=== PATIENT | female | born 1955 | race Caucasian/White ===

== ENCOUNTER 2021-01-16 09:16 | Emergency (ER) | payer OTHER, SELFPAY ==
[2021-01-16] VITALS (8 sets, daily range): BP systolic 95–106; BP diastolic 43–56; PULSE 69–80; RESP 14–17; TEMP 36.7–36.8; O2SAT 95–99; BMI 25.1
--- NOTE | ~2021-01-16 | CT_ITS ---
EXAMINATION: CTA CHEST CT ABDOMEN AND PELVIS WITH CONTRAST CLINICAL INFORMATION: Syncope. Positive COVID virus. COMPARISON: None TECHNIQUE: 5 mm thin axial and reformatted 3 mm thin sagittal and coronal images of chest were obtained. In addition, 8 mm triplanar thick cuts were obtained. 5 mm thin axial and reformatted 3 mm thin sagittal and coronal images of abdomen and pelvis were obtained following IV contrast. DLP 930 mGy-cm FINDINGS: CHEST: There is good opacification of pulmonary artery and its branches without any evidence of PE or narrowing. The thoracic aorta is of normal caliber. No dissection or aneurysm seen. The heart size is normal. No pericardial effusion seen. No abnormal size mediastinal mass or lymph nodes visualized. The thyroid lobes are symmetrical and normal. There is bilateral apical parenchymal scarring and apical pleural thickening. The lungs are otherwise clear of acute pneumonic process. There is no pulmonary nodule, consolidation or ground-glass density. There is dependent bibasilar atelectasis. No pleural effusion, thickening, calcification, or pneumothorax. The axillae and the chest wall appear unremarkable. There are median sternotomy sutures from previous intervention. ABDOMEN AND PELVIS: The liver is mildly attenuated without any hepatomegaly, focal lesion or intrahepatic duct dilatation. The gallbladder appears unremarkable. Visualized spleen, pancreas and adrenal glands are unremarkable. Nephrograms are normal size, shape and position. There are no radiopaque renal calculi or hydronephrosis. There is a 1.1 cm cyst and a punctate 3 mm cyst upper pole cortex right kidney. Similarly, there is a small 3 mm punctate cyst in the mid to lower pole left kidney. There are bilateral extrarenal kidney pelvises. The abdominal aorta is normal caliber. There are no retroperitoneal lymph nodes or mass seen. The bowel gas pattern is nonspecific with scattered stool and diverticula seen throughout the colon. The small bowel loops are normal caliber. No inflammatory process seen in the abdomen. There is no abdominal wall hernia. Imaging through the pelvis reveals a low-lying cecum. A tubular structure is seen arising from the tip of the cecum on coronal projection, a normal appendix. There is no free fluid or free air. Bone windows reveal minimal levoscoliosis. There are degenerative disc changes L2-L3 and L5-S1 disc levels with vacuum disc phenomena. No lytic or sclerotic process seen. CT/CT angio chest PE protocol IMPRESSION: No evidence of PE. No evidence of aortic dissection or aneurysm. Bilateral apical pleural thickening and apical scarring. No acute process. Bilateral renal cysts. No radiopaque calculi or hydronephrosis. Mild constipation. Diffuse colonic diverticulosis without diverticulitis. No obstruction. Normal appendix. Mild fatty attenuation of liver. No focal lesion seen.
--- NOTE | 2021-01-16 10:02 | ECG_ITS ---
Test Reason : SYNCOPE Blood Pressure : / mmHG Vent. Rate : 074 BPM Atrial Rate : 074 BPM P-R Int : 128 ms QRS Dur : 088 ms QT Int : 394 ms P-R-T Axes : 016 037 083 degrees QTc Int : 437 ms Normal sinus rhythm T wave abnormality, consider anterior ischemia Abnormal ECG No previous ECGs available Referred By: Alyssa Caruso Electronically Signed By:Jose Sutherland
--- NOTE | 2021-01-16 10:08 | ED_ITS ---
HPI - Nausea/Vomiting/Diarrhea General Chief complaint: Syncope Stated complaint: VOMITING, WEAKNESS Time Seen by Provider: 01/16/21 10:01 Source: patient Mode of arrival: ambulatory Limitations: no limitations History of Present Illness HPI Narrative: 65 yo female with afib no AC therapy here with n/v/d x [address] dental cleaning - more weak every day and c/o syncopal event without trauma due to weakness today MD elicited complaint: nausea, vomiting, diarrhea and abdominal pain Pertinent past history: other (started after dental cleaning) Onset (ago): day(s) (2) Associated nausea: Yes Associated abdominal pain: Yes Location of pain: diffuse Radiation: diffuse Pain consistency: intermittent Severity: moderate Quality: cramping Exacerbating factors: none Relieving factors: none Associated symptoms: loss of appetite, malaise, nausea/vomiting, syncope and weakness Related Data Home Medications Medication Instructions Recorded Confirmed albuterol sulfate 90 mcg/actuation 2 puff INHALATION Q4-6H PRN 11/11/20 01/16/21 aerosol inhaler aspirin 81 mg tablet,delayed 81 mg PO DAILY 11/11/20 01/16/21 release calcium carbonate 600 mg (1,500 1 tab PO DAILY 11/11/20 01/16/21 mg)-vitamin D3 200 unit tablet cyanocobalamin (vitamin B-12) 1,000 mcg PO DAILY 11/11/20 01/16/21 1,000 mcg capsule folic acid 800 mcg tablet 0.8 mg PO DAILY 11/11/20 01/16/21 zinc 50 mg tablet 50 mg PO DAILY 11/11/20 01/16/21 Previous Rx's Medication Instructions Recorded ondansetron 4 mg PO Q8H PRN #20 tab 01/16/21 Allergies Allergy/AdvReac Type Severity Reaction Status Date / Time acetaminophen [Percocet] Allergy Unknown stomach Verified 10/28/20 06:46 upset oxycodone [Percocet] Allergy Unknown stomach Verified 10/28/20 06:46 upset pneumococcal vaccine Allergy Unknown Unknown Verified 10/28/20 06:46 Review of Systems Review of Systems: Constitutional : No Weight loss, No Fever, No Chills ENT/Mouth : No sore throat, No Rhinorrhea Eyes: No Swelling, No Redness Cardiovascular : No Chest Pain, No SOB, NoEdema Respiratory : No Cough, No Sputum, No Wheezing Gastrointestinal : Positive Nausea, Positive Vomiting, positive Diarrhea, positive abdominal Pain, No Hematochezia, No Melena Genitourinary : No Dysuria, No Urinary Frequency, No Hematuria, No Urgency Musculoskeletal : No joint pain, No Myalgias, No Joint Swelling Skin : No Skin Lesions, No rash Neuro : pos Weakness, No Numbness, No Dizziness, No Headache, pos syncope Psych : No Anxiety/Panic, No Depression Heme/Lymph: No Bruising, No Lymphadenopathy Endocrine : No Polyuria, No Polydipsia All other systems reviewed and are negative. Gastrointestinal: Gastrointestinal: Reports nausea PMFSH Past Medical History Attestation statement: The following information was validated with the patient. Medical History Asthma Atrial fibrillation Osteoporosis Vitamin D deficiency Surgical History History of hysterectomy History of left knee surgery History of tonsillectomy Hx of mitral valve repair Family History Family History (Updated 10/28/20 @ 07:03 by Lashawn Angel Christal) Father Melanoma Mother No problems noted. Maternal Aunt Breast cancer Brother Myasthenia gravis Social History Social History Alcohol intake: never Smoking Status: Never smoker Use of substances other than those prescribed or required for medical reasons: No Advance Directives: No Advance Directives Information Provided: Yes Physical Exam Vital Signs: Vital Signs: Last Vital Signs Temp 98.0 F 01/16/21 13:09 Pulse 75 01/16/21 15:54 Resp 17 01/16/21 15:54 BP 103/56 L 01/16/21 15:54 Pulse Ox 95 01/16/21 15:54 Body Mass Index 25.1 Appearance: Alert. Oriented X3. No acute distress. Eyes: Pupils equal, round and reactive to light. ENT: Pharynx dry MMM Neck: Normal inspection. Neck supple. CVS: Normal heart rate and rhythm. Pulses normal. Respiratory: No respiratory distress. Breath sounds normal. Abdomen: Soft and mild diffuse ttp no rebound or guarding Skin: Skin warm and dry. Normal skin color. Normal skin turgor. Extremities: No lower extremity edema. No calf ttp Neuro: Oriented X 3. No motor deficit. No sensory deficit. Course Course Course Narrative: T wave inversions present from 2016 from [facility] EKG given sycnope and COVID will r/o PE with CTA able to tolerate PO and strong gait, feels much better stable for DC MDM - Nausea/Vomiting/Diarrhea MDM Narrative Medical decision making narrative: 65 yo female with hx of afib and MVR but not on AC therapy noted she had dental cleaning with some new product (tasted bad) doesn't know the name but not antibiotic, that night she developed n/v and inability to eat, she developed diarrhea yesterday and today, she is feeling more weak as well as was in shower today and felt weak and syncopized denies trauma, at this time will need labs, CT scan for colitis, IVF x 2, zofran, EKG, no CP/SOB to suggest ACS or PE, no head injury to suggest ICH Lab Data Result diagrams: 01/16/21 10:39 01/16/21 10:39 Labs: Lab Results 01/16/21 01/16/21 01/16/21 Range/Units 10:39 10:39 10:39 WBC 7.2 (4.8-10.8) X10*3/uL RBC 4.61 (4.20-5.50) X10*6/uL Hgb 14.7 (12.0-16.0) g/dl Hct 44.9 (37-47) % MCV 97.4 (80-98) fL MCH 31.9 (27.0-33.0) pg MCHC 32.7 (31.0-35.0) g/dl RDW 12.2 (11.0-16.0) % Plt Count 124 L (160-400) X10*3/uL MPV 11.8 (9.4-12.3) fL Immature Gran % (Auto) 0.1 (0.0-0.4) % Neut % (Auto) 85.9 H (45-73) % Lymph % (Auto) 6.5 L (20-40) % [place] % (Auto) 7.5 (2-11) % Eos % (Auto) 0.0 (0-4) % Baso % (Auto) 0.0 (0-2) % Lymph # (Auto) 0.5 L (1.2-4.9) X10*3/uL [place] # (Auto) 0.5 (0.1-1.2) X10*3/uL Eos # (Auto) 0.0 (0.0-0.4) X10*3/uL Baso # (Auto) 0.0 (0.0-0.2) X10*3/uL Abs Immat Gran (auto) 0.01 (0.00-0.03) X10*3/uL Absolute Neuts (auto) 6.2 (2.0-8.3) X10*3/uL Absolute Nucleated RBC 0.000 (0.0-0.012) X10*3/uL Nucleated RBC % (auto) 0.0 (0.0-0.2) /100WBC Smear Tech's Comments VERIFIED D-Dimer 438 NG/ML Hold Blue Top SEE NOTE Sodium 137 (135-145) mmol/L Potassium 4.1 (3.3-5.1) mmol/L Chloride 101 (96-108) mmol/L Carbon Dioxide 27 (22-29) mmol/L Anion Gap 13 (12-20) BUN 20 H (9-16) mg/dL Creatinine 0.89 (0.5-1.4) mg/dL Estim Creat Clear Calc 64.1 Estimated GFR > 60 Random Glucose 162 H (60-115) mg/dL Lactic Acid (0.5-2.0) mmol/L Calcium 9.0 (8.4-10.2) mg/dL Magnesium 2.1 (1.6-2.6) mg/dL Total Bilirubin 0.7 (0.0-1.0) mg/dL Direct Bilirubin 0.3 (0.0-0.5) mg/dL AST 22 (5-31) U/L ALT 21 (0-31) U/L Alkaline Phosphatase 77 (39-117) U/L Troponin I High Sens (<3.5-17.0) ng/L Total Protein 6.6 (6.5-8.0) g/dL Albumin 4.1 (3.5-5.0) g/dL Lipase 83 H (8-78) U/L Urine Color Urine Appearance Urine pH (5.0-8.0) Ur Specific [place] (1.005-1.025) Urine Protein (NEG-TRACE) MG/DL Urine Glucose (UA) (NEG) MG/DL Urine Ketones (NEG) MG/DL Urine Blood (NEG) Urine Nitrite (NEG) Ur Leukocyte Esterase (NEG) Urine RBC (0) /HPF Urine WBC (0-4) /HPF Ur Squamous Epith Cells /LPF Urine Bacteria /LPF COVID-19 (MAX) (Negative) COVID-19 Clin Com 01/16/21 01/16/21 01/16/21 Range/Units 10:39 10:39 10:39 WBC (4.8-10.8) X10*3/uL RBC (4.20-5.50) X10*6/uL Hgb (12.0-16.0) g/dl Hct (37-47) % MCV (80-98) fL MCH (27.0-33.0) pg MCHC (31.0-35.0) g/dl RDW (11.0-16.0) % Plt Count (160-400) X10*3/uL MPV (9.4-12.3) fL Immature Gran % (Auto) (0.0-0.4) % Neut % (Auto) (45-73) % Lymph % (Auto) (20-40) % [place] % (Auto) (2-11) % Eos % (Auto) (0-4) % Baso % (Auto) (0-2) % Lymph # (Auto) (1.2-4.9) X10*3/uL [place] # (Auto) (0.1-1.2) X10*3/uL Eos # (Auto) (0.0-0.4) X10*3/uL Baso # (Auto) (0.0-0.2) X10*3/uL Abs Immat Gran (auto) (0.00-0.03) X10*3/uL Absolute Neuts (auto) (2.0-8.3) X10*3/uL Absolute Nucleated RBC (0.0-0.012) X10*3/uL Nucleated RBC % (auto) (0.0-0.2) /100WBC Smear Tech's Comments D-Dimer NG/ML Hold Blue Top Sodium (135-145) mmol/L Potassium (3.3-5.1) mmol/L Chloride (96-108) mmol/L Carbon Dioxide (22-29) mmol/L Anion Gap (12-20) BUN (9-16) mg/dL Creatinine (0.5-1.4) mg/dL Estim Creat Clear Calc Estimated GFR Random Glucose (60-115) mg/dL Lactic Acid 1.5 (0.5-2.0) mmol/L Calcium (8.4-10.2) mg/dL Magnesium (1.6-2.6) mg/dL Total Bilirubin (0.0-1.0) mg/dL Direct Bilirubin (0.0-0.5) mg/dL AST (5-31) U/L ALT (0-31) U/L Alkaline Phosphatase (39-117) U/L Troponin I High Sens 6.9 (<3.5-17.0) ng/L Total Protein (6.5-8.0) g/dL Albumin (3.5-5.0) g/dL Lipase (8-78) U/L Urine Color Urine Appearance Urine pH (5.0-8.0) Ur Specific [place]owell (1.005-1.025) Urine Protein (NEG-TRACE) MG/DL Urine Glucose (UA) (NEG) MG/DL Urine Ketones (NEG) MG/DL Urine Blood (NEG) Urine Nitrite (NEG) Ur Leukocyte Esterase (NEG) Urine RBC (0) /HPF Urine WBC (0-4) /HPF Ur Squamous Epith Cells /LPF Urine Bacteria /LPF COVID-19 (MAX) Positive A (Negative) COVID-19 Clin Com See Note 01/16/21 Range/Units 13:13 WBC (4.8-10.8) X10*3/uL RBC (4.20-5.50) X10*6/uL Hgb (12.0-16.0) g/dl Hct (37-47) % MCV (80-98) fL MCH (27.0-33.0) pg MCHC (31.0-35.0) g/dl RDW (11.0-16.0) % Plt Count (160-400) X10*3/uL MPV (9.4-12.3) fL Immature Gran % (Auto) (0.0-0.4) % Neut % (Auto) (45-73) % Lymph % (Auto) (20-40) % [place] % (Auto) (2-11) % Eos % (Auto) (0-4) % Baso % (Auto) (0-2) % Lymph # (Auto) (1.2-4.9) X10*3/uL [place] # (Auto) (0.1-1.2) X10*3/uL Eos # (Auto) (0.0-0.4) X10*3/uL Baso # (Auto) (0.0-0.2) X10*3/uL Abs Immat Gran (auto) (0.00-0.03) X10*3/uL Absolute Neuts (auto) (2.0-8.3) X10*3/uL Absolute Nucleated RBC (0.0-0.012) X10*3/uL Nucleated RBC % (auto) (0.0-0.2) /100WBC Smear Tech's Comments D-Dimer NG/ML Hold Blue Top Sodium (135-145) mmol/L Potassium (3.3-5.1) mmol/L Chloride (96-108) mmol/L Carbon Dioxide (22-29) mmol/L Anion Gap (12-20) BUN (9-16) mg/dL Creatinine (0.5-1.4) mg/dL Estim Creat Clear Calc Estimated GFR Random Glucose (60-115) mg/dL Lactic Acid (0.5-2.0) mmol/L Calcium (8.4-10.2) mg/dL Magnesium (1.6-2.6) mg/dL Total Bilirubin (0.0-1.0) mg/dL Direct Bilirubin (0.0-0.5) mg/dL AST (5-31) U/L ALT (0-31) U/L Alkaline Phosphatase (39-117) U/L Troponin I High Sens (<3.5-17.0) ng/L Total Protein (6.5-8.0) g/dL Albumin (3.5-5.0) g/dL Lipase (8-78) U/L Urine Color YELLOW Urine Appearance CLEAR Urine pH 5.5 (5.0-8.0) Ur Specific Stowell 1.010 (1.005-1.025) Urine Protein NEG (NEG-TRACE) MG/DL Urine Glucose (UA) NEG (NEG) MG/DL Urine Ketones 5 (NEG) MG/DL Urine Blood TRACE (NEG) Urine Nitrite NEG (NEG) Ur Leukocyte Esterase NEG (NEG) Urine RBC 1-4 (0) /HPF Urine WBC 0 (0-4) /HPF Ur Squamous Epith Cells 2+ /LPF Urine Bacteria NONE /LPF COVID-19 (MAX) (Negative) COVID-19 Clin Com ECG Data Attestation: I personally reviewed and interpreted this ECG as follows: ECG interpretation date: 01/16/21 ECG interpretation time: 10:27 Interpretation: Rate: 74 Rhythm: NSR [place]: normal Normal P waves. Normal SKY. Normal QRS complex. ST T wave : inverted V1-V5, no GAEL qTC: normal prior studies: none available The study has been interpreted contemporaneously by me. . Discharge Plan Discharge Clinical Impression: COVID-19, Orthostatic hypotension Vomiting Qualifiers: Vomiting type: unspecified Vomiting Intractability: non-intractable Nausea presence: with nausea Qualified Code(s): R11.2 - Nausea with vomiting, unspecified Patient Disposition: Home, Self-Care Instructions: Syncope (ED), Acute Nausea and Vomiting (ED), Hypotension (ED), COVID-19 (Coronavirus Disease 2019) (ED) Additional Instructions: return to ED for any worsening symptoms or concerns STAY HYDRATED Prescriptions: New ondansetron 4 mg tablet,disintegrating 4 mg PO Q8H PRN (Reason: nausea and vomiting) Qty: 20 RF: 0 No Action calcium carbonate-vitamin D3 [Calcium 600 + D(3)] 600 mg(1,500mg) -200 unit tablet 1 tab PO DAILY RF: 0 cyanocobalamin (vitamin B-12) 1,000 mcg capsule 1,000 mcg PO DAILY RF: 0 folic acid 800 mcg tablet 0.8 mg PO DAILY RF: 0 albuterol sulfate [ProAir HFA] 90 mcg/actuation HFA aerosol inhaler 2 puff inhalation Q4-6H PRN (Reason: Wheezing) RF: 0 aspirin [Adult Aspirin Regimen] 81 mg tablet,delayed release (DR/EC) 81 mg PO DAILY RF: 0 zinc 50 mg tablet 50 mg PO DAILY RF: 0 Stand Alone Forms: Work/School Release
[2021-01-16 10:52] LABS: Imm Gran Abs Auto 0.01 X10*3/uL (0.00-0.03); Imm Gran Pct Auto 0.1 % (0.0-0.4); MANUAL DIFF FLAG SCAN; PLT CLUMP 1; Red Cell Distribution Width 12.2 % (11.0-16.0); SCAN SMEAR FLAG 1
[2021-01-16 10:54] LABS: Hematocrit 44.9 % (37-47); Hemoglobin 14.7 g/dl (12.0-16.0); Lymphocytes Absolute Auto 0.5 X10*3/uL (1.2-4.9); Lymphocytes Percent Auto 6.5 % (20-40); Mean Corpuscular HGB Conc 32.7 g/dl (31.0-35.0); Mean Corpuscular Hemoglobin 31.9 pg (27.0-33.0); Mean Corpuscular Volume 97.4 fL (80-98); Mean Platelet Volume 11.8 fL (9.4-12.3); Monocytes Absolute Auto 0.5 X10*3/uL (0.1-1.2); Monocytes Percent Auto 7.5 % (2-11); Neutrophils Absolute Auto 6.2 X10*3/uL (2.0-8.3); Neutrophils Percent Auto 85.9 % (45-73); Platelet Count 124 X10*3/uL (160-400); Red Blood Count 4.61 X10*6/uL (4.20-5.50); White Blood Count 7.2 X10*3/uL (4.8-10.8)
[2021-01-16] MEDS: ondansetron HCL 4 MG/2 ML VIAL IVPUSH (10:54)
[2021-01-16] MEDS: 0.9 % Sodium Chloride 1,000 ML 999 ML IVCONT ×2 (10:54)
[2021-01-16 11:08] LABS: D Dimer 438 NG/ML
[2021-01-16 11:09] LABS: Lactic Acid 1.5 mmol/L (0.5-2.0)
[2021-01-16 11:10] LABS: COVID-19 Test Positive (Negative)
[2021-01-16 11:12] LABS: SLIDE REVIEW VERIFIED
[2021-01-16 11:17] LABS: Alanine Aminotransferase 21 U/L (0-31); Albumin Level 4.1 g/dL (3.5-5.0); Alkaline Phosphatase 77 U/L (39-117); Anion Gap 13 (12-20); Aspartate Amino Transferase 22 U/L (5-31); Bilirubin Direct 0.3 mg/dL (0.0-0.5); Bilirubin Total 0.7 mg/dL (0.0-1.0); Blood Urea Nitrogen 20 mg/dL (9-16); Carbon Dioxide 27 mmol/L (22-29); Chloride 101 mmol/L (96-108); Creatinine Clr Calc Pharmacy 64.1; Estimated Glomerular Filt Rate > 60; Glucose Random 162 mg/dL (60-115); Magnesium 2.1 mg/dL (1.6-2.6); Potassium 4.1 mmol/L (3.3-5.1); Sodium 137 mmol/L (135-145); Total Protein 6.6 g/dL (6.5-8.0)
[2021-01-16 11:20] LABS: Troponin-I High Sensitivity 6.9 ng/L (<3.5-17.0)
[2021-01-16 11:34] LABS: Lipase 83 U/L (8-78)
[2021-01-16] MEDS: iohexoL 350 MG/ML 100 ML INFUS..BTL IV (13:08)
[2021-01-16 13:24] LABS: Glucose Urine UA NEG (NEG); Leukocyte Esterase Urine NEG (NEG); Nitrite Urine NEG (NEG); PH 5.5 (5.0-8.0); Urine Blood TRACE (NEG); Urine Ketones 5 MG/DL (NEG); Urine Protein NEG (NEG-TRACE)
[2021-01-16 13:26] LABS: Appearance Urine CLEAR; Color Urine YELLOW
[2021-01-16 13:39] LABS: Squamous Epithelial Cell Urine 2+ /LPF; WBC Urine 0 /HPF (0-4)
--- NOTE | 2021-01-16 15:55 | PC.NURSE ---
pt ambulatory in room with steady gait. She denies dizziness with rising or ambulation
== END 2021-01-16 16:31 | disposition home or self-care (01) ==
PROVIDERS: Emergency Provider Emergency Medicine; PCP Internal Medicine
DX: U07.1 COVID-19 (principal); I95.1 Orthostatic hypotension; R11.2 Nausea with vomiting, unspecified; J45.909 Unspecified asthma, uncomplicated; I48.0 Paroxysmal atrial fibrillation; Z95.4 Presence of other heart-valve replacement; Z79.82 Long term (current) use of aspirin; Z79.899 Other long term (current) drug therapy
CPT/HCPCS: 36415; 71275; 74177; 80048; 80076; 81001; 83605; 83690; 83735; 84484; 85025; 85379; 87040; 87635; 93005; 96361; 96374; 99284; 99285; J2405; Q9967

== ENCOUNTER 2021-01-17 19:36 | Inpatient (IN) | payer OTHER, MEDICARE, SELFPAY ==
--- NOTE | ~2021-01-17 | XR_ITS ---
EXAMINATION: XR CHEST CLINICAL INFORMATION: Shortness of breath. Covid positive. COMPARISON: Chest x-ray 08/19/2016. CT chest 01/16/2021 TECHNIQUE: Frontal portable view of the chest was obtained. 7:40 PM FINDINGS: Status post median sternotomy. Heart size normal. Cardiac mediastinal contours normal. No acute abnormality. No pulmonary vascular congestion. No focal consolidation. No pleural effusions. XR/XR chest 1V IMPRESSION: Unremarkable examination.
--- NOTE | ~2021-01-17 | XR_ITS ---
EXAMINATION: XR CHEST CLINICAL INFORMATION: Shortness of breath COMPARISON: 01/17/2021 TECHNIQUE: Frontal view of the chest was obtained. FINDINGS: Cardiac leads overlie the chest. Median sternotomy wires appear intact. Lung volumes are low. Small left pleural effusion. Patchy airspace opacities are seen at both lung bases. No pneumothorax. The cardiomediastinal silhouette is within normal limits. XR/XR chest 1V IMPRESSION: Small left pleural effusion. Patchy bilateral airspace opacities at the lung bases could be infectious or inflammatory.
[2021-01-17 19:34] VITALS: BP 86/55; O2SAT 95
[2021-01-17 19:36] VITALS: BP 88/35; PULSE 66; RESP 18; TEMP 37.1; O2SAT 95; BMI 29.2
--- NOTE | 2021-01-17 19:42 | ECG_ITS ---
Test Reason : HYPO TN Blood Pressure : / mmHG Vent. Rate : 067 BPM Atrial Rate : 067 BPM P-R Int : 130 ms QRS Dur : 090 ms QT Int : 444 ms P-R-T Axes : 068 062 074 degrees QTc Int : 469 ms Normal sinus rhythm Nonspecific T wave abnormality Abnormal ECG When compared with ECG of 16-JAN-2021 10:20, Nonspecific T wave abnormality has replaced inverted T waves in Anterior leads Referred By: Quintin Starks Electronically Signed By:BAR RAINES MD
[2021-01-17] MEDS: 0.9 % Sodium Chloride 1,000 ML 999 ML IVCONT ×2 (19:45→23:28)
--- NOTE | 2021-01-17 19:53 | PC.NURSE ---
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 NS up and running w/o, iV placed by EMS. MD in room for eval. CXR obtained. Pt awaiting for labs and EKG. Will continue to monitor pt.
[2021-01-17 20:13] LABS: MANUAL DIFF FLAG SCAN; Mean Corpuscular Volume 96.4 fL (80-98); PLT CLUMP 1; Red Cell Distribution Width 12.1 % (11.0-16.0); SCAN SMEAR FLAG 1
[2021-01-17 20:15] LABS: Hematocrit 39.9 % (37-47); Hemoglobin 13.3 g/dl (12.0-16.0); Imm Gran Abs Auto 0.01 X10*3/uL (0.00-0.03); Imm Gran Pct Auto 0.1 % (0.0-0.4); Lymphocytes Absolute Auto 0.6 X10*3/uL (1.2-4.9); Lymphocytes Percent Auto 8.1 % (20-40); Mean Corpuscular HGB Conc 33.3 g/dl (31.0-35.0); Mean Corpuscular Hemoglobin 32.1 pg (27.0-33.0); Mean Platelet Volume 11.6 fL (9.4-12.3); Monocytes Absolute Auto 0.5 X10*3/uL (0.1-1.2); Monocytes Percent Auto 6.9 % (2-11); Neutrophils Absolute Auto 5.8 X10*3/uL (2.0-8.3); Neutrophils Percent Auto 84.9 % (45-73); Red Blood Count 4.14 X10*6/uL (4.20-5.50); White Blood Count 6.8 X10*3/uL (4.8-10.8)
[2021-01-17 20:16] LABS: Platelet Count 93 X10*3/uL (160-400)
[2021-01-17 20:19] LABS: INTERNATIONAL NORM RATIO 1.3 (0.9-1.1); Prothrombin Time 15.7 SEC (10.8-13.0)
[2021-01-17 20:21] LABS: Partial Thromboplastin Time 28.4 SEC (24.1-38.0)
[2021-01-17 20:38] LABS: SLIDE REVIEW VERIFIED
[2021-01-17 20:45] LABS: Alanine Aminotransferase 21 U/L (0-31); Albumin Level 3.6 g/dL (3.5-5.0); Alkaline Phosphatase 61 U/L (39-117); Anion Gap 14 (12-20); Aspartate Amino Transferase 22 U/L (5-31); Bilirubin Direct 0.3 mg/dL (0.0-0.5); Bilirubin Total 0.7 mg/dL (0.0-1.0); Blood Urea Nitrogen 15 mg/dL (9-16); Carbon Dioxide 25 mmol/L (22-29); Chloride 102 mmol/L (96-108); Creatinine Clr Calc Pharmacy 85.9; Estimated Glomerular Filt Rate > 60; Glucose Random 117 mg/dL (60-115); Potassium 3.5 mmol/L (3.3-5.1); Sodium 137 mmol/L (135-145); Total Protein 5.7 g/dL (6.5-8.0)
[2021-01-17 21:24] VITALS: BP 95/47; PULSE 75; RESP 16; O2SAT 95
--- NOTE | 2021-01-17 21:46 | ED.GENADULT ---
HPI - General Adult General Chief complaint: General Medical Stated complaint: weekness Time Seen by Provider: 01/17/21 19:40 Source: patient Mode of arrival: EMS Limitations: no limitations History of Present Illness HPI narrative: Patient with diagnosis of COVID-19 on 01/16 been feeling weak had diarrhea before not eating well had near-syncope episode yesterday while taking shower and today before calling ambulance saw her sitting on the table with face down and almost passed out. No head injury no fever no cough or shortness of breath patient had 2 times loose bowels yesterday patient denies any chest pain not eating well when EMS reached blood pressure was 70/40 86/55 after 250 cc of normal saline bolus on arrival patient's blood pressure was 88/35 heart rate 66 afebrile Related Data Home Medications Medication Instructions Recorded Confirmed albuterol sulfate 90 mcg/actuation 2 puff INHALATION Q4-6H PRN 11/11/20 01/16/21 aerosol inhaler aspirin 81 mg tablet,delayed 81 mg PO DAILY 11/11/20 01/16/21 release calcium carbonate 600 mg (1,500 1 tab PO DAILY 11/11/20 01/16/21 mg)-vitamin D3 200 unit tablet cyanocobalamin (vitamin B-12) 1,000 mcg PO DAILY 11/11/20 01/16/21 1,000 mcg capsule folic acid 800 mcg tablet 0.8 mg PO DAILY 11/11/20 01/16/21 zinc 50 mg tablet 50 mg PO DAILY 11/11/20 01/16/21 Previous Rx's Medication Instructions Recorded ondansetron 4 mg PO Q8H PRN #20 tab 01/16/21 Allergies Allergy/AdvReac Type Severity Reaction Status Date / Time acetaminophen [Percocet] Allergy Unknown stomach Verified 10/28/20 06:46 upset oxycodone [Percocet] Allergy Unknown stomach Verified 10/28/20 06:46 upset pneumococcal vaccine Allergy Unknown Unknown Verified 10/28/20 06:46 Review of Systems Review of Systems: Constitutional : No Weight loss, No Fever, No Chills ENT/Mouth : No sore throat, No Rhinorrhea Eyes: No Eye Pain, No Swelling Cardiovascular : No Chest Pain, no palpitations Respiratory : No Cough, No Sputum, no shortness of breath Gastrointestinal : no Nausea, No Vomiting, No Diarrhea, No abdominal Pain, no black stools Genitourinary : No Dysuria, No Urinary Frequency Musculoskeletal : No joint pain, No Myalgias, No Joint Swelling Skin : No Skin Lesions, No rash Neuro : ++ Weakness, No Numbness, No Dizziness, No Headache Psych : No Anxiety/Panic, No Depression Heme/Lymph: No Bruising, No Lymphadenopathy Endocrine : No Polyuria, No Polydipsia All other systems reviewed and are negative [facility] Past Medical History Medical History Asthma Atrial fibrillation Osteoporosis Vitamin D deficiency Surgical History History of hysterectomy History of left knee surgery History of tonsillectomy Hx of mitral valve repair Family History Family History Father Melanoma Mother No problems noted. Maternal Aunt Breast cancer Brother Myasthenia gravis Social History Social History Alcohol intake: never Smoking Status: Never smoker Advance Directives: No Advance Directives Information Provided: No Physical Exam Vital Signs: Vital Signs: Last Vital Signs Temp 98.8 F 01/18/21 00:23 Pulse 59 01/18/21 00:23 Resp 16 01/18/21 00:23 BP 91/52 L 01/18/21 00:23 Pulse Ox 94 01/18/21 00:23 Body Mass Index 29.2 Appearance: Alert. Oriented X3. No acute distress. Looks weak Eyes: Pupils equal, round and reactive to light. ENT: Pharynx normal. Dry oral mucosa Neck: Normal inspection. Neck supple. CVS: Normal heart rate and rhythm. Pulses normal. Respiratory: No respiratory distress. Breath sounds normal. Abdomen: Soft and nontender. Bowel sounds are present, no mass palpable, no CVA tenderness Skin: Skin warm and dry. Normal skin color. Normal skin turgor. Extremities: No lower extremity edema. No calf tenderness Neuro: Oriented X 3. No motor deficit. No sensory deficit. Medical Decision Making MDM Narrative Medical decision making narrative: Patient with COVID-19 infection with significant hypotension with near syncope this episode with poor oral intake. Patient received IV fluids in the ER feeling much better now urine showed leuko esterase positive with nitrite positive normal lactic acid level blood cultures were drawn will give IV Rocephin. Rule out gram-negative bacteremia as a cause of hypertension although WBC counts are normal. Will admit patient for IV hydration. blood pressure 91/52 will give p.o. midodrine also Lab Data Lab results reviewed: Yes I reviewed the patient's lab results. Result diagrams: 01/17/21 20:08 01/17/21 20:07 Labs: Lab Results 01/17/21 01/17/21 01/17/21 Range/Units 20:07 20:08 20:08 WBC 6.8 (4.8-10.8) X10*3/uL RBC 4.14 L (4.20-5.50) X10*6/uL Hgb 13.3 (12.0-16.0) g/dl Hct 39.9 (37-47) % MCV 96.4 (80-98) fL MCH 32.1 (27.0-33.0) pg MCHC 33.3 (31.0-35.0) g/dl RDW 12.1 (11.0-16.0) % Plt Count 93 L (160-400) X10*3/uL MPV 11.6 (9.4-12.3) fL Immature Gran % (Auto) 0.1 (0.0-0.4) % Neut % (Auto) 84.9 H (45-73) % Lymph % (Auto) 8.1 L (20-40) % [place] % (Auto) 6.9 (2-11) % Eos % (Auto) 0.0 (0-4) % Baso % (Auto) 0.0 (0-2) % Lymph # (Auto) 0.6 L (1.2-4.9) X10*3/uL [place] # (Auto) 0.5 (0.1-1.2) X10*3/uL Eos # (Auto) 0.0 (0.0-0.4) X10*3/uL Baso # (Auto) 0.0 (0.0-0.2) X10*3/uL Abs Immat Gran (auto) 0.01 (0.00-0.03) X10*3/uL Absolute Neuts (auto) 5.8 (2.0-8.3) X10*3/uL Absolute Nucleated RBC 0.000 (0.0-0.012) X10*3/uL Nucleated RBC % (auto) 0.0 (0.0-0.2) /100WBC Smear Tech's Comments VERIFIED PT 15.7 H (10.8-13.0) SEC INR 1.3 H (0.9-1.1) APTT 28.4 (24.1-38.0) SEC Sodium 137 (135-145) mmol/L Potassium 3.5 (3.3-5.1) mmol/L Chloride 102 (96-108) mmol/L Carbon Dioxide 25 (22-29) mmol/L Anion Gap 14 (12-20) BUN 15 (9-16) mg/dL Creatinine 0.76 (0.5-1.4) mg/dL Estim Creat Clear Calc 85.9 Estimated GFR > 60 Random Glucose 117 H (60-115) mg/dL Lactic Acid (0.5-2.0) mmol/L Calcium 8.0 L D (8.4-10.2) mg/dL Total Bilirubin 0.7 (0.0-1.0) mg/dL Direct Bilirubin 0.3 (0.0-0.5) mg/dL AST 22 (5-31) U/L ALT 21 (0-31) U/L Alkaline Phosphatase 61 D (39-117) U/L Total Protein 5.7 L (6.5-8.0) g/dL Albumin 3.6 (3.5-5.0) g/dL Urine Color Urine Appearance Urine pH (5.0-8.0) Ur Specific [place] (1.005-1.025) Urine Protein (NEG-TRACE) MG/DL Urine Glucose (UA) (NEG) MG/DL Urine Ketones (NEG) MG/DL Urine Blood (NEG) Urine Nitrite (NEG) Ur Leukocyte Esterase (NEG) Urine RBC (0) /HPF Urine WBC (0-4) /HPF Ur Squamous Epith Cells /LPF Ur Renal Epithelial Cell /LPF Urine Bacteria /LPF 01/17/21 01/17/21 Range/Units 22:25 23:12 WBC (4.8-10.8) X10*3/uL RBC (4.20-5.50) X10*6/uL Hgb (12.0-16.0) g/dl Hct (37-47) % MCV (80-98) fL MCH (27.0-33.0) pg MCHC (31.0-35.0) g/dl RDW (11.0-16.0) % Plt Count (160-400) X10*3/uL MPV (9.4-12.3) fL Immature Gran % (Auto) (0.0-0.4) % Neut % (Auto) (45-73) % Lymph % (Auto) (20-40) % [place] % (Auto) (2-11) % Eos % (Auto) (0-4) % Baso % (Auto) (0-2) % Lymph # (Auto) (1.2-4.9) X10*3/uL [place] # (Auto) (0.1-1.2) X10*3/uL Eos # (Auto) (0.0-0.4) X10*3/uL Baso # (Auto) (0.0-0.2) X10*3/uL Abs Immat Gran (auto) (0.00-0.03) X10*3/uL Absolute Neuts (auto) (2.0-8.3) X10*3/uL Absolute Nucleated RBC (0.0-0.012) X10*3/uL Nucleated RBC % (auto) (0.0-0.2) /100WBC Smear Tech's Comments PT (10.8-13.0) SEC INR (0.9-1.1) APTT (24.1-38.0) SEC Sodium (135-145) mmol/L Potassium (3.3-5.1) mmol/L Chloride (96-108) mmol/L Carbon Dioxide (22-29) mmol/L Anion Gap (12-20) BUN (9-16) mg/dL Creatinine (0.5-1.4) mg/dL Estim Creat Clear Calc Estimated GFR Random Glucose (60-115) mg/dL Lactic Acid 0.8 (0.5-2.0) mmol/L Calcium (8.4-10.2) mg/dL Total Bilirubin (0.0-1.0) mg/dL Direct Bilirubin (0.0-0.5) mg/dL AST (5-31) U/L ALT (0-31) U/L Alkaline Phosphatase (39-117) U/L Total Protein (6.5-8.0) g/dL Albumin (3.5-5.0) g/dL Urine Color YELLOW Urine Appearance CLEAR Urine pH 6.0 (5.0-8.0) Ur Specific [place] 1.020 (1.005-1.025) Urine Protein NEG (NEG-TRACE) MG/DL Urine Glucose (UA) NEG (NEG) MG/DL Urine Ketones 5 (NEG) MG/DL Urine Blood TRACE (NEG) Urine Nitrite POS H (NEG) Ur Leukocyte Esterase 1+ H (NEG) Urine RBC 0-2 (0) /HPF Urine WBC 5-9 H (0-4) /HPF Ur Squamous Epith Cells TRACE /LPF Ur Renal Epithelial Cell TRACE /LPF Urine Bacteria 3+ /LPF ECG Data Attestation: I personally reviewed and interpreted this ECG as follows: Interpretation: Normal sinus rhythm heart rate 67 beats per minute normal intervals normal axis no acute ST T wave changes impression no acute ischemia Discharge Plan Discharge Clinical Impression: COVID-19, Near syncope, Acute UTI Patient Disposition: Admitted As Inpatient
[2021-01-17 22:23] VITALS: BP 86/49; PULSE 60; RESP 16; TEMP 36.8; O2SAT 93
--- NOTE | 2021-01-17 22:26 | PC.NURSE ---
PT UP TO COMMODE FOR URINE SAMPLE TO LAB. PT STATES I DON'T FEEL ANY BETTER . NS INFUSED W/O DIFFICULTY. SITE INTACT. PT AWAITING FOR FURTHER ORDERS.
[2021-01-17 22:33] LABS: Glucose Urine UA NEG (NEG); Leukocyte Esterase Urine 1+ (NEG); Nitrite Urine POS (NEG); UACC Culture Trigger YES; Urine Blood TRACE (NEG); Urine Ketones 5 MG/DL (NEG); Urine Protein NEG (NEG-TRACE)
[2021-01-17 22:34] LABS: Appearance Urine CLEAR; Color Urine YELLOW
[2021-01-17 22:43] LABS: Bacteria Urine 3+ /LPF; RBC Urine 0-2 /HPF (0); Renal Epithelial Cells Urine TRACE /LPF; Squamous Epithelial Cell Urine TRACE /LPF
[2021-01-17] MEDS: cefTRIAXone sodium 1 GM in 0.9 % Sodium Chloride 50 ML IV (23:26)
[2021-01-17 23:38] LABS: Lactic Acid 0.8 mmol/L (0.5-2.0)
[2021-01-18] VITALS (12 sets, daily range): BP systolic 91–119; BP diastolic 29–61; PULSE 52–78; RESP 13–20; TEMP 36.6–37.1; O2SAT 94–98
[2021-01-18] MEDS: Midodrine HCl 10 MG TABLET PO (01:16)
[2021-01-18] MEDS: 0.9 % Sodium Chloride 1,000 ML 999 ML IVCONT (01:17)
--- NOTE | 2021-01-18 04:14 | PC.NURSE ---
PT SLEEPING, WAKES TO VOICE, SKIN W/D. RESPIRATIONS EASY, N/L. PT AWAITING FOR ROOM ASSIGNMENT,
--- NOTE | 2021-01-18 05:51 | PM.IMHP ---
History of Present Illness Date of Service: 01/18/21 Chief Complaint: Syncope This is a 65-year-old female with past medical history of atrial fibrillation status post Maze procedure, asthma, who presents to the hospital with complaints of syncope. Patient reports that few days ago she syncopized in the shower without injuring her head, denies any prodromal or postictal symptoms. She reports that once again today while having dinner sitting at the dining table she syncopized for few seconds witnessed by her . She denies any chest pain, no palpitations, no headache or change in vision, she denies any shortness of breath, no head injury. She had no postictal or prodromal symptoms. She otherwise has been feeling weak for the past few days had 1 episode of vomiting today, has no cough, no shortness of breath, no fever or chills, no abdominal pain, no constipation or diarrhea. She reports no dysuria, no urgency or frequency. She denies any lower extremity edema On arrival hemodynamically stable with a temp of 98.0?, blood pressure on the lower end of 95/55, heart rate of 72, respiratory rate of 16, satting 98% on room air. Labs are significant for WBC of 6.8, hemoglobin of 13.3, platelet count of 93, PT of 15.7, INR of 1.3, sodium of 137, potassium 3.5, UA that is positive for nitrites, leukocyte Estrace and WBC. EKG shows nonspecific T-wave abnormality Chest x-ray shows unremarkable exam Past medical history as below and confirmed with patient Review of Systems Review of Systems: Yes all other systems are reviewed and are negative [facility] Medical History Asthma Atrial fibrillation Osteoporosis Vitamin D deficiency Family History Father Melanoma Mother No problems noted. Maternal Aunt Breast cancer Brother Myasthenia gravis Surgical History History of hysterectomy History of left knee surgery History of tonsillectomy Hx of mitral valve repair Social History Alcohol intake: never Smoking Status: Never smoker Advance Directives: No Advance Directives Information Provided: No Meds Allergies Allergy/AdvReac Type Severity Reaction Status Date / Time acetaminophen [Percocet] Allergy Unknown stomach Verified 10/28/20 06:46 upset oxycodone [Percocet] Allergy Unknown stomach Verified 10/28/20 06:46 upset pneumococcal vaccine Allergy Unknown Unknown Verified 10/28/20 06:46 Home Medications Medication Instructions Recorded Confirmed Last Taken Type aspirin 81 mg tablet,delayed 81 mg PO DAILY 11/11/20 01/18/21 Unknown History release Physical Exam Vital Signs and Narrative: Vital Signs: Last Vital Signs Temp 98.8 F 01/18/21 00:23 Pulse 52 01/18/21 04:00 Resp 16 01/18/21 02:35 BP 114/61 01/18/21 04:00 Pulse Ox 95 01/18/21 04:00 Body Mass Index 29.2 Const: General: cooperative and no acute distress Orientation/consciousness: patient oriented x3 Eyes: General: appearance normal, both eyes and all related structures Resp: Effort & Inspection: normal respiratory effort and able to speak in complete sentences Cardio: Rate: regular rate Rhythm: regular rhythm GI: Palpation (GI): Soft to palpation Auscultation: normal bowel sounds Skin: General skin exam: no rashes or lesions noted Neuro: General: patient oriented x3 Cognition (Neuro): normal cognition Extrem: General: Yes normal to inspection and Yes no pedal edema Results Labs CBC and Chem 7: 01/17/21 20:08 01/17/21 20:07 Labs: Laboratory Results - last 24 hr 01/17/21 01/17/21 01/17/21 20:07 20:08 20:08 MCV 96.4 MCH 32.1 MCHC 33.3 RDW 12.1 Plt Count 93 L MPV 11.6 Immature Gran % (Auto) 0.1 Neut % (Auto) 84.9 H Lymph % (Auto) 8.1 L [place] % (Auto) 6.9 Eos % (Auto) 0.0 Baso % (Auto) 0.0 Lymph # (Auto) 0.6 L [place] # (Auto) 0.5 Eos # (Auto) 0.0 Baso # (Auto) 0.0 Abs Immat Gran (auto) 0.01 Absolute Neuts (auto) 5.8 Absolute Nucleated RBC 0.000 Nucleated RBC % (auto) 0.0 Smear Tech's Comments VERIFIED PT 15.7 H INR 1.3 H APTT 28.4 Anion Gap 14 Estim Creat Clear Calc 85.9 Estimated GFR > 60 Random Glucose 117 H Lactic Acid Calcium 8.0 L D Total Bilirubin 0.7 Direct Bilirubin 0.3 AST 22 ALT 21 Alkaline Phosphatase 61 D Total Protein 5.7 L Albumin 3.6 Urine Color Urine Appearance Urine pH Ur Specific [place] Urine Protein Urine Glucose (UA) Urine Ketones Urine Blood Urine Nitrite Ur Leukocyte Esterase Urine RBC Urine WBC Ur Squamous Epith Cells Ur Renal Epithelial Cell Urine Bacteria 01/17/21 01/17/21 22:25 23:12 MCV MCH MCHC RDW Plt Count MPV Immature Gran % (Auto) Neut % (Auto) Lymph % (Auto) [place] % (Auto) Eos % (Auto) Baso % (Auto) Lymph # (Auto) [place] # (Auto) Eos # (Auto) Baso # (Auto) Abs Immat Gran (auto) Absolute Neuts (auto) Absolute Nucleated RBC Nucleated RBC % (auto) Smear Tech's Comments PT INR APTT Anion Gap Estim Creat Clear Calc Estimated GFR Random Glucose Lactic Acid 0.8 Calcium Total Bilirubin Direct Bilirubin AST ALT Alkaline Phosphatase Total Protein Albumin Urine Color YELLOW Urine Appearance CLEAR Urine pH 6.0 Ur Specific [place] 1.020 Urine Protein NEG Urine Glucose (UA) NEG Urine Ketones 5 Urine Blood TRACE Urine Nitrite POS H Ur Leukocyte Esterase 1+ H Urine RBC 0-2 Urine WBC 5-9 H Ur Squamous Epith Cells TRACE Ur Renal Epithelial Cell TRACE Urine Bacteria 3+ Imaging Radiologist's Impressions: Impressions Chest X-Ray 01/17/21 19:40 IMPRESSION: Unremarkable examination. Assessment and Plan (1) COVID-19: Status: Acute (2) Syncope: Status: Acute (3) Acute UTI: Status: Acute 65-year-old female past medical history of AFib status post Maze, who presents to the hospital with complaints of syncope found to have UTI and COVID-19 positive # syncopal episode - possibly secondary to cardiac disease given history of AFib - versus secondary to UTI/COVID-19 infection - orthostatic vitals negative - denies any prodromal or postictal symptoms - at this time will admit to telemetry and monitor for recurrence - may need 30 day event monitor on discharge # COVID-19 positive - asymptomatic at this time - monitor for respiratory deterioration # acute UTI - will treat her with ceftriaxone - Follow cultures # history of AFib - status post Maze procedure - not on any beta-blockers or anticoagulants DVT prophylaxis:heparin Subq
--- NOTE | 2021-01-18 06:44 | PC.NURSE ---
PT AWAITING FOR ROOM ASSIGNMENT. PT WAKES TO VOICE IN NAD. RESPIRATIONS EASY, N/L. SKIN W/D. WILL CONTINUE TO MONITOR PT.
[2021-01-18] MEDS: Heparin Sodium,Porcine 5,000 UNIT/ML VIAL 5000 UNIT SUBCUT ×2 (07:43→21:17)
--- NOTE | 2021-01-18 07:57 | PC.NURSE ---
Pt alert+ oriented, skin pink, warm, dry. O2 sat 92% RA, applied 2L O2 via NC, O2 sat 96%. Pt reports feeling weak and has no appetite. Pt reports burning with urination. Pt awaiting room assignment.
[2021-01-18] MEDS: 0.9 % Sodium Chloride Flush 3 ML SYRINGE IVFLUSH ×3 (08:12→21:13)
--- NOTE | 2021-01-18 08:33 | PC.NURSE ---
Pt's called to check on 's status and condition. This production underwriter told pt is currently in bed resting and awaiting room assignment.
--- NOTE | 2021-01-18 14:18 | MHC.CM.PN ---
Female 65 DX Covid+and UTI Lives with spouse. She is independent all functional mobility. DP home no services family transport. CM will follow to assess for a change in DC needs.
--- NOTE | 2021-01-18 17:59 | PC.NURSE ---
Patient up to unit around 1600. Patient reports nausea with wearing mask, patient told that wearing a mask is not required while in her room and declines zofran at this time. Patient oriented to room and call montoya use, call montoya within reach. No further complaints offered.
[2021-01-18] MEDS: cefTRIAXone sodium 1 GM in 0.9 % Sodium Chloride 50 ML IV (21:19)
[2021-01-19] VITALS (11 sets, daily range): BP systolic 80–110; BP diastolic 42–62; PULSE 49–71; RESP 18–25; TEMP 36.4–37.9; O2SAT 89–97
[2021-01-19 06:28] LABS: MANUAL DIFF FLAG NO
[2021-01-19 06:51] LABS: Hematocrit 37.8 % (37-47); Hemoglobin 12.3 g/dl (12.0-16.0); Imm Gran Abs Auto 0.02 X10*3/uL (0.00-0.03); Imm Gran Pct Auto 0.5 % (0.0-0.4); Lymphocytes Absolute Auto 0.8 X10*3/uL (1.2-4.9); Lymphocytes Percent Auto 19.7 % (20-40); Mean Corpuscular HGB Conc 32.5 g/dl (31.0-35.0); Mean Corpuscular Hemoglobin 31.5 pg (27.0-33.0); Mean Corpuscular Volume 96.7 fL (80-98); Mean Platelet Volume 12.4 fL (9.4-12.3); Monocytes Absolute Auto 0.3 X10*3/uL (0.1-1.2); Monocytes Percent Auto 6.9 % (2-11); Neutrophils Percent Auto 72.9 % (45-73); Red Blood Count 3.91 X10*6/uL (4.20-5.50); White Blood Count 4.1 X10*3/uL (4.8-10.8)
[2021-01-19 07:00] LABS: Anion Gap 11 (12-20); Blood Urea Nitrogen 12 mg/dL (9-16); Calcium 7.9 mg/dL (8.4-10.2); Carbon Dioxide 27 mmol/L (22-29); Chloride 102 mmol/L (96-108); Creatinine Clr Calc Pharmacy 90.6; Estimated Glomerular Filt Rate > 60; Glucose Random 100 mg/dL (60-115); Potassium 3.3 mmol/L (3.3-5.1); Sodium 137 mmol/L (135-145)
[2021-01-19 07:09] LABS: Platelet Count 91 X10*3/uL (160-400)
[2021-01-19] MEDS: Heparin Sodium,Porcine 5,000 UNIT/ML VIAL 5000 UNIT SUBCUT ×2 (08:43→18:27)
[2021-01-19] MEDS: 0.9 % Sodium Chloride Flush 3 ML SYRINGE IVFLUSH (08:43)
--- NOTE | 2021-01-19 09:02 | HO.PM.IMPN ---
Subjective Subjective Date of Service: 01/19/21 Interval History: Seen in f/u for syncope, covid related respiratory failure. She is hypoxic this morning, sat in 80s, and low SBP in 70s and 80s Review of Systems Gen: no fever Resp: + sob, no cough CV: no chest, no GARCIA, no leg edema GI: No n/v, no abd pain Neuro: No confusion Physical Exam Vital Signs: Vital Signs: Last Vital Signs Temp 98.8 F 01/19/21 08:00 Pulse 71 01/19/21 08:00 Resp 25 H 01/19/21 08:00 BP 80/50 L 01/19/21 08:00 Pulse Ox 89 L 01/19/21 08:00 Body Mass Index 29.2 Const: General: cooperative and no acute distress Orientation/consciousness: patient oriented x3 Resp: Effort & Inspection: normal respiratory effort and able to speak in complete sentences Cardio: Rate: regular rate Rhythm: regular rhythm GI: Palpation (GI): Soft to palpation Auscultation: normal bowel sounds Skin: General skin exam: no rashes or lesions noted Neuro: General: patient oriented x3 Cognition (Neuro): normal cognition Extrem: General: Yes normal to inspection and Yes no pedal edema Objective Data Current Medications Generic Name Dose Route Start Last Admin Trade Name Freq PRN Reason Stop Dose Admin Acetaminophen 650 mg 01/18/21 07:20 Acetaminophen 325 Mg Tablet PO Q6H PRN Pain, Mild (Pain Scale 1-3) Heparin Sodium (Porcine) 5,000 unit 01/18/21 07:20 01/19/21 08:43 Heparin Sodium,Porcine 5,000 Unit/Ml Vial SUBCUT 5,000 unit Q12H TATYANA Administration Ceftriaxone Sodium 1 gm/ 50 mls @ 100 mls/hr 01/18/21 23:00 01/18/21 21:56 Sodium Chloride IV Infused Q24H TATYANA Infusion Sodium Chloride 1,000 mls @ 999 mls/hr 01/19/21 09:00 Ns IVCONT 01/19/21 10:00 .Q1H1M TATYANA Ondansetron HCl 4 mg 01/18/21 07:20 Ondansetron Hcl 4 Mg/2 Ml Vial IVPUSH Q8H PRN Nausea and Vomiting Sodium Chloride 3 ml 01/18/21 08:00 01/19/21 08:43 0.9 % Sodium Chloride Flush 3 Ml Syringe IVFLUSH 3 ml QSHIFT TATYANA Administration Labs CBC & Chem 7: 01/19/21 05:24 01/19/21 05:24 Microbiology Microbiology Results: Microbiology 01/17/21 22:23 Urine clean catch - Clean Catch Midstream Urine Culture - Preliminary Gram negative pearl 01/17/21 23:12 Blood - Venous Blood Culture - Preliminary No growth after 24 hours. 01/17/21 23:12 Blood - Venous Blood Culture - Preliminary No growth after 24 hours. Assessment and Plan (1) COVID-19: Status: Acute (2) Syncope: Status: Acute (3) Acute UTI: Status: Acute Assessment and Plan: 65-year-old female past medical history of AFib status post Maze, who presents to the hospital with complaints of syncope found to have UTI and COVID-19 positive # COVID-19 with acute hypoxic respiratory failure (tested positive on 01/16) -Start Decadron -Adjust O2 to sat of 92 _ID consult for Remdesevir # syncopal episode--No eveidence of cardiac etiology -Probably related to hypotension volume depletion from acute illness, UTI/Covid -monitoring manager -Corect Hypotension. #Hypotension--Not due to sepsis, likely from depletion/dehydration -Normal saline bolus and reassess #UTI--Culture pending -Continue Ceftriaxone # History of AFib--rate is controlled - status post Maze procedure - not on any beta-blockers or anticoagulants DVT prophylaxis:heparin Subq
[2021-01-19] MEDS: 0.9 % Sodium Chloride 1,000 ML 999 ML IVCONT ×2 (09:07→15:54)
[2021-01-19] MEDS: dexAMETHasone sod phosphate 4 MG/ML VIAL 6 MG IVPUSH (10:54)
[2021-01-19] MEDS: Acetaminophen 325 MG TABLET 650 MG PO (14:42)
[2021-01-19] MEDS: guaiFENesin 100 MG/5 ML LIQUID PO (15:38)
[2021-01-19 16:30] LABS: Lactic Acid 0.9 mmol/L (0.5-2.0)
[2021-01-19] MEDS: 0.9 % Sodium Chloride 1,000 ML 150 ML IVCONT ×2 (17:25→22:53)
--- NOTE | 2021-01-19 17:51 | PC.NURSE ---
LOW BP DURING SCHEDULED VITAL SIGNS CHECK 84/59. PULSE OX LOW 84% ON ROOM AIR. PT FEELING GENERAL MALAISE. 1 L NS IV BOLUS ORDERED AND GIVEN WITH GOOD EFFECT. BP BACK UP TO 93/46.O2 APPLIED AND TITRATED TO 4L VIA NASAL CANNULA. PLACED ON CONTINUOUS PULSE OX READING. HOSPITALIST MADE AWARE. SPIKED A FEVER OF 100.2 WITH OBVIOUS DIAPHORESIS AT 1100. MEDICATED WITH PRN TYLENOL DOWN TO 99.0. ALSO REQUESTED COUGH MEDICATION AND ROBITUSSIN ADDED TO REGIMINE. DROP IN BP AGAIN AT 1530 BACK DOWN TO 85/51. 2ND LITER NS BOLUS ORDERED AND GIVEN WITH SAME EFFECT. CONTINUOUS IV FLUIDS RUNNING AT 150 ML/HR.SLOW JUNCTIONAL RHYTHM/SINUS BRADYCARDIA 40'S-60'S WITH OCCAIONAL PVCS NOTED ON VULCANIZING MACHINE OPERATOR. LACTIC ACID DRAWN.SECOND PERIPHERAL IV INSERTED TO ENSURE IV FLUIDS ADMINISTERED CORRECTLY WITHOUT INTERRUPTION.
[2021-01-19] MEDS: cefTRIAXone sodium 1 GM in 0.9 % Sodium Chloride 50 ML IV (22:52)
[2021-01-20] VITALS (7 sets, daily range): BP systolic 102–132; BP diastolic 50–60; PULSE 47–56; RESP 18–22; TEMP 36.1–37.6; O2SAT 85–93
[2021-01-20] MEDS: 0.9 % Sodium Chloride Flush 3 ML SYRINGE IVFLUSH ×3 (00:37→15:22)
--- NOTE | 2021-01-20 04:16 | PC.NURSE ---
pt has shown increasing hypoxia over night. with her sao2 falling persistently into the mid 80S despite supplemental o2 5lpm via cannula. sensorium intact. pt looks fatigued. sallow complexion. dyspneic with minimal exertion. breath sounds diminished with crackles noted lll. an intermittent dry cough is noted. ecg displays sb with pacs and pvcs. at baseline pts heart rate is 40-50 bpm. she has a well healed medial sternotomy scar and states she has underwent maze procedure and mitral valve replacement in 2016. will increase 02 via ball cannula and titrate to keep sao2>90% will notify hospitalist of increasing oxygen needs.
[2021-01-20] MEDS: 0.9 % Sodium Chloride 1,000 ML 150 ML IVCONT ×2 (06:18→12:07)
[2021-01-20 06:43] LABS: B Type Natriuretic Peptide 305 pg/mL (<100)
[2021-01-20] MEDS: dexAMETHasone sod phosphate 4 MG/ML VIAL 6 MG IVPUSH (08:09)
[2021-01-20] MEDS: Heparin Sodium,Porcine 5,000 UNIT/ML VIAL 5000 UNIT SUBCUT ×2 (08:10→19:42)
--- NOTE | 2021-01-20 12:02 | MHC.CM.PN ---
Per ROUNDS discussion, Patient is not yet medically cleared for dc (IV Ceftriaxone, IV Decadron, Increasing Hypoxia over night, 10L O2 via N/C). Home is the goal for dc and CM will follow for possible need to adjust the dc plan.
--- NOTE | 2021-01-20 12:17 | P.PNIM_ITS ---
Subjective Subjective Date of Service: 01/20/21 Interval History: Seen in f/u for syncope, covid related respiratory failure. She is hypoxic this morning, sat in 80 on 7 liters and just doesn't feel good Review of Systems Gen: no fever Resp: + sob, + cough CV: no chest, no GARCIA, no leg edema GI: No n/v, no abd pain Neuro: No confusion Physical Exam Vital Signs: Vital Signs: Last Vital Signs Temp 98 F 01/20/21 10:49 Pulse 54 01/20/21 10:49 Resp 20 01/20/21 10:49 BP 118/52 L 01/20/21 10:49 Pulse Ox 89 L 01/20/21 10:49 Body Mass Index 29.2 Const: General: cooperative and no acute distress Orientation/consciousness: patient oriented x3 Eyes: General: appearance normal, both eyes and all related structures Resp: Effort & Inspection: normal respiratory effort and able to speak in complete sentences Cardio: Rate: regular rate Rhythm: regular rhythm GI: Palpation (GI): Soft to palpation Auscultation: normal bowel sounds Skin: General skin exam: no rashes or lesions noted Neuro: General: patient oriented x3 Cognition (Neuro): normal cognition Extrem: General: Yes normal to inspection and Yes no pedal edema Objective Data Current Medications Generic Name Dose Route Start Last Admin Trade Name Derekq PRN Reason Stop Dose Admin Acetaminophen 650 mg 01/18/21 07:20 01/19/21 14:42 Acetaminophen 325 Mg Tablet PO 650 mg Q6H PRN Administration Pain, Mild (Pain Scale 1-3) Dexamethasone Sodium Phosphate 6 mg 01/19/21 09:15 01/20/21 08:09 Dexamethasone Sod Phosphate 4 Mg/Ml Vial IVPUSH 01/28/21 09:01 6 mg DAILY TATYANA Administration Guaifenesin 5 ml 01/19/21 15:12 01/19/21 15:38 Guaifenesin 100 Mg/5 Ml Liquid PO 5 ml Q4H PRN Administration Cough Heparin Sodium (Porcine) 5,000 unit 01/18/21 07:20 01/20/21 08:10 Heparin Sodium,Porcine 5,000 Unit/Ml Vial SUBCUT 5,000 unit Q12H TATYANA Administration Ceftriaxone Sodium 1 gm/ 50 mls @ 100 mls/hr 01/18/21 23:00 04/26/21 01:57 Sodium Chloride IV Infused Q24H TATYANA Infusion Sodium Chloride 1,000 mls @ 150 mls/hr 01/19/21 15:30 01/20/21 12:07 Ns IVCONT 150 mls/hr .Q6H40M TATYANA Administration Ondansetron HCl 4 mg 01/18/21 07:20 Ondansetron Hcl 4 Mg/2 Ml Vial IVPUSH Q8H PRN Nausea and Vomiting Sodium Chloride 3 ml 01/18/21 08:00 01/20/21 08:08 0.9 % Sodium Chloride Flush 3 Ml Syringe IVFLUSH 3 ml QSHIFT TATYANA Administration Labs CBC & Chem 7: 01/19/21 05:24 01/19/21 05:24 Microbiology Microbiology Results: Microbiology 01/17/21 22:23 Urine clean catch - Clean Catch Midstream Urine Culture - Final Escherichia coli 01/17/21 23:12 Blood - Venous Blood Culture - Preliminary No growth after 48 hours. 01/17/21 23:12 Blood - Venous Blood Culture - Preliminary No growth after 48 hours. Assessment and Plan (1) COVID-19: Status: Acute (2) Syncope: Status: Acute (3) Acute UTI: Status: Acute Assessment and Plan: 65-year-old female past medical history of AFib status post Maze, who presents to the hospital with complaints of syncope found to have UTI and COVID-19 positive # COVID-19 with acute hypoxic respiratory failure (tested positive on 01/16) -Started Decadron 01/19 -Adjust O2 to sat of 92 _ID consult for Remdesevir # syncopal episode--No eveidence of cardiac etiology -Probably related to hypotension volume depletion from acute illness, UTI/Covid -stevedore hold -Corected Hypotension, no arrythmia #Hypotension--Not due to sepsis, likely from depletion/dehydration -Normal saline bolus and reassess #UTI--01/17 cultures, pansensitive E.coli -Continue Ceftriaxone # History of AFib--rate is controlled - status post Maze procedure in past - not on any beta-blockers or anticoagulants DVT prophylaxis:heparin Subq
[2021-01-20] MEDS: Remdesivir 200 MG in 0.9 % Sodium Chloride 210 ML 105 MG IV (13:44)
--- NOTE | 2021-01-20 15:24 | P.CNID_ITS ---
History of Present Illness Data of Consult Service Date: 01/20/21 [facility]ing [facility] Primary Care Provider: Unknown Physician HPI Reason for consult: COVID,syncope She presents to hospital with diarrhea,as well as weakness and fatigue. 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 Maternal Aunt Breast cancer Brother Myasthenia gravis Surgical History Surgical History (Updated 03/04/21 @ 14:05 by Galina Omer PA-C) History of hysterectomy History of left knee surgery History of maze procedure History of tonsillectomy Social History Social History (Updated 02/28/21 @ 14:54 by Faby Tellez) Household Members: Spouse Housing: House Do you presently have visiting nurse or other home services: Yes (VNA) Alcohol intake: current Alcohol intake frequency: a few times a month Patient Tobacco Use Status: Never used Tobacco service: No Current occupational status: employed Meds Allergies Allergy/AdvReac Type Severity Reaction Status Date / Time acetaminophen [Percocet] Allergy Severe stomach Verified 03/20/21 10:55 upset oxycodone [Percocet] Allergy Severe stomach Verified 03/20/21 10:55 upset pneumococcal vaccine Allergy Severe Unknown Verified 03/20/21 10:55 apixaban [From Eliquis] AdvReac Intermediate diarrhea Verified 03/20/21 10:55 Active Medications: Current Medications Generic Name Dose Route Start Last Admin Trade Name Freq PRN Reason Stop Dose Admin Acetaminophen 650 mg 01/18/21 07:20 01/19/21 14:42 Acetaminophen 325 Mg Tablet PO 650 mg Q6H PRN Administration Pain, Mild (Pain Scale 1-3) Dexamethasone Sodium Phosphate 6 mg 01/19/21 09:15 01/20/21 08:09 Dexamethasone Sod Phosphate 4 Mg/Ml Vial IVPUSH 01/28/21 09:01 6 mg DAILY TATYANA Administration Guaifenesin 5 ml 01/19/21 15:12 01/19/21 15:38 Guaifenesin 100 Mg/5 Ml Liquid PO 5 ml Q4H PRN Administration Cough Heparin Sodium (Porcine) 5,000 unit 01/18/21 07:20 01/20/21 08:10 Heparin Sodium,Porcine 5,000 Unit/Ml Vial SUBCUT 5,000 unit Q12H TATYANA Administration Ceftriaxone Sodium 1 gm/ 50 mls @ 100 mls/hr 01/18/21 23:00 01/20/21 01:57 Sodium Chloride IV Infused Q24H TATYANA Infusion Sodium Chloride 1,000 mls @ 150 mls/hr 01/19/21 15:30 01/20/21 13:38 Ns IVCONT 0 mls/hr .Q6H40M TATYANA Infusion Remdesivir 100 mg/ Sodium 230 mls @ 115 mls/hr 01/21/21 13:00 Chloride IV 01/24/21 14:59 Q24H TATYANA Ondansetron HCl 4 mg 01/18/21 07:20 Ondansetron Hcl 4 Mg/2 Ml Vial IVPUSH Q8H PRN Nausea and Vomiting Sodium Chloride 3 ml 01/18/21 08:00 01/20/21 08:08 0.9 % Sodium Chloride Flush 3 Ml Syringe IVFLUSH 3 ml QSHIFT TATYANA Administration Home Medications Medication Instructions Recorded Confirmed Last Taken Type albuterol sulfate 90 mcg/actuation 2 puff INHALATION Q4-6H PRN 02/05/21 03/20/21 Unknown History aerosol inhaler calcium carbonate 600 mg (1,500 1 tab PO DAILY 02/05/21 03/20/21 Unknown History mg)-vitamin D3 200 unit tablet cyanocobalamin (vitamin B-12) 1,000 mcg PO DAILY 02/05/21 03/20/21 Unknown History 1,000 mcg capsule folic acid 800 mcg tablet 0.8 mg PO DAILY 02/05/21 03/20/21 Unknown History zinc 50 mg tablet 50 mg PO DAILY 02/05/21 03/20/21 Unknown History Physical Exam Vital Signs: Vital Signs: Last Vital Signs Temp 98 F 01/20/21 10:49 Pulse 54 01/20/21 10:49 Resp 20 01/20/21 10:49 BP 118/52 L 01/20/21 10:49 Pulse Ox 89 L 01/20/21 10:49 Body Mass Index 29.2 Const: General: cooperative HENMT: Head: Yes normal to inspection Mouth: Normal oral and palatal mucosa present Resp: Effort & Inspection: normal respiratory effort Cardio: Rate: regular rate Rhythm: regular rhythm GI: Palpation (GI): Soft to palpation and nontender Skin: General skin exam: no rashes or lesions noted Extrem: General: Yes normal to inspection Results Labs CBC & Chem 7: 01/28/21 05:43 01/28/21 05:43 Microbiology Microbiology Results: Microbiology 01/17/21 22:23 Urine clean catch - Clean Catch Midstream Urine Culture - Final Escherichia coli 01/17/21 23:12 Blood - Venous Blood Culture - Preliminary No growth after 48 hours. 01/17/21 23:12 Blood - Venous Blood Culture - Preliminary No growth after 48 hours. Assessment and Plan (1) COVID-19: Status: Acute Would continue oxygen support Would continue Dexamethasone Remdesivir per protocol No antibiotics (2) Syncope: Status: Inactive
[2021-01-20 22:06] LABS: CDIFF Ag Positive (Negative); CDIFF Internal ctrl Dots and bkg OK (V); CDiff Toxin Negative (Negative)
[2021-01-20] MEDS: cefTRIAXone sodium 1 GM in 0.9 % Sodium Chloride 50 ML IV (22:35)
[2021-01-21] VITALS (12 sets, daily range): BP systolic 104–137; BP diastolic 51–63; PULSE 50–56; RESP 19–28; TEMP 36.3–37.5; O2SAT 84–95
[2021-01-21] MEDS: 0.9 % Sodium Chloride Flush 3 ML SYRINGE IVFLUSH ×4 (00:03→20:57)
[2021-01-21] MEDS: Heparin Sodium,Porcine 5,000 UNIT/ML VIAL 5000 UNIT SUBCUT ×2 (06:26→20:55)
[2021-01-21 08:22] LABS: CDiff Gene PCR POSITIVE (Negative)
[2021-01-21] MEDS: vancomycin HCL 125 MG CAPSULE 250 MG PO ×3 (09:02→20:54)
[2021-01-21] MEDS: dexAMETHasone sod phosphate 4 MG/ML VIAL 6 MG IVPUSH (09:06)
--- NOTE | 2021-01-21 11:51 | HO.PM.IMPN ---
Subjective Subjective Date of Service: 01/21/21 Interval History: Seen in f/u for syncope, covid related respiratory failure. She is hypoxic this morning, sat around 88 on 11 liters and now has c dif Review of Systems Gen: no fever Resp: + sob, + cough CV: no chest, no GARCIA, no leg edema GI: No n/v, no abd pain, +diarrhea Neuro: No confusion Physical Exam Vital Signs: Vital Signs: Last Vital Signs Temp 98.0 F 01/21/21 11:06 Pulse 50 01/21/21 11:06 Resp 28 H 01/21/21 11:06 BP 104/51 L 01/21/21 11:06 Pulse Ox 88 L 01/21/21 11:06 Body Mass Index 29.2 Const: General: cooperative and no acute distress Orientation/consciousness: patient oriented x3 Eyes: General: appearance normal, both eyes and all related structures Resp: Effort & Inspection: normal respiratory effort and able to speak in complete sentences Cardio: Rate: regular rate Rhythm: regular rhythm GI: Palpation (GI): Soft to palpation Auscultation: normal bowel sounds Skin: General skin exam: no rashes or lesions noted Neuro: General: patient oriented x3 Cognition (Neuro): normal cognition Extrem: General: Yes normal to inspection and Yes no pedal edema Objective Data Current Medications Generic Name Dose Route Start Last Admin Trade Name Derekq PRN Reason Stop Dose Admin Acetaminophen 650 mg 01/18/21 07:20 01/19/21 14:42 Acetaminophen 325 Mg Tablet PO 650 mg Q6H PRN Administration Pain, Mild (Pain Scale 1-3) Dexamethasone Sodium Phosphate 6 mg 01/19/21 09:15 01/21/21 09:06 Dexamethasone Sod Phosphate 4 Mg/Ml Vial IVPUSH 01/28/21 09:01 6 mg DAILY TATYANA Administration Guaifenesin 5 ml 01/19/21 15:12 01/19/21 15:38 Guaifenesin 100 Mg/5 Ml Liquid PO 5 ml Q4H PRN Administration Cough Heparin Sodium (Porcine) 5,000 unit 01/18/21 07:20 01/21/21 06:26 Heparin Sodium,Porcine 5,000 Unit/Ml Vial SUBCUT 5,000 unit Q12H TATYANA Administration Ceftriaxone Sodium 1 gm/ 50 mls @ 100 mls/hr 01/18/21 23:00 01/20/21 23:16 Sodium Chloride IV Infused Q24H TATYANA Infusion Sodium Chloride 1,000 mls @ 150 mls/hr 01/19/21 15:30 01/21/21 06:32 Ns IVCONT Not Given .Q6H40M TATYANA Remdesivir 100 mg/ Sodium 230 mls @ 115 mls/hr 01/21/21 13:00 Chloride IV 01/24/21 14:59 Q24H TATYANA Ondansetron HCl 4 mg 01/18/21 07:20 Ondansetron Hcl 4 Mg/2 Ml Vial IVPUSH Q8H PRN Nausea and Vomiting Sodium Chloride 3 ml 01/18/21 08:00 01/21/21 08:56 0.9 % Sodium Chloride Flush 3 Ml Syringe IVFLUSH 3 ml QSHIFT TATYANA Administration Vancomycin HCl 250 mg 01/21/21 09:00 01/21/21 09:02 Vancomycin Hcl 125 Mg Capsule PO 250 mg Q6H TATYANA Administration Labs CBC & Chem 7: 01/19/21 05:24 01/19/21 05:24 Microbiology Microbiology Results: Microbiology 01/17/21 22:23 Urine clean catch - Clean Catch Midstream Urine Culture - Final Escherichia coli 01/17/21 23:12 Blood - Venous Blood Culture - Preliminary No growth after 48 hours. 01/17/21 23:12 Blood - Venous Blood Culture - Preliminary No growth after 48 hours. Assessment and Plan (1) COVID-19: Problem details: She has acute COVID within a week She has no secondary infection seen She is hypoxic and has unremarkable renal and liver function Status: Acute (2) Syncope: Status: Acute (3) Acute UTI: Status: Acute Assessment and Plan: 65-year-old female past medical history of AFib status post Maze, who presents to the hospital with complaints of syncope found to have UTI and COVID-19 positive # COVID-19 with acute hypoxic respiratory failure (tested positive on 01/16) -Started Decadron 01/19 -Adjust O2 to sat of 92 -Remdesevir / # syncopal episode--No eveidence of cardiac etiology -Probably related to hypotension volume depletion from acute illness, UTI/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
[2021-01-21] MEDS: Remdesivir 100 MG in 0.9 % Sodium Chloride 230 ML 115 MG IV (12:55)
--- NOTE | 2021-01-21 14:38 | PC.NURSE ---
In am pt was on 10 L ball nasal cannula. Pt went oob to bathroom desats very quickly to low 80s takes about 10min to recover. Pt in am wasnt going above 84% when back in bed. Placed pt on 11L to maintain a higher sat. At 11L at this time pt is mid 90s - but still drops to mid 80s when gets OOB and takes a while to recover. Will monitor & wean as jose
[2021-01-21] MEDS: 0.9 % Sodium Chloride 1,000 ML 50 ML IVCONT (15:15)
[2021-01-21] MEDS: guaiFENesin 100 MG/5 ML LIQUID PO (15:27)
[2021-01-21] MEDS: cefTRIAXone sodium 1 GM in 0.9 % Sodium Chloride 50 ML IV (22:50)
[2021-01-22] VITALS (8 sets, daily range): BP systolic 97–113; BP diastolic 46–61; PULSE 50–69; RESP 16–19; TEMP 36.3–37.2; O2SAT 84–98
[2021-01-22] MEDS: vancomycin HCL 125 MG CAPSULE 250 MG PO ×4 (02:40→20:23)
[2021-01-22] MEDS: Heparin Sodium,Porcine 5,000 UNIT/ML VIAL 5000 UNIT SUBCUT ×2 (08:59→20:24)
[2021-01-22] MEDS: 0.9 % Sodium Chloride Flush 3 ML SYRINGE IVFLUSH ×3 (09:00→20:29)
[2021-01-22] MEDS: dexAMETHasone sod phosphate 4 MG/ML VIAL 6 MG IVPUSH (09:00)
[2021-01-22] MEDS: guaiFENesin 100 MG/5 ML LIQUID PO (09:03)
[2021-01-22] MEDS: Furosemide 40 MG/4 ML VIAL IVPUSH (10:36)
[2021-01-22] MEDS: Remdesivir 100 MG in 0.9 % Sodium Chloride 230 ML 115 MG IV (13:47)
--- NOTE | 2021-01-22 13:48 | MHC.CM.PN ---
DP Female 66 DX Covid+ UTI, syncope. DP is home no services. will provide transportation home. CM will follow to assess for a change in needs @ discharge.
--- NOTE | 2021-01-22 14:23 | HO.PM.IMPN ---
Subjective Subjective Date of Service: 01/22/21 Interval History: weak, no appetitie Cardiovascular Cardiovascular: Reports no additional cardiovascular complaints Gastrointestinal Gastrointestinal: Reports no additional gastrointestinal complaints Physical Exam Vital Signs: Vital Signs: Last Vital Signs Temp 97.6 F 01/22/21 11:03 Pulse 61 01/22/21 11:03 Resp 17 01/22/21 11:03 BP 112/57 L 01/22/21 11:03 Pulse Ox 94 01/22/21 11:03 Body Mass Index 29.2 General: AO X 3, ill appearing, weak Resp: Crackles CVS: S1,S2,RRR GI: soft, non tender, non distended Neuro: motor grossly intact Psych: appropriate affect Objective Data Current Medications Generic Name Dose Route Start Last Admin Trade Name Freq PRN Reason Stop Dose Admin Acetaminophen 650 mg 01/18/21 07:20 01/19/21 14:42 Acetaminophen 325 Mg Tablet PO 650 mg Q6H PRN Administration Pain, Mild (Pain Scale 1-3) Dexamethasone Sodium Phosphate 6 mg 01/19/21 09:15 01/22/21 09:00 Dexamethasone Sod Phosphate 4 Mg/Ml Vial IVPUSH 01/28/21 09:01 6 mg DAILY TATYANA Administration Guaifenesin 5 ml 01/19/21 15:12 01/22/21 09:03 Guaifenesin 100 Mg/5 Ml Liquid PO 5 ml Q4H PRN Administration Cough Heparin Sodium (Porcine) 5,000 unit 01/18/21 07:20 01/22/21 08:59 Heparin Sodium,Porcine 5,000 Unit/Ml Vial SUBCUT 5,000 unit Q12H TATYANA Administration Remdesivir 100 mg/ Sodium 230 mls @ 115 mls/hr 01/21/21 13:00 01/22/21 13:47 Chloride IV 01/24/21 14:59 115 mls/hr Q24H TATYANA Administration Ondansetron HCl 4 mg 01/18/21 07:20 Ondansetron Hcl 4 Mg/2 Ml Vial IVPUSH Q8H PRN Nausea and Vomiting Sodium Chloride 3 ml 01/18/21 08:00 01/22/21 09:00 0.9 % Sodium Chloride Flush 3 Ml Syringe IVFLUSH 3 ml QSHIFT TATYANA Administration Vancomycin HCl 250 mg 01/21/21 09:00 01/22/21 08:59 Vancomycin Hcl 125 Mg Capsule PO 250 mg Q6H TATYANA Administration Labs CBC & Chem 7: 01/19/21 05:24 01/19/21 05:24 Microbiology Microbiology Results: Microbiology 01/17/21 22:23 Urine clean catch - Clean Catch Midstream Urine Culture - Final Escherichia coli 01/17/21 23:12 Blood - Venous Blood Culture - Preliminary No growth after 48 hours. 01/17/21 23:12 Blood - Venous Blood Culture - Preliminary No growth after 48 hours. Assessment and Plan (1) COVID-19: Problem details: She has acute COVID within a week She has no secondary infection seen She is hypoxic and has unremarkable renal and liver function Status: Acute (2) Syncope: Status: Acute (3) Acute UTI: Status: Acute Assessment and Plan: 65-year-old female past medical history of AFib status post Maze, who presented to the hospital with complaints of syncope found to have UTI and COVID-19 positive, now cdif positive as well acute hypoxic respiratory failure due to covid worsening hyopxia will dc ivf, give 1 dose lasix iv continue decadron, started 01/19, day 4 remdesivir day 11/29 syncope likely due to hypotension from hypovolemia from GI symptoms of covid/ cdif UTI completed 4 days ceftriaxone afib s/p machelle, not on any treatement cdif diarrhea improving continue vanco po day 11/10
[2021-01-23] MEDS: guaiFENesin 100 MG/5 ML LIQUID PO (01:19)
[2021-01-23 03:47] VITALS: BP 125/62; PULSE 54; RESP 18; TEMP 36.8; O2SAT 95
[2021-01-23] MEDS: vancomycin HCL 125 MG CAPSULE 250 MG PO ×4 (04:32→20:34)
[2021-01-23 06:54] LABS: D Dimer 425 NG/ML
[2021-01-23 07:00] LABS: Basophils Percent Auto 0.1 % (0-2); Hematocrit 38.5 % (37-47); Hemoglobin 12.9 g/dl (12.0-16.0); Imm Gran Abs Auto 0.05 X10*3/uL (0.00-0.03); Imm Gran Pct Auto 0.7 % (0.0-0.4); Lymphocytes Absolute Auto 0.5 X10*3/uL (1.2-4.9); MANUAL DIFF FLAG SCAN; Mean Corpuscular HGB Conc 33.5 g/dl (31.0-35.0); Mean Corpuscular Hemoglobin 31.4 pg (27.0-33.0); Mean Corpuscular Volume 93.7 fL (80-98); Mean Platelet Volume 11.8 fL (9.4-12.3); Monocytes Absolute Auto 0.7 X10*3/uL (0.1-1.2); Monocytes Percent Auto 9.3 % (2-11); Neutrophils Absolute Auto 5.8 X10*3/uL (2.0-8.3); Neutrophils Percent Auto 82.9 % (45-73); Platelet Count 147 X10*3/uL (160-400); Red Blood Count 4.11 X10*6/uL (4.20-5.50); Red Cell Distribution Width 11.6 % (11.0-16.0); SCAN SMEAR FLAG 1
[2021-01-23 07:28] VITALS: BP 105/54; PULSE 68; RESP 19; TEMP 36.3; O2SAT 92
[2021-01-23 07:35] LABS: Alanine Aminotransferase 30 U/L (0-31); Albumin Level 3.1 g/dL (3.5-5.0); Alkaline Phosphatase 48 U/L (39-117); Anion Gap 13 (12-20); Aspartate Amino Transferase 24 U/L (5-31); Bilirubin Direct 0.4 mg/dL (0.0-0.5); Bilirubin Total 0.7 mg/dL (0.0-1.0); Blood Urea Nitrogen 21 mg/dL (9-16); Calcium 8.1 mg/dL (8.4-10.2); Carbon Dioxide 30 mmol/L (22-29); Chloride 103 mmol/L (96-108); Creatinine Clr Calc Pharmacy 109.1; Estimated Glomerular Filt Rate > 60; Glucose Fasting 121 mg/dL (60-99); Magnesium 2.2 mg/dL (1.6-2.6); Potassium 3.1 mmol/L (3.3-5.1); Sodium 143 mmol/L (135-145); Total Protein 5.1 g/dL (6.5-8.0)
[2021-01-23 07:46] LABS: SLIDE REVIEW VERIFIED
[2021-01-23] MEDS: dexAMETHasone sod phosphate 4 MG/ML VIAL 6 MG IVPUSH (08:11)
[2021-01-23] MEDS: Heparin Sodium,Porcine 5,000 UNIT/ML VIAL 5000 UNIT SUBCUT ×2 (08:12→20:34)
[2021-01-23] MEDS: 0.9 % Sodium Chloride Flush 3 ML SYRINGE IVFLUSH ×3 (08:12→20:34)
[2021-01-23 09:42] LABS: Lactate Dehydrogenase 400 U/L (122-220)
[2021-01-23 11:28] VITALS: BP 101/52; PULSE 68; RESP 20; TEMP 36.1; O2SAT 90
--- NOTE | 2021-01-23 11:46 | HO.PM.IMPN ---
Subjective Subjective Date of Service: 01/23/21 Interval History: about the same today, diarrhea improved, still weak, sob Cardiovascular Cardiovascular: Reports no additional cardiovascular complaints Respiratory Respiratory: Reports no additional respiratory complaints Physical Exam Vital Signs: Vital Signs: Last Vital Signs Temp 97 F 01/23/21 11:28 Pulse 68 01/23/21 11:28 Resp 20 01/23/21 11:28 BP 101/52 L 01/23/21 11:28 Pulse Ox 90 L 01/23/21 11:28 Body Mass Index 29.2 General: AO X 3, ill appearing, weak Resp: Crackles CVS: S1,S2,RRR GI: soft, non tender, non distended Neuro: motor grossly intact Psych: appropriate affect Objective Data Current Medications Generic Name Dose Route Start Last Admin Trade Name Freq PRN Reason Stop Dose Admin Acetaminophen 650 mg 01/18/21 07:20 01/19/21 14:42 Acetaminophen 325 Mg Tablet PO 650 mg Q6H PRN Administration Pain, Mild (Pain Scale 1-3) Dexamethasone Sodium Phosphate 6 mg 01/19/21 09:15 01/23/21 08:11 Dexamethasone Sod Phosphate 4 Mg/Ml Vial IVPUSH 01/28/21 09:01 6 mg DAILY TATYANA Administration Guaifenesin 5 ml 01/19/21 15:12 01/23/21 01:19 Guaifenesin 100 Mg/5 Ml Liquid PO 5 ml Q4H PRN Administration Cough Heparin Sodium (Porcine) 5,000 unit 01/18/21 07:20 01/23/21 08:12 Heparin Sodium,Porcine 5,000 Unit/Ml Vial SUBCUT 5,000 unit Q12H TATYANA Administration Remdesivir 100 mg/ Sodium 230 mls @ 115 mls/hr 01/21/21 13:00 01/22/21 16:12 Chloride IV 01/24/21 14:59 Infused Q24H TATYANA Infusion Ondansetron HCl 4 mg 01/18/21 07:20 Ondansetron Hcl 4 Mg/2 Ml Vial IVPUSH Q8H PRN Nausea and Vomiting Sodium Chloride 3 ml 01/18/21 08:00 01/23/21 08:12 0.9 % Sodium Chloride Flush 3 Ml Syringe IVFLUSH 3 ml QSHIFT TATYANA Administration Vancomycin HCl 250 mg 01/21/21 09:00 01/23/21 08:11 Vancomycin Hcl 125 Mg Capsule PO 250 mg Q6H TATYANA Administration Labs CBC & Chem 7: 01/23/21 05:41 01/23/21 05:41 Microbiology Microbiology Results: Microbiology 01/17/21 23:12 Blood - Venous Blood Culture - Final No growth after 5 days. 01/17/21 23:12 Blood - Venous Blood Culture - Final No growth after 5 days. 01/17/21 22:23 Urine clean catch - Clean Catch Midstream Urine Culture - Final Escherichia coli Assessment and Plan (1) COVID-19: Problem details: She has acute COVID within a week She has no secondary infection seen She is hypoxic and has unremarkable renal and liver function Status: Acute (2) Syncope: Status: Acute (3) Acute UTI: Status: Acute Assessment and Plan: 65-year-old female past medical history of AFib status post Maze, who presented to the hospital with complaints of syncope found to have UTI and COVID-19 positive, now cdif positive as well acute hypoxic respiratory failure due to covid o2 levels continue decadron, started 01/19, day 5 remdesivir day 12/30 syncope likely due to hypotension from hypovolemia from GI symptoms of covid/ cdif UTI completed 4 days ceftriaxone afib s/p maze, not on any treatement cdif diarrhea improving continue vanco po day 12/08
[2021-01-23] MEDS: Potassium Chloride ER 20 MEQ TAB.ER.PRT 40 MEQ PO (11:52)
[2021-01-23] MEDS: Remdesivir 100 MG in 0.9 % Sodium Chloride 230 ML 115 MG IV (13:06)
[2021-01-23 15:19] VITALS: BP 106/46; PULSE 56; RESP 18; TEMP 37.4; O2SAT 95
[2021-01-23] MEDS: Acetaminophen 325 MG TABLET 650 MG PO (15:50)
--- NOTE | 2021-01-23 18:38 | PC.NURSE ---
Patient continues to c/o feeling very weak/fatigued. wean o2 throughout day down to 8 L via ball nasal cannula. Desat down to low 80's while eating dinner and with activity. o2 back up to 15L via ball nasal cannula.
[2021-01-23 19:04] VITALS: BP 121/54; PULSE 54; RESP 18; TEMP 36.6; O2SAT 96
[2021-01-23 23:44] VITALS: BP 120/62; PULSE 52; RESP 18; TEMP 36.8; O2SAT 94
[2021-01-24] MEDS: vancomycin HCL 125 MG CAPSULE 250 MG PO ×4 (02:39→19:29)
[2021-01-24 03:40] VITALS: BP 116/54; PULSE 68; RESP 18; TEMP 36.4; O2SAT 94
[2021-01-24 07:43] VITALS: BP 99/46; PULSE 55; RESP 28; TEMP 36.9; O2SAT 98
[2021-01-24] MEDS: dexAMETHasone sod phosphate 4 MG/ML VIAL 6 MG IVPUSH (08:43)
[2021-01-24] MEDS: Heparin Sodium,Porcine 5,000 UNIT/ML VIAL 5000 UNIT SUBCUT ×2 (08:43→19:29)
[2021-01-24] MEDS: 0.9 % Sodium Chloride Flush 3 ML SYRINGE IVFLUSH ×3 (08:44→19:29)
[2021-01-24 11:40] VITALS: BP 99/43; PULSE 57; RESP 18; TEMP 36.7; O2SAT 90
--- NOTE | 2021-01-24 11:47 | HO.PM.IMPN ---
Subjective Subjective Date of Service: 01/24/21 Interval History: feels the same Cardiovascular Cardiovascular: Reports no additional cardiovascular complaints Gastrointestinal Gastrointestinal: Reports no additional gastrointestinal complaints Physical Exam Vital Signs: Vital Signs: Last Vital Signs Temp 98.1 F 01/24/21 11:40 Pulse 57 01/24/21 11:40 Resp 18 01/24/21 11:40 BP 99/43 L 01/24/21 11:40 Pulse Ox 90 L 01/24/21 11:40 Body Mass Index 29.2 General: AO X 3, ill appearing, weak Resp: Crackles CVS: S1,S2,RRR GI: soft, non tender, non distended Neuro: motor grossly intact Psych: appropriate affect Objective Data Current Medications Generic Name Dose Route Start Last Admin Trade Name Freq PRN Reason Stop Dose Admin Acetaminophen 650 mg 01/18/21 07:20 01/23/21 15:50 Acetaminophen 325 Mg Tablet PO 650 mg Q6H PRN Administration Pain, Mild (Pain Scale 1-3) Dexamethasone Sodium Phosphate 6 mg 01/19/21 09:15 01/24/21 08:43 Dexamethasone Sod Phosphate 4 Mg/Ml Vial IVPUSH 01/28/21 09:01 6 mg DAILY TATYANA Administration Guaifenesin 5 ml 01/19/21 15:12 01/23/21 01:19 Guaifenesin 100 Mg/5 Ml Liquid PO 5 ml Q4H PRN Administration Cough Heparin Sodium (Porcine) 5,000 unit 01/18/21 07:20 01/24/21 08:43 Heparin Sodium,Porcine 5,000 Unit/Ml Vial SUBCUT 5,000 unit Q12H TATYANA Administration Remdesivir 100 mg/ Sodium 230 mls @ 115 mls/hr 01/21/21 13:00 01/23/21 15:50 Chloride IV 01/24/21 14:59 Infused Q24H TATYANA Infusion Ondansetron HCl 4 mg 01/18/21 07:20 Ondansetron Hcl 4 Mg/2 Ml Vial IVPUSH Q8H PRN Nausea and Vomiting Sodium Chloride 3 ml 01/18/21 08:00 01/24/21 08:44 0.9 % Sodium Chloride Flush 3 Ml Syringe IVFLUSH 3 ml QSHIFT TATYANA Administration Vancomycin HCl 250 mg 01/21/21 09:00 01/24/21 08:43 Vancomycin Hcl 125 Mg Capsule PO 250 mg Q6H TATYANA Administration Labs CBC & Chem 7: 01/23/21 05:41 01/23/21 05:41 Microbiology Microbiology Results: Microbiology 01/17/21 23:12 Blood - Venous Blood Culture - Final No growth after 5 days. 01/17/21 23:12 Blood - Venous Blood Culture - Final No growth after 5 days. 01/17/21 22:23 Urine clean catch - Clean Catch Midstream Urine Culture - Final Escherichia coli Assessment and Plan (1) COVID-19: Problem details: She has acute COVID within a week She has no secondary infection seen She is hypoxic and has unremarkable renal and liver function Status: Acute (2) Syncope: Status: Acute (3) Acute UTI: Status: Acute Assessment and Plan: 65-year-old female past medical history of AFib status post Maze, who presented to the hospital with complaints of syncope found to have UTI and COVID-19 positive, now cdif positive as well acute hypoxic respiratory failure due to covid o2 levels stable continue decadron, started 01/19, day 6 remdesivir day 01/29 syncope likely due to hypotension from hypovolemia from GI symptoms of covid/ cdif UTI completed 4 days ceftriaxone afib s/p maze, not on any treatement cdif diarrhea improving continue vanco po day 01/08
[2021-01-24] MEDS: Remdesivir 100 MG in 0.9 % Sodium Chloride 230 ML 115 MG IV (13:05)
--- NOTE | 2021-01-24 15:11 | MHC.CM.PN ---
DP Female 66 DX Covid+ DP home no services initially. DP will be determined by Pts recovery. She may require VNA or STR. A PT eval will be done when Pt is able to tolerate. CM will follow.
[2021-01-24 15:28] VITALS: BP 100/55; PULSE 56; RESP 15; TEMP 36.1; O2SAT 90
--- NOTE | 2021-01-24 19:26 | PC.NURSE ---
Patient remains on ball nasal cannula from 12-15L with sao2 from 87-92%. up to mid 90's at rest while patient lies on her side. 4/4 of Remdesivir complete today. continue to incourage use on incentive spirometry, po intake and oob chair. improvement in appetite. diarrhea has resolved.
[2021-01-24 19:49] VITALS: BP 120/50; PULSE 64; RESP 18; TEMP 36.7; O2SAT 90
[2021-01-24 23:30] VITALS: BP 126/59; PULSE 60; RESP 18; TEMP 36.8; O2SAT 93
[2021-01-25 03:20] VITALS: BP 123/59; PULSE 51; RESP 18; TEMP 36.9; O2SAT 92
[2021-01-25] MEDS: vancomycin HCL 125 MG CAPSULE 250 MG PO ×4 (03:26→19:48)
[2021-01-25] MEDS: Heparin Sodium,Porcine 5,000 UNIT/ML VIAL 5000 UNIT SUBCUT ×2 (06:36→19:48)
[2021-01-25 06:54] LABS: D Dimer 474 NG/ML
[2021-01-25 06:55] LABS: Hematocrit 38.4 % (37-47); Hemoglobin 12.7 g/dl (12.0-16.0); Imm Gran Abs Auto 0.09 X10*3/uL (0.00-0.03); Lymphocytes Absolute Auto 0.5 X10*3/uL (1.2-4.9); Lymphocytes Percent Auto 6.2 % (20-40); MANUAL DIFF FLAG SCAN; Mean Corpuscular HGB Conc 33.1 g/dl (31.0-35.0); Mean Corpuscular Hemoglobin 31.3 pg (27.0-33.0); Mean Corpuscular Volume 94.6 fL (80-98); Mean Platelet Volume 11.4 fL (9.4-12.3); Monocytes Absolute Auto 0.7 X10*3/uL (0.1-1.2); Monocytes Percent Auto 7.7 % (2-11); Neutrophils Absolute Auto 7.4 X10*3/uL (2.0-8.3); Neutrophils Percent Auto 85.1 % (45-73); Platelet Count 196 X10*3/uL (160-400); Red Blood Count 4.06 X10*6/uL (4.20-5.50); Red Cell Distribution Width 11.6 % (11.0-16.0); SCAN SMEAR FLAG 1; White Blood Count 8.7 X10*3/uL (4.8-10.8)
[2021-01-25 07:21] VITALS: BP 101/50; PULSE 57; RESP 18; TEMP 36.9; O2SAT 91
[2021-01-25 07:21] LABS: Alanine Aminotransferase 27 U/L (0-31); Albumin Level 3.1 g/dL (3.5-5.0); Alkaline Phosphatase 49 U/L (39-117); Anion Gap 13 (12-20); Aspartate Amino Transferase 16 U/L (5-31); Bilirubin Direct 0.4 mg/dL (0.0-0.5); Bilirubin Total 0.8 mg/dL (0.0-1.0); Blood Urea Nitrogen 25 mg/dL (9-16); C Reactive Protein 2.55 mg/dL (< or = 0.50); Calcium 8.5 mg/dL (8.4-10.2); Carbon Dioxide 29 mmol/L (22-29); Chloride 104 mmol/L (96-108); Creatinine Clr Calc Pharmacy 107.3; Estimated Glomerular Filt Rate > 60; Glucose Fasting 122 mg/dL (60-99); Potassium 3.9 mmol/L (3.3-5.1); Sodium 142 mmol/L (135-145); Total Protein 5.1 g/dL (6.5-8.0)
[2021-01-25 07:37] LABS: Lactate Dehydrogenase 381 U/L (122-220)
[2021-01-25 07:53] LABS: SLIDE REVIEW VERIFIED
[2021-01-25] MEDS: 0.9 % Sodium Chloride Flush 3 ML SYRINGE IVFLUSH ×3 (09:21→19:48)
[2021-01-25] MEDS: dexAMETHasone sod phosphate 4 MG/ML VIAL 6 MG IVPUSH (09:21)
[2021-01-25 11:39] VITALS: BP 115/56; PULSE 59; RESP 20; TEMP 36.4; O2SAT 98
--- NOTE | 2021-01-25 11:51 | HO.PM.IMPN ---
Subjective Subjective Date of Service: 01/25/21 Interval History: unchnaged Cardiovascular Cardiovascular: Reports no additional cardiovascular complaints Respiratory Respiratory: Reports no additional respiratory complaints Physical Exam Vital Signs: Vital Signs: Last Vital Signs Temp 97.5 F 01/25/21 11:39 Pulse 59 01/25/21 11:39 Resp 20 01/25/21 11:39 BP 115/56 L 01/25/21 11:39 Pulse Ox 98 01/25/21 11:39 Body Mass Index 29.2 General: AO X 3, ill appearing, weak Resp: Crackles CVS: S1,S2,RRR GI: soft, non tender, non distended Neuro: motor grossly intact Psych: appropriate affect Objective Data Current Medications Generic Name Dose Route Start Last Admin Trade Name Freq PRN Reason Stop Dose Admin Acetaminophen 650 mg 01/18/21 07:20 01/23/21 15:50 Acetaminophen 325 Mg Tablet PO 650 mg Q6H PRN Administration Pain, Mild (Pain Scale 1-3) Dexamethasone Sodium Phosphate 6 mg 01/19/21 09:15 01/25/21 09:21 Dexamethasone Sod Phosphate 4 Mg/Ml Vial IVPUSH 01/28/21 09:01 6 mg DAILY TATYANA Administration Guaifenesin 5 ml 01/19/21 15:12 01/23/21 01:19 Guaifenesin 100 Mg/5 Ml Liquid PO 5 ml Q4H PRN Administration Cough Heparin Sodium (Porcine) 5,000 unit 01/18/21 07:20 01/25/21 06:36 Heparin Sodium,Porcine 5,000 Unit/Ml Vial SUBCUT 5,000 unit Q12H TATYANA Administration Ondansetron HCl 4 mg 01/18/21 07:20 Ondansetron Hcl 4 Mg/2 Ml Vial IVPUSH Q8H PRN Nausea and Vomiting Sodium Chloride 3 ml 01/18/21 08:00 01/25/21 09:21 0.9 % Sodium Chloride Flush 3 Ml Syringe IVFLUSH 3 ml QSHIFT TATYANA Administration Vancomycin HCl 250 mg 01/21/21 09:00 01/25/21 09:22 Vancomycin Hcl 125 Mg Capsule PO 250 mg Q6H TATYANA Administration Labs CBC & Chem 7: 01/25/21 05:47 01/25/21 05:47 Microbiology Microbiology Results: Microbiology 01/17/21 23:12 Blood - Venous Blood Culture - Final No growth after 5 days. 01/17/21 23:12 Blood - Venous Blood Culture - Final No growth after 5 days. 01/17/21 22:23 Urine clean catch - Clean Catch Midstream Urine Culture - Final Escherichia coli Assessment and Plan (1) COVID-19: Problem details: She has acute COVID within a week She has no secondary infection seen She is hypoxic and has unremarkable renal and liver function Status: Acute (2) Syncope: Status: Acute (3) Acute UTI: Status: Acute Assessment and Plan: 65-year-old female past medical history of AFib status post Maze, who presented to the hospital with complaints of syncope found to have UTI and COVID-19 positive, now cdif positive as well acute hypoxic respiratory failure due to covid o2 levels stable continue decadron, started 01/19, day 7 remdesivir completed syncope likely due to hypotension from hypovolemia from GI symptoms of covid/ cdif UTI completed 4 days ceftriaxone afib s/p [facility]achel[facility], not on any treatement cdif diarrhea improving continue vanco po day 02/07
[2021-01-25 15:11] VITALS: BP 120/60; PULSE 63; RESP 18; TEMP 37.1; O2SAT 89
[2021-01-25 19:06] VITALS: BP 100/47; PULSE 60; RESP 18; TEMP 36.6; O2SAT 92
[2021-01-25 23:00] VITALS: BP 93/54; PULSE 61; RESP 18; TEMP 36.8; O2SAT 94
[2021-01-26] VITALS (10 sets, daily range): BP systolic 83–114; BP diastolic 42–57; PULSE 50–62; RESP 18–20; TEMP 36.2–36.9; O2SAT 87–98
[2021-01-26] MEDS: vancomycin HCL 125 MG CAPSULE 250 MG PO ×4 (03:53→20:02)
[2021-01-26] MEDS: Heparin Sodium,Porcine 5,000 UNIT/ML VIAL 5000 UNIT SUBCUT ×2 (07:51→20:02)
[2021-01-26] MEDS: dexAMETHasone sod phosphate 4 MG/ML VIAL 6 MG IVPUSH (07:51)
[2021-01-26] MEDS: 0.9 % Sodium Chloride Flush 3 ML SYRINGE IVFLUSH ×3 (07:51→20:02)
--- NOTE | 2021-01-26 09:27 | P.PNIM_ITS ---
Subjective Subjective Date of Service: 01/26/21 Interval History: some improvement Cardiovascular Cardiovascular: Reports no additional cardiovascular complaints Respiratory Respiratory: Reports no additional respiratory complaints Physical Exam Vital Signs: Vital Signs: Last Vital Signs Temp 97.2 F 01/26/21 07:53 Pulse 56 01/26/21 08:30 Resp 20 01/26/21 07:53 BP 110/56 L 01/26/21 07:53 Pulse Ox 92 01/26/21 08:30 Body Mass Index 29.2 General: AO X 3, ill appearing, weak Resp: Crackles CVS: S1,S2,RRR GI: soft, non tender, non distended Neuro: motor grossly intact Psych: appropriate affect Objective Data Current Medications Generic Name Dose Route Start Last Admin Trade Name Freq PRN Reason Stop Dose Admin Acetaminophen 650 mg 01/18/21 07:20 01/23/21 15:50 Acetaminophen 325 Mg Tablet PO 650 mg Q6H PRN Administration Pain, Mild (Pain Scale 1-3) Dexamethasone Sodium Phosphate 6 mg 01/19/21 09:15 01/26/21 07:51 Dexamethasone Sod Phosphate 4 Mg/Ml Vial IVPUSH 01/28/21 09:01 6 mg DAILY TATYANA Administration Guaifenesin 5 ml 01/19/21 15:12 01/23/21 01:19 Guaifenesin 100 Mg/5 Ml Liquid PO 5 ml Q4H PRN Administration Cough Heparin Sodium (Porcine) 5,000 unit 01/18/21 07:20 01/26/21 07:51 Heparin Sodium,Porcine 5,000 Unit/Ml Vial SUBCUT 5,000 unit Q12H TATYANA Administration Ondansetron HCl 4 mg 01/18/21 07:20 Ondansetron Hcl 4 Mg/2 Ml Vial IVPUSH Q8H PRN Nausea and Vomiting Sodium Chloride 3 ml 01/18/21 08:00 01/26/21 07:51 0.9 % Sodium Chloride Flush 3 Ml Syringe IVFLUSH 3 ml QSHIFT TATYANA Administration Vancomycin HCl 250 mg 01/21/21 09:00 01/26/21 07:52 Vancomycin Hcl 125 Mg Capsule PO 250 mg Q6H TATYANA Administration Labs CBC & Chem 7: 01/25/21 05:47 01/25/21 05:47 Microbiology Microbiology Results: Microbiology 01/17/21 23:12 Blood - Venous Blood Culture - Final No growth after 5 days. 01/17/21 23:12 Blood - Venous Blood Culture - Final No growth after 5 days. 01/17/21 22:23 Urine clean catch - Clean Catch Midstream Urine Culture - Final Escherichia coli Assessment and Plan (1) COVID-19: Problem details: She has acute COVID within a week She has no secondary infection seen She is hypoxic and has unremarkable renal and liver function Status: Acute (2) Syncope: Status: Acute (3) Acute UTI: Status: Acute Assessment and Plan: 65-year-old female past medical history of AFib status post Maze, who presented to the hospital with complaints of syncope found to have UTI and COVID-19 positive, now cdif positive as well acute hypoxic respiratory failure due to covid o2 levels improving continue decadron, started 01/19, day 8 remdesivir completed syncope likely due to hypotension from hypovolemia from GI symptoms of covid/ cdif UTI completed 4 days ceftriaxone afib s/p [facility], not on any treatement cdif diarrhea improving continue vanco po day 03/10
[2021-01-27] VITALS (7 sets, daily range): BP systolic 90–110; BP diastolic 45–70; PULSE 49–61; RESP 15–20; TEMP 36.2–36.9; O2SAT 91–95
--- NOTE | 2021-01-27 | ECG_ITS ---
Test Reason : SOB Blood Pressure : / mmHG Vent. Rate : 057 BPM Atrial Rate : 057 BPM P-R Int : 130 ms QRS Dur : 086 ms QT Int : 456 ms P-R-T Axes : 005 038 132 degrees QTc Int : 443 ms Sinus bradycardia T wave abnormality, consider lateral ischemia (and anterior) Abnormal ECG When compared with ECG of 17-JAN-2021 20:18, T wave inversion now evident in Lateral leads Referred By: Twan Roque Electronically Signed By:YANNA MCCARTHY
[2021-01-27] MEDS: vancomycin HCL 125 MG CAPSULE 250 MG PO ×4 (02:19→19:56)
[2021-01-27 05:02] LABS: MANUAL DIFF FLAG NO
[2021-01-27 05:06] LABS: Basophils Percent Auto 0.1 % (0-2); Eosinophils Percent Auto 0.2 % (0-4); Hematocrit 42.5 % (37-47); Hemoglobin 14.2 g/dl (12.0-16.0); Imm Gran Abs Auto 0.18 X10*3/uL (0.00-0.03); Imm Gran Pct Auto 1.5 % (0.0-0.4); Lymphocytes Absolute Auto 0.8 X10*3/uL (1.2-4.9); Lymphocytes Percent Auto 6.5 % (20-40); Mean Corpuscular HGB Conc 33.4 g/dl (31.0-35.0); Mean Corpuscular Hemoglobin 31.7 pg (27.0-33.0); Mean Corpuscular Volume 94.9 fL (80-98); Mean Platelet Volume 10.9 fL (9.4-12.3); Monocytes Absolute Auto 0.8 X10*3/uL (0.1-1.2); Monocytes Percent Auto 6.5 % (2-11); Neutrophils Percent Auto 85.2 % (45-73); Platelet Count 209 X10*3/uL (160-400); Red Blood Count 4.48 X10*6/uL (4.20-5.50); Red Cell Distribution Width 11.7 % (11.0-16.0); White Blood Count 11.8 X10*3/uL (4.8-10.8)
[2021-01-27 05:25] LABS: D Dimer 484 NG/ML
[2021-01-27 05:38] LABS: Anion Gap 15 (12-20); Blood Urea Nitrogen 25 mg/dL (9-16); C Reactive Protein 1.32 mg/dL (< or = 0.50); Calcium 8.9 mg/dL (8.4-10.2); Carbon Dioxide 27 mmol/L (22-29); Chloride 102 mmol/L (96-108); Creatinine Clr Calc Pharmacy 88.1; Estimated Glomerular Filt Rate > 60; Glucose Fasting 113 mg/dL (60-99); Potassium 4.3 mmol/L (3.3-5.1); Sodium 140 mmol/L (135-145)
[2021-01-27 05:57] LABS: Lactate Dehydrogenase 414 U/L (122-220)
[2021-01-27] MEDS: 0.9 % Sodium Chloride Flush 3 ML SYRINGE IVFLUSH ×3 (07:42→19:57)
[2021-01-27] MEDS: Heparin Sodium,Porcine 5,000 UNIT/ML VIAL 5000 UNIT SUBCUT ×2 (07:42→19:56)
[2021-01-27] MEDS: dexAMETHasone sod phosphate 4 MG/ML VIAL 6 MG IVPUSH (07:43)
--- NOTE | 2021-01-27 09:17 | HO.PM.IMPN ---
Subjective Subjective Date of Service: 01/27/21 Interval History: weak, but asking to go home, had asytmpoatic NSVT last night Cardiovascular Cardiovascular: Reports no additional cardiovascular complaints Respiratory Respiratory: Reports no additional respiratory complaints Physical Exam Vital Signs: Vital Signs: Last Vital Signs Temp 97.2 F 01/27/21 07:47 Pulse 52 01/27/21 07:47 Resp 20 01/27/21 07:47 BP 101/45 L 01/27/21 07:47 Pulse Ox 91 L 01/27/21 07:47 Body Mass Index 29.2 General: AO X 3, ill appearing, weak Resp: Crackles CVS: S1,S2,RRR GI: soft, non tender, non distended Neuro: motor grossly intact Psych: appropriate affect Objective Data Current Medications Generic Name Dose Route Start Last Admin Trade Name Freq PRN Reason Stop Dose Admin Acetaminophen 650 mg 01/18/21 07:20 01/23/21 15:50 Acetaminophen 325 Mg Tablet PO 650 mg Q6H PRN Administration Pain, Mild (Pain Scale 1-3) Dexamethasone Sodium Phosphate 6 mg 01/19/21 09:15 01/27/21 07:43 Dexamethasone Sod Phosphate 4 Mg/Ml Vial IVPUSH 01/28/21 09:01 6 mg DAILY TATYANA Administration Guaifenesin 5 ml 01/19/21 15:12 01/23/21 01:19 Guaifenesin 100 Mg/5 Ml Liquid PO 5 ml Q4H PRN Administration Cough Heparin Sodium (Porcine) 5,000 unit 01/18/21 07:20 01/27/21 07:42 Heparin Sodium,Porcine 5,000 Unit/Ml Vial SUBCUT 5,000 unit Q12H TATYANA Administration Ondansetron HCl 4 mg 01/18/21 07:20 Ondansetron Hcl 4 Mg/2 Ml Vial IVPUSH Q8H PRN Nausea and Vomiting Sodium Chloride 3 ml 01/18/21 08:00 01/27/21 07:42 0.9 % Sodium Chloride Flush 3 Ml Syringe IVFLUSH 3 ml QSHIFT TATYANA Administration Vancomycin HCl 250 mg 01/21/21 09:00 01/27/21 07:41 Vancomycin Hcl 125 Mg Capsule PO 250 mg Q6H TATYANA Administration Labs CBC & Chem 7: 01/27/21 04:45 01/27/21 04:45 Microbiology Microbiology Results: Microbiology 01/17/21 23:12 Blood - Venous Blood Culture - Final No growth after 5 days. 01/17/21 23:12 Blood - Venous Blood Culture - Final No growth after 5 days. 01/17/21 22:23 Urine clean catch - Clean Catch Midstream Urine Culture - Final Escherichia coli Assessment and Plan (1) COVID-19: Problem details: She has acute COVID within a week She has no secondary infection seen She is hypoxic and has unremarkable renal and liver function Status: Acute (2) Syncope: Status: Acute (3) Acute UTI: Status: Acute Assessment and Plan: 65-year-old female past medical history of AFib status post Maze, who presented to the hospital with complaints of syncope found to have UTI and COVID-19 positive, now cdif positive as well acute hypoxic respiratory failure due to covid o2 levels improving continue decadron, started 01/19, day 9 remdesivir completed NSVT check troponin, EKG cardio eval syncope likely due to hypotension from hypovolemia from GI symptoms of covid/ cdif UTI completed 4 days ceftriaxone afib s/p machelle, not on any treatement cdif diarrhea improving continue vanco po day 03/10
--- NOTE | 2021-01-27 09:41 | PM.CNCAR ---
History of Present Illness History of Present Illness Date of Service: 01/27/21 Consult reason: other (NSVT) Chief complaint: SYNCOPE, UTI, COVID Narrative: This patient is admitted for COVID infection and is also positive for C diff. From the cardiac standpoint, she had a 9 beat run of NSVT on telemetry and hence we have been asked to see her. She has a history of severe mitral regurgitation for which she underwent mitral valve repair, Maze procedure, left atrial ligation in 2016. Subsequently, no residual regurgitation or stenosis of significance based on the last office note from [facility]. She is generally seen by Dr. Salazar. Otherwise, she has not had any cardiac symptoms including angina or shortness of breath or palpitations or in fact anything else. Currently admitted for syncopal episode when she syncopized in the shower. She was also weak and had some vomiting. Then diagnosed to have COVID infection and then admitted. She has been in the hospital for more than a week now and there was a 9 beat run of NSVT for which we have been asked to see her. Review of Systems Review of Systems: Yes all other systems are reviewed and are negative Cardiovascular: Cardiovascular: Reports as per HPI, Reports no additional cardiovascular complaints, Denies acrocyanosis, Denies cool extremities, Denies painful fingertips, Denies chest pain, Denies chest pain at rest, Denies diaphoresis, Denies syncope, Denies irregular heart rhythm, Denies claudication, Denies leg edema, Denies lightheadedness, Denies palpitations and Denies dyspnea Respiratory: Respiratory: Denies dyspnea Neurologic: Denies syncope Endocrine: Endocrine: Denies palpitations PMFSH Past Medical History Medical History (Updated 01/27/21 @ 09:48 by Leon Power MD) Asthma Atrial fibrillation Osteoporosis PAF (paroxysmal atrial fibrillation) Vitamin D deficiency Family History Family History Father Melanoma Mother No problems noted. Maternal Aunt Breast cancer Brother Myasthenia gravis Surgical History Surgical History (Updated 01/27/21 @ 09:48 by Leon Power MD) History of hysterectomy History of left knee surgery History of tonsillectomy Hx of mitral valve repair Status post mitral valve repair Social History Social History Household Members: Spouse Housing: House Do you presently have visiting nurse or other home services: No Alcohol intake: current Alcohol intake frequency: a few times a month Smoking Status: Never smoker Use of substances other than those prescribed or required for medical reasons: No Currently Displaying Signs/Symptoms of Drug Intoxication Withdrawal: No Any prior treatment program specific to substance use: No Have you been hit, kicked, punched, or otherwise hurt by someone within the past year? If so, by whom?: No Do you feel safe in your current relationship?: Yes Is there a partner from a previous relationship who is making you feel unsafe now?: No Are you made to feel afraid or neglected: No Spiritual Healthcare Practices: n/a Advance Directives: No Advance Directives Information Provided: No Advance Directives on File: No Do you have thoughts of harming others: None Do you have a plan to hurt others: No Plan Recently lost weight without trying: No Nutrition Risks: No Nutritional Risk Patient : No : No Poor oral hygiene: No service: No Current occupational status: employed Meds Allergies Allergy/AdvReac Type Severity Reaction Status Date / Time acetaminophen [Percocet] Allergy Unknown stomach Verified 10/28/20 06:46 upset oxycodone [Percocet] Allergy Unknown stomach Verified 10/28/20 06:46 upset pneumococcal vaccine Allergy Unknown Unknown Verified 10/28/20 06:46 Active Medications: Current Medications Generic Name Dose Route Start Last Admin Trade Name Freq PRN Reason Stop Dose Admin Acetaminophen 650 mg 01/18/21 07:20 01/23/21 15:50 Acetaminophen 325 Mg Tablet PO 650 mg Q6H PRN Administration Pain, Mild (Pain Scale 1-3) Dexamethasone Sodium Phosphate 6 mg 01/19/21 09:15 01/27/21 07:43 Dexamethasone Sod Phosphate 4 Mg/Ml Vial IVPUSH 01/28/21 09:01 6 mg DAILY TATYANA Administration Guaifenesin 5 ml 01/19/21 15:12 01/23/21 01:19 Guaifenesin 100 Mg/5 Ml Liquid PO 5 ml Q4H PRN Administration Cough Heparin Sodium (Porcine) 5,000 unit 01/18/21 07:20 01/27/21 07:42 Heparin Sodium,Porcine 5,000 Unit/Ml Vial SUBCUT 5,000 unit Q12H TATYANA Administration Ondansetron HCl 4 mg 01/18/21 07:20 Ondansetron Hcl 4 Mg/2 Ml Vial IVPUSH Q8H PRN Nausea and Vomiting Sodium Chloride 3 ml 01/18/21 08:00 01/27/21 07:42 0.9 % Sodium Chloride Flush 3 Ml Syringe IVFLUSH 3 ml QSHIFT TATYANA Administration Vancomycin HCl 250 mg 01/21/21 09:00 01/27/21 07:41 Vancomycin Hcl 125 Mg Capsule PO 250 mg Q6H TATYANA Administration Home Medications Medication Instructions Recorded Confirmed Last Taken Type aspirin 81 mg tablet,delayed 81 mg PO DAILY 11/11/20 01/18/21 Unknown History release Physical Exam Vital Signs: Vital Signs: Last Vital Signs Temp 97.2 F 01/27/21 07:47 Pulse 52 01/27/21 07:47 Resp 20 01/27/21 07:47 BP 101/45 L 01/27/21 07:47 Pulse Ox 91 L 01/27/21 07:47 Body Mass Index 29.2 Const: General: cooperative, comfortable and no acute distress Orientation/consciousness: patient oriented x3 HENMT: Other: Unremarkable Neck: Neck: Yes normal visual inspection Chest: Chest palpation & inspection: normal inspection of the chest Resp: Auscultation: clear to auscultation bilaterally, no crackles and no wheezes Cardio: Jugular venous distension: no JVD Palpation: normal PMI Heart sounds: S1 normal heart sound present, S2 normal heart sound present, no gallops, no murmurs and no rubs GI: Palpation (GI): Soft to palpation Back/Spine/Pelvis: Other: unremarkable Skin: General skin exam: no rashes or lesions noted Neuro: General: patient oriented x3 Extrem: General: Yes no clubbing, cyanosis or edema Psych: Mental Status: mental status grossly normal Results Labs and Meds Result diagrams: 01/27/21 04:45 01/27/21 04:45 Lab results: Laboratory Results - last 24 hr 01/27/21 01/27/21 01/27/21 04:45 04:45 04:45 WBC 11.8 H RBC 4.48 Hgb 14.2 Hct 42.5 MCV 94.9 MCH 31.7 MCHC 33.4 RDW 11.7 Plt Count 209 MPV 10.9 Immature Gran % (Auto) 1.5 H Neut % (Auto) 85.2 H Lymph % (Auto) 6.5 L [place] % (Auto) 6.5 Eos % (Auto) 0.2 Baso % (Auto) 0.1 Lymph # (Auto) 0.8 L [place] # (Auto) 0.8 Eos # (Auto) 0.0 Baso # (Auto) 0.0 Abs Immat Gran (auto) 0.18 H Absolute Neuts (auto) 10.0 H Absolute Nucleated RBC 0.000 Nucleated RBC % (auto) 0.0 D-Dimer 484 Sodium 140 Potassium 4.3 Chloride 102 Carbon Dioxide 27 Anion Gap 15 BUN 25 H Creatinine 0.73 Estim Creat Clear Calc 88.1 Estimated GFR > 60 Fasting Glucose 113 H Calcium 8.9 Lactate Dehydrogenase 414 H C-Reactive Protein 1.32 H ECG Attestation: I personally reviewed and interpreted this ECG as follows: Interpretation: Admission EKG with sinus rhythm and nonspecific ST-T changes. Telemetry with monomorphic 9 beat run of NSVT. Assessment and Plan (1) NSVT (nonsustained ventricular tachycardia): Status: Acute (2) Status post mitral valve repair: Status: Acute (3) PAF (paroxysmal atrial fibrillation): Status: Acute (4) COVID-19: Status: Acute [facility] documentation was reviewed. She underwent mitral valve repair with a ring, Maze procedure, left atrial appendage ligation in 2016. Cardiac catheterization from around that time showed normal coronary arteries. Last echocardiogram is from 2017 that showed normal LVEF, 55-60% and there was trace mitral regurgitation. NSVT could be related to her ongoing medical issues. Electrolytes seem to be okay. Repeat an EKG as the last EKG from several days ago. Repeat high sensitivity troponins but the initial troponin was unremarkable. Repeat echocardiogram.
[2021-01-27 10:14] LABS: Troponin-I High Sensitivity 3.8 ng/L (<3.5-17.0)
--- NOTE | 2021-01-27 11:00 | CA_ITS ---
Transthoracic Echocardiogram Patient (Last, First, Middle): Fidelina Mcnair E Gender: Female Date of : 1955 Age: 66 Procedure Date: 01/27/2021 Procedure Type: Transthoracic Echocardiogram Location: [facility] [place] Height: 175.26 cm Weight: 89.81 kg BSA: 2.06 m2 Heart Rate: bpm BP: 124 / 60 mmHg Hand Grinder: Referring MD: Twan Roque MD Symptoms: NSVT Study Quality: Good ECG Rhythm: Sinus Conclusions: - The left ventricular systolic function is normal. The visually estimated ejection fraction is between 55-60%. - The basal inferior and basal inferolateral segments are hypokinetic. - Status post MV repair with annuloplasty ring. No significant stenosis or regurgitation. Findings Left Ventricle Normal left ventricular cavity size. There is mildly increased left ventricular wall thickness. The left ventricular systolic function is normal. The visually estimated ejection fraction is between 55-60%. Diastolic function is indeterminate on the basis of available data. Wall Motion Rest Echo Findings The basal inferior and basal inferolateral segments are hypokinetic. Right Ventricle Mildly increased right ventricular cavity size. There is normal right ventricular systolic function. Atria Both atria are normal in size. Aortic Valve There is a normal trileaflet aortic valve. There is no aortic valve stenosis. There is no aortic valve regurgitation. Mitral Valve There is trace mitral valve regurgitation. There is no mitral valve stenosis. Status post MV repair with annuloplasty ring. Mean gradient across the mitral valve 2 mm Hg at 57/Min. Mitral valve area by pressure half time is 2 sq cm. Pulmonic Valve The pulmonic valve was not well visualized. Tricuspid Valve There is mild tricuspid valve regurgitation. The pulmonary artery systolic pressure is normal. Great Vessels The aortic annulus, sinuses of valsalva, and asc aorta are normal in size. Venous The inferior vena cava is normal in size and collapses greater than 50% with inspiration. Pericardium/Pleural There is no evidence of pericardial effusion. Prior Study Comparison No significant change compared to prior study dated: 12/14/2016. Measurements 2D Linear Measurements IVSd: 1.10 0.6-0.9/0.6-1.0 cm LVIDd: 4.55 3.9-5.3/4.2-5.9 cm LVIDd Index: 2.21 2.4-3.2/2.2-3.1 cm/m2 LVIDs: 2.61 2.0-3.6 cm LVPWd: 1.10 0.7-1.1 cm Ao Root: 3.10 2.1-3.5 cm LA Diam: 4.00 2.7-3.8/3.0-4.0 cm LAIDs Index: 1.94 1.5-2.3 cm/m2 LV Mass: 221.88 67-162/88-224 g LV Mass Index: 107.71 43-95/49-115 g/m2 LVOT Diam: 2.30 3.0+(-)1.3 cm 2D Systolic Function EF 4C: 64.70 >55% EF 2C: 55.90 >55% EF BiP: 58.70 >55% Mitral Valve MV VTI: 0.41 MV Pk Navneet: 1.09 MV Mn Navneet: 0.56 MV Pk Grad: 5.00 MV Mn Grad: 2.00 MV Pk E: 1.08 MV PK A: 0.42 MV Decel Time: 379.00 E/A: 2.60 E'Lateral: 8.70 E'Medial: 5.33 E/E' Med: 20.30 E/E' Lat: 12.40 PHT: 111.00 MVA PHT: 1.98 MVA Continuity: 1.95 Decel [place]: 2.84 Aortic Valve AoV Pk Navneet: 1.19 AoV Mn Navneet: 0.71 AoV VTI: 0.30 AoV Pk Grad: 6.00 Aov Mn Grad: 3.00 OFELIA Cont.VTI: 2.72 LVOT LVOT Pk Navneet: 1.04 LVOT Mn Navneet: 0.59 LVOT VTI: 0.19 LVOT Pk Grad: 4.00 LVOT Mn Grad: 2.00 LVOT Diam: 2.30 LVOT Area: 4.15 Diastolic Function MV Pk E: 1.08 MV Pk A: 0.42 E/A: 2.60 E'Medial: 5.33 E/E' Med: 20.30 E' Laterial: 8.70 E/E' Lat: 12.40 Tricuspid Valve TR Pk Navneet: 2.48 TR Pk Grad: 25.00 RA Press: 3.00 RVSP: 28.00 Great Vessels Aorta Ao Root-2D: 3.10 2.0-3.7 cm Ao Asc: 3.20 2.1-3.4 cm Pulmonary Valve PV Pk Navneet: 0.86 Peak PV Grad: 3.00 Updated in Other Vendor System with Status of Final Leon Power MD electronically signed on 01/27/2021 4:52:05 PM with status of Final
[2021-01-28 03:16] VITALS: BP 113/66; PULSE 52; RESP 15; TEMP 36.7; O2SAT 95
[2021-01-28] MEDS: vancomycin HCL 125 MG CAPSULE 250 MG PO ×2 (03:47→07:27)
[2021-01-28 06:18] LABS: MANUAL DIFF FLAG NO
[2021-01-28 06:42] LABS: Anion Gap 12 (12-20); Blood Urea Nitrogen 25 mg/dL (9-16); Calcium 8.5 mg/dL (8.4-10.2); Carbon Dioxide 26 mmol/L (22-29); Chloride 105 mmol/L (96-108); Creatinine Clr Calc Pharmacy 103.8; Estimated Glomerular Filt Rate > 60; Glucose Fasting 105 mg/dL (60-99); Potassium 4.3 mmol/L (3.3-5.1); Sodium 139 mmol/L (135-145)
[2021-01-28 06:44] LABS: Basophils Percent Auto 0.1 % (0-2); Eosinophils Percent Auto 0.3 % (0-4); Hematocrit 40.7 % (37-47); Hemoglobin 13.6 g/dl (12.0-16.0); Imm Gran Abs Auto 0.24 X10*3/uL (0.00-0.03); Lymphocytes Absolute Auto 0.7 X10*3/uL (1.2-4.9); Lymphocytes Percent Auto 5.9 % (20-40); Mean Corpuscular HGB Conc 33.4 g/dl (31.0-35.0); Mean Corpuscular Hemoglobin 31.9 pg (27.0-33.0); Mean Corpuscular Volume 95.5 fL (80-98); Mean Platelet Volume 10.9 fL (9.4-12.3); Monocytes Absolute Auto 0.8 X10*3/uL (0.1-1.2); Monocytes Percent Auto 6.3 % (2-11); Neutrophils Absolute Auto 10.1 X10*3/uL (2.0-8.3); Neutrophils Percent Auto 85.4 % (45-73); Platelet Count 209 X10*3/uL (160-400); Red Blood Count 4.26 X10*6/uL (4.20-5.50); White Blood Count 11.8 X10*3/uL (4.8-10.8)
[2021-01-28 07:22] VITALS: BP 97/46; PULSE 52; RESP 22; TEMP 36.9; O2SAT 92
[2021-01-28] MEDS: dexAMETHasone sod phosphate 4 MG/ML VIAL 6 MG IVPUSH (07:26)
[2021-01-28] MEDS: Heparin Sodium,Porcine 5,000 UNIT/ML VIAL 5000 UNIT SUBCUT (07:28)
[2021-01-28] MEDS: 0.9 % Sodium Chloride Flush 3 ML SYRINGE IVFLUSH (07:34)
[2021-01-28 11:19] VITALS: BP 92/46; PULSE 56; RESP 20; TEMP 36.1; O2SAT 94
--- NOTE | 2021-01-28 14:40 | P.F2F_ITS ---
Service Date Service Date: 01/28/21 Reasons for Services Reason for long term: medication management, medication treatment and teach disease management Reason for physical therapy: home safety and mobility, therapeutic exercises, restore joint function and gait/transfer training Homebound: Leaving the home is medically contraindicated at this time without the asist of a device and/or another person due th the listed conditions above and below. Certification: Based on the above findings, I certify that this patient is confined to the home and needs intermittent long term care, physical therapy and/or speech therapy, or continues to need occupational therapy. The patient is under my care, and I have initiated the establishment of the plan of care. The patient will be followed by a physician who will periodically review the plan of care.
--- NOTE | 2021-01-28 14:40 | P.DS_ITS ---
DS: Providers Provider Date of Service: 01/28/21 Date of admission: 01/18/21 01:09 Primary care physician: Unknown Physician Consults: 01/19/21 09:13 Consult to Infectious Diseases Routine Consulting Provider: Sarahy Lynn Reason for consultation: covid + 01/16, has been assymptomatic but now O2 84%, ?Remdesevir 01/27/21 08:20 Consult to Cardiology Routine Consulting Provider: Leon Power Reason for consultation: nsvt DS: Diagnosis Discharge Diagnosis (1) NSVT (nonsustained ventricular tachycardia): Status: Acute (2) Status post mitral valve repair: Status: Acute (3) PAF (paroxysmal atrial fibrillation): Status: Acute (4) COVID-19: Status: Acute (5) Acute hypoxemic respiratory failure: Status: Acute (6) Clostridium difficile colitis: Status: Acute DS: Medications Discharge Medications Home Medications: Home Medications Medication Instructions Recorded Confirmed aspirin 81 mg tablet,delayed 81 mg PO DAILY 11/11/20 01/18/21 release Previous Rx's Medication Instructions Recorded ondansetron 4 mg PO Q8H PRN #20 tab 01/16/21 vancomycin 125 mg PO QID #28 cap 01/28/21 DS: Summary Hospital Course Hospital Course: patient was admitted for acute hypoxic respiratory failure due to covid, compli cated by [facility]. she was treated with decadron, remdisivir, vanco. Her shortness of breath, diarrhea resolved. Oxygen was eventually weaned down to 3 L which she will continue at home during recovery. She will also complete 7 more days of p.o. vancomycin. Course was complicated by nonsustained V-tach. She was seen by Cardiology recommended echocardiogram which was unchanged. No further workup was recommended at this time. Patient is still fairly weak but feeling much better and O2 requirements significantly decreased. Therefore, she will be discharged home with visiting nurse services to continue her recovery. Time Spent with Patient Time attestation: Total time spent providing and/or coordinating discharge serv ices: Discharge coordination time: Greater than 30 minutes Physical Exam Vital Signs: Vital Signs: Last Vital Signs Temp 96.9 F 01/28/21 11:19 Pulse 56 01/28/21 11:19 Resp 20 01/28/21 11:19 BP 92/46 L 01/28/21 11:19 Pulse Ox 94 01/28/21 11:19 Body Mass Index 29.2 General: AO X 3, weakn appearing Resp: CTA bilateral CVS: S1,S2,RRR GI: soft, non tender, non distended Neuro: motor grossly intact Psych: appropriate affect DS: Data Data Completed and Pending Labs on day of discharge: Laboratory Results - last 24 hr 01/28/21 01/28/21 05:43 05:43 WBC 11.8 H RBC 4.26 Hgb 13.6 Hct 40.7 MCV 95.5 MCH 31.9 MCHC 33.4 RDW 12.0 Plt Count 209 MPV 10.9 Immature Gran % (Auto) 2.0 H Neut % (Auto) 85.4 H Lymph % (Auto) 5.9 L [place] % (Auto) 6.3 Eos % (Auto) 0.3 Baso % (Auto) 0.1 Lymph # (Auto) 0.7 L [place] # (Auto) 0.8 Eos # (Auto) 0.0 Baso # (Auto) 0.0 Abs Immat Gran (auto) 0.24 H Absolute Neuts (auto) 10.1 H Absolute Nucleated RBC 0.000 Nucleated RBC % (auto) 0.0 Sodium 139 Potassium 4.3 Chloride 105 Carbon Dioxide 26 Anion Gap 12 BUN 25 H Creatinine 0.62 Estim Creat Clear Calc 103.8 Estimated GFR > 60 Fasting Glucose 105 H Calcium 8.5 Discharge Plan Discharge Patient Disposition: Home Health Service Discharge Diagnosis: covid, cdif Referrals: Physician,Unknown [Primary Care Provider] - 1 Week Discharge Medications: New vancomycin 125 mg capsule 125 mg PO QID Qty: 28 RF: 0 Continued ondansetron 4 mg tablet,disintegrating 4 mg PO Q8H PRN (Reason: nausea and vomiting) Qty: 20 RF: 0 aspirin [Adult Aspirin Regimen] 81 mg tablet,delayed release (DR/EC) 81 mg PO DAILY RF: 0 Discharge Orders: Discharge Order (Routine); Ordered 01/28/21 Ordered By: Twan Roque Diet: advance to usual diet Activity on Discharge: As tolerated Stand Alone Forms: Patient Portal Discharge page Care Plan Goals: recovery Health Concerns: covid, cdif Plan of Treatment: 7 more days po vanco, use o2 for goal saturation over 91% Assessment: see above
[2021-01-28 14:44] VITALS: PULSE 60; PULSE 62; PULSE 72; O2SAT 88; O2SAT 93; O2SAT 95
== END 2021-01-28 15:57 | disposition home health service (06) | DRG 137 ==
LOC: HO.ED 01-18 00:48 → HO.EDOVER 01-18 01:45 → HO.IMC 01-18 14:53
PROVIDERS: Internal Medicine; Admitting Provider Internal Medicine; Emergency Provider Internal Medicine; Visit Provider Internal Medicine
DX: U07.1 COVID-19 (principal); J96.01 Acute respiratory failure with hypoxia; I95.9 Hypotension, unspecified; A04.72 Enterocolitis due to Clostridium difficile, not specified as recurrent; I48.0 Paroxysmal atrial fibrillation; I47.1 Supraventricular tachycardia; N39.0 Urinary tract infection, site not specified; B96.20 Unspecified Escherichia coli [E. coli] as the cause of diseases classified elsewhere; Z88.5 Allergy status to narcotic agent; Z88.6 Allergy status to analgesic agent; Z79.82 Long term (current) use of aspirin; Z79.899 Other long term (current) drug therapy
CPT/HCPCS: 36415; 71045; 80048; 80076; 81001; 81003; 83605; 83615; 83735; 83880; 84484; 85025; 85379; 85610; 85730; 86140; 87040; 87086; 87088; 87186; 87324; 87449; 87493; 93005; 93306; 96365; 97163; 99285; J0696; J1100; J1940; J3490

== ENCOUNTER 2021-02-08 11:16 | Inpatient (IN) | payer OTHER, SELFPAY ==
--- NOTE | ~2021-02-08 | US_ITS ---
EXAMINATION: US VENOUS ULTRASOUND WITH DOPPLER LOWER EXTREMITY, BILATERAL CLINICAL INFORMATION: Shortness of breath with pulmonary emboli COMPARISON: None TECHNIQUE: Ultrasound of the deep veins is performed from the hip to the calf with compression sonography and color and pulse Doppler assessment. Spectral analysis with color-flow imaging is performed. FINDINGS: RIGHT: There is normal venous compression and respiratory variation and augmented flow. The visualized common femoral vein, superficial femoral vein, profunda femoral vein, popliteal vein, and the trifurcation region shows no evidence of deep venous thrombosis. There is no significant popliteal fossa cyst. LEFT: There is acute thrombus present popliteal vein only. The left lower extremity is otherwise normal with normal venous compression and respiratory variation and augmented flow throughout the remainder of the lower extremity. The visualized common femoral vein, superficial femoral vein, profunda femoral vein, and visualized tibial veins shows no evidence of deep venous thrombosis. There is no significant popliteal fossa cyst. US/US venous duplex LE BI IMPRESSION: Acute DVT left popliteal. Once the provider is contacted, an addendum will be issued
--- NOTE | ~2021-02-08 | CT_ITS ---
EXAMINATION: CT ANGIOGRAM CHEST WITHOUT AND WITH CONTRAST (CT PULMONARY ANGIOGRAM FOR PE) CLINICAL INFORMATION: Chest pain, shortness of breath. COVID 2 weeks ago. COMPARISON: CTA chest. TECHNIQUE: Prior to contrast administration, noncontrast localization images were obtained. Subsequently, multidetector volumetric imaging was performed from the thoracic inlet to below the diaphragms following the administration of 65 mL Omnipaque 350 intravenous contrast. No contrast reaction reported Sagittal, coronal, and MIP oblique sagittal reformatted images were obtained on the CT workstation, uploaded to PACS, and reviewed. This CT examination was performed using dose optimization techniques as appropriate, variously including the following: *Automated exposure control *Adjustment of mA and/or kV according to patient size (this includes techniques or standardized protocols for targeted exams where dose is matched to indication/reason for exam; i.e. extremities or head) *Use of iterative reconstruction technique Total exam dose-length product 307 mGy-cm FINDINGS: QUALITY OF STUDY/CONTRAST BOLUS: Satisfactory. PULMONARY ARTERIES: Prominent filling defects in bilateral central and segmental pulmonary vasculature, more prominent in the right side. This includes prominent filling defect in the right main pulmonary artery, and extensive emboli in the segmental and subsegmental vessels. Findings are new as compared to previous. THORACIC AORTA: Normal caliber aorta. LUNG: Interval development of multifocal airspace and ground-glass opacities diffusely in bilateral hemithoraces, with a peripheral predominance, commonly seen with COVID infection. Bibasilar dependent changes again noted. Biapical pleural parenchymal scarring. PLEURA: No pleural effusion or pneumothorax. MEDIASTINUM: Heart is mildly enlarged. No pericardial effusion. No hilar or mediastinal lymphadenopathy. No evidence of septal bowing or right heart strain. CHEST WALL/AXILLA: No axillary or internal mammary lymphadenopathy. OSSEOUS STRUCTURES: No acute or suspicious osseous abnormality. UPPER ABDOMEN: Unremarkable. No reflux of contrast into the hepatic veins to suggest elevated right heart pressures. CT/CT angio chest PE protocol IMPRESSION: 1. Prominent pulmonary emboli in bilateral central, segmental and subsegmental vessels, more prominent on the right side, with estimated moderate thrombus load. Recommend followup imaging to ensure resolution. 2. Interval development of multifocal airspace and ground-glass opacities diffusely in bilateral thoraces, with peripheral predominance, commonly seen with COVID infection. VTE: Positive This critical result was discussed with Dr. Lee at 1515 hours on 02/08/2021 and it was ascertained that the content and urgency of the report was understood at the time of direct communication.
--- NOTE | ~2021-02-08 | XR_ITS ---
EXAMINATION: XR CHEST CLINICAL INFORMATION: Right-sided chest pain. Rule out rib fracture COMPARISON: Previous chest x-rays most recent December [address] of the chest 02/08/2021 TECHNIQUE: Frontal view of the chest was obtained. FINDINGS: The cardiac and mediastinal contours are stable. Post-CABG changes are seen. The lung volumes are low. There are bilateral peripheral infiltrates and increased interstitial markings. This is increased from previous chest x-ray 01/20/2021 and not appreciably changed from more recent chest CTA 02/08/2021. There is no pleural effusion or pneumothorax. No rib fracture is seen. XR/XR chest 1V IMPRESSION: Low lung volumes. Bilateral peripheral infiltrates and increased interstitial markings similar to chest CTA 02/08/2021. No rib fracture seen.
[2021-02-08 11:29] VITALS: BP 105/56; PULSE 91; RESP 24; TEMP 36.6; O2SAT 97; BMI 25.1
[2021-02-08 12:20] LABS: MANUAL DIFF FLAG NO
[2021-02-08 12:26] LABS: Eosinophils Absolute Auto 0.1 X10*3/uL (0.0-0.4); Eosinophils Percent Auto 0.8 % (0-4); Hematocrit 40.7 % (37-47); Hemoglobin 13.2 g/dl (12.0-16.0); Imm Gran Abs Auto 0.03 X10*3/uL (0.00-0.03); Imm Gran Pct Auto 0.4 % (0.0-0.4); Lymphocytes Absolute Auto 0.8 X10*3/uL (1.2-4.9); Lymphocytes Percent Auto 11.5 % (20-40); Mean Corpuscular HGB Conc 32.4 g/dl (31.0-35.0); Mean Corpuscular Hemoglobin 31.7 pg (27.0-33.0); Mean Corpuscular Volume 97.8 fL (80-98); Mean Platelet Volume 11.1 fL (9.4-12.3); Monocytes Absolute Auto 0.5 X10*3/uL (0.1-1.2); Monocytes Percent Auto 6.7 % (2-11); Neutrophils Absolute Auto 5.8 X10*3/uL (2.0-8.3); Neutrophils Percent Auto 80.6 % (45-73); Platelet Count 103 X10*3/uL (160-400); Red Blood Count 4.16 X10*6/uL (4.20-5.50); Red Cell Distribution Width 12.6 % (11.0-16.0); White Blood Count 7.2 X10*3/uL (4.8-10.8)
[2021-02-08 12:45] LABS: Alanine Aminotransferase 35 U/L (0-31); Albumin Level 3.4 g/dL (3.5-5.0); Alkaline Phosphatase 74 U/L (39-117); Anion Gap 14 (12-20); Aspartate Amino Transferase 17 U/L (5-31); Bilirubin Total 0.6 mg/dL (0.0-1.0); Blood Urea Nitrogen 17 mg/dL (9-16); Calcium 8.8 mg/dL (8.4-10.2); Carbon Dioxide 25 mmol/L (22-29); Chloride 106 mmol/L (96-108); Creatinine Clr Calc Pharmacy 79.2; Estimated Glomerular Filt Rate > 60; Glucose Random 142 mg/dL (60-115); Lipase 57 U/L (8-78); Potassium 3.8 mmol/L (3.3-5.1); Sodium 141 mmol/L (135-145); Total Protein 5.8 g/dL (6.5-8.0)
[2021-02-08 12:51] LABS: Troponin-I High Sensitivity 9.1 ng/L (<3.5-17.0)
--- NOTE | 2021-02-08 13:09 | ED.SOB ---
HPI - SOB/Dyspnea General Chief Complaint: Dyspnea Stated Complaint: shortness of breath Time Seen by Provider: 02/08/21 11:24 Source: patient Mode of arrival: EMS Limitations: no limitations History of Present Illness HPI Narrative: 66-year-old female who presents emergency department for evaluation chest pain, weakness and shortness of breath. The patient was hospitalized from 01/18/2021 until 01/28/2021 COVID-19 pneumonia with hypoxia and respiratory failure, nonsustained ventricular tachycardia, paroxysmal atrial fibrillation and C difficile colitis. The patient states that she does have home oxygen. She states that yesterday she developed increased dyspnea on exertion despite wearing oxygen. She also states she developed a tightness in her chest, she describes this as an intermittent tightness which is worse with exertion and worse with breathing, the tightness is 8/10 at its worst. She has also had an occasional cough. She has not noticed any pain or swelling in her legs. The patient states that she has an oxygen condenser which has a 40 ft cord that she has been using. She also has portable oxygen. She denied fever, chills, abdominal pain. Related Data Home Medications Medication Instructions Recorded Confirmed aspirin 81 mg tablet,delayed 81 mg PO DAILY 11/11/20 02/05/21 release albuterol sulfate 90 mcg/actuation 2 puff INHALATION Q4-6H PRN 02/05/21 02/05/21 aerosol inhaler calcium carbonate 600 mg (1,500 1 tab PO DAILY 02/05/21 02/05/21 mg)-vitamin D3 200 unit tablet cyanocobalamin (vitamin B-12) 1,000 mcg PO DAILY 02/05/21 02/05/21 1,000 mcg capsule folic acid 800 mcg tablet 0.8 mg PO DAILY 02/05/21 02/05/21 zinc 50 mg tablet 50 mg PO DAILY 02/05/21 02/05/21 Previous Rx's Medication Instructions Recorded ondansetron 4 mg PO Q8H PRN #20 tab 01/16/21 vancomycin 125 mg PO QID #28 cap 01/28/21 Allergies Allergy/AdvReac Type Severity Reaction Status Date / Time acetaminophen [Percocet] Allergy Unknown stomach Verified 10/28/20 06:46 upset oxycodone [Percocet] Allergy Unknown stomach Verified 10/28/20 06:46 upset pneumococcal vaccine Allergy Unknown Unknown Verified 10/28/20 06:46 Review of Systems Review of Systems: Yes all other systems are reviewed and are negative [facility] Past Medical History [facility] Narrative: The patient denies tobacco use, she occasionally drinks alcohol, she denies drug use. Medical History (Updated 02/08/21 @ 15:40 by Josue Lee MD) Asthma Atrial fibrillation Osteoporosis PAF (paroxysmal atrial fibrillation) Vitamin D deficiency Surgical History History of hysterectomy History of left knee surgery History of tonsillectomy Hx of mitral valve repair Status post mitral valve repair Family History Family History Father Melanoma Mother No problems noted. Maternal Aunt Breast cancer Brother Myasthenia gravis Social History Social History Household Members: Spouse Housing: House Alcohol intake: current Alcohol intake frequency: a few times a month Smoking Status: Never smoker Advance Directives: No Advance Directives Information Provided: Yes service: No Current occupational status: employed Physical Exam Vital Signs: Vital Signs: Last Vital Signs Temp 97.8 F 02/08/21 11:29 Pulse 71 02/08/21 14:00 Resp 24 H 02/08/21 14:00 BP 100/43 L 02/08/21 14:00 Pulse Ox 98 02/08/21 14:00 Oxygen Flow Rate 4 02/08/21 11:29 Body Mass Index 25.1 Const: General: cooperative and healthy appearing Orientation/consciousness: oriented to person and oriented to place Limitations: no limitations HENMT: Head: Yes normal to inspection, Yes normocephalic and Yes atraumatic Ears: external ears normal General nose exam: Normal external nose present Face and sinus: Yes normal facial exam Mouth: Normal oral and palatal mucosa present Throat: Yes posterior oropharynx normal Eyes: Periorbital: periorbital findings normal Eyelids: Yes eyelids normal Conjunctivae: conjunctivae normal Sclerae: sclerae normal Corneas: corneas normal Pupils: Equal, round and reactive pupils present Direct Ophthalmoscopy: normal light reflex Neck: Neck: Yes full ROM, Yes no lymphadenopathy, Yes no meningeal signs, Yes trachea midline and Yes supple Chest: Chest palpation & inspection: normal inspection of the chest and normal palpation of entire chest wall Resp: Effort & Inspection: normal respiratory effort and able to speak in complete sentences Auscultation: clear to auscultation bilaterally Cardio: Rate: regular rate Rhythm: regular rhythm Heart sounds: S1 normal heart sound present, S2 normal heart sound present and no murmurs GI: Inspection: Yes normal to inspection Palpation (GI): Soft to palpation, nontender, no guarding, not rigid and No hepatosplenomegaly present : General: Yes no CVA tenderness Back/Spine/Pelvis: Back: no CVA tenderness Cervical Spine: normal cervical lordosis Thoracic/Lumbar Spine: thoracic and lumbar spine normal to inspection Skin: Lesions: no lesions Rashes: no rashes Wounds: no wounds Neuro: General: oriented to person, oriented to place and no meningeal signs Cranial nerves: Yes CN's II-XII intact bilaterally and Yes Equal, round and reactive pupils present Cognition (Neuro): normal cognition Motor exam (neuro): 5/5 motor strength present throughout Extrem: General: Yes normal to inspection and Yes full ROM Psych: Appearance: well kempt Mental Status: mental status grossly normal Speech and movement: Normal speech and movement present Affect: normal affect Attitude: cooperative Thought process: Normal thought process present Thought content: Normal thought content present Course Course Course Narrative: 58-year-old female who presents emergency department for evaluation of dyspnea on exertion, pleuritic chest pain and weakness, the patient is post COVID infection the time was 19 days. Patient does have home oxygen but does have a very long oxygen tube cord that she has been using. Vital signs revealed an elevated respiratory rate of 24, slightly low blood pressure 105/56. Her examination was unremarkable. Differential includes bacterial pneumonia, pulmonary embolism, CHF, pleural effusions. Laboratory evaluation was ordered , I also ordered a CT pulmonary angiogram PE protocol. 1535: Patient's laboratory evaluation revealed thrombocytopenia with platelet count of a 103, 000. Elevated D-dimer 8800. CT pulmonary angiogram revealed that the patient has significant bilateral pulmonary embolisms in the central, segmental and subsegmental regions, right greater than left. The radiologist stated the patient does have a clot in her right main pulmonary artery. I did discuss this finding with the patient and with the covering hospitalist, Dr. Real. The patient will be treated with Lovenox 1 milligram/kilogram (80 mg) q.12 hours. I did order the 1st dose here in the emergency department. Patient will be admitted to the [facility]. MDM - SOB/Dyspnea Lab Data Result diagrams: 02/08/21 12:13 02/08/21 12:13 Labs: Lab Results 02/08/21 02/08/21 02/08/21 Range/Units 12:13 12:13 12:13 WBC 7.2 (4.8-10.8) X10*3/uL RBC 4.16 L (4.20-5.50) X10*6/uL Hgb 13.2 (12.0-16.0) g/dl Hct 40.7 (37-47) % MCV 97.8 (80-98) fL MCH 31.7 (27.0-33.0) pg MCHC 32.4 (31.0-35.0) g/dl RDW 12.6 (11.0-16.0) % Plt Count 103 L D (160-400) X10*3/uL MPV 11.1 (9.4-12.3) fL Immature Gran % (Auto) 0.4 (0.0-0.4) % Neut % (Auto) 80.6 H (45-73) % Lymph % (Auto) 11.5 L (20-40) % [place] % (Auto) 6.7 (2-11) % Eos % (Auto) 0.8 (0-4) % Baso % (Auto) 0.0 (0-2) % Lymph # (Auto) 0.8 L (1.2-4.9) X10*3/uL [place] # (Auto) 0.5 (0.1-1.2) X10*3/uL Eos # (Auto) 0.1 (0.0-0.4) X10*3/uL Baso # (Auto) 0.0 (0.0-0.2) X10*3/uL Abs Immat Gran (auto) 0.03 (0.00-0.03) X10*3/uL Absolute Neuts (auto) 5.8 (2.0-8.3) X10*3/uL Absolute Nucleated RBC 0.000 (0.0-0.012) X10*3/uL Nucleated RBC % (auto) 0.0 (0.0-0.2) /100WBC D-Dimer 8800 NG/ML Sodium 141 (135-145) mmol/L Potassium 3.8 (3.3-5.1) mmol/L Chloride 106 (96-108) mmol/L Carbon Dioxide 25 (22-29) mmol/L Anion Gap 14 (12-20) BUN 17 H (9-16) mg/dL Creatinine 0.71 (0.5-1.4) mg/dL Estim Creat Clear Calc 79.2 Estimated GFR > 60 Random Glucose 142 H D (60-115) mg/dL Calcium 8.8 (8.4-10.2) mg/dL Total Bilirubin 0.6 (0.0-1.0) mg/dL AST 17 (5-31) U/L ALT 35 H (0-31) U/L Alkaline Phosphatase 74 D (39-117) U/L Troponin I High Sens (<3.5-17.0) ng/L Total Protein 5.8 L (6.5-8.0) g/dL Albumin 3.4 L (3.5-5.0) g/dL Lipase 57 (8-78) U/L 05/15/ Range/Units 12:13 WBC (4.8-10.8) X10*3/uL RBC (4.20-5.50) X10*6/uL Hgb (12.0-16.0) g/dl Hct (37-47) % MCV (80-98) fL MCH (27.0-33.0) pg MCHC (31.0-35.0) g/dl RDW (11.0-16.0) % Plt Count (160-400) X10*3/uL MPV (9.4-12.3) fL Immature Gran % (Auto) (0.0-0.4) % Neut % (Auto) (45-73) % Lymph % (Auto) (20-40) % [place] % (Auto) (2-11) % Eos % (Auto) (0-4) % Baso % (Auto) (0-2) % Lymph # (Auto) (1.2-4.9) X10*3/uL [place] # (Auto) (0.1-1.2) X10*3/uL Eos # (Auto) (0.0-0.4) X10*3/uL Baso # (Auto) (0.0-0.2) X10*3/uL Abs Immat Gran (auto) (0.00-0.03) X10*3/uL Absolute Neuts (auto) (2.0-8.3) X10*3/uL Absolute Nucleated RBC (0.0-0.012) X10*3/uL Nucleated RBC % (auto) (0.0-0.2) /100WBC D-Dimer NG/ML Sodium (135-145) mmol/L Potassium (3.3-5.1) mmol/L Chloride (96-108) mmol/L Carbon Dioxide (22-29) mmol/L Anion Gap (12-20) BUN (9-16) mg/dL Creatinine (0.5-1.4) mg/dL Estim Creat Clear Calc Estimated GFR Random Glucose (60-115) mg/dL Calcium (8.4-10.2) mg/dL Total Bilirubin (0.0-1.0) mg/dL AST (5-31) U/L ALT (0-31) U/L Alkaline Phosphatase (39-117) U/L Troponin I High Sens 9.1 D (<3.5-17.0) ng/L Total Protein (6.5-8.0) g/dL Albumin (3.5-5.0) g/dL Lipase (8-78) U/L Discharge Plan Discharge Clinical Impression: Pulmonary emboli, Hypoxia Patient Disposition: Admitted As Inpatient Prescriptions: No Action ondansetron 4 mg tablet,disintegrating 4 mg PO Q8H PRN (Reason: nausea and vomiting) Qty: 20 RF: 0 vancomycin 125 mg capsule 125 mg PO QID Qty: 28 RF: 0 calcium carbonate-vitamin D3 [Calcium 600 + D(3)] 600 mg(1,500mg) -200 unit tablet 1 tab PO DAILY RF: 0 cyanocobalamin (vitamin B-12) 1,000 mcg capsule 1,000 mcg PO DAILY RF: 0 folic acid 800 mcg tablet 0.8 mg PO DAILY RF: 0 albuterol sulfate [ProAir HFA] 90 mcg/actuation HFA aerosol inhaler 2 puff inhalation Q4-6H PRNRF: 0 zinc 50 mg tablet 50 mg PO DAILY RF: 0 aspirin [Adult Aspirin Regimen] 81 mg tablet,delayed release (DR/EC) 81 mg PO DAILY RF: 0
[2021-02-08 13:13] LABS: D Dimer 8800 NG/ML
[2021-02-08 13:37] VITALS: BP 99/51; PULSE 73; RESP 26; O2SAT 98
[2021-02-08 14:00] VITALS: BP 100/43; PULSE 71; RESP 24; O2SAT 98
[2021-02-08] MEDS: iohexoL 350 MG/ML 100 ML INFUS..BTL IV (14:27)
[2021-02-08] MEDS: Enoxaparin Sodium 80 MG/0.8 ML SYRINGE SUBCUT (15:45)
[2021-02-08 15:48] LABS: INTERNATIONAL NORM RATIO 1.1 (0.9-1.1)
[2021-02-08 15:50] LABS: Partial Thromboplastin Time 33.9 SEC (24.1-38.0)
--- NOTE | 2021-02-08 15:52 | P.HPHOSP_ITS ---
History of Present Illness Date of Service: 02/08/21 Chief Complaint: sob, chest pain 66-year-old female presented with shortness of breath and chest pain. COVID on 01/16/2021. She had prolonged hospital stay due to hypoxia and C diff. She was eventually discharged on 01/28/2021 with 3 L home oxygen. She completed her vancomycin at home. Initially when she came home she was feeling much better. Then she started to developed shortness of breath on minimal exertion associated with chest pressure. Eventually this became bad enough that she came to ED. In ED her D-dimer was significantly elevated over 8000. CTA showed Prominent pulmonary emboli in bilateral central, segmental and subsegmental vessels, more prominent on the right side, with estimated moderate thrombus load. Recommend followup imaging to ensure resolution. Patient was noted to be hypoxic down to 85% on room air. She was neither tachycardic nor hypotensive below her baseline. Of note patient had a CTA on her previous admission that was negative. Review of Systems Review of Systems: Constitutional: Denies fever, denies Chills Eyes: denies blurry vision ENT: denies sore throat CVS: chest pain Respiratory: dyspnea GI: no abdominal pain : denies dysuria MSK: denies neck pain Skin: denies rash Neuro: denies specific motor weakness Psych: denies suicidal ideation Endocrine: denies heat/cold intoleratnce Hematologic: denies easy bleeding Allergy: denies hives [facility] Medical History Asthma Atrial fibrillation Osteoporosis PAF (paroxysmal atrial fibrillation) Vitamin D deficiency Family History Father Melanoma Mother No problems noted. Maternal Aunt Breast cancer Brother Myasthenia gravis Surgical History History of hysterectomy History of left knee surgery History of tonsillectomy Hx of mitral valve repair Status post mitral valve repair Social History Household Members: Spouse Housing: House Alcohol intake: current Alcohol intake frequency: a few times a month Smoking Status: Never smoker Advance Directives: No Advance Directives Information Provided: Yes service: No Current occupational status: employed Meds Allergies Allergy/AdvReac Type Severity Reaction Status Date / Time acetaminophen [Percocet] Allergy Unknown stomach Verified 10/28/20 06:46 upset oxycodone [Percocet] Allergy Unknown stomach Verified 10/28/20 06:46 upset pneumococcal vaccine Allergy Unknown Unknown Verified 10/28/20 06:46 Home Medications Medication Instructions Recorded Confirmed Last Taken Type aspirin 81 mg tablet,delayed 81 mg PO DAILY 11/11/20 02/05/21 Unknown History release albuterol sulfate 90 mcg/actuation 2 puff INHALATION Q4-6H PRN 02/05/21 02/05/21 Unknown History aerosol inhaler calcium carbonate 600 mg (1,500 1 tab PO DAILY 02/05/21 02/05/21 Unknown History mg)-vitamin D3 200 unit tablet cyanocobalamin (vitamin B-12) 1,000 mcg PO DAILY 02/05/21 02/05/21 Unknown History 1,000 mcg capsule folic acid 800 mcg tablet 0.8 mg PO DAILY 02/05/21 02/05/21 Unknown History zinc 50 mg tablet 50 mg PO DAILY 02/05/21 02/05/21 Unknown History Physical Exam Vital Signs and Narrative: Vital Signs: Last Vital Signs Temp 97.8 F 02/08/21 11:29 Pulse 71 02/08/21 14:00 Resp 24 H 02/08/21 14:00 BP 100/43 L 02/08/21 14:00 Pulse Ox 98 02/08/21 14:00 Oxygen Flow Rate 4 02/08/21 11:29 Body Mass Index 25.1 General: no dyspnea at rest, but gets visibiliy dyspneic on minimal exertion HEENT: atraumatic Neck: normal to visual inspection CVS: S1, S2, RRR Resp: Crackles Chest: non tender GI: soft, non tender, non distended : no CVA tenderness Skin: no rashes Extremities: no edema Neuro: Oriented X3, grossly intact Psych: cooperative Results Labs CBC and Chem 7: 02/08/21 12:13 02/08/21 12:13 Labs: Laboratory Results - last 24 hr 02/08/21 02/08/21 02/08/21 12:13 12:13 12:13 MCV 97.8 MCH 31.7 MCHC 32.4 RDW 12.6 Plt Count 103 L D MPV 11.1 Immature Gran % (Auto) 0.4 Neut % (Auto) 80.6 H Lymph % (Auto) 11.5 L [place] % (Auto) 6.7 Eos % (Auto) 0.8 Baso % (Auto) 0.0 Lymph # (Auto) 0.8 L [place] # (Auto) 0.5 Eos # (Auto) 0.1 Baso # (Auto) 0.0 Abs Immat Gran (auto) 0.03 Absolute Neuts (auto) 5.8 Absolute Nucleated RBC 0.000 Nucleated RBC % (auto) 0.0 D-Dimer 8800 Anion Gap 14 Estim Creat Clear Calc 79.2 Estimated GFR > 60 Random Glucose 142 H D Calcium 8.8 Total Bilirubin 0.6 AST 17 ALT 35 H Alkaline Phosphatase 74 D Troponin I High Sens Total Protein 5.8 L Albumin 3.4 L Lipase 57 02/08/21 12:13 MCV MCH MCHC RDW Plt Count MPV Immature Gran % (Auto) Neut % (Auto) Lymph % (Auto) [place] % (Auto) Eos % (Auto) Baso % (Auto) Lymph # (Auto) [place] # (Auto) Eos # (Auto) Baso # (Auto) Abs Immat Gran (auto) Absolute Neuts (auto) Absolute Nucleated RBC Nucleated RBC % (auto) D-Dimer Anion Gap Estim Creat Clear Calc Estimated GFR Random Glucose Calcium Total Bilirubin AST ALT Alkaline Phosphatase Troponin I High Sens 9.1 D Total Protein Albumin Lipase Imaging Radiologist's Impressions: Impressions Chest CTA 02/08/21 12:00 IMPRESSION: 1. Prominent pulmonary emboli in bilateral central, segmental and subsegmental vessels, more prominent on the right side, with estimated moderate thrombus load. Recommend followup imaging to ensure resolution. 2. Interval development of multifocal airspace and ground-glass opacities diffusely in bilateral thoraces, with peripheral predominance, commonly seen with COVID infection. VTE: Positive This critical result was discussed with Dr. Lee at 1515 hours on 02/08/2021 and it was ascertained that the content and urgency of the report was understood at the time of direct communication. Assessment and Plan (1) Pulmonary emboli: Qualifiers: Pulmonary embolism type: multiple subsegmental (without acute cor pulmonale) Qualified Code(s): I26.94 - Multiple subsegmental pulmonary emboli without acute cor pulmonale Status: Acute 66F presented with sob and chest pain, found to be hypoxic with bilateral PE. acute bilateral PE with moderat clot burden complicated by acute hypoxic respiratory failure due to recent COVID lovenox 1mg/kg q12h monitor cbc echo to check RV LE duplex hold ASA cdif resolved, completed vanc course
[2021-02-08 16:19] LABS: COVID-19 Test Negative (Negative); IDNOW Serial# 9DD0AD1C
[2021-02-08 16:48] VITALS: BP 103/49; PULSE 78; RESP 20; TEMP 36.6; O2SAT 100
[2021-02-08] MEDS: 0.9 % Sodium Chloride Flush 3 ML SYRINGE IVFLUSH ×2 (16:53→20:33)
--- NOTE | 2021-02-08 16:59 | PC.NURSE ---
patient o2 desaturation to 85% on 4 lpm at 50 feet.
[2021-02-08 17:11] LABS: Hematocrit 37.7 % (37-47); Mean Corpuscular Volume 97.9 fL (80-98); PLT CLUMP 1; Red Blood Count 3.85 X10*6/uL (4.20-5.50); Red Cell Distribution Width 12.7 % (11.0-16.0)
[2021-02-08 17:13] LABS: Hemoglobin 12.4 g/dl (12.0-16.0); Mean Corpuscular HGB Conc 32.9 g/dl (31.0-35.0); Mean Corpuscular Hemoglobin 32.2 pg (27.0-33.0); Mean Platelet Volume 11.4 fL (9.4-12.3); White Blood Count 5.8 X10*3/uL (4.8-10.8)
[2021-02-08 17:16] LABS: Platelet Count 96 X10*3/uL (160-400)
[2021-02-08 19:28] VITALS: BP 97/54; PULSE 75; RESP 18; TEMP 37.1; O2SAT 97
[2021-02-08 23:15] VITALS: BP 91/55; PULSE 80; RESP 18; TEMP 37.1; O2SAT 94
--- NOTE | 2021-02-09 | ECG_ITS ---
Test Reason : SHORTNESS OF BREATH Blood Pressure : / mmHG Vent. Rate : 088 BPM Atrial Rate : 088 BPM P-R Int : 130 ms QRS Dur : 088 ms QT Int : 374 ms P-R-T Axes : 069 060 074 degrees QTc Int : 452 ms Normal sinus rhythm Nonspecific T wave abnormality Abnormal ECG When compared with ECG of 27-JAN-2021 09:53, Vent. rate has increased BY 31 BPM T wave inversion no longer evident in Lateral leads Referred By: Terry Mancia Electronically Signed By:Jose Sutherland
[2021-02-09 03:21] VITALS: BP 116/58; PULSE 101; RESP 18; TEMP 37; O2SAT 95
--- NOTE | 2021-02-09 03:48 | ECG_ITS ---
Test Reason : CHEST TIGHTNESS Blood Pressure : / mmHG Vent. Rate : 088 BPM Atrial Rate : 088 BPM P-R Int : 132 ms QRS Dur : 082 ms QT Int : 398 ms P-R-T Axes : 082 051 075 degrees QTc Int : 481 ms Normal sinus rhythm Normal ECG No previous ECGs available Referred By: Kwabena Garcia Electronically Signed By:BAR RAINES MD
[2021-02-09 04:35] LABS: Hemoglobin 12.3 g/dl (12.0-16.0); MANUAL DIFF FLAG SCAN; Monocytes Absolute Auto 0.5 X10*3/uL (0.1-1.2); PLT CLUMP 1; SCAN SMEAR FLAG 1
[2021-02-09 04:37] LABS: Eosinophils Absolute Auto 0.3 X10*3/uL (0.0-0.4); Eosinophils Percent Auto 4.7 % (0-4); Hematocrit 37.5 % (37-47); Imm Gran Abs Auto 0.03 X10*3/uL (0.00-0.03); Imm Gran Pct Auto 0.6 % (0.0-0.4); Lymphocytes Absolute Auto 0.8 X10*3/uL (1.2-4.9); Lymphocytes Percent Auto 15.2 % (20-40); Mean Corpuscular HGB Conc 32.8 g/dl (31.0-35.0); Mean Corpuscular Hemoglobin 32.1 pg (27.0-33.0); Mean Corpuscular Volume 97.9 fL (80-98); Mean Platelet Volume 11.3 fL (9.4-12.3); Monocytes Percent Auto 9.9 % (2-11); Neutrophils Absolute Auto 3.7 X10*3/uL (2.0-8.3); Neutrophils Percent Auto 69.6 % (45-73); Red Blood Count 3.83 X10*6/uL (4.20-5.50); Red Cell Distribution Width 12.7 % (11.0-16.0); White Blood Count 5.3 X10*3/uL (4.8-10.8)
[2021-02-09 04:38] LABS: Platelet Count 88 X10*3/uL (160-400)
[2021-02-09 04:55] LABS: Anion Gap 12 (12-20); Blood Urea Nitrogen 19 mg/dL (9-16); Calcium 8.5 mg/dL (8.4-10.2); Carbon Dioxide 26 mmol/L (22-29); Chloride 109 mmol/L (96-108); Estimated Glomerular Filt Rate > 60; Glucose Random 115 mg/dL (60-115); Potassium 4.3 mmol/L (3.3-5.1); Sodium 143 mmol/L (135-145)
[2021-02-09 05:01] LABS: Troponin-I High Sensitivity 6.3 ng/L (<3.5-17.0)
[2021-02-09 05:09] LABS: SLIDE REVIEW VERIFIED
[2021-02-09] MEDS: Enoxaparin Sodium 80 MG/0.8 ML SYRINGE 75 MG SUBCUT ×2 (05:55→17:52)
[2021-02-09 07:12] VITALS: BP 112/57; PULSE 76; RESP 18; TEMP 36.4; O2SAT 96
[2021-02-09] MEDS: 0.9 % Sodium Chloride Flush 3 ML SYRINGE IVFLUSH ×3 (08:20→23:39)
--- NOTE | 2021-02-09 09:30 | HO.PM.IMPN ---
Subjective Subjective Date of Service: 02/09/21 Interval History: unchanged Cardiovascular Cardiovascular: Reports no additional cardiovascular complaints Gastrointestinal Gastrointestinal: Reports no additional gastrointestinal complaints Physical Exam Vital Signs: Vital Signs: Last Vital Signs Temp 97.5 F 02/09/21 07:12 Pulse 76 02/09/21 07:12 Resp 18 02/09/21 07:12 BP 112/57 L 02/09/21 07:12 Pulse Ox 96 02/09/21 07:12 Oxygen Flow Rate 4 02/08/21 11:29 Body Mass Index 25.1 General: AO X 3, dyspneic Resp: Crackles CVS: S1,S2,RRR GI: soft, non tender, non distended Neuro: motor grossly intact Psych: appropriate affect Objective Data Current Medications Generic Name Dose Route Start Last Admin Trade Name Freq PRN Reason Stop Dose Admin Enoxaparin Sodium 75 mg 02/09/21 06:00 02/09/21 05:55 Enoxaparin Sodium 80 Mg/0.8 Ml Syringe 1 mg/kg (75 mg) 75 mg SUBCUT Administration Q12H TATYANA Sodium Chloride 3 ml 02/08/21 16:12 02/09/21 08:20 0.9 % Sodium Chloride Flush 3 Ml Syringe IVFLUSH 3 ml QSHIFT TATYANA Administration Labs CBC & Chem 7: 02/09/21 04:22 02/09/21 04:22 Assessment and Plan (1) Pulmonary emboli: Status: Acute Assessment and Plan: 66F presented with sob and chest pain, found to be hypoxic with bilateral PE. acute bilateral PE with moderate clot burden complicated by acute hypoxic respiratory failure due to recent COVID venous duplex with left popliteal DVT - no need for catheter directed tpa or IVC filter continue lovenox 1mg/kg q12h for now, likely change to DOAC on discharge monitor h and h (stable so far) echo to check RV hold ASA while on full AC cdif resolved, completed vanc course history of afib s/p MAZE
[2021-02-09 11:36] VITALS: BP 104/66; PULSE 88; RESP 18; TEMP 36.6; O2SAT 98
--- NOTE | 2021-02-09 13:03 | MHC.CM.PN ---
met with pt who reports being recently dcd from [facility] pt reports being sent home with [facility]ns for sn and pt ,pt would be agreeable to str if recommended by physical therapy freddy she requestd [facility] or other [facility] facilities if home ,is receommnedatio pt will go hme with hvns
--- NOTE | 2021-02-09 13:23 | MHC.CM.PN ---
met with pt who had no services prior to admission she is unsure if she would need a vna when dcd she reports her son leonidas [phone] asked her to stay with him for a few days after she is dcd pt would be agreeable to [facility] if ordered by
[2021-02-09 14:58] VITALS: BP 106/53; PULSE 70; RESP 18; TEMP 36.9; O2SAT 99
[2021-02-09 15:56] LABS: INTERNATIONAL NORM RATIO 1.1 (0.9-1.1); Prothrombin Time 13.5 SEC (10.8-13.0)
[2021-02-09 19:08] VITALS: BP 95/64; PULSE 72; RESP 18; TEMP 37; O2SAT 98
[2021-02-09 23:34] VITALS: BP 105/49; PULSE 72; RESP 18; TEMP 36.6; O2SAT 98
[2021-02-10 04:00] VITALS: BP 112/58; PULSE 91; RESP 18; TEMP 36.6; O2SAT 98
[2021-02-10 04:58] LABS: PLT CLUMP 1; Red Cell Distribution Width 12.6 % (11.0-16.0)
[2021-02-10 04:59] LABS: Hematocrit 37.2 % (37-47); Hemoglobin 12.2 g/dl (12.0-16.0); Mean Corpuscular HGB Conc 32.8 g/dl (31.0-35.0); Mean Corpuscular Volume 97.6 fL (80-98); Mean Platelet Volume 11.4 fL (9.4-12.3); Red Blood Count 3.81 X10*6/uL (4.20-5.50); White Blood Count 4.8 X10*3/uL (4.8-10.8)
[2021-02-10 05:09] LABS: Platelet Count 92 X10*3/uL (160-400)
[2021-02-10 05:22] LABS: C Reactive Protein 1.69 mg/dL (< or = 0.50)
[2021-02-10] MEDS: Enoxaparin Sodium 80 MG/0.8 ML SYRINGE 75 MG SUBCUT ×2 (06:08→17:13)
[2021-02-10 07:38] VITALS: BP 96/54; PULSE 68; RESP 18; TEMP 36.4; O2SAT 96
[2021-02-10] MEDS: 0.9 % Sodium Chloride Flush 3 ML SYRINGE IVFLUSH ×2 (09:38→15:28)
--- NOTE | 2021-02-10 11:05 | HO.PM.IMPN ---
Subjective Subjective Date of Service: 02/10/21 Interval History: seen and examined reports GARCIA which is minimally improved denies chest pain denies palpitations ROS General - no fevers or chills Cardiovascular - no chest pain Respiratory - +GARCIA Abdominal- no abdominal pain, nausea, vomiting, diarrhea Physical Exam Vital Signs: Vital Signs: Last Vital Signs Temp 97.6 F 02/10/21 07:38 Pulse 68 02/10/21 07:38 Resp 18 02/10/21 07:38 BP 96/54 L 02/10/21 07:38 Pulse Ox 96 02/10/21 07:38 Oxygen Flow Rate 4 02/08/21 11:29 Body Mass Index 25.1 Const: Other: General - no acute distress, appears comfortable Cardiovascular - regular rate and rhythm, S1-S2 Lungs - clear, accessory muscle use with min exertion - i.e. 5 minute conversation Abdomen - soft, nontender, no rebound or guarding Extremities - no edema bilaterally Neuro - awake and alert, no focal deficits Objective Data Current Medications Generic Name Dose Route Start Last Admin Trade Name Myla PRN Reason Stop Dose Admin Enoxaparin Sodium 75 mg 02/09/21 06:00 02/10/21 06:08 Enoxaparin Sodium 80 Mg/0.8 Ml Syringe 1 mg/kg (75 mg) 75 mg SUBCUT Administration Q12H TATYANA Sodium Chloride 3 ml 02/08/21 16:12 02/10/21 09:38 0.9 % Sodium Chloride Flush 3 Ml Syringe IVFLUSH 3 ml QSHIFT TATYANA Administration Labs CBC & Chem 7: 02/10/21 04:16 02/09/21 04:22 Assessment and Plan (1) Pulmonary emboli: Status: Acute Assessment and Plan: This is a 66 yo F who presented to the hospital with progressive SOB and is diagnosed with bilateral PE. 1. Bilateral PE still significant symptoms, tachypnea on min exertion in the setting of recent COVID 19 on lovenox 1mg/kg - continue for now, transition Echo Today - will d/w ICU if she has significant RH strain re: t-PA check BNP, trend dimer HS trop-I neg and flat 2. Chronic Resp. Failure with hypoxia discharged on home O2 - 3L continue 3. PAF s/p Maze procedure Full Code On Lovenox dispo: needs to remain hospitalized as she is highly symptomatic with even minimal exertion
[2021-02-10 11:19] VITALS: BP 109/53; PULSE 71; RESP 20; TEMP 36.9; O2SAT 97
[2021-02-10 11:39] LABS: D Dimer 2478 NG/ML
[2021-02-10 11:47] LABS: B Type Natriuretic Peptide 36 pg/mL (<100)
[2021-02-10 15:36] VITALS: BP 87/52; PULSE 84; RESP 19; TEMP 36; O2SAT 97
--- NOTE | 2021-02-10 16:12 | CA_ITS ---
Transthoracic Echocardiogram Patient (Last, First, Middle): Fidelina Mcnair E Gender: Female Date of : 1955 Age: 66 Procedure Date: 02/10/2021 Procedure Type: Transthoracic Echocardiogram [place] [facility] [place] Height: 175.26 cm Weight: 77.11 kg BSA: 1.93 m2 Heart Rate: bpm BP: 112 / 58 mmHg Case Management Manager: Referring MD: Twan Roque MD Manufacturing Area Manager: Mook Muhammad MD Symptoms: PE Study Quality: Fair ECG Rhythm: Sinus with extra beats Conclusions: - 1. Normal LV systolic function with pseudonormal filling pattern 2. Moderately increased right ventricular size with mild-to moderate RV dysfunction 3. Good mitral valve repair with mitral annuloplasty ring in place 4. Moderate tricuspid regurgitation with normal RV systolic pressure 5. No gross pericardial effusion Findings Left Ventricle Normal left ventricular size, thickness, and systolic function. The visually estimated ejection fraction is between 60-65%. Spectral Doppler is indicative of a pseudonormal filling pattern. Wall Motion Rest Echo Findings The basal inferior and basal inferolateral segments are hypokinetic. All other scored wall segments showed normal motion. Right Ventricle Moderately increased right ventricular cavity size. There is mild to moderately decreased right ventricular systolic function. Atria The left atrium is normal in size. There is no evidence of interatrial shunt. The right atrium is likely dilated. Aortic Valve Normal aortic valve structure and function. There is no aortic valve stenosis. There is no aortic valve regurgitation. Mitral Valve There is mild anterior mitral leaflet thickening. There is trace mitral valve regurgitation. There is no mitral valve stenosis. Prior history of mitral valve repair with mitral annuloplasty ring. Repair appears to be adequate. There is no significant stenosis noted Pulmonic Valve The pulmonic valve was not well visualized. Tricuspid Valve Likely normal tricuspid valve structure and function. There is moderate tricuspid valve regurgitation. The right ventricular systolic pressure is normal. Normal right atrial pressure. There is no evidence of pulmonary hypertension. Great Vessels All visible segments of the aorta are normal in size. The pulmonary artery was not well visualized. Venous The inferior vena cava is normal in size and collapses greater than 50% with inspiration. Pericardium/Pleural There is no evidence of pericardial effusion. Prior Study Comparison Changes noted compared to prior study. RV chamber appears to be enlarged with some dysfunction with at least moderate tricuspid regurgitation noted on this study Measurements 2D Linear Measurements IVSd: 1.13 0.6-0.9/0.6-1.0 cm LVIDd: 4.30 3.9-5.3/4.2-5.9 cm LVIDd Index: 2.23 2.4-3.2/2.2-3.1 cm/m2 LVIDs: 2.79 2.0-3.6 cm LVPWd: 1.16 0.7-1.1 cm LV Mass: 214.95 67-162/88-224 g LV Mass Index: 111.37 43-95/49-115 g/m2 Mitral Valve MV Pk E: 0.91 MV PK A: 0.54 MV Decel Time: 201.00 E/A: 1.70 E'Lateral: 6.87 E'Medial: 5.80 E/E' Med: 15.70 E/E' Lat: 13.30 PHT: 59.00 MVA PHT: 3.73 [employer]el [employer]: 4.54 Diastolic Function MV Pk E: 0.91 MV Pk A: 0.54 E/A: 1.70 E'Medial: 5.80 E/E' Med: 15.70 E' Laterial: 6.87 E/E' Lat: 13.30 Tricuspid Valve TR Pk Navneet: 2.83 TR Pk Grad: 32.00 RA Press: 3.00 RVSP: 35.00 Updated in Other Vendor System with Status of Final Mook Muhammad MD electronically signed on 02/10/2021 11:36:38 AM with status of Final
[2021-02-10 19:42] VITALS: BP 96/49; PULSE 84; RESP 19; TEMP 37.1; O2SAT 96
[2021-02-10 23:54] VITALS: BP 101/49; PULSE 71; RESP 18; TEMP 36.1; O2SAT 98
[2021-02-11] VITALS (8 sets, daily range): BP systolic 84–111; BP diastolic 50–59; PULSE 74–93; RESP 18–20; TEMP 36.4–37.7; O2SAT 95–98
[2021-02-11] MEDS: 0.9 % Sodium Chloride Flush 3 ML SYRINGE IVFLUSH ×4 (01:03→19:56)
[2021-02-11] MEDS: Enoxaparin Sodium 80 MG/0.8 ML SYRINGE 75 MG SUBCUT ×2 (05:49→17:37)
--- NOTE | 2021-02-11 13:26 | MHC.CM.PN ---
PT is recommending home PT and or OT, to include instruction on Energy Conservation, Pacing and Pursed Lip Breathing; [facility] has been updated. CM will follow.
--- NOTE | 2021-02-11 13:35 | P.PNIM_ITS ---
Subjective Subjective Date of Service: 02/11/21 Interval History: the patient was seen and evaluated this morning Laying in bed, feels better since admission but still complaining of signi ficant dyspnea on exertion and feels tachypneic in the bed even at rest Denies any fever, chills or chest pain No reported other overnight events. Systemic review: No fever, chills or weakness No chest pain, palpitation Dyspnea on exertion associated with discomfort in the chest and shortness of b reath No abdominal pain, nausea or vomiting No urinary symptoms No any rash or wounds Physical Exam Vital Signs: Vital Signs: Last Vital Signs Temp 98.4 F 02/11/21 11:27 Pulse 75 02/11/21 13:19 Resp 20 02/11/21 11:27 BP 103/50 L 02/11/21 13:19 Pulse Ox 98 02/11/21 13:19 Oxygen Flow Rate 4 02/08/21 11:29 Body Mass Index 25.1 Const: Other: Constitutional : Alert, oriented, not in distress Neck : Normal inspection, Supple Cardiovascular : RRR, S1 S2, no lower extremity edema Respiratory : Decreased but fair bilateral air entry, no crackles, wheezes or rhonchi Gastrointestinal: soft, lax, Normal bowel sounds, Non tender Skin : Warm/Dry, No rash Neurological : Alert & oriented x3, No focal deficit Objective Data Current Medications Generic Name Dose Route Start Last Admin Trade Name Freq PRN Reason Stop Dose Admin Enoxaparin Sodium 75 mg 02/09/21 06:00 02/11/21 05:49 Enoxaparin Sodium 80 Mg/0.8 Ml Syringe 1 mg/kg (75 mg) 75 mg SUBCUT Administration Q12H TATYANA Sodium Chloride 3 ml 02/08/21 16:12 02/11/21 09:18 0.9 % Sodium Chloride Flush 3 Ml Syringe IVFLUSH 3 ml QSHIFT TATYANA Administration Labs CBC & Chem 7: 02/10/21 04:16 02/09/21 04:22 Assessment and Plan (1) Pulmonary emboli: Status: Acute Assessment and Plan: This is a 66 yo F who presented to the hospital with progressive SOB and is diagnosed with bilateral PE. Bilateral PE still significant symptoms, tachypnea on min exertion in the setting of recent COVID 19 asthma at baseline on lovenox 1mg/kg - continue for now, transition upon discharge Echo showed normal LV with moderate RV dysfunction Trending down BNP, trend and dimer Physical deconditioning Secondary to prolonged illness and being in hospital To do physical therapy today Chronic Resp. Failure with hypoxia discharged on home O2 - 3L continue PAF s/p Maze procedure Full Code On Lovenox dispo: needs to remain hospitalized as she is highly symptomatic with even minimal exertion
[2021-02-11] MEDS: Acetaminophen 325 MG TABLET 650 MG PO (19:55)
--- NOTE | 2021-02-11 21:19 | PC.NURSE ---
pt c/o right sided pain just below rib cage. md notified. given heat packs and tylenol. educated to splint when coughing. will continue to reassess.
--- NOTE | 2021-02-11 23:21 | PC.NURSE ---
11pm vitals bp was 84/58 manual. pt asymptomatic, HOB lowered. aware.
--- NOTE | 2021-02-12 00:46 | PC.NURSE ---
pt still c/o pain in right ribcage. pain increased to 8/10 sharp with movement/breathing. MD notified. Ordered one time dose Toradol. heat packs applied to area. Will reassess.
[2021-02-12] MEDS: Ketorolac Tromethamine 15 MG/ML VIAL IVPUSH ×2 (01:05→09:13)
[2021-02-12 05:08] VITALS: BP 91/63; PULSE 67; RESP 18; TEMP 36.8; O2SAT 97
[2021-02-12] MEDS: Enoxaparin Sodium 80 MG/0.8 ML SYRINGE 75 MG SUBCUT (06:21)
[2021-02-12 07:46] VITALS: BP 101/55; PULSE 85; RESP 18; TEMP 36.6; O2SAT 97
[2021-02-12] MEDS: 0.9 % Sodium Chloride Flush 3 ML SYRINGE IVFLUSH (09:14)
--- NOTE | 2021-02-12 11:31 | PM.DS ---
DS: Providers Provider Date of Service: 02/12/21 Date of admission: 02/08/21 15:51 Primary care physician: Rosalba Barillas MD DS: Diagnosis Discharge Diagnosis (1) Pulmonary emboli: Status: Acute (2) Acute hypoxemic respiratory failure: Status: Acute (3) Physical deconditioning: Status: Acute DS: Medications Discharge Medications Home Medications: Home Medications Medication Instructions Recorded Confirmed aspirin 81 mg tablet,delayed 81 mg PO DAILY 11/11/20 02/08/21 release albuterol sulfate 90 mcg/actuation 2 puff INHALATION Q4-6H PRN 02/05/21 02/08/21 aerosol inhaler calcium carbonate 600 mg (1,500 1 tab PO DAILY 02/05/21 02/08/21 mg)-vitamin D3 200 unit tablet cyanocobalamin (vitamin B-12) 1,000 mcg PO DAILY 02/05/21 02/08/21 1,000 mcg capsule folic acid 800 mcg tablet 0.8 mg PO DAILY 02/05/21 02/08/21 zinc 50 mg tablet 50 mg PO DAILY 02/05/21 02/08/21 Previous Rx's Medication Instructions Recorded apixaban [Eliquis] 5 mg PO BID 30 Days #60 tab 02/12/21 apixaban [Eliquis] 10 mg PO BID 7 Days #28 tab 02/12/21 DS: Summary Hospital Course Hospital Course: Admission note HPI 66-year-old female presented with shortness of breath and chest pain. COVID on 01/16/2021. She had prolonged hospital stay due to hypoxia and C diff. She was eventually discharged on 01/28/2021 with 3 L home oxygen. She completed her vancomycin at home. Initially when she came home she was feeling much better. Then she started to developed shortness of breath on minimal exertion associated with chest pressure. Eventually this became bad enough that she came to ED. In ED her D-dimer was significantly elevated over 8000. CTA showed Prominent pulmonary emboli in bilateral central, segmental and subsegmental vessels, more prominent on the right side, with estimated moderate thrombus load. Recommend followup imaging to ensure resolution. Patient was noted to be hypoxic down to 85% on room air. She was neither tachycardic nor hypotensive below her baseline. Of note patient had a CTA on her previous admission that was negative. Hospital course To have bilateral PE based on a CTA study. No right-sided heart strain was found on images. Echo showed normal LV with moderate RV dysfunction.. The patient was treated with 1 milligram/kg Lovenox full does with repeated blood test showing down trending of BNP and D-dimer. The patient felt better and she was able to ambulate with physical therapist for increased generalized weakness and risk of falls. She was able to ambulate and maintain her oxygen level. Plan to discharge home to continue total of 6 months of blood thinners. To start physical therapy at home. To follow-up with primary care as outpatient. Time Spent with Patient Time attestation: Total time spent providing and/or coordinating discharge services: Discharge coordination time: Greater than 30 minutes Quality: Stroke Does the patient have a stroke diagnosis?: No Physical Exam Vital Signs: Vital Signs: Last Vital Signs Temp 97.9 F 02/12/21 07:46 Pulse 85 02/12/21 07:46 Resp 18 02/12/21 07:46 BP 101/55 L 02/12/21 07:46 Pulse Ox 97 02/12/21 07:46 Oxygen Flow Rate 4 02/08/21 11:29 Body Mass Index 25.1 Const: Other: Constitutional : Alert, oriented, not in distress Neck : Normal inspection, Supple Cardiovascular : RRR, S1 S2, no lower extremity edema Respiratory : fair bilateral air entry, no crackles, wheezes or rhonchi Gastrointestinal: soft, lax, Normal bowel sounds, Non tender Skin : Warm/Dry, No rash Neurological : Alert & oriented x3, No focal deficit DS: Data Data Completed and Pending Completed studies during hospitalization [Text1]: Procedures Introduction of Remdesivir Anti-infective into Peripheral Vein, Percutaneous Approach, [employer] 5 (01/18/21) Discharge Plan Discharge Patient Disposition: Home Health Service Discharge Diagnosis: Pulmonary embolism Referrals: Po,Rosalba Gonzalez MD [Primary Care Provider] - 1 Week Discharge Medications: New Eliquis 5 mg tablet 10 mg PO BID 7 Days Qty: 28 RF: 0 Eliquis 5 mg tablet 5 mg PO BID 30 Days Qty: 60 RF: 5 Continued calcium carbonate-vitamin D3 [Calcium 600 + D(3)] 600 mg(1,500mg) -200 unit tablet 1 tab PO DAILY RF: 0 cyanocobalamin (vitamin B-12) 1,000 mcg capsule 1,000 mcg PO DAILY RF: 0 folic acid 800 mcg tablet 0.8 mg PO DAILY RF: 0 albuterol sulfate [ProAir HFA] 90 mcg/actuation HFA aerosol inhaler 2 puff inhalation Q4-6H PRN (Reason: Dyspnea) RF: 0 zinc 50 mg tablet 50 mg PO DAILY RF: 0 aspirin [Adult Aspirin Regimen] 81 mg tablet,delayed release (DR/EC) 81 mg PO DAILY RF: 0 Discharge Orders: Discharge Order (Routine); Ordered 02/12/21 Ordered By: Misael Harding Diet: advance to usual diet Activity on Discharge: As tolerated Stand Alone Forms: Patient Portal Discharge page Care Plan Goals: Read below Health Concerns: Read below Plan of Treatment: You were admitted to the hospital for evaluation of worsening shortness of breath. An image of your chest with CT angiogram showed bilateral clots in your lungs. You were treated with blood thinner injections with good response over the course of hospital stay. You will need to continue oral blood thinners for total of 6 months. Watch for any signs or symptoms of bleeding. Assessment: Continue Eliquis 10 mg twice daily for 1 more week Then use start Eliquis 5 mg twice daily to finish total of 6 months. To follow-up with your primary care for close monitoring of your blood level
[2021-02-12 11:32] VITALS: BP 106/53; PULSE 76; RESP 18; TEMP 36.7; O2SAT 97
--- NOTE | 2021-02-12 11:35 | MHC.CM.PN ---
Per ROUNDS Discussion, Patient may be ready soon for dc (C/O (R)Rib Pain requiring IV Toradol and dyspneic with exertion ). Home/resume [facility] is the plan for dc and CM will follow for possible need to adjust the dc plan.
--- NOTE | 2021-02-12 11:52 | MHC.CM.PN ---
Patient has been medically cleared for dc to home today with [facility]. A referral has been made to NA, who has been notified of today's dc. Second IMM addressed with Patient, providing her with the original and placing a copy on the chart.
== END 2021-02-12 14:02 | disposition home health service (06) | DRG 134 ==
LOC: HO.ED 15:40 → HO.IMC 16:02
PROVIDERS: Family Medicine; Hospitalist; Admitting Provider Internal Medicine; Emergency Provider Emergency Medicine Emergency Medical Services; PCP Internal Medicine; Visit Provider Student in an Organized Health Care Education/Training Program
DX: I26.94 Multiple subsegmental thrombotic pulmonary emboli without acute cor pulmonale (principal); J96.21 Acute and chronic respiratory failure with hypoxia; I48.0 Paroxysmal atrial fibrillation; Z20.822 Contact with and (suspected) exposure to COVID-19; Z88.5 Allergy status to narcotic agent; Z88.6 Allergy status to analgesic agent; Z79.01 Long term (current) use of anticoagulants; Z79.82 Long term (current) use of aspirin; Z79.899 Other long term (current) drug therapy
CPT/HCPCS: 36415; 71045; 71275; 80048; 80053; 83690; 83880; 84484; 85025; 85027; 85379; 85610; 85730; 86140; 87635; 93005; 93308; 93970; 96372; 97162; 99285; J1650; J1885; Q9967

== ENCOUNTER 2021-02-27 15:06 | Outpatient (REF) | payer OTHER, SELFPAY ==
--- NOTE | ~2021-02-27 | US_ITS ---
EXAMINATION: US VENOUS ULTRASOUND WITH DOPPLER LOWER EXTREMITY, RIGHT CLINICAL INFORMATION: Right ankle swelling. COMPARISON: None TECHNIQUE: Ultrasound of the deep veins is performed from the hip to the calf with compression sonography and color and pulse Doppler assessment. Spectral analysis with color-flow imaging is performed. FINDINGS: There is normal venous compression and respiratory variation and augmented flow. The visualized common femoral vein, superficial femoral vein, profunda femoral vein, popliteal vein, and the trifurcation region shows no evidence of deep venous thrombosis. There is no popliteal cyst. The subcutaneous soft tissues are unremarkable. If the patient's symptoms persist, followup ultrasound in 5 days 7 days might be of value to exclude proximal propagation from a non-visualized calf vein. US/US venous duplex LE RT IMPRESSION: No evidence for deep venous thrombosis in the visualized veins of the right lower extremity.
== END 2021-02-27 15:07 | disposition home or self-care (01) ==
LOC: HO.US 15:06
PROVIDERS: PCP Internal Medicine; Visit Provider Internal Medicine
DX: I82.401 Acute embolism and thrombosis of unspecified deep veins of right lower extremity (principal); M79.661 Pain in right lower leg
CPT/HCPCS: 93971

== ENCOUNTER 2021-03-03 14:07 | Outpatient (REF) | payer OTHER, SELFPAY ==
[2021-03-03 17:13] LABS: Alanine Aminotransferase 59 U/L (0-31); Albumin Level 3.9 g/dL (3.5-5.0); Alkaline Phosphatase 84 U/L (39-117); Aspartate Amino Transferase 32 U/L (5-31); Bilirubin Direct 0.2 mg/dL (0.0-0.5); Bilirubin Total 0.7 mg/dL (0.0-1.0); Total Protein 6.1 g/dL (6.5-8.0)
[2021-03-03 17:14] LABS: Troponin-I High Sensitivity 8.6 ng/L (<3.5-17.0)
[2021-03-05 09:26] LABS: HBS Num1 0.08 mIU/mL (0-7.99); ~Hepatitis B Surface Antibody NONREACTIVE (Nonreactive)
[2021-03-05 10:03] LABS: HBc Num1 0.06 S/CO (0.00-0.79); HBsAGNum1 0.17 S/CO (0.00-0.99); Hepatitis B Core Antibody Nonreactive (Nonreactive); Hepatitis B Surface Antigen Negative (Negative); ~HepC Num1 0.18 S/CO (0.00-0.79); ~Hepatitis C Antibody Nonreactive (Nonreactive)
== END 2021-03-03 14:08 | disposition home or self-care (01) ==
LOC: HO.LAB 14:07
PROVIDERS: Absent Provider Internal Medicine; PCP Internal Medicine; Visit Provider Hospitalist
DX: R07.9 Chest pain, unspecified (principal); I26.99 Other pulmonary embolism without acute cor pulmonale; J96.01 Acute respiratory failure with hypoxia; J12.82 Pneumonia due to coronavirus disease 2019; U07.1 COVID-19; R79.89 Other specified abnormal findings of blood chemistry; R94.5 Abnormal results of liver function studies
CPT/HCPCS: 36415; 80076; 84484; 86704; 86706; 86803; 87340

== ENCOUNTER → 2021-03-07 14:54 | Outpatient (REF) | payer OTHER, SELFPAY ==
--- NOTE | 2021-03-07 14:57 | CA_ITS ---
Transthoracic Echocardiogram Patient (Last, First, Middle): Fidelina Mcnair E Gender: Female Date of : 1955 Age: 66 Procedure Date: 03/07/2021 Procedure Type: Transthoracic Echocardiogram Location: OP Height: 175.26 cm Weight: 77.11 kg BSA: 1.93 m2 Heart Rate: bpm BP: 117 / 58 mmHg Emergency Management Consultant: OLGA Referring MD: Reese Beauchamp MD Patient Financial Services Coordinator: Mook Muhammad MD Symptoms: I27.20 - Pulmonary hypertension, unspecified Study Quality: Fair ECG Rhythm: Sinus Conclusions: - 1. LV systolic function appears to be normal with pseudonormal filling pattern. 2. RV not well visualized on some views appears to be mildly enlarged with evidence of right ventricular hypertrophy 3. Normal RV systolic pressure with [id number] tricuspid regurgitation 4. No gross pericardial effusion Findings Left Ventricle Normal left ventricular size, thickness, and systolic function. The visually estimated ejection fraction is between 60-65%. Spectral Doppler is indicative of a pseudonormal filling pattern. Right Ventricle Right ventricle is not well visualized on apical views. On off axis views right ventricular appears to be mildly enlarged. On parasternal windows there is evidence of right ventricular hypertrophy Tricuspid Valve There is mild to moderate tricuspid valve regurgitation. The right ventricular systolic pressure is normal. The right ventricular systolic pressure is 31 mmHg. Pericardium/Pleural There is no evidence of pericardial effusion. Measurements Mitral Valve MV Pk E: 1.06 MV PK A: 0.51 MV Decel Time: 260.00 E/A: 2.10 E'Lateral: 6.42 E'Medial: 4.13 E/E' Med: 25.70 E/E' Lat: 16.50 PHT: 76.00 MVA PHT: 2.89 Decel [place]: 4.07 Diastolic Function MV Pk E: 1.06 MV Pk A: 0.51 E/A: 2.10 E'Medial: 4.13 E/E' Med: 25.70 E' Laterial: 6.42 E/E' Lat: 16.50 Tricuspid Valve TR Pk Navneet: 2.65 TR Pk Grad: 28.00 RA Press: 3.00 RVSP: 31.00 Pulmonary Valve PV Pk Navneet: 0.90 Peak PV Grad: 3.00 Updated in Other Vendor System with Status of Final Mook Muhammad MD electronically signed on 03/08/2021 1:48:04 PM with status of Final
== END ==
LOC: HO.CARD 14:54
PROVIDERS: Visit Provider Hospitalist
DX: I27.20 Pulmonary hypertension, unspecified (principal)
CPT/HCPCS: 93308

== ENCOUNTER → 2021-03-20 10:11 | Outpatient (BNVA) | payer OTHER, SELFPAY | PROVIDERS: PCP Internal Medicine; Visit Provider Hospitalist ==

== ENCOUNTER 2021-03-24 08:39 | Outpatient (REF) | payer OTHER, SELFPAY ==
--- NOTE | ~2021-03-24 | XR_ITS ---
EXAMINATION: XR CHEST CLINICAL INFORMATION: Pneumonia. COMPARISON: Chest 02/12/2021 TECHNIQUE: 2 views of the chest were obtained. FINDINGS: The lungs are well expanded with mild linear bilateral parahilar reticular stranding significantly improved from previous study 02/12/2021. Patchy opacities seen in both upper lobes have slightly improved as well. No pneumothorax or pleural effusion. Heart size and pulmonary vascularity is normal. There are median sternotomy sutures from previous intervention. XR/XR chest 2V IMPRESSION: Improved bilateral patchy opacities in both upper lobes. Minimal prominent parahilar reticular stranding is noted and unchanged. Mild bilateral bronchial wall thickening in the parahilar region is noted and stable.
--- NOTE | ~2021-03-24 | US_ITS ---
EXAMINATION: US COMPLETE ABDOMEN WITH LIVER ELASTOGRAPHY CLINICAL INFORMATION: Abnormal liver function tests COMPARISON: Previous CT of the abdomen and pelvis December 2020 TECHNIQUE: Real-time imaging of the abdominal viscera. Noninvasive ultrasound liver fibrosis assessment is performed using Cory ElastPQ point quantification shear wave elastography (pSWE) with a C5-2 MHz transducer. Multiple elastography samples are obtained. FINDINGS: PANCREAS: Normal. ABDOMINAL AORTA: The proximal, middle, and distal aortic segments are normal in caliber. INFERIOR VENA CAVA: Visualized portions are normal. LIVER: Liver echotexture is increased. The liver demonstrates normal size and contour. No focal lesion or intrahepatic biliary duct dilatation. The right lobe measures 11.6 cm in length. The left lobe measures 9.7 cm in length. Portal flow is normal/hepatopedal Shear wave liver elastography median stiffness is 1.4 m/s (reference: normal median stiffness is 1.3 m/s or less). IQR/median stiffness to assess sampling precision is 0.07 (reference: good quality data set is IQR/median stiffness of 0.15 or less). GALLBLADDER: No gallstones are seen. There is a small echogenic density adjacent to the dependent wall of the gallbladder that measures 6 x 6 x 3 mm. This does not move or shadow. This uncertain whether this could represent a small polyp or represents a bile sludge. Gallbladder wall does not appear thickened. There is no pericholecystic fluid. COMMON BILE DUCT: Normal in caliber measuring 0.6 cm in diameter. RIGHT KIDNEY: Normal. No hydronephrosis. No renal calculi or focal parenchymal lesions. The kidney measures 9.3 cm in maximum dimension. LEFT KIDNEY: Normal. No hydronephrosis. No renal calculi or focal parenchymal lesions. The kidney measures 10 cm in maximum dimension. SPLEEN: Normal. The spleen measures 10.6 cm in maximum dimension. FREE FLUID: None. US/US abdomen comp w elastography IMPRESSION: 1. Impression: Echogenic liver probably representing fatty infiltration. Question small gallbladder wall polyp versus sludge. 2. Liver elastography: Adequate liver sampling. In the absence of other known clinical signs, rules out compensated advanced chronic liver disease. REFERENCE: Society of Radiologists in Ultrasound Liver Stiffness Thresholds (2019): LIVER STIFFNESS THRESHOLDS: *Liver Stiffness equal or less than 1.3 m/s: High probability of being normal. *Liver Stiffness less than 1.7 m/s: In the absence of other known clinical signs, rules out compensated advanced chronic liver disease. *Liver Stiffness 1.7-2.1 m/s: Suggestive of compensated advanced chronic liver disease but need further test for confirmation. *Liver Stiffness over 2.1 m/s: Rules in compensated advanced chronic liver disease. *Liver Stiffness over 2.4 m/s: Suggestive of clinically significant portal hypertension. QUALITY OF DATA SET: *IQR/Median value equal or less than 0.15 implies a quality data set. *IQR/Median value over 0.15 implies a poor quality data set. SIGNIFICANT CHANGE FROM PRIOR EXAM: Significant change if liver stiffness measurement is 10% or greater from prior exam. OTHER CONSIDERATIONS: The stage of liver fibrosis may be overestimated in the setting of acute hepatitis, liver inflammation, elevated liver function tests, hepatic vascular congestion, obstructive cholestasis, non-fasting state, and infiltrative diseases such as amyloidosis and lymphoma. In some patients with NAFLD, the liver stiffness thresholds for compensated advanced chronic liver disease may be lower. In causes other than viral hepatitis and NAFLD, liver stiffness thresholds are not well established.
== END 2021-03-24 08:40 | disposition home or self-care (01) ==
LOC: HO.US 08:39
PROVIDERS: Visit Provider Internal Medicine
DX: U07.1 COVID-19 (principal); J12.82 Pneumonia due to coronavirus disease 2019; R79.89 Other specified abnormal findings of blood chemistry
CPT/HCPCS: 71046; 76705; 76981

== ENCOUNTER 2021-04-21 10:34 | Outpatient (REF) | payer OTHER, SELFPAY ==
--- NOTE | 2021-04-21 17:13 | PFT_ITS ---
INDICATION: COVID pneumonia and PE. SPIROMETRY: The FEV1 to FVC of 76% with an FEV1 of 2.4 L, which is 85% predicted, and an FVC of 3.16 L, which is 85% predicted. Post bronchodilators, there was a significant improvement of the FEV1 by 14%. The maximum voluntary ventilation 88% predicted. LUNG VOLUMES: Total lung capacity 77% predicted. DIFFUSION CAPACITY: DLCO 35% predicted. COMPARISONS: None available. INTERPRETATION: No obstructive ventilatory defect. There was a significant response to bronchodilators noted and there was also some evidence of small airways disease and a diagnosis of asthma. In addition to that, the patient has a mild restrictive ventilatory defect secondary to likely interstitial changes from the COVID pneumonia. In addition to that, the patient does have a severe diffusion impairment secondary to her COVID pneumonia and also most likely a large component due to pulmonary vascular disease from the thromboembolic disease. Clinical correlation warranted. MD ERNESTO Bean/ROOSEVELT / [id number]
== END 2021-04-21 10:35 | disposition home or self-care (01) ==
LOC: HO.RESP 10:34
PROVIDERS: PCP Internal Medicine; Visit Provider Hospitalist
DX: U07.1 COVID-19 (principal); J12.82 Pneumonia due to coronavirus disease 2019; I26.99 Other pulmonary embolism without acute cor pulmonale
CPT/HCPCS: 94060; 94727; 94729

== ENCOUNTER → 2021-05-06 10:53 | Outpatient (BNVA) | payer OTHER, SELFPAY | PROVIDERS: PCP Internal Medicine; Visit Provider Hospitalist | DX: J18.9 Pneumonia, unspecified organism (principal); U07.1 COVID-19; J12.82 Pneumonia due to coronavirus disease 2019 ==

== ENCOUNTER 2021-05-29 12:23 | Outpatient (REF) | payer OTHER, SELFPAY ==
[2021-05-29 14:53] LABS: Anion Gap 13 (12-20); Blood Urea Nitrogen 16 mg/dL (9-16); Calcium 9.5 mg/dL (8.4-10.2); Carbon Dioxide 26 mmol/L (22-29); Chloride 105 mmol/L (96-108); Estimated Glomerular Filt Rate > 60; Glucose Random 75 mg/dL (60-115); Potassium 4.1 mmol/L (3.3-5.1); Sodium 140 mmol/L (135-145)
== END 2021-05-29 12:24 | disposition home or self-care (01) ==
LOC: HO.10HDL 12:23
PROVIDERS: Visit Provider Hospitalist
DX: U07.1 COVID-19 (principal); J12.82 Pneumonia due to coronavirus disease 2019; I26.99 Other pulmonary embolism without acute cor pulmonale
CPT/HCPCS: 36415; 80048

== ENCOUNTER 2021-05-30 10:47 | Outpatient (REF) | payer OTHER, SELFPAY ==
--- NOTE | ~2021-05-30 | CT_ITS ---
EXAMINATION: CT ANGIOGRAM OF THE CHEST WITH AND WITHOUT CONTRAST (CT PULMONARY ANGIOGRAM FOR PE) CLINICAL INFORMATION: Reason for Exam J18.9 - Pneumonia, unspecified organism History of PE and Covid infection. COMPARISON: Previous chest CTA January 2015 and previous chest x-rays most recent February 2021 TECHNIQUE: Prior to contrast administration, noncontrast localization images were obtained. Subsequently, multidetector volumetric imaging was performed from the thoracic inlet to below the diaphragms following the administration of 80 mL Omnipaque 350 intravenous contrast. No contrast reaction reported Sagittal, coronal, and MIP oblique sagittal reformatted images were obtained on the CT workstation, uploaded to PACS, and reviewed. This CT examination was performed using dose optimization techniques as appropriate, variously including the following: *Automated exposure control *Adjustment of mA and/or kV according to patient size (this includes techniques or standardized protocols for targeted exams where dose is matched to indication/reason for exam; i.e. extremities or head) *Use of iterative reconstruction technique Total exam dose-length product 128 mGy-cm FINDINGS: QUALITY OF STUDY/CONTRAST BOLUS: Satisfactory. PULMONARY ARTERIES: There may be tiny residual pulmonary emboli seen in the left upper lobe for example axial image 170 series 6. No other evidence of residual pulmonary embolism is seen. The pulmonary arteries are upper normal in size. The main pulmonary artery measures 2.9 cm. THORACIC AORTA: No aneurysm or dissection. LUNG: There is biapical pleural and parenchymal scarring. There is heterogeneous increased attenuation seen in the peripheral lungs probably representing clearing pulmonary infiltrates. PLEURA: No pleural effusion or pneumothorax. MEDIASTINUM: The heart is enlarged. There is is a mitral valve ring. No pericardial effusion. No hilar or mediastinal lymphadenopathy. No evidence of septal bowing or right heart strain. CHEST WALL/AXILLA: No axillary or internal mammary lymphadenopathy. OSSEOUS STRUCTURES: No acute or suspicious osseous abnormality. There are degenerative changes of the spine. There are median sternotomy wires. UPPER ABDOMEN: Unremarkable. No reflux of contrast into the hepatic veins to suggest elevated right heart pressures. CT/CT angio chest PE protocol IMPRESSION: Tiny residual pulmonary embolism in the left upper lobe. Other the pulmonary arteries are otherwise clear. The pulmonary arteries are upper normal in size. Enlarged heart. Mitral valve annuloplasty ring. Significantly improved bilateral pulmonary infiltrates. VTE: positive Findings will be communicated by the [place] work flow sausage cooker.
[2021-05-30] MEDS: iohexoL 350 MG/ML 100 ML INFUS..BTL IV (12:54)
== END 2021-05-30 10:48 | disposition home or self-care (01) ==
LOC: HO.CT 10:47
PROVIDERS: Visit Provider Hospitalist
DX: J18.9 Pneumonia, unspecified organism (principal); I26.99 Other pulmonary embolism without acute cor pulmonale
CPT/HCPCS: 71275; Q9967

== ENCOUNTER 2021-06-09 14:36 | Outpatient (REF) | payer OTHER, SELFPAY ==
--- NOTE | ~2021-06-09 | US_ITS ---
EXAMINATION: US VENOUS ULTRASOUND WITH DOPPLER LOWER EXTREMITY, LEFT CLINICAL INFORMATION: Left leg pain and left ankle swelling. History of previous DVT in the left leg January 2021 COMPARISON: Previous left leg ultrasound 02/08/2021 TECHNIQUE: Ultrasound of the deep veins is performed from the hip to the calf with compression sonography and color and pulse Doppler assessment. Spectral analysis with color-flow imaging is performed. FINDINGS: The left common femoral vein is patent. Left superficial femoral vein in the proximal and mid thigh are patent. The superficial femoral vein in the distal thigh is a small in caliber. This is a thick echogenic wall, linear echogenic densities, decreased flow and decreased compression suggestive of chronic changes from DVT. The left popliteal vein is slightly enlarged. There is hypoechoic material seen adjacent to the wall of the popliteal vein and partial flow. It is uncertain whether this represents acute or chronic DVT. The visualized peroneal and posterior tibial veins are patent. The right common femoral vein is patent. There is no Hodges's cyst. US/US venous duplex LE LT IMPRESSION: Changes of chronic DVT in the left superficial femoral vein. Thrombus seen in the left popliteal vein. It is uncertain whether this represents chronic changes or acute DVT. Short-term follow-up exam in several days to assess for change is recommended. Findings will be communicated by the [place] work flow windows server engineer Eli Ballard.
== END 2021-06-09 14:37 | disposition home or self-care (01) ==
LOC: HO.US 14:36
PROVIDERS: Visit Provider Hospitalist
DX: I82.402 Acute embolism and thrombosis of unspecified deep veins of left lower extremity (principal); I26.99 Other pulmonary embolism without acute cor pulmonale
CPT/HCPCS: 93971

== ENCOUNTER 2021-06-26 11:24 | Outpatient (REF) | payer OTHER, SELFPAY ==
--- NOTE | ~2021-06-26 | US_ITS ---
EXAMINATION: US VENOUS ULTRASOUND WITH DOPPLER LOWER EXTREMITY, LEFT CLINICAL INFORMATION: Edema COMPARISON: Ultrasound left lower extremity 06/09/2021 TECHNIQUE: Ultrasound of the deep veins is performed from the hip to the calf with compression sonography and color and pulse Doppler assessment. Spectral analysis with color-flow imaging is performed. FINDINGS: There is normal venous compression and respiratory variation and augmented flow in proximal and mid superficial femoral vein. Chronic thrombus is visualized in the distal superficial femoral vein. Previously seen thrombus in the popliteal vein is again visualized, however, the smaller than the last ultrasound. The posterior tibial and the peroneal veins are patent. If the patient's symptoms persist, followup ultrasound in 5 days 7 days might be of value to exclude proximal propagation from a non-visualized calf vein. US/US venous duplex LE IMPRESSION: Chronic changes of residual thrombus within the distal SFV. Also visualized is thrombus within the popliteal vein which is much smaller compared to previous exam.
== END 2021-06-26 11:25 | disposition home or self-care (01) ==
LOC: HO.US 11:24
PROVIDERS: Visit Provider Internal Medicine Medical Oncology
DX: M79.605 Pain in left leg (principal); R60.0 Localized edema
CPT/HCPCS: 93971

== ENCOUNTER 2021-06-27 07:21 | Outpatient (REF) | payer OTHER, SELFPAY ==
--- NOTE | ~2021-06-27 | MM_ITS ---
EXAMINATION: MM SCREENING DIGITAL BREAST TOMOSYNTHESIS, BILATERAL CLINICAL INFORMATION: Screening. Asymptomatic. The lifetime risk of breast cancer based on the Tyrer-Cuzick Model is 4%. COMPARISON: Mammography: 07/11/2019, 03/04/2017, 08/09/2013 TECHNIQUE: Digital breast tomosynthesis is performed in both the craniocaudal and mediolateral oblique views along with computer-aided detection (CAD). Synthesized 2D images are generated from the tomosynthesis. Additional exaggerated left CC view is provided. FINDINGS: The breasts are heterogeneously dense, which may obscure small masses (ACR BI-RADS breast composition Category c). There are no significant masses, abnormal calcifications, or other abnormalities. There is a fibronodular parenchymal pattern similar to prior exams. No developing density. The axilla and skin contours are unremarkable. MM/MM tomosynthesis screening BI IMPRESSION: No mammographic evidence of malignancy. ASSESSMENT: BI-RADS 1: Negative RECOMMENDATION: Routine annual mammography screening. This patient's information was entered into a reminder system with a target due date for their next mammogram.
== END 2021-06-27 07:22 | disposition home or self-care (01) ==
LOC: HO.MAMMO 07:21
PROVIDERS: Visit Provider Internal Medicine
DX: Z12.31 Encounter for screening mammogram for malignant neoplasm of breast (principal)
CPT/HCPCS: 77063; 77067

== ENCOUNTER → 2021-07-01 14:29 | Outpatient (BNVA) | payer OTHER, SELFPAY | PROVIDERS: PCP Internal Medicine; Visit Provider Hospitalist ==

== ENCOUNTER 2021-07-21 09:21 | Outpatient (REF) | payer OTHER, SELFPAY ==
--- NOTE | ~2021-07-21 | XR_ITS ---
EXAMINATION: XR CHEST CLINICAL INFORMATION: Other pulmonary embolism without acute cor pulmonale COMPARISON: Chest radiograph done on 03/24/2021. TECHNIQUE: 2 views of the chest were obtained. FINDINGS: No significant abnormality is noted involving the heart, mediastinum, bony thorax or soft tissues. Stable presumed pleuroparenchymal scar related changes are noted at both lung apices. Stable postsurgical changes of sternotomy seen. XR/XR chest 2V IMPRESSION: No significant change since prior study dated 03/24/2021.
== END 2021-07-21 09:22 | disposition home or self-care (01) ==
LOC: HO.XRAY 09:21
PROVIDERS: PCP Internal Medicine; Visit Provider Hospitalist
DX: I26.99 Other pulmonary embolism without acute cor pulmonale (principal)
CPT/HCPCS: 71046

== ENCOUNTER → 2021-07-22 08:20 | Outpatient (REF) | payer OTHER, SELFPAY ==
--- NOTE | ~2021-07-22 | NM_ITS ---
EXAMINATION: PULMONARY PERFUSION STUDY CLINICAL INFORMATION: Other pulmonary embolism without acute cor pulmonale. COMPARISON: No previous lung scan is available for comparison. Radiographs of the chest dated 07/21/2021, the same date as this lung scan, are available for comparison. CTA the chest dated 05/30/2021 and 02/08/2021 are available for comparison. TECHNIQUE: Following the intravenous injection of 4.0 mCi Tc-99m MAA, a 6-view perfusion study was performed using a gamma scintillation camera. FINDINGS: No segmental perfusion defects are present. There is homogeneous distribution of activity bilaterally. There are no focal anatomic appearing perfusion defects present. NM/NM pul perfusion IMPRESSION: Normal radionuclide lung perfusion scan.
== END ==
LOC: HO.NUCMED 08:20
PROVIDERS: Visit Provider Hospitalist
DX: I26.99 Other pulmonary embolism without acute cor pulmonale (principal)
CPT/HCPCS: 78580; A9540

== ENCOUNTER → 2021-07-29 14:33 | Outpatient (BNVA) | payer OTHER, SELFPAY | PROVIDERS: PCP Internal Medicine; Visit Provider Hospitalist ==

== ENCOUNTER 2021-07-29 15:19 | Outpatient (REF) | payer OTHER, SELFPAY ==
--- NOTE | ~2021-07-29 | US_ITS ---
EXAMINATION: US VENOUS ULTRASOUND WITH DOPPLER LOWER EXTREMITY, LEFT CLINICAL INFORMATION: Follow-up DVT COMPARISON: Previous exam most recent June 09 and 06/26/2021 TECHNIQUE: Ultrasound of the deep veins is performed from the hip to the calf with compression sonography and color and pulse Doppler assessment. Spectral analysis with color-flow imaging is performed. FINDINGS: There are chronic changes of DVT seen in the popliteal vein with hypoechoic material against the wall findings are similar to May 2021 exam. No evidence of acute DVT is seen. The common femoral, superficial femoral, posterior tibial and peroneal veins and profunda femoral veins are patent. The visualized left greater saphenous vein is patent. There is no Hodges's cyst. US/US venous duplex LE LT IMPRESSION: Chronic changes of DVT similar to May 2021 exam in the popliteal vein. No evidence of acute DVT.
== END 2021-07-29 15:20 | disposition home or self-care (01) ==
LOC: HO.US 15:19
PROVIDERS: PCP Internal Medicine; Visit Provider Hospitalist
DX: I82.532 Chronic embolism and thrombosis of left popliteal vein (principal)
CPT/HCPCS: 93971

== ENCOUNTER → 2021-07-31 13:11 | Outpatient (BNVA) | payer OTHER, SELFPAY | PROVIDERS: PCP Internal Medicine; Referring Provider Internal Medicine; Visit Provider Internal Medicine | DX: I48.0 Paroxysmal atrial fibrillation (principal); R06.02 Shortness of breath; U09.9 Post COVID-19 condition, unspecified; Z98.890 Other specified postprocedural states | CPT/HCPCS: 93005 ==

== ENCOUNTER → 2021-08-07 11:16 | Outpatient (REF) | payer OTHER, SELFPAY ==
--- NOTE | 2021-08-07 11:19 | HM_ITS ---
Total monitoring time 3 days. Underlying rhythm is sinus. Minimum heart rate 62/Min. Maximum 119/Min. Average 82/Min. No atrial fibrillation or flutter or AV blocks. No pauses. Frequent supraventricular ectopy with a burden of 2.8%; 182 couplets; longest episode 8 beats. Frequent PVCs with a burden of 2.9%; 1 morphology and 725 couplets and short bursts of NSVT up to 3-4 beats. No patient events. MTDD
--- NOTE | 2021-08-07 11:19 | CA_ITS ---
Transthoracic Echocardiogram Patient (Last, First, Middle): Fidelina Mcnair E Gender: Female Date of : 1955 Age: 66 Procedure Date: 08/07/2021 Procedure Type: Transthoracic Echocardiogram Location: OP Height: 175.26 cm Weight: 77.11 kg BSA: 1.93 m2 Heart Rate: bpm BP: 110 / 64 mmHg Electrical [employer] Project Manager: DSElza Referring MD: Leon Power MD Symptoms: Z98.890 - Other specified postprocedural states Study Quality: Fair ECG Rhythm: Sinus Conclusions: - The left ventricular systolic function is mildly decreased. The calculated ejection fraction is 42% by biplane method. - The basal inferior and basal inferolateral segments are hypokinetic. - Status post mitral annuloplasty without any significant stenosis or regurgitation. Findings Left Ventricle Normal left ventricular cavity size. There is normal left ventricular wall thickness. The left ventricular systolic function is mildly decreased. The calculated ejection fraction is 42% by biplane method. Diastolic function is indeterminate on the basis of available data. E/E prime ratio is >15, consistent with elevated filling pressures. Evidence suggests grade I (mild) diastolic dysfunction. LV peak GLS -7.1%. Wall Motion Rest Echo Findings The basal inferior and basal inferolateral segments are hypokinetic. Right Ventricle Normal right ventricular cavity size and systolic function. TAPSE 1.8cm. Atria Both atria are normal in size. Aortic Valve There is a normal trileaflet aortic valve. There is no aortic valve stenosis. There is trace (trivial) aortic valve regurgitation. Mitral Valve There is trace mitral valve regurgitation. There is no mitral valve stenosis. By history, annuloplasty ring. Pulmonic Valve The pulmonic valve was not well visualized. There is trace pulmonic valve regurgitation. Tricuspid Valve Normal tricuspid valve structure. There is mild tricuspid valve regurgitation. The pulmonary artery systolic pressure is normal. Great Vessels The aortic annulus is normal in size. Venous The inferior vena cava is normal in size and collapses greater than 50% with inspiration. Pericardium/Pleural There is no evidence of pericardial effusion. Prior Study Comparison Changes noted compared to prior study dated: 03/07/2021. LVEF lower; wall motion abnormalities previously noted. Measurements M-Mode Liner Measurements Normals - Women/Men IVSd: 1.46 0.6-0.9/0.6-1.0 cm LVIDd: 4.84 3.9-5.3/4.2-5.9 cm LVIDd Index: 2.51 1.9-3.2 cm/m2 LVIDs: 4.11 2.0-3.8 cm LVPWd: 0.81 0.6-0.9/0.6-1.0 cm LV Mass: 256.52 67-162/88-224g LV Mass Index: 132.91 43-95/49-115 g/m2 M-Mode Volumes LV EDV: 110.00 LV ESV: 74.70 2D Linear Measurements IVSd: 1.12 0.6-0.9/0.6-1.0 cm LVIDd: 5.07 3.9-5.3/4.2-5.9 cm LVIDd Index: 2.63 2.4-3.2/2.2-3.1 cm/m2 LVIDs: 4.31 2.0-3.6 cm LVPWd: 0.90 0.7-1.1 cm Ao Root: 2.80 2.1-3.5 cm LA Diam: 4.90 2.7-3.8/3.0-4.0 cm LAIDs Index: 2.54 1.5-2.3 cm/m2 LV Mass: 235.75 67-162/88-224 g LV Mass Index: 122.15 43-95/49-115 g/m2 LVOT Diam: 2.10 3.0+(-)1.3 cm 2D Systolic Function EF 4C: 48.80 >55% EF 2C: 38.90 >55% EF BiP: 41.90 >55% M-Mode Systolic Function FS: 15.10 27-47/25-43% LVEF: 32.10 >55% Mitral Valve MV Pk E: 1.01 MV PK A: 0.58 MV Decel Time: 278.00 E/A: 1.80 E'Lateral: 4.13 E'Medial: 3.70 E/E' Med: 27.30 E/E' Lat: 24.50 PHT: 81.00 MVA PHT: 2.72 Decel [place]: 3.63 Aortic Valve AoV Pk [place]: 0.94 AoV Pk Grad: 4.00 LVOT LVOT Pk [place]: 0.77 LVOT Mn [place]: 0.52 LVOT VTI: 0.14 LVOT Pk Grad: 2.00 LVOT Mn Grad: 1.00 LVOT Diam: 2.10 LVOT Area: 3.46 Diastolic Function MV Pk E: 1.01 MV Pk A: 0.58 E/A: 1.80 E'Medial: 3.70 E/E' Med: 27.30 E' Laterial: 4.13 E/E' Lat: 24.50 Right Ventricle TAPSE (mm): 1.78 Tricuspid Valve TR Pk [place]: 2.18 TR Pk Grad: 19.00 RA Press: 3.00 RVSP: 22.00 Great Vessels Aorta Ao Root-2D: 2.80 2.0-3.7 cm Updated in Other Vendor System with Status of Final Leon Power MD electronically signed on 08/09/2021 1:02:17 PM with status of Final
== END ==
LOC: HO.CARD 11:16
PROVIDERS: PCP Internal Medicine; Visit Provider Internal Medicine
DX: I48.0 Paroxysmal atrial fibrillation (principal); R06.02 Shortness of breath; Z98.890 Other specified postprocedural states
CPT/HCPCS: 93242; 93306; 93356

== ENCOUNTER → 2021-08-13 09:51 | Outpatient (BNVA) | payer OTHER, SELFPAY | PROVIDERS: PCP Internal Medicine; Referring Provider Internal Medicine; Visit Provider Internal Medicine ==

== ENCOUNTER → 2021-09-12 09:04 | Outpatient (BNVA) | payer MEDICARE, SELFPAY | PROVIDERS: PCP Internal Medicine; Visit Provider Hospitalist | DX: I26.99 Other pulmonary embolism without acute cor pulmonale (principal); I82.402 Acute embolism and thrombosis of unspecified deep veins of left lower extremity; J18.9 Pneumonia, unspecified organism; I74.9 Embolism and thrombosis of unspecified artery; I42.8 Other cardiomyopathies; U09.9 Post COVID-19 condition, unspecified | CPT/HCPCS: Q3014 ==

== ENCOUNTER 2021-10-22 09:07 | Inpatient (IN) | payer MEDICARE, SELFPAY ==
[2021-10-22] VITALS (11 sets, daily range): BP systolic 93–151; BP diastolic 48–87; PULSE 66–139; RESP 17–22; TEMP 36.7–37.1; O2SAT 95–98; BMI 25.5; BMI 25.4
--- NOTE | ~2021-10-22 | XR_ITS ---
EXAMINATION: XR CHEST CLINICAL INFORMATION: Shortness of breath COMPARISON: July 21, 2021 TECHNIQUE: AP portable view of the chest was obtained. FINDINGS: The cardiopericardial silhouette is prominent. No evidence of pulmonary edema. There is some hazy density at the left lung base which may be related to small pleural effusion. Patient is status post median sternotomy. No pneumothorax is seen. XR/XR chest 1V IMPRESSION: Question small left pleural effusion with no evidence of pulmonary vascular congestion.
--- NOTE | ~2021-10-22 | CT_ITS ---
EXAMINATION: CT ANGIOGRAM OF THE CHEST WITH AND WITHOUT CONTRAST (CT PULMONARY ANGIOGRAM FOR PE) CLINICAL INFORMATION: Reason for Exam tachy. Pneumonia? PE? COMPARISON: May 30, 2021 TECHNIQUE: Prior to contrast administration, noncontrast localization images were obtained. Subsequently, multidetector volumetric imaging was performed from the thoracic inlet to below the diaphragms following the administration of 66 mL Omnipaque 350 intravenous contrast. No contrast reaction reported Sagittal, coronal, and MIP oblique sagittal reformatted images were obtained on the CT workstation, uploaded to PACS, and reviewed. This CT examination was performed using dose optimization techniques as appropriate, variously including the following: *Automated exposure control *Adjustment of mA and/or kV according to patient size (this includes techniques or standardized protocols for targeted exams where dose is matched to indication/reason for exam; i.e. extremities or head) *Use of iterative reconstruction technique Total exam dose-length product 334 mGy-cm FINDINGS: QUALITY OF STUDY/CONTRAST BOLUS: Satisfactory. PULMONARY ARTERIES: No central or segmental pulmonary emboli. THORACIC AORTA: No aneurysm or dissection. LUNG: There is apical pleural-parenchymal scarring present. There are some scattered nonspecific regions of groundglass opacity seen. There is some peripheral regions of increased density bilaterally likely related to some degree of chronic interstitial lung disease similar to study of May 30, 2021. No confluent parenchymal disease is appreciated. No significant emphysematous changes seen. PLEURA: No pleural effusion or pneumothorax. MEDIASTINUM: The heart is enlarged. No pericardial effusion. Status post mitral valve surgery. Visualized thyroid gland unremarkable. Coronary artery calcification is seen. There is a 1 cm precarinal lymph node present. No hilar lymphadenopathy is seen.. No evidence of septal bowing or right heart strain. CHEST WALL/AXILLA: Status post median sternotomy. No axillary or internal mammary lymphadenopathy. OSSEOUS STRUCTURES: No suspicious bone lesions are identified. UPPER ABDOMEN: Unremarkable. No reflux of contrast into the hepatic veins to suggest elevated right heart pressures. CT/CT angio chest PE protocol IMPRESSION: No evidence of acute pulmonary artery embolus. No evidence of thoracic aortic aneurysm or dissection. Cardiomegaly. VTE: negative
--- NOTE | 2021-10-22 09:21 | ECG_ITS ---
Test Reason : tacycardia Blood Pressure : / mmHG Vent. Rate : 138 BPM Atrial Rate : 276 BPM P-R Int : 000 ms QRS Dur : 080 ms QT Int : 268 ms P-R-T Axes : 000 040 102 degrees QTc Int : 406 ms Atrial flutter with 2:1 A-V conduction ST & T wave abnormality, consider lateral ischemia Abnormal ECG When compared with ECG of 09-FEB-2021 03:48, Atrial flutter has replaced Sinus rhythm Vent. rate has increased BY 50 BPM Non-specific change in ST segment in Inferior leads ST now depressed in Lateral leads T wave inversion now evident in Lateral leads Referred By: Lux Hobson Electronically Signed By:BAR RAINES MD
[2021-10-22] MEDS: 0.9 % Sodium Chloride 1,000 ML 999 ML IV ×2 (09:37)
--- NOTE | 2021-10-22 09:52 | ED_ITS ---
HPI - Arrhythmia/Palpitations General Chief Complaint: Arrhythmia/Palpitations Stated Complaint: PALPITATIONS,SOB Time Seen by Provider: 10/22/21 09:08 Source: patient Mode of arrival: ambulatory Limitations: no limitations History of Present Illness HPI narrative: 66-year-old female with past medical history of long haul COVID symptoms, chronic PEs, mitral valve placement, proximal atrial fibrillation presents to ED for chronic shortness of breath with tachycardia. Patient states having shortness of breath on exertion since due to COVID and tachycardia since Wednesday heart rate has been in the 130s and 140s. Patient was informed by her primary care provider on Wednesday to come to the ER but patient did not come to the ER. Patient came to the ED to be evaluated. Patient denies any leg swelling or coughing up blood. Patient received COVID booster Related Data Home Medications Medication Instructions Recorded Confirmed calcium carbonate 600 1 tab PO DAILY 02/05/21 10/22/21 mg-vitamin D3 5 mcg (200 unit) tablet (Calcium 600 + D(3)) cyanocobalamin (vitamin 1,000 mcg PO DAILY 02/05/21 10/22/21 B-12) 1,000 mcg capsule folic acid 800 mcg tablet 0.8 mg PO DAILY 02/05/21 10/22/21 fluticasone propionate 50 2 spray INTRANASAL DAILY 10/22/21 10/22/21 PRN mcg/actuation nasal spray,suspension loratadine 10 mg tablet 10 mg PO DAILY PRN 10/22/21 10/22/21 (Claritin) rivaroxaban 20 mg tablet 20 mg PO QPM 10/22/21 10/22/21 (Xarelto) Previous Rx's Medication Instructions Recorded aspirin 81 mg chewable tablet 1 tab PO DAILY #90 tab 07/04/21 Allergies Allergy/AdvReac Type Severity Reaction Status Date / Time acetaminophen Allergy Severe stomach Verified 10/20/21 09:47 [Percocet] upset oxycodone [Percocet] Allergy Severe stomach Verified 10/20/21 09:47 upset pneumococcal vaccine Allergy Severe Unknown Verified 10/20/21 09:47 apixaban [From AdvReac Intermediate diarrhea Verified 10/20/21 09:47 Eliquis] Review of Systems Verdana 4l Review of Systems: Verdana 4d Shortness of breath. Heart Verdana 4d palpitation Verdana 4d Yes all other systems are reviewed and are negative [facility] Past Medical History Medical History Asthma Atrial fibrillation Bilateral pulmonary embolism (~01/2021) Chest pain Chronic thromboembolic disease (~01/2021) COVID-19 (~12/2020) DVT (deep venous thrombosis) (~01/2021) History of Clostridium difficile infection (~12/2020) Left leg DVT (~01/2021) Osteoporosis (~2005) Pneumonia due to COVID-19 virus (~12/2020) Pneumonitis [id number] syndrome (~01/2021) Syncope (~12/2020) Tachycardia Vitamin D deficiency Surgical History History of cardiac cath (~05/2016) History of left knee surgery History of maze procedure History of mitral valve repair (~05/2016) History of partial hysterectomy (~1982) History of tonsillectomy (~1965) Family History Family History Father Melanoma Mother No problems noted. Maternal Aunt Breast cancer Brother Myasthenia gravis Social History Social History Household Members: Spouse Housing: House Do you presently have visiting nurse or other home services: Yes ([facility]NA) Alcohol intake: current Alcohol intake frequency: does not drink Patient Tobacco Use Status: Never used Tobacco e-Cigarette/Vaping Use: Never Used Second Hand Smoke Exposure: No Use of substances other than those prescribed or required for medical reasons: No Advance Directives: No Advance Directives Information Provided: No service: No Current occupational status: disabled Physical Exam Verdana 4l Vital Signs: Verdana 4d Verdana 4d Vital Signs: Verdana 4d Verdana 4Bd Last Vital Signs Verdana 4d Child Care Worker New 4d Child Care Worker New 4d Temp 98.1 F 10/22/21 09:51 Child Care Worker New 4d Pulse 136 H 10/22/21 13:04 Child Care Worker New 4d Resp 20 10/22/21 13:04 BP 122/87 10/22/21 13:04 Pulse Ox 95 10/22/21 13:04 BMI result Body Mass Index 25.5 Const: General: cooperative, healthy appearing, comfortable, no acute distress, well developed, alert and awake Orientation/consciousness: patient oriented x3 HENMT: Head: Yes normal to inspection, Yes No palpable skull fracture present, Yes normocephalic, Yes atraumatic and No abrasion Ears: hearing grossly normal bilaterally, external ears normal, TM's normal bilaterally, EAC's normal, mastoids normal and no periauricular adenopathy Eyes: General: appearance normal, both eyes and all related structures Neck: Neck: Yes normal visual inspection, Yes full ROM, Yes no lymphadenopathy, Yes no meningeal signs, Yes trachea midline, Yes supple, No anterior neck swelling and No tender Chest: Chest palpation & inspection: normal inspection of the chest and normal palpation of entire chest wall Resp: Effort & Inspection: normal respiratory effort and able to speak in complete sentences Auscultation: clear to auscultation bilaterally Cardio: Jugular venous distension: no JVD Rate: tachycardic Rhythm: abnormal rhythm irregularly irregular GI: Inspection: Yes normal to inspection and No abdominal wall ecchymosis Palpation (GI): Soft to palpation, not firm, nontender, no guarding and not rigid : General: No CVA tenderness and Yes no CVA tenderness Back/Spine/Pelvis: Back: no CVA tenderness, No CVA tenderness and No back tenderness Skin: General skin exam: no rashes or lesions noted and elasticity normal Neuro: General: patient oriented x3, gait normal, no meningeal signs and CN's II-XI intact bilaterally Cranial nerves: Yes CN's II-XII intact bilaterally Extrem: Other: Lower extremities negative for swelling, pitting edema, or calf tenderness General: Yes normal to inspection and Yes full ROM Psych: Appearance: grossly normal, well kempt and not disheveled Course Course Course Narrative: Initial blood pressure hypertensive and EKG shows atrial flutter discussed with attending to begin amiodarone IV bolus and then drip. Labs ordered. X-ray ordered. COVID swab ordered Reevaluation(s) Reevaluation #1: Repeat blood pressure is 138/72. Amiodarone on hold. Will give Cardizem. EKG showed atrial flutter. Ventricular rate 138 Time: 09:56 Reevaluation #2: Blood pressure still holding heart rate did not improve with initial Cardizem. anoother Cardizem IV bolus given. Troponin negative. BNP negative. TSH normal. COVID swab negative. Chest x-ray soft mild left pleural effusion. Time: 10:40 Reevaluation #3: Chest CTA negative for PE. Patient placed on diltiazem drip. Spoke with head batcher Dr. Muhammad recommends patient be admitted on a drip for atrial flutter. Patient start antibiotics for urine. COVID swab negative. Spoke with Dr. Garcia hospitalist who admitted patient and come down and evaluate patient Time: 13:36 MDM - Arrhythmia/Palpitations MDM Narrative Medical decision making narrative: Atrial flutter Lab Data Result diagrams: 10/22/21 09:45 10/22/21 09:45 Labs: Lab Results 10/22/21 10/22/21 10/22/21 Range/Units 09:45 09:45 09:45 WBC 5.5 (4.8-10.8) X10*3/uL RBC 4.51 (4.20-5.50) X10*6/uL Hgb 14.4 (12.0-16.0) g/dl Hct 43.1 (37.0-47.0) % MCV 95.6 (80.0-98.0) fL MCH 31.9 (27.0-33.0) pg MCHC 33.4 (31.0-35.0) g/dl RDW 12.7 (11.0-16.0) % Plt Count 148 L (160-400) X10*3/uL MPV 12.0 (9.4-12.3) fL Immature Gran % (Auto) 0.2 (0.0-0.4) % Neut % (Auto) 85.5 H (45-73) % Lymph % (Auto) 6.6 L (20-40) % [place] % (Auto) 7.5 (2-11) % Eos % (Auto) 0.2 (0-4) % Baso % (Auto) 0.0 (0-2) % Lymph # (Auto) 0.4 L (1.2-4.9) X10*3/uL [place] # (Auto) 0.4 (0.1-1.2) X10*3/uL Eos # (Auto) 0.0 (0.0-0.4) X10*3/uL Baso # (Auto) 0.0 (0.0-0.2) X10*3/uL Abs Immat Gran (auto) 0.01 (0.00-0.03) X10*3/uL Absolute Neuts (auto) 4.7 (2.0-8.3) x10*3/uL Absolute Nucleated RBC 0.000 (0.0-0.012) X10*3/uL Nucleated RBC % (auto) 0.0 (0.0-0.2) /100WBC PT 21.2 H (9.9-13.0) SEC INR 1.8 H (0.9-1.1) APTT 36.5 (24.1-38.0) SEC Sodium 139 (135-145) mmol/L Potassium 4.2 (3.3-5.1) mmol/L Chloride 107 (96-108) mmol/L Carbon Dioxide 22 (22-29) mmol/L Anion Gap 14 (12-20) BUN 16 (9-16) mg/dL Creatinine 0.92 (0.5-1.4) mg/dL Estim Creat Clear Calc 61.1 Estimated GFR > 60 Random Glucose 109 (60-115) mg/dL Lactic Acid (0.5-2.0) mmol/L Calcium 9.5 (8.4-10.2) mg/dL Total Bilirubin 1.1 H (0.0-1.0) mg/dL AST 15 (5-31) U/L ALT 20 (0-31) U/L Alkaline Phosphatase 96 (39-117) U/L Troponin I High Sens (<3.5-17.0) ng/L B-Natriuretic Peptide (<100) pg/mL Total Protein 6.6 (6.5-8.0) g/dL Albumin 4.2 (3.5-5.0) g/dL TSH 2.47 (0.32-4.0) uIU/mL Urine Color Urine Appearance Urine pH (5.0-8.0) Ur Specific [place] (1.005-1.025) Urine Protein (NEG-TRACE) MG/DL Urine Glucose (UA) (NEG) MG/DL Urine Ketones (NEG) MG/DL Urine Blood (NEG) Urine Nitrite (NEG) Ur Leukocyte Esterase (NEG) Urine RBC (0) /HPF Urine WBC (0-4) /HPF Ur Squamous Epith Cells /LPF Urine Bacteria /LPF COVID-19 (MAX) (Negative) COVID-19 Clin Com 10/22/21 10/22/21 10/22/21 Range/Units 09:45 09:45 09:45 WBC (4.8-10.8) X10*3/uL RBC (4.20-5.50) X10*6/uL Hgb (12.0-16.0) g/dl Hct (37.0-47.0) % MCV (80.0-98.0) fL MCH (27.0-33.0) pg MCHC (31.0-35.0) g/dl RDW (11.0-16.0) % Plt Count (160-400) X10*3/uL MPV (9.4-12.3) fL Immature Gran % (Auto) (0.0-0.4) % Neut % (Auto) (45-73) % Lymph % (Auto) (20-40) % [place] % (Auto) (2-11) % Eos % (Auto) (0-4) % Baso % (Auto) (0-2) % Lymph # (Auto) (1.2-4.9) X10*3/uL [place] # (Auto) (0.1-1.2) X10*3/uL Eos # (Auto) (0.0-0.4) X10*3/uL Baso # (Auto) (0.0-0.2) X10*3/uL Abs Immat Gran (auto) (0.00-0.03) X10*3/uL Absolute Neuts (auto) (2.0-8.3) x10*3/uL Absolute Nucleated RBC (0.0-0.012) X10*3/uL Nucleated RBC % (auto) (0.0-0.2) /100WBC PT (9.9-13.0) SEC INR (0.9-1.1) APTT (24.1-38.0) SEC Sodium (135-145) mmol/L Potassium (3.3-5.1) mmol/L Chloride (96-108) mmol/L Carbon Dioxide (22-29) mmol/L Anion Gap (12-20) BUN (9-16) mg/dL Creatinine (0.5-1.4) mg/dL Estim Creat Clear Calc Estimated GFR Random Glucose (60-115) mg/dL Lactic Acid (0.5-2.0) mmol/L Calcium (8.4-10.2) mg/dL Total Bilirubin (0.0-1.0) mg/dL AST (5-31) U/L ALT (0-31) U/L Alkaline Phosphatase (39-117) U/L Troponin I High Sens 7.8 (<3.5-17.0) ng/L B-Natriuretic Peptide 96 (<100) pg/mL Total Protein (6.5-8.0) g/dL Albumin (3.5-5.0) g/dL TSH Cancelled (0.32-4.0) uIU/mL Urine Color Urine Appearance Urine pH (5.0-8.0) Ur Specific [place] (1.005-1.025) Urine Protein (NEG-TRACE) MG/DL Urine Glucose (UA) (NEG) MG/DL Urine Ketones (NEG) MG/DL Urine Blood (NEG) Urine Nitrite (NEG) Ur Leukocyte Esterase (NEG) Urine RBC (0) /HPF Urine WBC (0-4) /HPF Ur Squamous Epith Cells /LPF Urine Bacteria /LPF COVID-19 (MAX) Negative (Negative) COVID-19 Clin Com See Note 10/22/21 10/22/21 Range/Units 10:43 12:35 WBC (4.8-10.8) X10*3/uL RBC (4.20-5.50) X10*6/uL Hgb (12.0-16.0) g/dl Hct (37.0-47.0) % MCV (80.0-98.0) fL MCH (27.0-33.0) pg MCHC (31.0-35.0) g/dl RDW (11.0-16.0) % Plt Count (160-400) X10*3/uL MPV (9.4-12.3) fL Immature Gran % (Auto) (0.0-0.4) % Neut % (Auto) (45-73) % Lymph % (Auto) (20-40) % [place] % (Auto) (2-11) % Eos % (Auto) (0-4) % Baso % (Auto) (0-2) % Lymph # (Auto) (1.2-4.9) X10*3/uL [place] # (Auto) (0.1-1.2) X10*3/uL Eos # (Auto) (0.0-0.4) X10*3/uL Baso # (Auto) (0.0-0.2) X10*3/uL Abs Immat Gran (auto) (0.00-0.03) X10*3/uL Absolute Neuts (auto) (2.0-8.3) x10*3/uL Absolute Nucleated RBC (0.0-0.012) X10*3/uL Nucleated RBC % (auto) (0.0-0.2) /100WBC PT (9.9-13.0) SEC INR (0.9-1.1) APTT (24.1-38.0) SEC Sodium (135-145) mmol/L Potassium (3.3-5.1) mmol/L Chloride (96-108) mmol/L Carbon Dioxide (22-29) mmol/L Anion Gap (12-20) BUN (9-16) mg/dL Creatinine (0.5-1.4) mg/dL Estim Creat Clear Calc Estimated GFR Random Glucose (60-115) mg/dL Lactic Acid 1.5 (0.5-2.0) mmol/L Calcium (8.4-10.2) mg/dL Total Bilirubin (0.0-1.0) mg/dL AST (5-31) U/L ALT (0-31) U/L Alkaline Phosphatase (39-117) U/L Troponin I High Sens (<3.5-17.0) ng/L B-Natriuretic Peptide (<100) pg/mL Total Protein (6.5-8.0) g/dL Albumin (3.5-5.0) g/dL TSH (0.32-4.0) uIU/mL Urine Color YELLOW Urine Appearance CLEAR Urine pH 7.0 (5.0-8.0) Ur Specific [place] 1.010 (1.005-1.025) Urine Protein NEG (NEG-TRACE) MG/DL Urine Glucose (UA) NEG (NEG) MG/DL Urine Ketones NEG (NEG) MG/DL Urine Blood TRACE (NEG) Urine Nitrite POS H (NEG) Ur Leukocyte Esterase TRACE H (NEG) Urine RBC 0-2 (0) /HPF Urine WBC 0-2 (0-4) /HPF Ur Squamous Epith Cells TRACE /LPF Urine Bacteria 1+ /LPF COVID-19 (MAX) (Negative) COVID-19 Clin Com ECG Data Interpretation: Atrial flutter. Ventricular rate 138. QRS 80. QTC 406. Negative STEMI Critical Care Time Critical Care Time Critical Care Time: Yes Total Critical Care Time: 60 Attestation: Given Cardizem twice. Placed on Cardizem drip. Consult with Cardiology. Chest CT ordered. Admitted to the hospital. Discharge Plan Discharge Clinical Impression: Atrial fibrillation, Atrial flutter Patient Disposition: Admitted As Inpatient
[2021-10-22 09:53] LABS: MANUAL DIFF FLAG NO
[2021-10-22 09:56] LABS: Eosinophils Percent Auto 0.2 % (0-4); Hematocrit 43.1 % (37.0-47.0); Hemoglobin 14.4 g/dl (12.0-16.0); Imm Gran Abs Auto 0.01 X10*3/uL (0.00-0.03); Imm Gran Pct Auto 0.2 % (0.0-0.4); Lymphocytes Absolute Auto 0.4 X10*3/uL (1.2-4.9); Lymphocytes Percent Auto 6.6 % (20-40); Mean Corpuscular HGB Conc 33.4 g/dl (31.0-35.0); Mean Corpuscular Hemoglobin 31.9 pg (27.0-33.0); Mean Corpuscular Volume 95.6 fL (80.0-98.0); Monocytes Absolute Auto 0.4 X10*3/uL (0.1-1.2); Monocytes Percent Auto 7.5 % (2-11); Neutrophils Absolute Auto 4.7 x10*3/uL (2.0-8.3); Neutrophils Percent Auto 85.5 % (45-73); Platelet Count 148 X10*3/uL (160-400); Red Blood Count 4.51 X10*6/uL (4.20-5.50); Red Cell Distribution Width 12.7 % (11.0-16.0); White Blood Count 5.5 X10*3/uL (4.8-10.8)
[2021-10-22] MEDS: dilTIAZem HCL 50 MG/10 ML VIAL 20 MG IVPUSH (09:57)
[2021-10-22 10:01] LABS: INTERNATIONAL NORM RATIO 1.8 (0.9-1.1); Prothrombin Time 21.2 SEC (9.9-13.0)
[2021-10-22 10:04] LABS: Partial Thromboplastin Time 36.5 SEC (24.1-38.0)
[2021-10-22 10:15] LABS: Alanine Aminotransferase 20 U/L (0-31); Albumin Level 4.2 g/dL (3.5-5.0); Alkaline Phosphatase 96 U/L (39-117); Anion Gap 14 (12-20); Aspartate Amino Transferase 15 U/L (5-31); B Type Natriuretic Peptide 96 pg/mL (<100); Bilirubin Total 1.1 mg/dL (0.0-1.0); Blood Urea Nitrogen 16 mg/dL (9-16); Calcium 9.5 mg/dL (8.4-10.2); Carbon Dioxide 22 mmol/L (22-29); Chloride 107 mmol/L (96-108); Creatinine Clr Calc Pharmacy 61.1; Estimated Glomerular Filt Rate > 60; Glucose Random 109 mg/dL (60-115); Potassium 4.2 mmol/L (3.3-5.1); Sodium 139 mmol/L (135-145); Total Protein 6.6 g/dL (6.5-8.0); Troponin-I High Sensitivity 7.8 ng/L (<3.5-17.0)
[2021-10-22 10:25] LABS: COVID-19 Test Negative (Negative)
[2021-10-22 10:35] LABS: TSH reflex Free T4 2.47 uIU/mL (0.32-4.0)
[2021-10-22] MEDS: dilTIAZem HCL 50 MG/10 ML VIAL 25 MG IVPUSH (10:38)
[2021-10-22 10:59] LABS: Appearance Urine CLEAR; Color Urine YELLOW; Glucose Urine UA NEG (NEG); Leukocyte Esterase Urine TRACE (NEG); Nitrite Urine POS (NEG); UACC Culture Trigger YES; Urine Blood TRACE (NEG); Urine Ketones NEG (NEG); Urine Protein NEG (NEG-TRACE)
[2021-10-22] MEDS: iohexoL 350 MG/ML 100 ML INFUS..BTL IV (11:16)
[2021-10-22 11:21] LABS: Bacteria Urine 1+ /LPF; RBC Urine 0-2 /HPF (0); Squamous Epithelial Cell Urine TRACE /LPF; WBC Urine 0-2 /HPF (0-4)
[2021-10-22] MEDS: dilTIAZem HCL 125 MG in 0.9 % Sodium Chloride 100 ML 10 MG IVCONT (12:28)
[2021-10-22] MEDS: cefTRIAXone sodium 1 GM in 0.9 % Sodium Chloride 50 ML IV (12:39)
[2021-10-22 12:52] LABS: Lactic Acid 1.5 mmol/L (0.5-2.0)
--- NOTE | 2021-10-22 14:01 | P.HPHOSP_ITS ---
History of Present Illness Date of Service: 10/22/21 Chief Complaint: palpitations, dizziness/lightheadedness This is a 66 yo F with a PMH of PAF/MR - s/p Maze procedure in 2015, COVID19 in December 2020, PE/DVT January 2021 on Xarelto who presents to the ED after she felt dizzy and lightheaded this morning. Patient reports that she was seen at her PCP's office 2 days prior to admission for a routine follow up. At that time, she was noted to have an elevated HR in the 130s and it was recommended that she present to the ED, however, she did not have any (new) symptoms at that time and so she decided that she would monitor herself at home. However, this AM she had a change in her chronic symptoms and so she presented here. She reports chronic shortness of breath and fatigue since her COVID admission last year. She denies any chest pain or changes to her breathing status. She denies any orthopnea/PND or LE edema. In regards to her PAF/MR -- she underwent maze procedure in 2015. She was not on any OAC until her diagnosis of PE/DVT last year. Since then, she reports strict compliance with her Xarelto. She was seen in the cardiology clinic in July 2021 and had a 3 day holter monitor which did not reveal any A. Fib/flutter. In the emergency room, the patient was found to be in A. Fib/Flutter with RVR. She was given 2 doses of IV push cardizem without any significant changes to her HR. She was subsequently started on IV cardizem drip and now will be admitted for further work up. COVID Vaccination status: Pfizer x 2 + booster Review of Systems Verdana 4l Review of Systems: Verdana 4d negative except Verdana 4d HPI Verdana 4d [facility] Medical History Asthma Atrial fibrillation Bilateral pulmonary embolism (~01/2021) Chest pain Chronic thromboembolic disease (~01/2021) COVID-19 (~12/2020) DVT (deep venous thrombosis) (~01/2021) History of Clostridium difficile infection (~12/2020) Left leg DVT (~01/2021) Osteoporosis (~2005) Pneumonia due to COVID-19 virus (~12/2020) Pneumonitis [id number] syndrome (~01/2021) Syncope (~12/2020) Tachycardia Vitamin D deficiency Family History Father Melanoma Mother No problems noted. Maternal Aunt Breast cancer Brother Myasthenia gravis Surgical History History of cardiac cath (~05/2016) History of left knee surgery History of maze procedure History of mitral valve repair (~05/2016) History of partial hysterectomy (~1982) History of tonsillectomy (~1965) Social History Household Members: Spouse Housing: House Do you presently have visiting nurse or other home services: Yes ([facility]NA) Alcohol intake: current Alcohol intake frequency: does not drink Patient Tobacco Use Status: Never used Tobacco e-Cigarette/Vaping Use: Never Used Second Hand Smoke Exposure: No Use of substances other than those prescribed or required for medical reasons: No Advance Directives: No Advance Directives Information Provided: No service: No Current occupational status: disabled Meds Allergies Allergy/AdvReac Type Severity Reaction Status Date / Time acetaminophen Allergy Severe stomach Verified 10/20/21 09:47 [Percocet] upset oxycodone [Percocet] Allergy Severe stomach Verified 10/20/21 09:47 upset pneumococcal vaccine Allergy Severe Unknown Verified 10/20/21 09:47 apixaban [From AdvReac Intermediate diarrhea Verified 10/20/21 09:47 Eliquis] Active Medications: Current Medications Diltiazem HCl 125 mg/ Sodium (Chloride) 125 mls @ 0 mls/hr IVCONT .Q0M [facility]; Protocol Last Titration: 10/22/21 13:05 Dose: 15 mg/hr, 15 mls/hr Documented by: Ondansetron HCl (Ondansetron Hcl 4 Mg/2 Ml Vial) 4 mg IVPUSH Q8H PRN PRN Reason: Nausea and Vomiting Sodium Chloride (0.9 % Sodium Chloride Flush 3 Ml Syringe) 3 ml IVFLUSH QSHIFT [facility] Home Medications Medication Instructions Recorded Confirmed Last Taken Type albuterol sulfate 2 puff 02/05/21 10/20/21 Unknown History 90 mcg/actuation INHALATION Q4-6H PRN aerosol inhaler (ProAir HFA) calcium carbonate 1 tab PO DAILY 02/05/21 10/20/21 Unknown History 600 mg-vitamin D3 5 mcg (200 unit) tablet (Calcium 600 + D(3)) cyanocobalamin 1,000 mcg PO 02/05/21 10/20/21 Unknown History (vitamin B-12) DAILY 1,000 mcg capsule folic acid 800 0.8 mg PO DAILY 02/05/21 10/20/21 Unknown History mcg tablet Physical Exam Verdana 4l Vital Signs and Narrative: Verdana 4d Verdana 4d Vital Signs: Verdana 4d Verdana 4Bd Last Vital Signs Verdana 4d Web Art Director New 4d Web Art Director New 4d Temp 98.1 F 10/22/21 09:51 Web Art Director New 4d Pulse 136 H 10/22/21 13:04 Web Art Director New 4d Resp 20 10/22/21 13:04 BP 122/87 10/22/21 13:04 Pulse Ox 95 10/22/21 13:04 BMI result Body Mass Index 25.5 Const: Other: Constitutional - Awake and Alert, No apparent distress Eyes - PERRLA, EOMI Cardiovascular - IRR with rates in the 120s-130s range; no JVD appreciated, no significant b/l LE edema Respiratory - Normal lung expansion, Normal respiratory effort, No respiratory distress, CTA bilaterally Gastrointestinal - NT / ND; +BS; No rebound or guarding - No CVA tenderness Extremities - no calf tenderness bilaterally Musculoskeletal - Normal inspection, normal ROM Skin - Warm/Dry Neurological - Alert & oriented x3, No focal deficit Psychological - Appropriate affect Results Labs CBC and Chem 7: 10/22/21 09:45 10/22/21 09:45 Labs: Laboratory Results - last 24 hr 10/22/21 10/22/21 10/22/21 09:45 09:45 09:45 MCV 95.6 MCH 31.9 MCHC 33.4 RDW 12.7 Plt Count 148 L MPV 12.0 Immature Gran % (Auto) 0.2 Neut % (Auto) 85.5 H Lymph % (Auto) 6.6 L [place] % (Auto) 7.5 Eos % (Auto) 0.2 Baso % (Auto) 0.0 Lymph # (Auto) 0.4 L [place] # (Auto) 0.4 Eos # (Auto) 0.0 Baso # (Auto) 0.0 Abs Immat Gran (auto) 0.01 Absolute Neuts (auto) 4.7 Absolute Nucleated RBC 0.000 Nucleated RBC % (auto) 0.0 PT 21.2 H INR 1.8 H APTT 36.5 Anion Gap 14 Estim Creat Clear Calc 61.1 Estimated GFR > 60 Random Glucose 109 Lactic Acid Calcium 9.5 Total Bilirubin 1.1 H AST 15 ALT 20 Alkaline Phosphatase 96 Troponin I High Sens B-Natriuretic Peptide Total Protein 6.6 Albumin 4.2 TSH 2.47 Urine Color Urine Appearance Urine pH Ur Specific [place] Urine Protein Urine Glucose (UA) Urine Ketones Urine Blood Urine Nitrite Ur Leukocyte Esterase Urine RBC Urine WBC Ur Squamous Epith Cells Urine Bacteria COVID-19 (MAX) COVID-19 Clin Com 10/22/21 10/22/21 10/22/21 09:45 09:45 09:45 MCV MCH MCHC RDW Plt Count MPV Immature Gran % (Auto) Neut % (Auto) Lymph % (Auto) [place] % (Auto) Eos % (Auto) Baso % (Auto) Lymph # (Auto) [place] # (Auto) Eos # (Auto) Baso # (Auto) Abs Immat Gran (auto) Absolute Neuts (auto) Absolute Nucleated RBC Nucleated RBC % (auto) PT INR APTT Anion Gap Estim Creat Clear Calc Estimated GFR Random Glucose Lactic Acid Calcium Total Bilirubin AST ALT Alkaline Phosphatase Troponin I High Sens 7.8 B-Natriuretic Peptide 96 Total Protein Albumin TSH Cancelled Urine Color Urine Appearance Urine pH Ur Specific [place] Urine Protein Urine Glucose (UA) Urine Ketones Urine Blood Urine Nitrite Ur Leukocyte Esterase Urine RBC Urine WBC Ur Squamous Epith Cells Urine Bacteria COVID-19 (MAX) Negative COVID-19 Clin Com See Note 10/22/21 10/22/21 10:43 12:35 MCV MCH MCHC RDW Plt Count MPV Immature Gran % (Auto) Neut % (Auto) Lymph % (Auto) [place] % (Auto) Eos % (Auto) Baso % (Auto) Lymph # (Auto) [place] # (Auto) Eos # (Auto) Baso # (Auto) Abs Immat Gran (auto) Absolute Neuts (auto) Absolute Nucleated RBC Nucleated RBC % (auto) PT INR APTT Anion Gap Estim Creat Clear Calc Estimated GFR Random Glucose Lactic Acid 1.5 Calcium Total Bilirubin AST ALT Alkaline Phosphatase Troponin I High Sens B-Natriuretic Peptide Total Protein Albumin TSH Urine Color YELLOW Urine Appearance CLEAR Urine pH 7.0 Ur Specific [place] 1.010 Urine Protein NEG Urine Glucose (UA) NEG Urine Ketones NEG Urine Blood TRACE Urine Nitrite POS H Ur Leukocyte Esterase TRACE H Urine RBC 0-2 Urine WBC 0-2 Ur Squamous Epith Cells TRACE Urine Bacteria 1+ COVID-19 (MAX) COVID-19 Clin Com Imaging Radiologist's Impressions: Impressions Chest X-Ray 10/22/21 09:59 IMPRESSION: Question small left pleural effusion with no evidence of pulmonary vascular congestion. Chest CTA 10/22/21 11:21 IMPRESSION: No evidence of acute pulmonary artery embolus. No evidence of thoracic aortic aneurysm or dissection. Cardiomegaly. VTE: negative Assessment and Plan (1) Atrial flutter: Status: Acute Plan This is a 66 yo F with a PMH of PAF/MR - s/p Maze procedure in 2015, COVID19 in December 2020, PE/DVT January 2021 on Xarelto who presents to the ED after she felt dizzy and lightheaded this morning. She is in rapid A. Fib/Flutter with symptoms. She will be admitted for further care. 1. Symptomatic A. Fib/Flutter with RVR not on any rate control drugs at home due to documented prior low BP Did not respond to IV push cardizem. She is now placed on cardizem drip; will add low dose metorpolol 12.5mg q6h Will need cardiology evaluation Continue Xarelto NPO after midnight, in case she needs cardioversion Clinically not on acute CHF at this time, but given duration of A. fib, will require close monitoring; hold off diuretics at this time 2. PE/DVT Chronic, continue Xarelto 3. HFrEF, chronic not on diuretics at home monitor Med rec pending at this time, continue other baseline meds Full Code DVT pptx, on Xarelto Endorses her daughter as HCP Quality Stroke Does the patient have a stroke diagnosis?: No VTE Prior VTE?: No VTE Risk Level:: Medical - moderate - high VTE Device Contraindication: Treatment Not Indicated VTE Drug Contraindication: N/A - Med Ordered
--- NOTE | 2021-10-22 15:12 | PHA.MEDREC ---
Pharmacy Consult ? Medication Reconciliation Pharmacy has completed the medication reconciliation.
[2021-10-22] MEDS: 0.9 % Sodium Chloride Flush 3 ML SYRINGE IVFLUSH (16:30)
[2021-10-22] MEDS: Metoprolol Tartrate 12.5 MG HALFTAB PO (17:22)
[2021-10-22] MEDS: Rivaroxaban 20 MG TABLET PO (17:22)
[2021-10-23] VITALS (9 sets, daily range): BP systolic 93–126; BP diastolic 51–67; PULSE 45–121; RESP 18–20; TEMP 36.7–37.1; O2SAT 94–98
[2021-10-23] MEDS: Metoprolol Tartrate 12.5 MG HALFTAB PO ×4 (00:38→18:02)
[2021-10-23] MEDS: 0.9 % Sodium Chloride Flush 3 ML SYRINGE IVFLUSH ×3 (00:41→18:03)
--- NOTE | 2021-10-23 10:16 | ECG_ITS ---
Test Reason : AFLUTTER Blood Pressure : / mmHG Vent. Rate : 098 BPM Atrial Rate : 264 BPM P-R Int : 000 ms QRS Dur : 082 ms QT Int : 362 ms P-R-T Axes : 000 059 053 degrees QTc Int : 462 ms Atrial flutter with variable A-V block with premature ventricular or aberrantly conducted complexes Abnormal ECG When compared with ECG of 22-OCT-2021 09:21, Nonspecific T wave abnormality has replaced inverted T waves in Lateral leads Referred By: Mook Muhammad Electronically Signed By:MOOK MUHAMMAD MD
--- NOTE | 2021-10-23 10:44 | P.CONCA_ITS ---
History of Present Illness History of Present Illness Date of Service: 10/23/21 Requesting physician: Kwabena Garcia Chief complaint: Persistent atrial flutter Narrative: I was requested to see Fidelina in cardiology consultation today because of persistent atrial flutter with rapid ventricular response. She is a 66-year-old woman with prior history of significant mitral regurgitation secondary to mitral valve prolapse status post repair in 2016 at which time she underwent a Maze procedure for atrial fibrillation as well as left atrial appendage ligation. Last year she developed COVID and subsequently has had significant shortness of breath. She also has nonischemic cardiomyopathy with LVEF of 42% by last echocardiogram with normally function mitral valve repair. She presented to her primary care physician Dr. Barillas and was noted to have rapid heart rate any advised her to go to the emergency room. However she says she will manage this at home. Since then she has been monitoring heart rate at home and have been persistently in the 130s to 140 range and with associated shortness of breath. She does not complain of fluttering in her chest but knows that her heart rate is rapid. She also has some lightheadedness. She came to the emergency room. In the emergency room she was noted to be in atrial flutter with 2 is to 1 conduction was admitted with IV Cardizem drip. Currently getting IV Cardizem drip and heart rate is better controlled. However she remains in persistent atrial flutter with variable conduction. She says she feels better but she is currently at rest. Not exertional in any nature. She has prior history of exertional shortness of breath post COVID and is unclear whether this is due to intermittent atrial flutter although she says this is always present. She has been on oral anticoagulation with Xarelto and has not missed any doses. She also on low-dose baby aspirin for unclear reason. Denies any syncopal episodes. Denies any orthopnea, PND, leg edema. Denies any chest pain syndrome. Review of Systems Verdana 4l Constitutional: Verdana 4d Constitutional: Verdana 4d Verdana 4d Reports no additional constitutional complaints Verdana 4l Eyes: Verdana 4d Verdana 4d Eyes: Verdana 4d Reports no additional eye complaints Verdana 4l ENT: Verdana 4d Reports system reviewed and no additional complaints, except as documented Verdana 4l Cardiovascular: Verdana 4d Cardiovascular: Verdana 4d Verdana 4d Denies chest pain, Reports rapid heart rate, Denies leg edema, Reports lightheadedness and Reports dyspnea on exertion Verdana 4l Respiratory: Verdana 4d Verdana 4d Respiratory: Verdana 4d Reports no additional respiratory complaints and Reports dyspnea on exertion Verdana 4l Gastrointestinal: Verdana 4d Gastrointestinal: Verdana 4d Verdana 4d Reports no additional gastrointestinal complaints Verdana 4l Genitourinary: Verdana 4d Verdana 4d Genitourinary: Verdana 4d Reports no additional female genitourinary complaints Verdana 4l Musculoskeletal: Verdana 4d Musculoskeletal: Verdana 4d Verdana 4d Reports no additional musculoskeletal complaints Verdana 4l Integumentary/Breasts: Verdana 4d Skin/Breast: Verdana 4d Verdana 4d Reports system reviewed and no additional complaints, except as docu Verdana 4l Neurologic: Verdana 4d Reports system reviewed and no additional complaints, except as documented Verdana 4l Psychiatric: Verdana 4d Verdana 4d Psychiatric: Verdana 4d Reports no additional psychiatric complaints Verdana 4l Endocrine: Verdana 4d Verdana 4d Endocrine: Verdana 4d Reports no additional endocrine complaints Verdana 4l Hematologic/Lymphatic: Verdana 4d Hematologic/Lymphatic: Verdana 4d Verdana 4d Reports no additional hematologic/lymphatic complaints Verdana 4l Allergic/Immunologic: Verdana 4d Allergic/Immunologic: Verdana 4d Verdana 4d Reports no additional allergic/immunologic complaints PMFSH Past Medical History Medical History Asthma Atrial fibrillation Bilateral pulmonary embolism (~01/2021) Chest pain Chronic thromboembolic disease (~01/2021) COVID-19 (~12/2020) DVT (deep venous thrombosis) (~01/2021) History of Clostridium difficile infection (~12/2020) Left leg DVT (~01/2021) Osteoporosis (~2005) Pneumonia due to COVID-19 virus (~12/2020) 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 Maternal Aunt Breast cancer Brother Myasthenia gravis Surgical History Surgical History History of cardiac cath (~05/2016) History of left knee surgery History of maze procedure History of mitral valve repair (~05/2016) History of partial hysterectomy (~1982) History of tonsillectomy (~1965) Social History Social History Household Members: Spouse Housing: House Are you a primary tree care foreman to a significant other at home: No Do you presently have visiting nurse or other home services: No Alcohol intake: current Alcohol intake frequency: does not drink Patient Tobacco Use Status: Never used Tobacco e-Cigarette/Vaping Use: Never Used Second Hand Smoke Exposure: No Use of substances other than those prescribed or required for medical reasons: No Currently Displaying Signs/Symptoms of Drug Intoxication Withdrawal: No Have you been hit, kicked, punched, or otherwise hurt by someone within the past year? If so, by whom?: No Do you feel safe in your current relationship?: No Is there a partner from a previous relationship who is making you feel unsafe now?: No Are you made to feel afraid or neglected: No Advance Directives: No Advance Directives Information Provided: No Do you have thoughts of harming others: None Do you have a plan to hurt others: No Plan Recently lost weight without trying: No Nutrition Risks: No Nutritional Risk service: No Current occupational status: disabled Meds Allergies Allergy/AdvReac Type Severity Reaction Status Date / Time acetaminophen Allergy Severe stomach Verified 10/20/21 09:47 [Percocet] upset oxycodone [Percocet] Allergy Severe stomach Verified 10/20/21 09:47 upset pneumococcal vaccine Allergy Severe Unknown Verified 10/20/21 09:47 apixaban [From AdvReac Intermediate diarrhea Verified 10/20/21 09:47 Eliquis] Active Medications: Current Medications Aspirin (Aspirin 81 Mg Tab.Chew) 81 mg PO DAILY [facility] Cyanocobalamin (Cyanocobalamin (Vitamin B-12) 1,000 Mcg Tablet) 1,000 mcg PO DAILY [facility] Fluticasone Propionate (Fluticasone Propionate Nasal 16 G[address] [place]) 2 spray NO STRIL-B DAILY PRN PRN Reason: Allergy Symptoms Diltiazem HCl 125 mg/ Sodium (Chloride) 125 mls @ 0 mls/hr IVCONT .Q0M [facility]; Protocol Last Titration: 10/23/21 04:30 Dose: Infused Documented by: Loratadine (Loratadine 10 Mg Tablet) 10 mg PO DAILY PRN PRN Reason: Allergy Symptoms Metoprolol Tartrate (Metoprolol Tartrate 12.5 Mg Halftab) 12.5 mg PO Q6H [facility]; Protocol Last Admin: 10/23/21 06:28 Dose: 12.5 mg Documented by: Pharmacy Consult (Consult Rx Perform Med Rec) 1 each MISCELLANE ONCE PRN PRN Reason: Consult order Rivaroxaban (Rivaroxaban 20 Mg Tablet) 20 mg PO DAILY@1800 [facility] Last Admin: 10/22/21 17:22 Dose: 20 mg Documented by: Rivaroxaban (Rivaroxaban 20 Mg Tablet) 20 mg PO DAILY@1700 [facility] Sodium Chloride (0.9 % Sodium Chloride Flush 3 Ml Syringe) 3 ml IVFLUSH QSHIFT [facility] Last Admin: 10/23/21 06:29 Dose: 3 ml Documented by: Sotalol HCl (Sotalol Hcl 120 Mg Tablet) 60 mg PO BID [facility] Home Medications Medication Instructions Recorded Confirmed Last Taken Type calcium carbonate 1 tab PO DAILY 02/05/21 10/22/21 10/21/21 History 600 mg-vitamin D3 5 mcg (200 unit) tablet (Calcium 600 + D(3)) cyanocobalamin 1,000 mcg PO 02/05/21 10/22/21 10/21/21 History (vitamin B-12) DAILY 1,000 mcg capsule folic acid 800 0.8 mg PO DAILY 02/05/21 10/22/21 10/21/21 History mcg tablet fluticasone 2 spray 10/22/21 10/22/21 Unknown History propionate 50 INTRANASAL DAILY PRN mcg/actuation nasal spray,suspension loratadine 10 mg 10 mg PO DAILY 10/22/21 10/22/21 Unknown History tablet (Claritin) PRN rivaroxaban 20 mg 20 mg PO QPM 10/22/21 10/22/21 10/21/21 History tablet (Xarelto) Physical Exam Verdana 4l Vital Signs: Verdana 4d Verdana 4d Vital Signs: Verdana 4d Verdana 4Bd Last Vital Signs Verdana 4d Special Police Officer New 4d Special Police Officer New 4d Temp 98.5 F 10/23/21 08:00 Special Police Officer New 4d Pulse 66 10/23/21 08:00 Special Police Officer New 4d Resp 18 10/23/21 08:00 BP 101/51 L 10/23/21 08:00 Pulse Ox 98 10/23/21 08:00 BMI result Body Mass Index 25.4 Const: General: cooperative, comfortable, no acute distress, alert and awake Nutritional Appearance: average body habitus Orientation/consciousness: patient oriented x3 Limitations: no limitations HENMT: Head: Yes normocephalic and Yes atraumatic Neck: Neck: Yes trachea midline, Yes supple and Yes no JVD Resp: Effort & Inspection: normal respiratory effort Auscultation: clear to auscultation bilaterally Cardio: Jugular venous distension: no JVD Rate: regular rate Rhythm: abnormal rhythm irregularly irregular Heart sounds: S1 normal heart sound present, S2 normal heart sound present, no click, no gallops and no murmurs GI: Auscultation: normal bowel sounds Skin: General skin exam: no rashes or lesions noted Neuro: General: patient oriented x3 and no focal motor deficits Extrem: General: Yes no clubbing, cyanosis or edema Psych: Appearance: grossly normal Objective Labs and Meds Result diagrams: 10/22/21 09:45 10/22/21 09:45 Lab results: Laboratory Results - last 24 hr 10/22/21 10/22/21 10:43 12:35 Lactic Acid 1.5 Urine Color YELLOW Urine Appearance CLEAR Urine pH 7.0 Ur Specific [place] 1.010 Urine Protein NEG Urine Glucose (UA) NEG Urine Ketones NEG Urine Blood TRACE Urine Nitrite POS H Ur Leukocyte Esterase TRACE H Urine RBC 0-2 Urine WBC 0-2 Ur Squamous Epith Cells TRACE Urine Bacteria 1+ Imaging Radiologist's impression: Impressions Chest CTA 10/22/21 11:21 IMPRESSION: No evidence of acute pulmonary artery embolus. No evidence of thoracic aortic aneurysm or dissection. Cardiomegaly. VTE: negative Assessment and Plan (1) Atrial flutter: Status: Acute Symptomatic persistent atrial flutter with better rate control with improved symptoms but with persistent atrial flutter. In a patient with prior mitral valve surgery as well as left atrial disease likely most likely scar mediated atrial flutter. Will benefit from rhythm control approach. However will require antiarrhythmic drug support. Given her overall structural heart disease options would be sotalol or amiodarone. Given her age will start on sotalol loading 60 mg b.i.d.. Follow sotalol protocol. Will discontinue Zofran. Lower starting tomorrow and will plan for synchronized cardioversion tomorrow. Keep her NPO past midnight. We discussed the procedure synchronized cardioversion including risk, benefits, alternatives 2nd opinion. She understands and agrees. She will need total observation for 48 hours in the hospital after initiation of sotalol and most likely discharge on Wednesday morning. Will continue monitor QT interval. Continue full oral anticoagulation, currently on Xarelto 20 mg daily. There is no need for additional aspirin therapy on her. This can be discontinued. (2) NICM (nonischemic cardiomyopathy): Status: Acute Nonischemic cardiomyopathy without any overt heart failure syndrome at this point time. She is not tolerating atrial flutter well with symptoms of shortn ess of breath. Pursue rhythm control approach as above. Has not been able to tolerate neurohormonal modulation due to low blood pressure as outpatient. Will start sotalol as above and follow-up blood pressure closely. Will follow up tomorrow. Procedures Date of Service Date of Service: 10/23/21
[2021-10-23] MEDS: Cyanocobalamin (Vitamin B-12) 1,000 MCG TABLET 1000 MCG PO (10:53)
--- NOTE | 2021-10-23 12:11 | MHC.CM.PN ---
Female 66 DX Palpitations She lives with her . A HCP has been documented. She is independent with all functional mobility. She was scheduled for Cardioversion today. She responded to medication. The plan is to manage medically today. If the medication is not effective, the plan will be to Cardiovert tomorrow. DP home no services family transport.
--- NOTE | 2021-10-23 12:46 | P.PNIM_ITS ---
Subjective Subjective Date of Service: 10/23/21 Interval History: the patient was seen and evaluated this morning Laying in bed, feels better than yesterday Still in atrial fibrillation but rate controlled Denies any fever, chills or chest pain No reported other overnight events. Systemic review: No fever, chills or weakness No chest pain, palpitation No shortness of breath or coughing No abdominal pain, nausea or vomiting No urinary symptoms No any rash or wounds Physical Exam Verdana 4l Vital Signs: Verdana 4d Verdana 4d Vital Signs: Verdana 4d Verdana 4Bd Last Vital Signs Verdana 4d String Laster New 4d String Laster New 4d Temp 98.7 F 10/23/21 11:41 String Laster New 4d Pulse 88 10/23/21 11:41 String Laster New 4d Resp 18 10/23/21 11:41 BP 114/58 L 10/23/21 11:41 Pulse Ox 97 10/23/21 11:41 BMI result Body Mass Index 25.4 Const: Other: Constitutional : Alert, oriented, not in distress Neck : Normal inspection, Supple Cardiovascular : Irregular irregular rhythm, S1 S2, no lower extremity edema Respiratory : Good bilateral air entry, no crackles, wheezes or rhonchi Gastrointestinal: soft, lax, Normal bowel sounds, Non tender Skin : Warm, Dry Neurological : Alert & oriented x3, No focal deficitv Objective Data Active Medications Aspirin (Aspirin 81 Mg Tab.Chew) 81 mg PO DAILY [facility] Last Admin: 10/23/21 10:53 Dose: Not Given Documented by: ARON Non-Admin Reason: Patient Refused Cyanocobalamin (Cyanocobalamin (Vitamin B-12) 1,000 Mcg Tablet) 1,000 mcg PO DAILY [facility] Last Admin: 10/23/21 10:53 Dose: 1,000 mcg Documented by: ARON Fluticasone Propionate (Fluticasone Propionate Nasal 16 Gm [place]) 2 spray NOSTRIL-B DAILY PRN PRN Reason: Allergy Symptoms Diltiazem HCl 125 mg/ Sodium (Chloride) 125 mls @ 0 mls/hr IVCONT .Q0M [facility]; Protocol Last Titration: 10/23/21 04:30 Dose: 5 mg/hr, 5 mls/hr Documented by: ZAN Loratadine (Loratadine 10 Mg Tablet) 10 mg PO DAILY PRN PRN Reason: Allergy Symptoms Metoprolol Tartrate (Metoprolol Tartrate 12.5 Mg Halftab) 12.5 mg PO Q6H [facility]; Protocol Last Admin: 10/23/21 10:53 Dose: 12.5 mg Documented by: ARON Pharmacy Consult (Consult Rx Perform Med Rec) 1 each MISCELLANE ONCE PRN PRN Reason: Consult order Rivaroxaban (Rivaroxaban 20 Mg Tablet) 20 mg PO DAILY@1800 [facility] Last Admin: 10/22/21 17:22 Dose: 20 mg Documented by: SOO Rivaroxaban (Rivaroxaban 20 Mg Tablet) 20 mg PO DAILY@1700 [facility] Sodium Chloride (0.9 % Sodium Chloride Flush 3 Ml Syringe) 3 ml IVFLUSH QSHIFT [facility] Last Admin: 10/23/21 06:29 Dose: 3 ml Documented by: ZAN Sotalol HCl (Sotalol Hcl 120 Mg Tablet) 60 mg PO BID [facility] Labs CBC & Chem 7: 10/22/21 09:45 10/22/21 09:45 Labs: Laboratory Results - last 24 hr 10/22/21 12:35 Lactic Acid 1.5 Microbiology Microbiology Results: Microbiology 10/22/21 Unknown Urine Culture - Preliminary Urine clean catch - Urine dixon top Gram negative pearl Assessment and Plan (1) NICM (nonischemic cardiomyopathy): Status: Acute (2) Atrial fibrillation with rapid ventricular response: Status: Acute Plan This is a 66 yo F with a PMH of PAF/MR - s/p Maze procedure in 2015, COVID19 in December 2020, PE/DVT January 2021 on Xarelto who presents to the ED after she felt dizzy and lightheaded this morning. She is in rapid A. Fib/Flutter with symptoms. She will be admitted for further care. AFib/Flutter with RVR Hx CMP not on any rate control drugs at home due to documented prior low BP Responded to Cardizem drip Cardiology recommended starting sotalol with a plan for cardioversion tomorrow Continue Xarelto PE/DVT Chronic, continue Xarelto HFrEF, chronic not on diuretics at home monitor DVT pptx, on Xarelto Endorses her daughter as HCP Quality Stroke Does the patient have a stroke diagnosis?: No VTE Prior VTE?: No VTE Risk Level:: Medical - moderate - high VTE Device Contraindication: Treatment Not Indicated VTE Drug Contraindication: N/A - Med Ordered
[2021-10-23] MEDS: Sotalol HCL 80 MG TABLET PO ×2 (15:09→20:24)
[2021-10-23] MEDS: Rivaroxaban 20 MG TABLET PO (18:02)
--- NOTE | 2021-10-23 20:00 | ECG_ITS ---
Test Reason : Sotalol protocol; 2nd dose sotalol - pre medical transport specialist. Blood Pressure : / mmHG Vent. Rate : 097 BPM Atrial Rate : 249 BPM P-R Int : 000 ms QRS Dur : 082 ms QT Int : 362 ms P-R-T Axes : 000 061 082 degrees QTc Int : 459 ms Atrial flutter with variable A-V block Abnormal ECG No previous ECGs available Referred By: Clifford Hernandez Electronically Signed By:BAR RAINES MD
--- NOTE | 2021-10-23 22:50 | ECG_ITS ---
Test Reason : 2nd dose sotalol - post medical numerical control operator Blood Pressure : / mmHG Vent. Rate : 089 BPM Atrial Rate : 250 BPM P-R Int : 000 ms QRS Dur : 084 ms QT Int : 382 ms P-R-T Axes : 000 047 054 degrees QTc Int : 464 ms Atrial flutter with variable A-V block Abnormal ECG When compared to the previous EKG of No significant changes seen Referred By: Clifford Hernandez Electronically Signed By:BAR RAINES MD
--- NOTE | 2021-10-23 23:00 | PC.NURSE ---
Patient received 2nd dose of sotalol for evening dose - EKG done right before and 2 hours after - Both EKG QRS's reported to Dr Hernandez - QRS Prior to drug admin @1999 - Dr Hernandez ordered to give HS dose QRS post director medical @ [id number] [phone]. Dr Hernandez made aware. Patient HR controlled - afib / aflutter on monitor. Patient reeducated about plan for cardioversion & NPO after midnight. Patient verbalized understanding.
[2021-10-24] VITALS (8 sets, daily range): BP systolic 92–130; BP diastolic 47–78; PULSE 50–107; RESP 16–22; TEMP 36.3–36.8; O2SAT 95–99
[2021-10-24] MEDS: 0.9 % Sodium Chloride Flush 3 ML SYRINGE IVFLUSH ×3 (00:37→17:14)
[2021-10-24 06:43] LABS: Hematocrit 39.8 % (37.0-47.0); Hemoglobin 13.2 g/dl (12.0-16.0); Mean Corpuscular HGB Conc 33.2 g/dl (31.0-35.0); Mean Corpuscular Hemoglobin 31.7 pg (27.0-33.0); Mean Corpuscular Volume 95.4 fL (80.0-98.0); Mean Platelet Volume 12.1 fL (9.4-12.3); Platelet Count 136 X10*3/uL (160-400); Red Blood Count 4.17 X10*6/uL (4.20-5.50); Red Cell Distribution Width 12.7 % (11.0-16.0); White Blood Count 5.4 X10*3/uL (4.8-10.8)
[2021-10-24 06:57] LABS: Anion Gap 11 (12-20); Blood Urea Nitrogen 17 mg/dL (9-16); Carbon Dioxide 25 mmol/L (22-29); Chloride 107 mmol/L (96-108); Creatinine Clr Calc Pharmacy 72.1; Estimated Glomerular Filt Rate > 60; Glucose Random 97 mg/dL (60-115); Potassium 4.3 mmol/L (3.3-5.1); Sodium 139 mmol/L (135-145)
--- NOTE | 2021-10-24 08:18 | ECG_ITS ---
Test Reason : sotalol Blood Pressure : / mmHG Vent. Rate : 122 BPM Atrial Rate : 256 BPM P-R Int : 000 ms QRS Dur : 082 ms QT Int : 352 ms P-R-T Axes : 118 067 097 degrees QTc Int : 501 ms Atrial flutter with variable A-V block Nonspecific ST and T wave abnormality QT has lengthened Abnormal ECG When compared with ECG of 23-OCT-2021 22:50, QT has lengthened Referred By: Misael Harding Electronically Signed By:BAR RAINES MD
[2021-10-24] MEDS: Sotalol HCL 80 MG TABLET PO (09:45)
[2021-10-24] MEDS: Cyanocobalamin (Vitamin B-12) 1,000 MCG TABLET 1000 MCG PO (09:45)
--- NOTE | 2021-10-24 09:46 | MHC.CM.PN ---
Female 66 DX AFIB. Patient is scheduled for cardioversion today. DP home no services. Patient will arrange for transportation. The discharge is planned for tomorrow 10/25/21.
--- NOTE | 2021-10-24 11:29 | P.PNIM_ITS ---
Subjective Subjective Date of Service: 10/24/21 Interval History: the patient was seen and evaluated this morning Laying in bed, feels fairly comfortable but having funny feeling in her chest Continue with atrial fibrillation but rate controlled Denies any fever, chills or chest pain No reported other overnight events. Systemic review: No fever, chills but generalized weakness No chest pain, palpitation No shortness of breath or coughing No abdominal pain, nausea or vomiting No urinary symptoms No any rash or wounds Physical Exam Verdana 4l Vital Signs: Verdana 4d Verdana 4d Vital Signs: Verdana 4d Verdana 4Bd Last Vital Signs Verdana 4d Outside Operator New 4d Outside Operator New 4d Temp 97.7 F 10/24/21 08:00 Outside Operator New 4d Pulse 107 H 10/24/21 08:00 Outside Operator New 4d Resp 16 10/24/21 08:00 BP 130/78 10/24/21 08:00 Pulse Ox 97 10/24/21 08:00 BMI result Body Mass Index 25.4 Const: Other: Constitutional : Alert, oriented, not in distress Neck : Normal inspection, Supple Cardiovascular : Irregular irregular rhythm, S1 S2, no lower extremity edema Respiratory : Good bilateral air entry, no crackles, wheezes or rhonchi Gastrointestinal: soft, lax, Normal bowel sounds, Non tender Skin : Warm, Dry Neurological : Alert & oriented x3, No focal deficitv Objective Data Active Medications Cyanocobalamin (Cyanocobalamin (Vitamin B-12) 1,000 Mcg Tablet) 1,000 mcg PO DAILY [facility] Last Admin: 10/24/21 09:45 Dose: 1,000 mcg Documented by: SRINI Fluticasone Propionate (Fluticasone Propionate Nasal 16 Gm [place]) 2 spray NOSTRIL-B DAILY PRN PRN Reason: Allergy Symptoms Loratadine (Loratadine 10 Mg Tablet) 10 mg PO DAILY PRN PRN Reason: Allergy Symptoms Metoprolol Tartrate (Metoprolol Tartrate 12.5 Mg Halftab) 12.5 mg PO Q6H [facility]; Protocol Last Admin: 10/24/21 06:34 Dose: Not Given Documented by: CORBIN Non-Admin Reason: Decreased Blood Pressure Pharmacy Consult (Consult Rx Perform Med Rec) 1 each MISCELLANE ONCE PRN PRN Reason: Consult order Rivaroxaban (Rivaroxaban 20 Mg Tablet) 20 mg PO DAILY@1700 [facility] Last Admin: 10/23/21 18:03 Dose: Not Given Documented by: SRINI Non-Admin Reason: Duplicate Order Sodium Chloride (0.9 % Sodium Chloride Flush 3 Ml Syringe) 3 ml IVFLUSH QSHIFT [facility] Last Admin: 10/24/21 09:45 Dose: 3 ml Documented by: SRINI Sotalol HCl (Sotalol Hcl 80 Mg Tablet) 80 mg PO BID [facility] Last Admin: 10/24/21 09:45 Dose: 80 mg Documented by: SRINI Labs CBC & Chem 7: 10/24/21 05:46 10/24/21 05:46 Labs: Laboratory Results - last 24 hr 10/23/21 10/24/21 10/24/21 12:43 05:46 05:46 MCV 95.4 MCH 31.7 MCHC 33.2 RDW 12.7 Plt Count 136 L MPV 12.1 Absolute Nucleated RBC 0.000 Nucleated RBC % (auto) 0.0 Anion Gap 11 L Estim Creat Clear Calc 72.1 Estimated GFR > 60 Random Glucose 97 Calcium 9.0 Magnesium 2.0 Microbiology Microbiology Results: Microbiology 10/22/21 12:37 Blood Culture - Preliminary Blood - Venous No growth after 24 hours. 10/22/21 Unknown Urine Culture - Final Urine clean catch - Urine dixon top Escherichia coli 10/22/21 12:35 Blood Culture - Preliminary Blood - Venous No growth after 24 hours. Assessment and Plan (1) Atrial fibrillation with rapid ventricular response: Status: Acute Plan This is a 66 yo F with a PMH of PAF/MR - s/p Maze procedure in 2015, COVID19 in December 2020, PE/DVT January 2021 on Xarelto who presents to the ED after she felt dizzy and lightheaded this morning. She is in rapid A. Fib/Flutter with symptoms. She will be admitted for further care. AFib/Flutter with RVR Hx CMP not on any rate control drugs at home due to documented prior low BP Responded to Cardizem drip Cardiology input appreciated, start sotalol plan for cardioversion today Monitor protocol for sotalol, follow QTC Continue Xarelto PE/DVT Chronic, continue Xarelto HFrEF, chronic not on diuretics at home monitor DVT pptx, on Xarelto Endorses her daughter as HCP Quality Stroke Does the patient have a stroke diagnosis?: No VTE Prior VTE?: No VTE Risk Level:: Medical - moderate - high VTE Device Contraindication: Treatment Not Indicated VTE Drug Contraindication: N/A - Med Ordered
--- NOTE | 2021-10-24 11:45 | ECG_ITS ---
Test Reason : sotalol Blood Pressure : / mmHG Vent. Rate : 099 BPM Atrial Rate : 258 BPM P-R Int : 000 ms QRS Dur : 086 ms QT Int : 382 ms P-R-T Axes : 000 058 073 degrees QTc Int : 490 ms Atrial flutter with variable A-V block Nonspecific T wave abnormality Prolonged QT Abnormal ECG When compared with ECG of 24-OCT-2021 08:26, No significant change was found Referred By: Misael Harding Electronically Signed By:BAR RAINES MD
--- NOTE | 2021-10-24 12:35 | P.PNCA_ITS ---
Subjective Subjective Date of Service: 10/24/21 Principal diagnosis: Persistent atrial flutter Interval history: No clear symptoms at current time. Remains in atrial flutter. QTC on today's EKG is mildly prolonged, could be erroneous due to variable heart rate. Review of Systems Review of Systems Yes all other systems are reviewed and are negative Physical Exam Vital Signs: Last Vital Signs Temp 98.0 F 10/24/21 11:28 Pulse 104 H 10/24/21 11:28 Resp 20 10/24/21 11:28 BP 102/61 10/24/21 11:28 Pulse Ox 96 10/24/21 11:28 BMI result Verdana 4 Body Mass Index Verdana 4 25.4 Verdana 4 Verdana 4 Const General: cooperative, comfortable and no acute distress Orientation/consciousness: patient oriented x3 Neck Neck: Yes trachea midline, Yes supple and Yes no JVD Resp Effort & Inspection: normal respiratory effort Auscultation: clear to auscultation bilaterally Cardio Jugular venous distension: no JVD Rhythm: abnormal rhythm irregularly irregular Heart sounds: S1 normal heart sound present and S2 normal heart sound present Neuro General: patient oriented x3 and no focal motor deficits Extrem General: Yes no clubbing, cyanosis or edema Objective Labs and Meds Result diagrams: 10/24/21 05:46 10/24/21 05:46 Lab results: Laboratory Results - last 24 hr 10/23/21 10/24/21 10/24/21 12:43 05:46 05:46 WBC 5.4 RBC 4.17 L Hgb 13.2 Hct 39.8 MCV 95.4 MCH 31.7 MCHC 33.2 RDW 12.7 Plt Count 136 L MPV 12.1 Absolute Nucleated RBC 0.000 Nucleated RBC % (auto) 0.0 Sodium 139 Potassium 4.3 Chloride 107 Carbon Dioxide 25 Anion Gap 11 L BUN 17 H Creatinine 0.78 Estim Creat Clear Calc 72.1 Estimated GFR > 60 Random Glucose 97 Calcium 9.0 Magnesium 2.0 Progress Note: A&P Assessment and plan (1) Atrial flutter: Status: Acute Assessment and Plan: Persistent atrial flutter. Loading with sotalol. Plan for cardioversion later today. Will continue to pursue the same. Continue full oral anticoagulation with Xarelto. This is all deep for additional aspirin therapy. Will monitor atrial tomorrow for complete sotalol loading. As long as QTC is below 520 milliseconds continue sotalol at current dose. (2) NICM (nonischemic cardiomyopathy): Status: Acute Assessment and Plan: Nonischemic cardiomyopathy without heart failure syndrome we are Homans signs of heart failure. Will continue monitor. No neurohormonal modulators due to low blood pressure in the past. Will follow with the patient. Fall Risk Details Current Medications: Current Medications Cyanocobalamin (Cyanocobalamin (Vitamin B-12) 1,000 Mcg Tablet) 1,000 mcg PO DAILY [facility] Last Admin: 10/24/21 09:45 Dose: 1,000 mcg Documented by: Fluticasone Propionate (Fluticasone Propionate Nasal 16 Gm [place]) 2 spray NOSTRIL-B DAILY PRN PRN Reason: Allergy Symptoms Loratadine (Loratadine 10 Mg Tablet) 10 mg PO DAILY PRN PRN Reason: Allergy Symptoms Metoprolol Tartrate (Metoprolol Tartrate 12.5 Mg Halftab) 12.5 mg PO Q6H [facility]; Protocol Last Admin: 10/24/21 06:34 Dose: Not Given Documented by: Pharmacy Consult (Consult Rx Perform Med Rec) 1 each MISCELLANE ONCE PRN PRN Reason: Consult order Rivaroxaban (Rivaroxaban 20 Mg Tablet) 20 mg PO DAILY@1700 [facility] Last Admin: 10/23/21 18:03 Dose: Not Given Documented by: Sodium Chloride (0.9 % Sodium Chloride Flush 3 Ml Syringe) 3 ml IVFLUSH QSHIFT [facility] Last Admin: 10/24/21 09:45 Dose: 3 ml Documented by: Sotalol HCl (Sotalol Hcl 80 Mg Tablet) 80 mg PO BID [facility] Last Admin: 10/24/21 09:45 Dose: 80 mg Documented by: Time Spent With Patient Time: Total time spent is greater than 50% in coordination of care (as documented) at patient's floor/unit and/or counseling patient: Time with patient: 15 - 24 minutes Progress Note: Quality Stroke Does the patient have a stroke diagnosis?: No Procedures Date of Service Date of Service: 10/24/21
--- NOTE | 2021-10-24 13:37 | P.CONAN_ITS ---
HPI - Anesthesia Eval Consult details Narrative: 66yo female patient with atrial flutter with variable block. For cardioversion. [facility] Active Problems Active Problems: All Active Problems (Updated 10/23/21 @ 12:55 by Misael Harding MD) Atrial fibrillation with rapid ventricular response (Acute) Atrial flutter (Acute) NICM (nonischemic cardiomyopathy) (Acute) SOB (shortness of breath) (Acute) Status post mitral valve repair (Acute ~05/2016) PAF (paroxysmal atrial fibrillation) (Acute) [id number] syndrome (Acute ~01/2021) Tachycardia (Acute) Chronic thromboembolic disease (Acute ~01/2021) DVT (deep venous thrombosis) (Acute ~01/2021) Facial lesion (Acute) Bilateral pulmonary embolism (Acute ~01/2021) Left leg DVT (Acute ~01/2021) Atrial fibrillation (Acute) NSVT (nonsustained ventricular tachycardia) (Acute) COVID-19 (Acute ~12/2020) Pneumonia due to COVID-19 virus (Acute ~12/2020) Acute hypoxemic respiratory failure (Acute) Pneumonitis (Acute) Chest pain (Acute) Right leg swelling (Acute) LFT elevation (Acute) Physical deconditioning (Acute) Asthma (Acute) Impaired glucose tolerance (Acute) Vitamin D deficiency (Acute) On xarelto. Last dose 10/23/2021 Past Medical History Medical History Asthma Atrial fibrillation Bilateral pulmonary embolism (~01/2021) Chest pain Chronic thromboembolic disease (~01/2021) COVID-19 (~12/2020) DVT (deep venous thrombosis) (~01/2021) History of Clostridium difficile infection (~12/2020) Left leg DVT (~01/2021) Osteoporosis (~2005) Pneumonia due to COVID-19 virus (~12/2020) Pneumonitis [id number] syndrome (~01/2021) Syncope (~12/2020) Tachycardia Vitamin D deficiency Family History Family History Father Melanoma Mother No problems noted. Maternal Aunt Breast cancer Brother Myasthenia gravis Family history of problems with anesthesia: No Surgical History Surgical History History of cardiac cath (~05/2016) History of left knee surgery History of maze procedure History of mitral valve repair (~05/2016) History of partial hysterectomy (~1982) History of tonsillectomy (~1965) History of Problems with Anesthesia: No Social History Social History Household Members: Spouse Housing: House Are you a primary career coordinator to a significant other at home: No Do you presently have visiting nurse or other home services: No Alcohol intake: current Alcohol intake frequency: does not drink Patient Tobacco Use Status: Never used Tobacco e-Cigarette/Vaping Use: Never Used Second Hand Smoke Exposure: No Use of substances other than those prescribed or required for medical reasons: No Currently Displaying Signs/Symptoms of Drug Intoxication Withdrawal: No Have you been hit, kicked, punched, or otherwise hurt by someone within the past year? If so, by whom?: No Do you feel safe in your current relationship?: No Is there a partner from a previous relationship who is making you feel unsafe now?: No Are you made to feel afraid or neglected: No Are you DNR?: No Advance Directives: No Advance Directives Information Provided: No Do you have thoughts of harming others: None Do you have a plan to hurt others: No Plan Recently lost weight without trying: No Nutrition Risks: No Nutritional Risk service: No Current occupational status: disabled Meds Allergies Allergy/AdvReac Type Severity Reaction Status Date / Time acetaminophen Allergy Severe stomach Verified 10/20/21 09:47 [Percocet] upset oxycodone [Percocet] Allergy Severe stomach Verified 10/20/21 09:47 upset pneumococcal vaccine Allergy Severe Unknown Verified 10/20/21 09:47 apixaban [From AdvReac Intermediate diarrhea Verified 10/20/21 09:47 Eliquis] Active Medications: Current Medications Cyanocobalamin (Cyanocobalamin (Vitamin B-12) 1,000 Mcg Tablet) 1,000 mcg PO DAILY [facility] Last Admin: 10/24/21 09:45 Dose: 1,000 mcg Documented by: Fluticasone Propionate (Fluticasone Propionate Nasal 16 Gm [place]) 2 spray NOSTRIL-B DAILY PRN PRN Reason: Allergy Symptoms Loratadine (Loratadine 10 Mg Tablet) 10 mg PO DAILY PRN PRN Reason: Allergy Symptoms Metoprolol Tartrate (Metoprolol Tartrate 12.5 Mg Halftab) 12.5 mg PO Q6H [facility]; Protocol Last Admin: 10/24/21 06:34 Dose: Not Given Documented by: Pharmacy Consult (Consult Rx Perform Med Rec) 1 each MISCELLANE ONCE PRN PRN Reason: Consult order Rivaroxaban (Rivaroxaban 20 Mg Tablet) 20 mg PO DAILY@1700 [facility] Last Admin: 10/23/21 18:03 Dose: Not Given Documented by: Sodium Chloride (0.9 % Sodium Chloride Flush 3 Ml Syringe) 3 ml IVFLUSH QSHIFT [facility] Last Admin: 10/24/21 09:45 Dose: 3 ml Documented by: Sotalol HCl (Sotalol Hcl 80 Mg Tablet) 80 mg PO BID [facility] Last Admin: 10/24/21 09:45 Dose: 80 mg Documented by: Home Medications Medication Instructions Recorded Confirmed Last Taken Type calcium carbonate 1 tab PO DAILY 02/05/21 10/22/21 10/21/21 History 600 mg-vitamin D3 5 mcg (200 unit) tablet (Calcium 600 + D(3)) cyanocobalamin 1,000 mcg PO 02/05/21 10/22/21 10/21/21 History (vitamin B-12) DAILY 1,000 mcg capsule folic acid 800 0.8 mg PO DAILY 02/05/21 10/22/21 10/21/21 History mcg tablet fluticasone 2 spray 10/22/21 10/22/21 Unknown History propionate 50 INTRANASAL DAILY PRN mcg/actuation nasal spray,suspension loratadine 10 mg 10 mg PO DAILY 10/22/21 10/22/21 Unknown History tablet (Claritin) PRN rivaroxaban 20 mg 20 mg PO QPM 10/22/21 10/22/21 10/21/21 History tablet (Xarelto) Exam Exam Date and Time: October 24, 2021 1337 Height,Weight and Vital Signs: Height 5 ft 9 in Weight 78 kg Last Vital Signs Temp 98.0 F 10/24/21 11:28 Pulse 104 H 10/24/21 11:28 Resp 20 10/24/21 11:28 BP 102/61 10/24/21 11:28 Pulse Ox 96 10/24/21 11:28 Vital Signs Temp Pulse Resp BP Pulse Ox 10/24/21 14:25 97.7 F 96 16 121/76 98 10/24/21 11:28 98.0 F 104 H 20 102/61 96 10/24/21 08:00 97.7 F 107 H 16 130/78 97 10/24/21 04:00 98.3 F 98 18 103/54 L 97 10/23/21 23:48 98.3 F 96 18 93/51 L 95 10/23/21 19:32 98.0 F 66 20 100/61 96 10/23/21 18:00 89 126/58 L 10/23/21 15:22 98.0 F 45 L 20 98 Pertinent Lab Results Pertinent Lab Results: Laboratory Tests 10/22/21 10/22/21 10/22/21 09:45 09:45 09:45 WBC 5.5 RBC 4.51 Hgb 14.4 Hct 43.1 MCV 95.6 MCH 31.9 MCHC 33.4 RDW 12.7 Plt Count 148 L MPV 12.0 Immature Gran % (Auto) 0.2 Neut % (Auto) 85.5 H Lymph % (Auto) 6.6 L [place] % (Auto) 7.5 Eos % (Auto) 0.2 Baso % (Auto) 0.0 Lymph # (Auto) 0.4 L [place] # (Auto) 0.4 Eos # (Auto) 0.0 Baso # (Auto) 0.0 Abs Immat Gran (auto) 0.01 Absolute Neuts (auto) 4.7 Absolute Nucleated RBC 0.000 Nucleated RBC % (auto) 0.0 PT 21.2 H INR 1.8 H APTT 36.5 Sodium 139 Potassium 4.2 Chloride 107 Carbon Dioxide 22 Anion Gap 14 BUN 16 Creatinine 0.92 Estim Creat Clear Calc 61.1 Estimated GFR > 60 Random Glucose 109 Lactic Acid Calcium 9.5 Magnesium Total Bilirubin 1.1 H AST 15 ALT 20 Alkaline Phosphatase 96 Troponin I High Sens B-Natriuretic Peptide Total Protein 6.6 Albumin 4.2 TSH 2.47 Urine Color Urine Appearance Urine pH Ur Specific [place] Urine Protein Urine Glucose (UA) Urine Ketones Urine Blood Urine Nitrite Ur Leukocyte Esterase Urine RBC Urine WBC Ur Squamous Epith Cells Urine Bacteria COVID-19 (MAX) COVID-19 Clin Com 10/22/21 10/22/21 10/22/21 09:45 09:45 09:45 WBC RBC Hgb Hct MCV MCH MCHC RDW Plt Count MPV Immature Gran % (Auto) Neut % (Auto) Lymph % (Auto) [place] % (Auto) Eos % (Auto) Baso % (Auto) Lymph # (Auto) [place] # (Auto) Eos # (Auto) Baso # (Auto) Abs Immat Gran (auto) Absolute Neuts (auto) Absolute Nucleated RBC Nucleated RBC % (auto) PT INR APTT Sodium Potassium Chloride Carbon Dioxide Anion Gap BUN Creatinine Estim Creat Clear Calc Estimated GFR Random Glucose Lactic Acid Calcium Magnesium Total Bilirubin AST ALT Alkaline Phosphatase Troponin I High Sens 7.8 B-Natriuretic Peptide 96 Total Protein Albumin TSH Cancelled Urine Color Urine Appearance Urine pH Ur Specific [place] Urine Protein Urine Glucose (UA) Urine Ketones Urine Blood Urine Nitrite Ur Leukocyte Esterase Urine RBC Urine WBC Ur Squamous Epith Cells Urine Bacteria COVID-19 (MAX) Negative COVID-19 Clin Com See Note 10/22/21 10/22/21 10/23/21 10:43 12:35 12:43 WBC RBC Hgb Hct MCV MCH MCHC RDW Plt Count MPV Immature Gran % (Auto) Neut % (Auto) Lymph % (Auto) [place] % (Auto) Eos % (Auto) Baso % (Auto) Lymph # (Auto) [place] # (Auto) Eos # (Auto) Baso # (Auto) Abs Immat Gran (auto) Absolute Neuts (auto) Absolute Nucleated RBC Nucleated RBC % (auto) PT INR APTT Sodium Potassium Chloride Carbon Dioxide Anion Gap BUN Creatinine Estim Creat Clear Calc Estimated GFR Random Glucose Lactic Acid 1.5 Calcium Magnesium 2.0 Total Bilirubin AST ALT Alkaline Phosphatase Troponin I High Sens B-Natriuretic Peptide Total Protein Albumin TSH Urine Color YELLOW Urine Appearance CLEAR Urine pH 7.0 Ur Specific [place] 1.010 Urine Protein NEG Urine Glucose (UA) NEG Urine Ketones NEG Urine Blood TRACE Urine Nitrite POS H Ur Leukocyte Esterase TRACE H Urine RBC 0-2 Urine WBC 0-2 Ur Squamous Epith Cells TRACE Urine Bacteria 1+ COVID-19 (MAX) COVID-AOMi Com 10/24/21 10/24/21 05:46 05:46 WBC 5.4 RBC 4.17 L Hgb 13.2 Hct 39.8 MCV 95.4 MCH 31.7 MCHC 33.2 RDW 12.7 Plt Count 136 L MPV 12.1 Immature Gran % (Auto) Neut % (Auto) Lymph % (Auto) [place] % (Auto) Eos % (Auto) Baso % (Auto) Lymph # (Auto) [place] # (Auto) Eos # (Auto) Baso # (Auto) Abs Immat Gran (auto) Absolute Neuts (auto) Absolute Nucleated RBC 0.000 Nucleated RBC % (auto) 0.0 PT INR APTT Sodium 139 Potassium 4.3 Chloride 107 Carbon Dioxide 25 Anion Gap 11 L BUN 17 H Creatinine 0.78 Estim Creat Clear Calc 72.1 Estimated GFR > 60 Random Glucose 97 Lactic Acid Calcium 9.0 Magnesium 2.0 Total Bilirubin AST ALT Alkaline Phosphatase Troponin I High Sens B-Natriuretic Peptide Total Protein Albumin TSH Urine Color Urine Appearance Urine pH Ur Specific [place] Urine Protein Urine Glucose (UA) Urine Ketones Urine Blood Urine Nitrite Ur Leukocyte Esterase Urine RBC Urine WBC Ur Squamous Epith Cells Urine Bacteria COVID-19 (MAX) COVID-19 Clin Com Narrative Narrative: Date of Service: 10/24/21 Procedure(s): ECG 12 lead EKG Vent. Rate : 122 BPM ? ? Atrial Rate : 256 BPM ?? P-R Int : 000 ms? QRS Dur : 082 ms ? ? QT Int : 352 ms ? ? ? P-R-T Axes : 118 067 097 degrees ?? QTc Int : 501 ms ? Atrial flutter with variable A-V block Nonspecific ST and T wave abnormality QT has lengthened Abnormal ECG When compared with ECG of 23-OCT-2021 22:50, QT has lengthened Procedure Date:? 08/07/2021 Procedure Type:? Transthoracic Echocardiogram Conclusions: - The left ventricular systolic function is mildly decreased.? ? The calculated ejection fraction is 42% by biplane method. ? ? ? - The basal inferior and basal inferolateral segments are? hypokinetic. ? - Status post mitral annuloplasty without any significant? stenosis or regurgitation. ? Airway Mallampati Class: III (Small mouth) TM Dist: >3cm Neck ROM: Full Loose/Missing/Broken Teeth: Yes (Missing 1 top Right) Heart: Irregularly irregular Lungs: CTAB Assessment and Plan Assessment Anesthesia Assessment: Anesthesia Plan Discussed and Chart Reviewed Final Anesthetic Review Family History of Problems with Anesthesia: No History of Problems with Anesthesia: No NPO: Yes ASA Class: III Final Preanesthetic Review: No Changes in Pt Med Stat, Meds/Allgs Chart Reviewed, Consent Obtained/Reviewed and Anes Risks/Benef Reviewed Patient Risk: Intermediate Procedure Risk: Intermediate Assessment/Block/Sedation in SS: Assess/Block/Sedation-SS Anesthetic Plan Anesthetic Plan: GA Disposition: Standard PACU and Inp. Admit - IMC
[2021-10-24] MEDS: Metoprolol Tartrate 12.5 MG HALFTAB PO (14:01)
--- NOTE | 2021-10-24 15:15 | ECG_ITS ---
Test Reason : S/P CARDIOVERSION Blood Pressure : / mmHG Vent. Rate : 049 BPM Atrial Rate : 049 BPM P-R Int : 154 ms QRS Dur : 086 ms QT Int : 526 ms P-R-T Axes : 075 052 063 degrees QTc Int : 475 ms Sinus bradycardia Otherwise normal ECG When compared with ECG of 24-OCT-2021 11:53, Sinus rhythm has replaced Atrial flutter Vent. rate has decreased BY 50 BPM Nonspecific T wave abnormality no longer evident in Inferior leads Referred By: Mook Muhammad Electronically Signed By:MOOK MUHAMMAD MD
--- NOTE | 2021-10-24 15:16 | P.PNCAR_ITS ---
Cardioversion Procedure Note Cardioversion Date of Procedure: 10/24/2021 Ordering Provider: Myself Performing Provider: Myself Indication for Procedure: New onset persistent symptomatic atrial flutter Pre-Op Diagnosis: Same Post-Op Diagnosis: Sinus bradycardia Performed with Transesophageal Echo: No KATHIE findings (if KATHIE Performed): Not applicable History: See my consult note Consent: Verbal and Written consent was obtained from the patient before starting and confirming oral anticoagulation use The patient was made aware of the risk of synchronized cardioversion including benefits, alternatives Procedure: After consent obtained, cardioversion pads were attached AP configuration and the patient was sedated by the anesthesia team. Once adequate sedation achieved, patient was delivered 200 joules of biphasic synchronized energy in anterop osterior configuration. Complications: None Impression: Successful conversion to sinus rhythm Recommendations: 1. Continue sotalol loading and proceed with sotalol protocol 2. Continue full oral anticoagulation with Xarelto 3. 12 lead EKG
[2021-10-24] MEDS: Rivaroxaban 20 MG TABLET PO (17:12)
[2021-10-24] MEDS: Lactated Ringers 1,000 ML 50 ML IVCONT (17:16)
[2021-10-25] VITALS: BP 100/55; PULSE 61; RESP 17; TEMP 37; O2SAT 95
--- NOTE | 2021-10-25 | ECG_ITS ---
Test Reason : CP Blood Pressure : / mmHG Vent. Rate : 060 BPM Atrial Rate : 060 BPM P-R Int : 168 ms QRS Dur : 088 ms QT Int : 446 ms P-R-T Axes : 064 055 075 degrees QTc Int : 446 ms Sinus rhythm with occasional Premature ventricular complexes Low voltage QRS Nonspecific T wave abnormality Abnormal ECG When compared with ECG of 24-OCT-2021 15:16, No significant changes seen Referred By: Misael Harding Electronically Signed By:YANNA MCCARTHY
[2021-10-25] MEDS: Sotalol HCL 80 MG TABLET PO ×2 (00:11→09:41)
[2021-10-25] MEDS: 0.9 % Sodium Chloride Flush 3 ML SYRINGE IVFLUSH (00:12)
[2021-10-25 01:00] VITALS: BP 105/60; PULSE 73; RESP 17; TEMP 36.4; O2SAT 96
[2021-10-25 03:40] VITALS: BP 85/46; PULSE 62; RESP 17; TEMP 36.4; O2SAT 95
[2021-10-25 07:24] LABS: Hematocrit 38.2 % (37.0-47.0); Hemoglobin 12.4 g/dl (12.0-16.0); Mean Corpuscular HGB Conc 32.5 g/dl (31.0-35.0); Mean Corpuscular Hemoglobin 31.5 pg (27.0-33.0); Mean Platelet Volume 11.8 fL (9.4-12.3); Platelet Count 141 X10*3/uL (160-400); Red Blood Count 3.94 X10*6/uL (4.20-5.50); Red Cell Distribution Width 12.6 % (11.0-16.0); White Blood Count 4.4 X10*3/uL (4.8-10.8)
[2021-10-25 07:45] VITALS: BP 103/46; PULSE 55; RESP 20; TEMP 36.4; O2SAT 96
[2021-10-25 07:52] LABS: Anion Gap 10 (12-20); Blood Urea Nitrogen 23 mg/dL (9-16); Carbon Dioxide 26 mmol/L (22-29); Chloride 109 mmol/L (96-108); Creatinine Clr Calc Pharmacy 78.1; Estimated Glomerular Filt Rate > 60; Glucose Random 91 mg/dL (60-115); Potassium 4.2 mmol/L (3.3-5.1); Sodium 141 mmol/L (135-145)
[2021-10-25] MEDS: Cyanocobalamin (Vitamin B-12) 1,000 MCG TABLET 1000 MCG PO (09:41)
[2021-10-25] MEDS: cefTRIAXone sodium 1 GM in 0.9 % Sodium Chloride 50 ML IV (09:41)
--- NOTE | 2021-10-25 10:13 | P.DS_ITS ---
DS: Providers Provider Date of Service: 10/25/21 Date of admission: 10/22/21 13:55 Primary care physician: Rosalba Barillas MD Consults: 10/22/21 13:59 Consult to Cardiology Routine Consulting Provider: Mook Muhammad Reason for consultation: A. Fib/Flutter with RVR - ? need for cardioversion, on OAC, no missed doses DS: Diagnosis Discharge Diagnosis (1) Atrial flutter: Status: Acute (2) NICM (nonischemic cardiomyopathy): Status: Acute (3) E-coli UTI: Status: Acute (4) Atrial fibrillation with rapid ventricular response: Status: Acute DS: Summary Hospital Course Hospital Course: Admission note HPI This is a 66 yo F with a PMH of PAF/MR - s/p Maze procedure in 2015, COVID19 in December 2020, PE/DVT January 2021 on Xarelto who presents to the ED after she felt dizzy and lightheaded this morning. Patient reports that she was seen at her PCP's office 2 days prior to admission for a routine follow up. At that time, she was noted to have an elevated HR in the 130s and it was recommended that she present to the ED, however, she did not have any (new) symptoms at that time and so she decided that she would monitor herself at home. However, this AM she had a change in her chronic symptoms and so she presented here. She reports chronic shortness of breath and fatigue since her COVID admission last year. She denies any chest pain or changes to her breathing status. She denies any orthopnea/PND or LE edema. In regards to her PAF/MR -- she underwent maze procedure in 2015. She was not on any OAC until her diagnosis of PE/DVT last year. Since then, she reports strict compliance with her Xarelto. She was seen in the cardiology clinic in July 2021 and had a 3 day holter monitor which did not reveal any A. Fib/flutter. In the emergency room, the patient was found to be in A. Fib/Flutter with RVR. She was given 2 doses of IV push cardizem without any significant changes to her HR. She was subsequently started on IV cardizem drip and now will be admitted for further work up. COVID Vaccination status: Pfizer x 2 + booster Hospital course The patient was admitted for treatment of atrial fibrillation with RVR. Started on Cardizem with drip with no significant improvement as she maintain atrial fibrillation rhythm with symptoms of weakness and feeling unwell. Evaluated by Cardiology team will decided to do cardioversion and started the patient on sotalol with good response as she converted back after hours cardioversion and maintained sinus rhythm. Noticed to have urinary tract infection treated with IV ceftriaxone. Urine culture grew E coli. To be discharged home on sotalol 80 mg b.i.d. and to follow up with Cardiology as outpatient. To continue Ceftin for 4 more days. Time Spent with Patient Time attestation: Total time spent providing and/or coordinating discharge services: Discharge coordination time: Greater than 30 minutes Quality: Stroke Does the patient have a stroke diagnosis?: No Physical Exam Verdana 4l Vital Signs: Verdana 4d Verdana 4d Vital Signs: Verdana 4d Verdana 4Bd Last Vital Signs Verdana 4d Health Evaluator New 4d Health Evaluator New 4d Temp 97.5 F 10/25/21 07:45 Health Evaluator New 4d Pulse 55 10/25/21 07:45 Health Evaluator New 4d Resp 20 10/25/21 07:45 BP 103/46 L 10/25/21 07:45 Pulse Ox 96 10/25/21 07:45 BMI result Body Mass Index 25.4 Const: Other: Constitutional : Alert, oriented, not in distress Neck : Normal inspection, Supple Cardiovascular : Sinus rhythm, S1 S2, no lower extremity edema Respiratory : Good bilateral air entry, no crackles, wheezes or rhonchi Gastrointestinal: soft, lax, Normal bowel sounds, Non tender Skin : Warm, Dry Neurological : Alert & oriented x3, No focal deficitv DS: Data Data Completed and Pending Completed studies during hospitalization [Text1]: Procedures Introduction of Remdesivir Anti-infective into Peripheral Vein, Percutaneous Approach, [employer] 5 (01/18/21) Labs on day of discharge: Laboratory Results - last 24 hr 10/24/21 10/25/21 10/25/21 05:46 06:28 06:28 WBC 4.4 L RBC 3.94 L Hgb 12.4 Hct 38.2 MCV 97.0 MCH 31.5 MCHC 32.5 RDW 12.6 Plt Count 141 L MPV 11.8 Absolute Nucleated RBC 0.000 Nucleated RBC % (auto) 0.0 Sodium 141 Potassium 4.2 Chloride 109 H Carbon Dioxide 26 Anion Gap 10 L BUN 23 H Creatinine 0.72 Estim Creat Clear Calc 78.1 Estimated GFR > 60 Random Glucose 91 Calcium 9.0 Magnesium 2.0 Preliminary micro results at discharge 10/22/21 12:37 Blood Culture - Preliminary Blood - Venous No growth after 48 hours. 10/22/21 12:35 Blood Culture - Preliminary Blood - Venous No growth after 48 hours. Discharge Plan Discharge Patient Disposition: Home, Self-Care Discharge Diagnosis: Atrial fibrillation with rapid ventricular response UTI Referrals: Po,Rosalba Gonzalez MD [Primary Care Provider] - 1 Week Discharge Medications: New sotalol 80 mg Tablet 80 mg PO BID 30 Days Qty: 60 0RF cefuroxime axetil 500 mg tablet 500 mg PO BID Qty: 8 0RF Continued aspirin 81 mg tablet,chewable 1 tab PO DAILY Qty: 90 3RF fluticasone propionate 50 mcg/actuation spray,suspension 2 spray intranasal DAILY PRN (Reason: Allergy Symptoms) 0RF loratadine [Claritin] 10 mg tablet 10 mg PO DAILY PRN (Reason: Allergy Symptoms) 0RF Xarelto 20 mg tablet 20 mg PO QPM 0RF Rx Instructions: must administer with evening meal calcium carbonate-vitamin D3 [Calcium 600 + D(3)] 600 mg(1,500mg) -200 unit tablet 1 tab PO DAILY 0RF cyanocobalamin (vitamin B-12) 1,000 mcg capsule 1,000 mcg PO DAILY 0RF folic acid 800 mcg tablet 0.8 mg PO DAILY 0RF Discharge Orders: Discharge Order (Routine); Ordered 10/25/21 Ordered By: Misael Harding Diet: advance to usual diet Activity on Discharge: As tolerated Stand Alone Forms: Patient Portal Discharge page Print Language: Croatian Care Plan Goals: Read below Health Concerns: Read below Plan of Treatment: Read below Assessment: You were admitted to the hospital for evaluation of palpitation and weakness. Found to be in atrial fibrillation with rapid ventricular response. Treated with IV Cardizem and evaluated by Cardiology team who did cardioversion with conversion back to sinus rhythm as you were started on sotalol for heart rate control. You were noticed to have a urine infection by bacteria called E.Coli. treated with antibiotics. To continue Sotalol 80 mg twice daily To follow up with cardiology as outpatient Continue Ceftin for 4 more days for UTI treatment Discharge Date/Time: 10/25/21 12:46
--- NOTE | 2021-10-25 10:27 | MHC.CM.PN ---
Patient has been medically cleared for dc to home today, self care. Last IMM addressed on 10/23/21.
[2021-10-25 12:00] VITALS: BP 106/54; PULSE 54; RESP 20; TEMP 36.3; O2SAT 96
--- NOTE | 2021-10-25 14:31 | HO.ANESPROP2 ---
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) Tachycardia (Acute) Chronic thromboembolic disease (Acute ~01/2021) DVT (deep venous thrombosis) (Acute ~01/2021) Facial lesion (Acute) Bilateral pulmonary embolism (Acute ~01/2021) Left leg DVT (Acute ~01/2021) Atrial fibrillation (Acute) NSVT (nonsustained ventricular tachycardia) (Acute) COVID-19 (Acute ~12/2020) Pneumonia due to COVID-19 virus (Acute ~12/2020) Acute hypoxemic respiratory failure (Acute) Pneumonitis (Acute) Chest pain (Acute) Right leg swelling (Acute) LFT elevation (Acute) Physical deconditioning (Acute) Asthma (Acute) Impaired glucose tolerance (Acute) Vitamin D deficiency (Acute) Past Medical History Medical History Asthma Atrial fibrillation Bilateral pulmonary embolism (~01/2021) Chest pain Chronic thromboembolic disease (~01/2021) COVID-19 (~12/2020) DVT (deep venous thrombosis) (~01/2021) History of Clostridium difficile infection (~12/2020) Left leg DVT (~01/2021) Osteoporosis (~2005) Pneumonia due to COVID-19 virus (~12/2020) Pneumonitis 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 Maternal Aunt Breast cancer Brother Myasthenia gravis Family history of problems with anesthesia: No Surgical History Surgical History History of cardiac cath (~05/2016) History of left knee surgery History of maze procedure History of mitral valve repair (~05/2016) History of partial hysterectomy (~1982) History of tonsillectomy (~1965) History of Problems with Anesthesia: No Social History Social History Household Members: Spouse Housing: House Are you a primary healthcare market consultant to a significant other at home: No Do you presently have visiting nurse or other home services: No Alcohol intake: current Alcohol intake frequency: does not drink Patient Tobacco Use Status: Never used Tobacco e-Cigarette/Vaping Use: Never Used Second Hand Smoke Exposure: No service: No Current occupational status: disabled Meds Allergies Allergy/AdvReac Type Severity Reaction Status Date / Time acetaminophen [Percocet] Allergy Severe stomach Verified 10/20/21 09:47 upset oxycodone [Percocet] Allergy Severe stomach Verified 10/20/21 09:47 upset pneumococcal vaccine Allergy Severe Unknown Verified 10/20/21 09:47 apixaban [From Eliquis] AdvReac Intermediate diarrhea Verified 10/20/21 09:47 Home Medications Medication Instructions Recorded Confirmed Last Taken Type calcium carbonate 600 mg-vitamin 1 tab PO DAILY 02/05/21 10/22/21 10/21/21 History D3 5 mcg (200 unit) tablet (Calcium 600 + D(3)) cyanocobalamin (vitamin B-12) 1,000 mcg PO DAILY 02/05/21 10/22/21 10/21/21 History 1,000 mcg capsule folic acid 800 mcg tablet 0.8 mg PO DAILY 02/05/21 10/22/21 10/21/21 History fluticasone propionate 50 2 spray INTRANASAL DAILY PRN 10/22/21 10/22/21 Unknown History mcg/actuation nasal spray,suspension loratadine 10 mg tablet (Claritin) 10 mg PO DAILY PRN 10/22/21 10/22/21 Unknown History rivaroxaban 20 mg tablet (Xarelto) 20 mg PO QPM 10/22/21 10/22/21 10/21/21 History Exam Exam Date and Time: October 25, 2021 1431 Height,Weight and Vital Signs: Height 5 ft 9 in Weight 78 kg Last Vital Signs Temp 97.4 F 10/25/21 12:00 Pulse 54 10/25/21 12:00 Resp 20 10/25/21 12:00 BP 106/54 L 10/25/21 12:00 Pulse Ox 96 10/25/21 12:00 Pertinent Lab Results Pertinent Lab Results: Laboratory Tests 10/22/21 10/22/21 10/22/21 09:45 09:45 09:45 WBC 5.5 RBC 4.51 Hgb 14.4 Hct 43.1 MCV 95.6 MCH 31.9 MCHC 33.4 RDW 12.7 Plt Count 148 L MPV 12.0 Immature Gran % (Auto) 0.2 Neut % (Auto) 85.5 H Lymph % (Auto) 6.6 L [place] % (Auto) 7.5 Eos % (Auto) 0.2 Baso % (Auto) 0.0 Lymph # (Auto) 0.4 L [place] # (Auto) 0.4 Eos # (Auto) 0.0 Baso # (Auto) 0.0 Abs Immat Gran (auto) 0.01 Absolute Neuts (auto) 4.7 Absolute Nucleated RBC 0.000 Nucleated RBC % (auto) 0.0 PT 21.2 H INR 1.8 H APTT 36.5 Sodium 139 Potassium 4.2 Chloride 107 Carbon Dioxide 22 Anion Gap 14 BUN 16 Creatinine 0.92 Estim Creat Clear Calc 61.1 Estimated GFR > 60 Random Glucose 109 Lactic Acid Calcium 9.5 Magnesium Total Bilirubin 1.1 H AST 15 ALT 20 Alkaline Phosphatase 96 Troponin I High Sens B-Natriuretic Peptide Total Protein 6.6 Albumin 4.2 TSH 2.47 Urine Color Urine Appearance Urine pH Ur Specific [place] Urine Protein Urine Glucose (UA) Urine Ketones Urine Blood Urine Nitrite Ur Leukocyte Esterase Urine RBC Urine WBC Ur Squamous Epith Cells Urine Bacteria COVID-19 (MAX) COVID-19 Clin Com 10/22/21 10/22/21 10/22/21 09:45 09:45 09:45 WBC RBC Hgb Hct MCV MCH MCHC RDW Plt Count MPV Immature Gran % (Auto) Neut % (Auto) Lymph % (Auto) [place] % (Auto) Eos % (Auto) Baso % (Auto) Lymph # (Auto) [place] # (Auto) Eos # (Auto) Baso # (Auto) Abs Immat Gran (auto) Absolute Neuts (auto) Absolute Nucleated RBC Nucleated RBC % (auto) PT INR APTT Sodium Potassium Chloride Carbon Dioxide Anion Gap BUN Creatinine Estim Creat Clear Calc Estimated GFR Random Glucose Lactic Acid Calcium Magnesium Total Bilirubin AST ALT Alkaline Phosphatase Troponin I High Sens 7.8 B-Natriuretic Peptide 96 Total Protein Albumin TSH Cancelled Urine Color Urine Appearance Urine pH Ur Specific [place] Urine Protein Urine Glucose (UA) Urine Ketones Urine Blood Urine Nitrite Ur Leukocyte Esterase Urine RBC Urine WBC Ur Squamous Epith Cells Urine Bacteria COVID-19 (MAX) Negative COVID-19 Clin Com See Note 10/22/21 10/22/21 10/23/21 10:43 12:35 12:43 WBC RBC Hgb Hct MCV MCH MCHC RDW Plt Count MPV Immature Gran % (Auto) Neut % (Auto) Lymph % (Auto) [place] % (Auto) Eos % (Auto) Baso % (Auto) Lymph # (Auto) [place] # (Auto) Eos # (Auto) Baso # (Auto) Abs Immat Gran (auto) Absolute Neuts (auto) Absolute Nucleated RBC Nucleated RBC % (auto) PT INR APTT Sodium Potassium Chloride Carbon Dioxide Anion Gap BUN Creatinine Estim Creat Clear Calc Estimated GFR Random Glucose Lactic Acid 1.5 Calcium Magnesium 2.0 Total Bilirubin AST ALT Alkaline Phosphatase Troponin I High Sens B-Natriuretic Peptide Total Protein Albumin TSH Urine Color YELLOW Urine Appearance CLEAR Urine pH 7.0 Ur Specific [place] 1.010 Urine Protein NEG Urine Glucose (UA) NEG Urine Ketones NEG Urine Blood TRACE Urine Nitrite POS H Ur Leukocyte Esterase TRACE H Urine RBC 0-2 Urine WBC 0-2 Ur Squamous Epith Cells TRACE Urine Bacteria 1+ COVID-19 (MAX) COVID-19 Clin Com 10/24/21 10/24/21 10/25/21 05:46 05:46 06:28 WBC 5.4 4.4 L RBC 4.17 L 3.94 L Hgb 13.2 12.4 Hct 39.8 38.2 MCV 95.4 97.0 MCH 31.7 31.5 MCHC 33.2 32.5 RDW 12.7 12.6 Plt Count 136 L 141 L MPV 12.1 11.8 Immature Gran % (Auto) Neut % (Auto) Lymph % (Auto) [place] % (Auto) Eos % (Auto) Baso % (Auto) Lymph # (Auto) [place] # (Auto) Eos # (Auto) Baso # (Auto) Abs Immat Gran (auto) Absolute Neuts (auto) Absolute Nucleated RBC 0.000 0.000 Nucleated RBC % (auto) 0.0 0.0 PT INR APTT Sodium 139 Potassium 4.3 Chloride 107 Carbon Dioxide 25 Anion Gap 11 L BUN 17 H Creatinine 0.78 Estim Creat Clear Calc 72.1 Estimated GFR > 60 Random Glucose 97 Lactic Acid Calcium 9.0 Magnesium 2.0 Total Bilirubin AST ALT Alkaline Phosphatase Troponin I High Sens B-Natriuretic Peptide Total Protein Albumin TSH Urine Color Urine Appearance Urine pH Ur Specific [place] Urine Protein Urine Glucose (UA) Urine Ketones Urine Blood Urine Nitrite Ur Leukocyte Esterase Urine RBC Urine WBC Ur Squamous Epith Cells Urine Bacteria COVID-19 (MAX) COVID-19 Doctor Fun Com 10/25/21 06:28 WBC RBC Hgb Hct MCV MCH MCHC RDW Plt Count MPV Immature Gran % (Auto) Neut % (Auto) Lymph % (Auto) [place] % (Auto) Eos % (Auto) Baso % (Auto) Lymph # (Auto) [place] # (Auto) Eos # (Auto) Baso # (Auto) Abs Immat Gran (auto) Absolute Neuts (auto) Absolute Nucleated RBC Nucleated RBC % (auto) PT INR APTT Sodium 141 Potassium 4.2 Chloride 109 H Carbon Dioxide 26 Anion Gap 10 L BUN 23 H Creatinine 0.72 Estim Creat Clear Calc 78.1 Estimated GFR > 60 Random Glucose 91 Lactic Acid Calcium 9.0 Magnesium Total Bilirubin AST ALT Alkaline Phosphatase Troponin I High Sens B-Natriuretic Peptide Total Protein Albumin TSH Urine Color Urine Appearance Urine pH Ur Specific [place] Urine Protein Urine Glucose (UA) Urine Ketones Urine Blood Urine Nitrite Ur Leukocyte Esterase Urine RBC Urine WBC Ur Squamous Epith Cells Urine Bacteria COVID-19 (MAX) COVID-19 Clin Com Assessment and Plan Final Anesthetic Review Family History of Problems with Anesthesia: No History of Problems with Anesthesia: No
--- NOTE | 2021-10-25 14:31 | HO.POSTANES ---
Post Anesthesia Evaluation Post Anesthesia Evaluation Vital Signs: Vital Signs Temp Pulse Resp BP Pulse Ox 10/25/21 12:00 97.4 F 54 20 106/54 L 96 10/25/21 07:45 97.5 F 55 20 103/46 L 96 10/25/21 03:40 97.5 F 62 17 85/46 L 95 Anesthesia: General Mental Status: Awake Pain Control: Satisfactory Nausea/Vomiting: None Hydration: Adequate Anesthesia-Related Issues: No Anes. Related Issues
== END 2021-10-25 12:46 | disposition home or self-care (01) | DRG 309 ==
LOC: HO.ED 13:48 → HO.EDOVER 14:44 → HO.IMC 17:31
PROVIDERS: Internal Medicine Cardiovascular Disease; Physician Assistant; Admitting Provider Family Medicine; Emergency Provider Emergency Medicine; PCP Internal Medicine; Visit Provider Student in an Organized Health Care Education/Training Program
PROC: 5A2204Z Restoration of Cardiac Rhythm, Single (ICD-10-PCS; principal; 2021-10-24 15:30)
DX: I48.0 Paroxysmal atrial fibrillation (principal); I50.22 Chronic systolic (congestive) heart failure; N39.0 Urinary tract infection, site not specified; I42.8 Other cardiomyopathies; Z86.711 Personal history of pulmonary embolism; Z86.718 Personal history of other venous thrombosis and embolism; B96.20 Unspecified Escherichia coli [E. coli] as the cause of diseases classified elsewhere; I48.92 Unspecified atrial flutter; Z20.822 Contact with and (suspected) exposure to COVID-19; Z95.2 Presence of prosthetic heart valve; Z86.16 Personal history of COVID-19; Z79.01 Long term (current) use of anticoagulants; Z79.82 Long term (current) use of aspirin; Z79.51 Long term (current) use of inhaled steroids; Z79.899 Other long term (current) drug therapy
CPT/HCPCS: 36415; 71045; 71275; 80048; 80053; 81001; 81003; 83605; 83735; 83880; 84443; 84484; 85025; 85027; 85610; 85730; 87040; 87086; 87088; 87186; 87635; 92960; 93005; 96361; 96365; 96375; 96376; 99285; 99291; J0696; Q9967

== ENCOUNTER → 2021-11-03 10:03 | Outpatient (BNVA) | payer MEDICARE, SELFPAY | PROVIDERS: PCP Internal Medicine; Referring Provider Internal Medicine; Visit Provider Internal Medicine | DX: I42.8 Other cardiomyopathies (principal); I48.92 Unspecified atrial flutter; I48.0 Paroxysmal atrial fibrillation; U09.9 Post COVID-19 condition, unspecified; R06.02 Shortness of breath; Z98.890 Other specified postprocedural states | CPT/HCPCS: 93005; 99212 ==

== ENCOUNTER 2021-11-06 09:47 | Outpatient (REF) | payer MEDICARE, SELFPAY ==
--- NOTE | ~2021-11-06 | US_ITS ---
EXAMINATION: US VENOUS ULTRASOUND WITH DOPPLER LOWER EXTREMITY, LEFT CLINICAL INFORMATION: History of DVT COMPARISON: July 29, 2021 and June 26, 2021 TECHNIQUE: Ultrasound of the deep veins is performed from the hip to the calf with compression sonography and color and pulse Doppler assessment. Spectral analysis with color-flow imaging is performed. FINDINGS: There is normal venous compression and respiratory variation and augmented flow. The visualized common femoral vein, superficial femoral vein, profunda femoral vein, popliteal vein, and the trifurcation region shows no evidence of acute deep venous thrombosis. There is question of a few regions of some wall thickening about the distal superficial femoral vein and popliteal vein however no definite synechiae are identified and no significant findings of chronic DVT are present.. There is no significant popliteal fossa cyst. No popliteal artery aneurysm. US/US venous duplex LE LT IMPRESSION: No acute DVT demonstrated in the left lower extremity.
== END 2021-11-06 09:48 | disposition home or self-care (01) ==
LOC: HO.US 09:47
PROVIDERS: PCP Internal Medicine; Visit Provider Hospitalist
DX: I82.402 Acute embolism and thrombosis of unspecified deep veins of left lower extremity (principal)
CPT/HCPCS: 93971

== ENCOUNTER → 2021-11-12 11:00 | Outpatient (BNVA) | payer MEDICARE, SELFPAY | PROVIDERS: PCP Internal Medicine; Visit Provider Hospitalist | DX: I48.92 Unspecified atrial flutter (principal); I82.409 Acute embolism and thrombosis of unspecified deep veins of unspecified lower extremity; I26.99 Other pulmonary embolism without acute cor pulmonale; I42.8 Other cardiomyopathies; J18.9 Pneumonia, unspecified organism; U09.9 Post COVID-19 condition, unspecified | CPT/HCPCS: 99212 ==

== ENCOUNTER → 2022-01-07 10:16 | Outpatient (REF) | payer MEDICARE, SELFPAY ==
--- NOTE | 2022-01-07 10:22 | HM_ITS ---
Conclusion: 1. Patient was monitored for total period of 3 days and 1 hour 2. Baseline was normal sinus rhythm with average heart rate 64 beats per minute 3. Frequent short burst of supraventricular tachycardia with longest episode lasting 8 beats 4. One 4 beat run of nonsustained VT 5. Total of 5821 PVCs accounting for 2.09% total burden account for frequent PVCs 6. Total of 5001 PACs accounting for 1.79% total burden account for frequent PACs 7. No patient reported events MTDD
--- NOTE | 2022-01-07 10:22 | CA_ITS ---
Transthoracic Echocardiogram Patient (Last, First, Middle): Fidelina Mcnair E Gender: Female Date of : 1955 Age: 66 Procedure Date: 01/07/2022 Procedure Type: Transthoracic Echocardiogram Location: OP Height: 175.26 cm Weight: 78.47 kg BSA: 1.94 m2 Heart Rate: bpm BP: 112 / 80 mmHg Pharmacoepidemiologist: LOC Referring MD: Leon Power MD Telehealth Nurse: Mook Muhammad MD Symptoms: I42.8 - Other cardiomyopathies Study Quality: Fair ECG Rhythm: Sinus Conclusions: - 1. [id number] LV systolic dysfunction with LVEF of 40-45% grade 2 diastolic dysfunction with underlying regional wall motion abnormality suggestive of ischemic cardiomyopathy 2. Mitral anoplasty ring in place, working well 3. Normal RV systolic pressure 4. No gross pericardial effusion Findings Left Ventricle Normal left ventricular cavity size. There is normal left ventricular wall thickness. The left ventricular systolic function is mild to moderately decreased. The visually estimated ejection fraction is between 40-45%. Spectral Doppler is indicative of a pseudonormal filling pattern. E/E prime ratio is >15, consistent with elevated filling pressures. Evidence suggests grade II (moderate) diastolic dysfunction. There is mild septal asymmetric hypertrophy. measured global longitudinal endocardial strain is negative line 0.7% which is reduced Wall Motion Rest Echo Findings The inferoseptal wall and mid inferior segment are hypokinetic. The basal inferior and basal inferolateral segments are akinetic. All other scored wall segments showed normal motion. Right Ventricle Mildly increased right ventricular cavity size. There is normal right ventricular systolic function. Atria The left atrium is mildly dilated. There is lipomatous hypertrophy of the interatrial septum. There is no evidence of interatrial shunt. The right atrium is normal in size. Aortic Valve There is mild calcification of the aortic valve. There is no aortic valve stenosis. There is no aortic valve regurgitation. Mitral Valve There is mild anterior and posterior mitral leaflet thickening. There is trace mitral valve regurgitation. There is no mitral valve stenosis. mitral annuloplasty ring in place. Pulmonic Valve The pulmonic valve was not well visualized. Tricuspid Valve Likely normal tricuspid valve structure and function. There is mild tricuspid valve regurgitation. The right ventricular systolic pressure is normal. The right ventricular systolic pressure is 30 mmHg. There is no evidence of pulmonary hypertension. Great Vessels All visible segments of the aorta are normal in size. The pulmonary artery was not well visualized. Venous The inferior vena cava is normal in size and collapses greater than 50% with inspiration. Pericardium/Pleural There is no evidence of pericardial effusion. Prior Study Comparison No significant change compared to prior study dated: 08/07/2021. Measurements 2D Linear Measurements IVSd: 1.22 0.6-0.9/0.6-1.0 cm LVIDd: 4.81 3.9-5.3/4.2-5.9 cm LVIDd Index: 2.48 2.4-3.2/2.2-3.1 cm/m2 LVIDs: 3.78 2.0-3.6 cm LVPWd: 1.09 0.7-1.1 cm LA Diam: 3.70 2.7-3.8/3.0-4.0 cm LAIDs Index: 1.91 1.5-2.3 cm/m2 LV Mass: 259.65 67-162/88-224 g LV Mass Index: 133.84 43-95/49-115 g/m2 LVOT Diam: 2.10 3.0+(-)1.3 cm 2D Systolic Function EF 4C: 41.10 >55% EF 2C: 48.10 >55% EF BiP: 42.30 >55% Mitral Valve MV VTI: 0.42 MV Pk [place]: 1.40 MV Mn [place]: 0.63 MV Pk Grad: 8.00 MV Mn Grad: 2.00 MV Pk E: 1.04 MV PK A: 0.44 MV Decel Time: 266.00 E/A: 2.40 E'Lateral: 5.87 E'Medial: 4.68 E/E' Med: 22.20 E/E' Lat: 17.70 PHT: 78.00 MVA PHT: 2.82 MVA Continuity: 1.48 Decel [place]: 3.91 Aortic Valve AoV Pk [place]: 1.06 AoV Mn [place]: 0.81 AoV VTI: 0.24 AoV Pk Grad: 4.00 Aov Mn Grad: 3.00 OFELIA Cont.VTI: 2.56 LVOT LVOT Pk [place]: 0.83 LVOT Mn [place]: 0.62 LVOT VTI: 0.18 LVOT Pk Grad: 3.00 LVOT Mn Grad: 2.00 LVOT Diam: 2.10 LVOT Area: 3.46 Diastolic Function MV Pk E: 1.04 MV Pk A: 0.44 E/A: 2.40 E'Medial: 4.68 E/E' Med: 22.20 E' Laterial: 5.87 E/E' Lat: 17.70 Right Ventricle TAPSE (mm): 18.40 TVS' [place]: 10.70 Tricuspid Valve TR Pk [place]: 2.59 TR Pk Grad: 27.00 RA Press: 3.00 RVSP: 30.00 Great Vessels Aorta Sinus of Valsalva: 3.54 2.0-3.[address] [place]: 2.82 1.7-3.4 cm Ao Asc: 3.40 2.1-3.4 cm Ao Arch: 3.10 Updated in Other Vendor System with Status of Final Mook Muhammad MD electronically signed on 01/07/2022 3:56:15 PM with status of Final
[2022-01-07 10:41] LABS: MANUAL DIFF FLAG NO
[2022-01-07 11:36] LABS: Basophils Percent Auto 0.2 % (0-2); Eosinophils Absolute Auto 0.1 X10*3/uL (0.0-0.4); Eosinophils Percent Auto 2.1 % (0-4); Hematocrit 40.3 % (37.0-47.0); Hemoglobin 13.2 g/dl (12.0-16.0); Imm Gran Abs Auto 0.02 X10*3/uL (0.00-0.03); Imm Gran Pct Auto 0.4 % (0.0-0.4); Lymphocytes Absolute Auto 1.4 X10*3/uL (1.2-4.9); Lymphocytes Percent Auto 25.4 % (20-40); Mean Corpuscular HGB Conc 32.8 g/dl (31.0-35.0); Mean Corpuscular Volume 97.8 fL (80.0-98.0); Mean Platelet Volume 12.7 fL (9.4-12.3); Monocytes Absolute Auto 0.6 X10*3/uL (0.1-1.2); Monocytes Percent Auto 11.1 % (2-11); Neutrophils Absolute Auto 3.5 x10*3/uL (2.0-8.3); Neutrophils Percent Auto 60.8 % (45-73); Platelet Count 165 X10*3/uL (160-400); Red Blood Count 4.12 X10*6/uL (4.20-5.50); Red Cell Distribution Width 12.5 % (11.0-16.0); White Blood Count 5.7 X10*3/uL (4.8-10.8)
[2022-01-07 11:42] LABS: INTERNATIONAL NORM RATIO 1.4 (0.9-1.1); Prothrombin Time 16.1 SEC (9.9-13.0)
[2022-01-07 12:05] LABS: B Type Natriuretic Peptide 149 pg/mL (<100)
[2022-01-07 12:18] LABS: Estimated Average Glucose 108 mg/dL; Hemoglobin A1c % 5.4 %
[2022-01-07 12:32] LABS: Alanine Aminotransferase 23 U/L (0-31); Albumin Level 4.1 g/dL (3.5-5.0); Alkaline Phosphatase 94 U/L (39-117); Anion Gap 11 (12-20); Aspartate Amino Transferase 17 U/L (5-31); Bilirubin Total 0.8 mg/dL (0.0-1.0); Blood Urea Nitrogen 20 mg/dL (9-16); Calcium 9.8 mg/dL (8.4-10.2); Carbon Dioxide 29 mmol/L (22-29); Chloride 106 mmol/L (96-108); Cholesterol 152 mg/dL; Estimated Glomerular Filt Rate > 60; Glucose Random 95 mg/dL (60-115); HDL Cholesterol 47 mg/dL; LDL Cholesterol Calculated 67 mg/dl; Potassium 4.5 mmol/L (3.3-5.1); Sodium 141 mmol/L (135-145); Total Protein 6.5 g/dL (6.5-8.0); Triglycerides 191 mg/dL
[2022-01-07 12:55] LABS: Free T4 (Free Thyroxine) 1.04 ng/dL (0.71-1.85); Thyroid Stimulating Hormone 2.66 uIU/mL (0.32-4.0); Vitamin D 25-OH Total 29.7 ng/mL (>30)
[2022-01-07 13:03] LABS: Folate > 20.0 ng/mL (> or = 4.0); Vitamin B12 1311 pg/mL (200-900)
== END ==
LOC: HO.CARD 10:16
PROVIDERS: Absent Provider Hospitalist; PCP Internal Medicine; Referring Provider Internal Medicine; Visit Provider Internal Medicine
DX: I42.8 Other cardiomyopathies (principal); I48.0 Paroxysmal atrial fibrillation; I48.20 Chronic atrial fibrillation, unspecified; I26.99 Other pulmonary embolism without acute cor pulmonale; E78.00 Pure hypercholesterolemia, unspecified; R73.02 Impaired glucose tolerance (oral); Z98.890 Other specified postprocedural states
CPT/HCPCS: 36415; 80053; 80061; 82306; 82607; 82746; 83036; 83880; 84439; 84443; 85025; 85610; 93242; 93306

== ENCOUNTER → 2022-02-04 10:06 | Outpatient (BNVA) | payer MEDICARE, SELFPAY | PROVIDERS: PCP Internal Medicine; Referring Provider Internal Medicine; Visit Provider Internal Medicine | DX: I48.92 Unspecified atrial flutter (principal); I48.0 Paroxysmal atrial fibrillation; I42.8 Other cardiomyopathies; R06.02 Shortness of breath; U09.9 Post COVID-19 condition, unspecified; Z98.890 Other specified postprocedural states | CPT/HCPCS: 93005; 99212 ==

== ENCOUNTER 2022-02-17 08:36 | Outpatient (REF) | payer MEDICARE, SELFPAY ==
--- NOTE | 2022-02-17 11:48 | PFT_ITS ---
FLOWS: FEV1 87% of predicted at 2.43 L. FVC 86% of predicted at 3.17 L. FEV1 to FVC ratio of 0.77. Positive bronchodilator response. LUNG VOLUMES: Total lung capacity 74% of predicted at 4.35 L. Residual volume 70% of predicted at 1.70 L. Slow vital capacity 78% of predicted at 2.65 L. Expiratory reserve volume 69% of predicted at 0.64 L. In comparison to pulmonary function test from March 2021, FEV1, FVC, TLC, and ERV have been without significant changes; residual volume has increased by 0.28 L; slow vital capacity has decreased by 0.40 L; diffusion capacity has increased by 1.51 mL/minutes per mmHg. IMPRESSION: Mild restrictive ventilatory defect with positive bronchodilator response. Decreased diffusion capacity suggestive of a restrictive ventilatory defect, suggest underlying pulmonary parenchymal disease. Clinical correlation is advised. MD JERMAINE Mccallum/MODL / [id number]
== END 2022-02-17 08:37 | disposition home or self-care (01) ==
LOC: HO.RESP 08:36
PROVIDERS: PCP Internal Medicine; Visit Provider Internal Medicine
DX: R06.02 Shortness of breath (principal)
CPT/HCPCS: 94060; 94727; 94729

== ENCOUNTER → 2022-02-24 13:22 | Outpatient (BNVA) | payer MEDICARE, SELFPAY | PROVIDERS: PCP Internal Medicine; Referring Provider Internal Medicine; Visit Provider Internal Medicine | DX: I48.92 Unspecified atrial flutter (principal); I48.0 Paroxysmal atrial fibrillation; I42.8 Other cardiomyopathies; Z98.890 Other specified postprocedural states | CPT/HCPCS: 99212 ==

== ENCOUNTER 2022-03-16 14:14 | Outpatient (REF) | payer MEDICARE, SELFPAY ==
[2022-03-16 14:36] LABS: MANUAL DIFF FLAG NO
[2022-03-16 14:48] LABS: Eosinophils Absolute Auto 0.1 X10*3/uL (0.0-0.4); Eosinophils Percent Auto 2.6 % (0-4); Hematocrit 40.8 % (37.0-47.0); Hemoglobin 13.7 g/dl (12.0-16.0); Imm Gran Abs Auto 0.03 X10*3/uL (0.00-0.03); Imm Gran Pct Auto 0.6 % (0.0-0.4); Lymphocytes Absolute Auto 1.3 X10*3/uL (1.2-4.9); Lymphocytes Percent Auto 23.6 % (20-40); Mean Corpuscular HGB Conc 33.6 g/dl (31.0-35.0); Mean Corpuscular Hemoglobin 32.4 pg (27.0-33.0); Mean Corpuscular Volume 96.5 fL (80.0-98.0); Mean Platelet Volume 12.4 fL (9.4-12.3); Monocytes Absolute Auto 0.6 X10*3/uL (0.1-1.2); Monocytes Percent Auto 10.7 % (2-11); Neutrophils Absolute Auto 3.3 x10*3/uL (2.0-8.3); Neutrophils Percent Auto 62.5 % (45-73); Platelet Count 161 X10*3/uL (160-400); Red Blood Count 4.23 X10*6/uL (4.20-5.50); Red Cell Distribution Width 12.2 % (11.0-16.0); White Blood Count 5.3 X10*3/uL (4.8-10.8)
[2022-03-16 15:13] LABS: Anion Gap 12 (12-20); Blood Urea Nitrogen 13 mg/dL (9-16); Calcium 9.9 mg/dL (8.4-10.2); Carbon Dioxide 28 mmol/L (22-29); Chloride 103 mmol/L (96-108); D Dimer High Sensitivity < 150 NG/ML; Estimated Glomerular Filt Rate > 60; Glucose Random 99 mg/dL (60-115); Potassium 4.4 mmol/L (3.3-5.1); Sodium 139 mmol/L (135-145)
[2022-03-16 15:41] LABS: Erythrocyte Sedimentation Rate 3 MM/HR (0-20)
[2022-03-18 19:53] LABS: Cyclic Citrullinated Peptide 102 UNITS
[2022-03-18 22:11] LABS: ANA Titer 2 1:40 titer; Anti Nuclear Antibody Screen POSITIVE (NEGATIVE)
[2022-03-19 05:12] LABS: Immunoglobulin E 37 kU/L (<OR=114)
[2022-03-19 12:21] LABS: Myeloperoxidase Antibody <1.0 AI; Proteinase 3 PR3 Antibodies <1.0 AI; Scleroderma 70 Antibody <1.0 NEG AI (<1.0 NEG)
[2022-03-21 15:36] LABS: Asperg fumigatus Precip Abs NEGATIVE (NEGATIVE); Micropoly faeni Abs NEGATIVE (NEGATIVE); Pigeon serum Abs NEGATIVE (NEGATIVE); Saccharo pora viridis Abs NEGATIVE (NEGATIVE); Thermo candidus Abs NEGATIVE (NEGATIVE); Thermoa vulgaris #1 NEGATIVE (NEGATIVE)
== END 2022-03-16 14:15 | disposition home or self-care (01) ==
LOC: HO.LAB 14:14
PROVIDERS: PCP Internal Medicine; Visit Provider Hospitalist
DX: R91.8 Other nonspecific abnormal finding of lung field (principal); U09.9 Post COVID-19 condition, unspecified; J84.9 Interstitial pulmonary disease, unspecified; I42.8 Other cardiomyopathies; I48.92 Unspecified atrial flutter; I26.99 Other pulmonary embolism without acute cor pulmonale; J98.4 Other disorders of lung
CPT/HCPCS: 36415; 80048; 82785; 85025; 85379; 85652; 86021; 86038; 86039; 86200; 86235; 86331; 86606; 86609; 99212

== ENCOUNTER 2022-03-24 09:33 | Outpatient (REF) | payer MEDICARE, SELFPAY ==
--- NOTE | ~2022-03-24 | CT_ITS ---
EXAMINATION: CT CHEST WITHOUT CONTRAST CLINICAL INFORMATION: Interstitial lung disease COMPARISON: Previous chest CT scans most recent September 2021 TECHNIQUE: Multidetector volumetric CT imaging of the chest was done. Axial MIP volume rendering provided. Sagittal and coronal reformatted images were obtained. This CT examination was performed using dose optimization techniques as appropriate, variously including the following: *Automated exposure control *Adjustment of mA and/or kV according to patient size (this includes techniques or standardized protocols for targeted exams where dose is matched to indication/reason for exam; i.e. extremities or head) *Use of iterative reconstruction technique DLP: 164 mGy-cm FINDINGS: LUNGS: There is biapical pleural and parenchymal scarring. There are areas of increased peripheral reticular markings and attenuation seen with upper lobe predominance questionable for interstitial lung disease. There are increased peripheral interstitial markings seen in the lower lobes dependently. This may be related to dependent atelectasis. No pulmonary nodule. No endobronchial or endotracheal lesion or bronchiectasis. No emphysema. MEDIASTINUM: The heart is slightly enlarged. There is a mitral valve replacement. There is question of a calcification in the left ventricle. This cannot be compared with previous contrast-enhanced exams. There is no pericardial effusion. The thoracic aorta is normal in caliber. There are no enlarged hilar or mediastinal lymph nodes. PLEURA: There is no pleural effusion. No pleural mass or thickening. AXILLA: No lymphadenopathy. UPPER ABDOMEN: There is question of a tiny stone in the upper pole of the left kidney. OSSEOUS STRUCTURES: Median sternotomy. Mild degenerative changes of the spine. CT/CT chest wo con IMPRESSION: Question mild interstitial lung disease. Enlarged heart and postoperative changes from mitral valve replacement. Question small calcification in the left ventricle. Fleischner guidelines were followed.
== END 2022-03-24 09:34 | disposition home or self-care (01) ==
LOC: HO.CT 09:33
PROVIDERS: PCP Internal Medicine; Visit Provider Hospitalist
DX: J84.9 Interstitial pulmonary disease, unspecified (principal); J98.4 Other disorders of lung
CPT/HCPCS: 71250

== ENCOUNTER → 2022-05-19 08:45 | Outpatient (BNVA) | payer MEDICARE, SELFPAY | PROVIDERS: PCP Internal Medicine; Referring Provider Internal Medicine; Visit Provider Internal Medicine | DX: R06.02 Shortness of breath (principal) | CPT/HCPCS: 93005 ==

== ENCOUNTER → 2022-07-10 10:46 | Outpatient (BNVA) | payer MEDICARE, SELFPAY | PROVIDERS: PCP Internal Medicine; Visit Provider Hospitalist | DX: I48.91 Unspecified atrial fibrillation (principal); I48.92 Unspecified atrial flutter; R00.0 Tachycardia, unspecified; I82.402 Acute embolism and thrombosis of unspecified deep veins of left lower extremity; J31.0 Chronic rhinitis; J45.909 Unspecified asthma, uncomplicated; R06.00 Dyspnea, unspecified; U09.9 Post COVID-19 condition, unspecified; J84.9 Interstitial pulmonary disease, unspecified; I42.8 Other cardiomyopathies; I26.99 Other pulmonary embolism without acute cor pulmonale; J98.4 Other disorders of lung | CPT/HCPCS: 99212 ==

== ENCOUNTER → 2022-08-19 12:17 | Outpatient (BNVA) | payer MEDICARE, SELFPAY | PROVIDERS: PCP Internal Medicine; Referring Provider Internal Medicine; Visit Provider Internal Medicine | DX: I42.8 Other cardiomyopathies (principal); I48.92 Unspecified atrial flutter; I48.0 Paroxysmal atrial fibrillation; Z98.890 Other specified postprocedural states | CPT/HCPCS: 93005; 99212 ==

== ENCOUNTER → 2022-10-12 09:49 | Outpatient (BNVA) | payer MEDICARE, SELFPAY | PROVIDERS: PCP Internal Medicine; Visit Provider Hospitalist | DX: U09.9 Post COVID-19 condition, unspecified (principal); J84.9 Interstitial pulmonary disease, unspecified; J98.4 Other disorders of lung; I42.8 Other cardiomyopathies; I48.92 Unspecified atrial flutter; I26.99 Other pulmonary embolism without acute cor pulmonale | CPT/HCPCS: 99212 ==

== ENCOUNTER → 2022-11-04 10:47 | Outpatient (REF) | payer MEDICARE, SELFPAY ==
--- NOTE | 2022-11-04 10:50 | CA_ITS ---
Acquisition Time: 2022-11-04 10:59:24 Total Exercise Time: 00:03:30 Test Indications: AFIB/AFLUTTER Medications: SEE CHART Protocol: HAILE Max HR: 098 BPM 64% of Pred: 151 BPM Max BP: 138/086 mmHG Max Work Load: 5.2 METS Exercise stres test with exercise 3 min 30 sec of Haile protocol, achieving 62% MPHR with signficant shortness of breath and need to stop, no chest discomfort, with isolated PAC and PVC, with limited BP evaluation with exercise due to short exercise size, with nondiagnostic EKG for ischemia due to suboptimal heart rate. Echo images obtained by tech at rest and immediately in recovery. Breathing slowly normalized with rest. Test reviewed with Dr Muhammad. Referred By: Leon Power Overread By: ASHU BROWN
== END ==
LOC: HO.CARD 10:47
PROVIDERS: PCP Internal Medicine; Visit Provider Internal Medicine
DX: I27.20 Pulmonary hypertension, unspecified (principal)
CPT/HCPCS: 93350; Q9957

== ENCOUNTER 2022-12-16 08:50 | Outpatient (REF) | payer MEDICARE, SELFPAY ==
[2022-12-16 10:51] LABS: MANUAL DIFF FLAG NO
[2022-12-16 11:08] LABS: Eosinophils Absolute Auto 0.1 X10*3/uL (0.0-0.4); Eosinophils Percent Auto 2.1 % (0-4); Hematocrit 41.9 % (37.0-47.0); Hemoglobin 14.1 g/dl (12.0-16.0); Lymphocytes Absolute Auto 1.1 X10*3/uL (1.2-4.9); Lymphocytes Percent Auto 23.1 % (20-40); Mean Corpuscular HGB Conc 33.7 g/dl (31.0-35.0); Mean Corpuscular Volume 95.2 fL (80.0-98.0); Mean Platelet Volume 12.6 fL (9.4-12.3); Monocytes Absolute Auto 0.6 X10*3/uL (0.1-1.2); Monocytes Percent Auto 13.2 % (2-11); Neutrophils Absolute Auto 2.9 x10*3/uL (2.0-8.3); Neutrophils Percent Auto 61.6 % (45-73); Platelet Count 147 X10*3/uL (160-400); Red Cell Distribution Width 12.5 % (11.0-16.0); White Blood Count 4.7 X10*3/uL (4.8-10.8)
[2022-12-16 11:49] LABS: B Type Natriuretic Peptide 85 pg/mL (<100)
[2022-12-16 12:32] LABS: Alanine Aminotransferase 27 U/L (0-31); Albumin Level 4.2 g/dL (3.5-5.0); Alkaline Phosphatase 82 U/L (39-117); Anion Gap 12 (12-20); Aspartate Amino Transferase 19 U/L (5-31); Bilirubin Total 0.9 mg/dL (0.0-1.0); Blood Urea Nitrogen 22 mg/dL (9-16); Calcium 9.2 mg/dL (8.4-10.2); Carbon Dioxide 25 mmol/L (22-29); Chloride 110 mmol/L (96-108); Cholesterol 147 mg/dL; Estimated Glomerular Filt Rate > 60; Glucose Random 108 mg/dL (60-115); HDL Cholesterol 47 mg/dL; LDL Cholesterol Calculated 83 mg/dl; Potassium 4.2 mmol/L (3.3-5.1); Sodium 143 mmol/L (135-145); Total Protein 6.3 g/dL (6.5-8.0); Triglycerides 88 mg/dL
[2022-12-16 12:55] LABS: Free T4 (Free Thyroxine) 1.13 ng/dL (0.71-1.85); Thyroid Stimulating Hormone 4.46 uIU/mL (0.32-4.0)
[2022-12-16 13:03] LABS: Vitamin D 25-OH Total 36.7 ng/mL (>30)
== END 2022-12-16 08:51 | disposition home or self-care (01) ==
LOC: HO.10HDL 08:50
PROVIDERS: Visit Provider Internal Medicine
DX: E78.00 Pure hypercholesterolemia, unspecified (principal); I48.0 Paroxysmal atrial fibrillation; E55.9 Vitamin D deficiency, unspecified
CPT/HCPCS: 36415; 80053; 80061; 82306; 83880; 84439; 84443; 85025

== ENCOUNTER 2022-12-16 09:02 | Outpatient (REF) | payer MEDICARE, SELFPAY ==
--- NOTE | ~2022-12-16 | MM_ITS ---
EXAMINATION: MM SCREENING DIGITAL BREAST TOMOSYNTHESIS, BILATERAL CLINICAL INFORMATION: Screening. Asymptomatic. The lifetime risk of breast cancer based on the Tyrer-Cuzick Model is 4%. COMPARISON: Mammography: 06/27/2021, 07/11/2019, 03/04/2017 TECHNIQUE: Digital breast tomosynthesis is performed in both the craniocaudal and mediolateral oblique views along with computer-aided detection (CAD). Synthesized 2D images are generated from the tomosynthesis. FINDINGS: The breasts are heterogeneously dense, which may obscure small masses (ACR BI-RADS breast composition Category c). Fibronodular parenchymal pattern is similar to prior studies and there is no developing density or architectural abnormality or significant changes. There are no significant masses, abnormal calcifications, or other abnormalities. The axilla and skin contours are unremarkable. MM/MM tomosynthesis screening BI IMPRESSION: No mammographic evidence of malignancy. ASSESSMENT: BI-RADS 1: Negative RECOMMENDATION: Routine annual mammography screening. This patient's information was entered into a reminder system with a target due date for their next mammogram.
== END 2022-12-16 09:03 | disposition home or self-care (01) ==
LOC: HO.MAMMO 09:02
PROVIDERS: PCP Internal Medicine; Visit Provider Internal Medicine
DX: Z12.31 Encounter for screening mammogram for malignant neoplasm of breast (principal)
CPT/HCPCS: 77063; 77067

== ENCOUNTER → 2023-01-19 08:48 | Outpatient (REF) | payer MEDICARE, SELFPAY ==
--- NOTE | 2023-01-19 08:52 | CA_ITS ---
Transthoracic Echocardiogram Patient (Last, First, Middle): Fidelina Mcnair E Gender: Female Date of : 1955 Age: 67 Procedure Date: 01/19/2023 Procedure Type: Transthoracic Echocardiogram Location: OP Height: 175.26 cm Weight: 81.65 kg BSA: 1.98 m2 Heart Rate: bpm BP: 106 / 65 mmHg Progressive Care Unit Registered Nurse: LOC Referring MD: Leon Power MD Symptoms: I42.8 - Other cardiomyopathies Study Quality: Adequate ECG Rhythm: Sinus Conclusions: - The left ventricular systolic function is mildly decreased. The calculated ejection fraction is 51% by biplane method. - The basal inferior and basal inferolateral segments are hypokinetic. - s/p mitral annuloplasty ring. No significant stenosis or regurgitation. Findings Left Ventricle Normal left ventricular cavity size. There is mildly increased left ventricular wall thickness. The left ventricular systolic function is mildly decreased. The calculated ejection fraction is 51% by biplane method. There is evidence of regional wall motion abnormalities. Diastolic function is indeterminate on the basis of available data. Wall Motion Rest Echo Findings The basal inferior and basal inferolateral segments are hypokinetic. Right Ventricle There is normal right ventricular systolic function. Top normal RV size. Atria Both atria are normal in size. Aortic Valve There is a normal trileaflet aortic valve. There is no aortic valve stenosis. There is no aortic valve regurgitation. Mitral Valve There is trace mitral valve regurgitation. There is no mitral valve stenosis. s/p mitral annuloplasty ring. Mean gradient across the mitral valve 2mmHg at 60/min. Pulmonic Valve The pulmonic valve is likely normal. Tricuspid Valve There is mild tricuspid valve regurgitation. There is no evidence of pulmonary hypertension. Great Vessels The asc aorta is normal in size. Venous The inferior vena cava is normal in size and collapses greater than 50% with inspiration. Pericardium/Pleural There is no evidence of pericardial effusion. Prior Study Comparison Changes noted compared to prior study dated: 01/07/2022. Improved LVEF. Measurements 2D Linear Measurements IVSd: 1.20 0.6-0.9/0.6-1.0 cm LVIDd: 4.15 3.9-5.3/4.2-5.9 cm LVIDd Index: 2.10 2.4-3.2/2.2-3.1 cm/m2 LVIDs: 3.14 2.0-3.6 cm LVPWd: 1.10 0.7-1.1 cm LA Diam: 4.20 2.7-3.8/3.0-4.0 cm LAIDs Index: 2.12 1.5-2.3 cm/m2 LV Mass: 204.74 67-162/88-224 g LV Mass Index: 103.40 43-95/49-115 g/m2 LVOT Diam: 2.10 3.0+(-)1.3 cm 2D Systolic Function EF 4C: 46.80 >55% EF 2C: 55.90 >55% EF BiP: 51.20 >55% Mitral Valve MV VTI: 0.37 MV Pk Navneet: 1.31 MV Mn Navneet: 0.62 MV Pk Grad: 7.00 MV Mn Grad: 2.00 MV Pk E: 1.18 MV PK A: 0.44 MV Decel Time: 263.00 E/A: 2.70 E'Lateral: 5.35 E'Medial: 4.33 E/E' Med: 27.30 E/E' Lat: 22.10 PHT: 77.00 MVA PHT: 2.86 MVA Continuity: 1.82 Decel [place]: 4.59 Aortic Valve AoV Pk Navneet: 0.91 AoV Mn Navneet: 0.68 AoV VTI: 0.23 AoV Pk Grad: 3.00 Aov Mn Grad: 2.00 OFELIA Cont.VTI: 2.88 LVOT LVOT Pk Navneet: 0.88 LVOT Mn Navneet: 0.57 LVOT VTI: 0.19 LVOT Pk Grad: 3.00 LVOT Mn Grad: 2.00 LVOT Diam: 2.10 LVOT Area: 3.46 Diastolic Function MV Pk E: 1.18 MV Pk A: 0.44 E/A: 2.70 E'Medial: 4.33 E/E' Med: 27.30 E' Laterial: 5.35 E/E' Lat: 22.10 Right Ventricle TAPSE (mm): 16.60 TVS' Navneet: 10.80 Tricuspid Valve TR Pk Navneet: 2.13 TR Pk Grad: 18.00 RA Press: 3.00 RVSP: 25.00 Great Vessels Aorta Sinus of Valsalva: 3.46 2.0-3.[address] Ridge: 2.93 1.7-3.4 cm Ao Asc: 3.40 2.1-3.4 cm Updated in Other Vendor System with Status of Final Leon Power MD electronically signed on 01/20/2023 1:12:05 PM with status of Final
== END ==
LOC: HO.CARD 08:48
PROVIDERS: PCP Internal Medicine; Visit Provider Internal Medicine
DX: I42.8 Other cardiomyopathies (principal)
CPT/HCPCS: 93306

== ENCOUNTER → 2023-02-08 08:58 | Outpatient (BNVA) | payer MEDICARE, SELFPAY | PROVIDERS: PCP Internal Medicine; Referring Provider Internal Medicine; Visit Provider Internal Medicine | DX: I42.8 Other cardiomyopathies (principal); I48.92 Unspecified atrial flutter; I48.0 Paroxysmal atrial fibrillation; Z98.890 Other specified postprocedural states | CPT/HCPCS: 93005; 99212 ==

== ENCOUNTER 2023-04-14 09:38 | Outpatient (AMB) | payer MEDICARE, SELFPAY ==
[2023-04-14 09:47] VITALS: BP 110/68; PULSE 67; O2SAT 97; BMI 26.7
--- NOTE | 2023-04-14 09:47 | A.OFFVIS_ITS ---
Intake Vital Signs 04/14/23 09:47 Height 5 ft 9 in Weight 181 lb BMI 26.7 BP 110/68 Blood Pressure Location Lt brachial Position Sitting Pulse 67 Pulse Source Pulse Oximeter Pulse Oximetry (%) 97 Oxygen Delivery Method Room Air Intake Visit Reasons: follow up DVT Intake Note: pt is here for follow up and states short of breath with exertion. Allergies acetaminophen [Percocet] Allergy (Severe, Verified 04/14/23 09:50) stomach upset oxycodone [Percocet] Allergy (Severe, Verified 04/14/23 09:50) stomach upset pneumococcal vaccine Allergy (Severe, Verified 04/14/23 09:50) Unknown apixaban [From Eliquis] Adverse Reaction (Intermediate, Verified 04/14/23 09:50) diarrhea HPI HPI Comments History of Present Illness Details The patient is a 68-year-old woman with a known history of NSVT, afib and valvular surgery who apparently was in her usual state health until back in January 16 she presented with worsening shortness of breath to the ER. She was positive for COVID-19. Her CT scan of the chest demonstrated some minimal airspace disease at the bases. During the hospital course she was treated for a superimposed bacterial infection and also C diff. the patient was ultimately discharged home. However, home she started developing worsening shortness of breath several weeks after. She return to the ER. Had a repeat CTA after having a D-dimer of 8000. The repeat CTA demonstrated bilateral pulmonary embolisms consistent with submassive PE. In addition to the bilateral pulmonary emboli the patient did have extensive airspace disease secondary to severe COVID 19 pneumonia. Her echocardiogram demonstrated moderate right ventricular dysfunction. The patient initially placed on Eliquis and then subsequent switched over to Xarelto due to adverse effects. She has been compliant with the medication. The patient continues to have significant dyspnea on exertion. Moderate to severe even with minimal activity. Recently she did follow-up with Hematology. A repeat brain atretic peptide was normal. Today in the office we did perform a 6 minutes walk test. The patient again had a Monika score of 8/10 with minimal activity heart rate 100 in a pulse ox of 98%. This is on 2 L. therefore her shortness of breath was out of proportion to the findings. She also describes chest pressure. In the office we did do an EKG demonstrating new T-wave inversions specially in the inferior and precordial leads. The T-wave inversions in flattening are new when compared to an EKG from February 10. 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 In the meantime will have her get a troponin I tests done to make sure she is not having any evidence of any cardiac damage. The patient is aware that if her symptoms worsen she is to go to the ER urgently. 03/20/2021 the patient is here for a pulmonary follow up visit. She is feeling a little better. The patient is Still complaining shortness of breath with activity. Moderate in severity. The oxygen has been helpful. Denies any chest pains or palpitations. She did undergo an echocardiogram demonstrating mild pulmonary hypertension likely explaining some her symptoms. She continues on the prednisone. She should be done in about a week and half from now for will plan to check an x-ray after she completes prednisone to assess her interstitial lung disease that was the result the COVID 19 infection. She continues on the anticoagulation without any evidence of bleeding. We did review her blood work and was all reassuring without any evidence of any heart damage. 05/06/2021 the patient is here for a pulmonary follow-up visit. She continues to have dyspnea on exertion with activity. Moderate severity. Even with simple things like taking a shower. She does get very breathless. The oxygen Still Helps her. We did undergo pulmonary function studies and personally reviewed them in the office. Patient does have evidence of small airways disease consistent with a history of asthma. In addition to that she appears to have a mild restrictive process likely due to underlying pulmonary fibrosis related to the COVID-19 infection that she had in December. in addition to that the patient appears to have a severe diffusion impairment likely from underlying pulmonary vascular disease in her interstitial process. we also perform a 6 minutes walk test. Patient is doing better and she did not desaturate with a 6 minute walk. Heart rate was able to stay in the low 100s. However she did become symptomatic with a Monika score of 6 at the time. Overall she is getting better. Although the patient appears to not desaturate during the ambulation is still apparent that her diffusion is significantly decreased consistent with ongoing respiratory symptoms. will plan to continue with current therapy. She can continue using the oxygen with activities specially to exercise in order to continue operating. based on her ongoing symptoms and the severe decrease of diffusion capacity will plan to repeat a CTA to assess for any evidence of chronic thromboembolic disease. 07/01/2021 the patient is here for pulmonary follow-up visit. She continues to have dyspnea on exertion although is getting a little better. Still moderate in severity. The workup she did have a repeat CTA unfortunately still showing residual blood clots. Primarily in the left upper lobe. She also underwent a lower extremity Doppler because of lower extremity edema and again demonstrated residual DVTs. She has been on Xarelto in addition to a baby aspirin. She had been on Eliquis prior to that but she could not tolerated. 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 She will follow-up with Hematology. In the meantime she did have a repeat ultrasound again demonstrating persistent clots in the popliteal vein and distally. Therefore I will refer her to vascular surgery to further address that chronic clot burden. During the office visit she did undergo a 6 minutes walk test and at this point she does not qualify for oxygen any longer so therefore will discontinue. So overall there is improvement although slowly. Will plan to perform a V/Q scan in 4 weeks to assess for thromboembolic disease. I am hopeful that she feels better and that we did not find anything significant. If however she still symptomatic and or her V/Q scan is very abnormal then she will need a referral to [place] to the chronic thromboembolic disease clinic. 07/29/2021 the patient is here for a pulmonary follow-up visit. She continues to have significant dyspnea with minimal activity. She was weaned off the oxygen based on her 6 minute walk test. She did not really feel that the oxygen was very helpful even when she was using it she was still short of breath. The concern was that she could have chronic thromboembolic disease based on the fact that she still had evidence of clots in her pulmonary arteries suggesting chronic thromboembolic disease. However, her V/Q scan came out to be perfectly normal. therefore, ruling out thromboembolic disease. She continues to be tachycardic. Has had a history of atrial fibrillation in the past in addition to cardiac surgery at [facility]. It may be that the patient developed significant cardiac involvement due to COVID is still having persistent symptoms. I will refer her to Cardiology at this time. In the meantime I also discussed with her the possibility of referring her to a post COVID 19 clinic in [place] based on her significant residual symptoms. In addition to that the patient was found to have persistent DVT even on anticoagulation. She is not complaining of worsening pain behind her knee her left side. Therefore, will send her for an urgent lower extremity Doppler of her left lower extremity to assess for DVT propagation. based on his significant tachycardia and shortness of breath along with the persistent DVT patient is not able to return to work as of yet. Will try to expedite the cardiology consultation. 09/12/2021 the patient is here for a pulmonary follow-up visit. Since we last spoke the patient was laid off. Now she was able to apply for Medicare. The patient is feeling a little better. She still not 100%. She still complains of dyspnea on exertion. We did review her echocardiogram demonstrated a decrease in left ventricular ejection fraction suggesting of some degree of cardiomyopathy which is likely the results of her COVID infection. The COVID infection and that up resulting in pulmonary emboli resulting in pulmonary vascular disease, cardiomyopathy likely for myocarditis in addition to significant pneumonitis and pulmonary fibrosis. Slowly the patient has been able to improve from the significant comorbidities. She still has blood clots noted on her popliteal vein. Will reassess in 6-8 weeks to see the progression of the clots. It is reassuring that her V/Q scan demonstrated no further diffusion perfusion defects therefore clearing the pulmonary emboli. No evidence of any thromboembolic disease which is reassuring. The patient does have a cough and also postnasal drip. It is likely that she has some underlying allergies. Will treat her at this point with allergy medication and nasal therapy. 11/12/2021 the patient is here for a pulmonary follow-up visit. The patient has been feeling better. Apparently her respiratory symptoms were still persistent and waxing waning. She went to see her primary care doctor where she was noted to be irregularly irregular concerning for atrial fibrillation. She was recommended to go to the ER but she was reluctant. She went home. Her symptoms however worsen and she did go to the ER finally. She was noted to be in AFib with rapid ventricular response. This is a new onset atrial fibrillation. The patient was evaluated by Cardiology and underwent cardioversion and placed on sotalol. Since then her breathing has improved. The patient has been on Xarelto. Interestingly her INR was elevated at 1.8. I did place an order to repeat that. In the meantime I did recommend she take multivitamins. In regards of her thromboembolic disease she did have a repeat CTA in the ER that I personally reviewed demonstrating no evidence of any acute or chronic thrombus in the chest. She still has some areas of mosaic pattern in addition to that some scarring at the bases likely from the severe COVID. In addition to that we did review her lower extremity Dopplers now with resolution of her blood clot Of her lower extremity. 03/16/2022 the patient is here for a pulmonary follow-up visit. She continues to have significant dyspnea on exertion, moderate severity. Even with minimal activity. She has not felt well and has not made any improvement the last several months. Since we last met the patient did have an extensive cardiac workup including a left and right cardiac catheterization. No evidence of any coronary disease and also no evidence of any pulmonary vascular disease. Therefore ruling out the possibility of any chronic thromboembolic disease Resulting in pulmonary hypertension. She also underwent pulmonary function studies in January 2022 which was personally by me demonstrating interval worsening of her total lung capacity and also no real significant improvement on her severe diffusion impairment. At this point he still unclear why this is the case. She did resolve her pulmonary emboli although cannot rule out recurrent events. The patient also did have some evidence of interstitial lung disease that was the results of the COVID there is a possibility that this ultimately continue worsening. Therefore, I will request a repeat CT scan to assess her interstitial lung disease. Her D-dimer was checked and was negative so therefore will hold off on additional contrast. All her findings are consistent with her severe COVID with persistent symptoms and findings more than a year afterwards. In view of her interstitial lung disease will plan to do additional workup looking for other etiologies including connective tissue conditions and also plan to try her on a course of prednisone for the next 3-4 weeks. 07/10/2022 the patient is here for a pulmonary follow-up visit. Since we last spoke she did take a course of prednisone. However, she did not see any significant improvement with her breathing. She still complains of dyspnea on exertion moderate severity with minimal activity. Even with activities of daily living. Again, we did review her pulmonary function studies demonstrating significant diffusion impairment. The patient based on the perfusion study does not appear to have any persistent residual clots to explaining chronic thromboembolic disease. Although, based on the this portion all diffusion impairment pulmonary hypertension is did differential. Will go ahead and request a cardiac when her exercise tolerance test level 1 at [facility] to further address the question. In addition to that the patient did being blood thinners which she is tolerating well. Also, her PFTs she does have evidence of small airways disease therefore will go ahead and try her on a prescription of Trelegy to see if we can provide her some relief with bronchodilation. 10/12/2022 the patient is here for a pulmonary follow-up visit. Overall the patient appears to be doing slightly better. She still having some shortness of breath primarily when going up a flight of stairs [id number] severity. But overall she is doing better. She continues on the blood thinner. She was supposed to undergo a cardiopulmonary exercise stress test at [facility] but it was postponed based on the fact that they did not have the equipment available and subsequently after that it was not reschedule. She still waiting to get a call back. In the meantime I will reach out to her all terrain vehicle racer to see if a stress echo will be sufficient to further address the question of exercise- induced pulmonary hypertension. The patient does have multiple reasons why she has underlying dyspnea including her systolic dysfunction, diastolic dysfunction, restrictive lung disease and significant diffusion impairment on her PFTs. Indeed pulmonary hypertension is a concern. Although, her cardiac catheterization recent she was very reassuring with normal PA pressures at rest. Still exercise-induced pulmonary hypertension is in the differential. 04/14/2023 the patient is here for pulmonary follow-up visit. Overall she is feeling a little better. Still having significant dyspnea on exertion. Moderate severity with minimal activity. Typically she has been doing less. For that reason she has been gaining weight she states. She did have a repeat echocardiogram demonstrating a slight improvement of the ejection fraction from 40% to 51%. In addition to that she did undergo a cardiopulmonary exercise tolerance test. It demonstrated that she had a very limited aerobic capacity. She has some degree this could be secondary to muscle weakness. In addition to that demonstrated that her cardiac reserve with significant decrease suggesting a cardiovascular limitation. Breath after the cardiovascular mentation was reached develop respiratory limitations. Therefore it is likely that between the weakness in the cardiovascular issues her symptoms worsened with minimal pulmonary reserve as well. Therefore, the patient needs to go back to pulmonary rehabilitation. In addition to that work on diuresis to try to decrease her volume status to see if we can improve her cardiovascular function and capacity. The patient will start pulmonary rehab once available. She continues on the anticoagulation. 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 Maternal Aunt Breast cancer Brother Myasthenia gravis Social History Household Members: Spouse Housing: House Are you a primary career counselor to a significant other at home: No Do you presently have visiting nurse or other home services: No Alcohol intake: current Alcohol intake frequency: holidays/special occasions only Patient Tobacco Use Status: Never used Tobacco e-Cigarette/Vaping Use: Never Used Second Hand Smoke Exposure: No service: No Current occupational status: disabled Cognitive needs: No Hearing needs: No Vision needs: No Review of Systems Const Denies night sweats ENT Denies change in voice, Denies lip swelling, Denies mouth pain, Reports nasal congestion, Reports nasal discharge and Denies tongue swelling Card Denies chest pain, Denies palpitations, Denies dyspnea and Reports dyspnea on exertion Resp Reports cough, Denies pain on inspiration, Denies pain with cough, Denies dyspnea and Reports dyspnea on exertion GI Denies abdominal pain Musc Reports arthralgias and Reports joint swelling Neuro Denies Neuro-related abnormal movements Psych Denies no additional complaints Endo Denies palpitations Candelario/Lymph Denies easy bleeding and Denies lymphadenopathy Aller/Immun Denies lip swelling and Denies tongue swelling Physical Exam Vital Signs: Last Vital Signs Pulse 67 04/14/23 09:47 BP 110/68 04/14/23 09:47 Pulse Ox 97 04/14/23 09:47 Oxygen Delivery Method Room Air 04/14/23 09:47 BMI result Body Mass Index 26.7 Const General: alert Neck Neck: Yes normal visual inspection, Yes full ROM and Yes no lymphadenopathy Chest Chest palpation & inspection: normal inspection of the chest Resp Auscultation: diminished lung sounds Cardio Rate: regular rate Rhythm: regular rhythm Heart sounds: S1 normal heart sound present and S2 normal heart sound present GI Palpation (GI): Soft to palpation and nontender Auscultation: normal bowel sounds Skin General skin exam: rashes and/or lesions noted Assessment & Plan Assessment & Plan (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 Code(s): U09.9 - Post COVID-19 condition, unspecified (2) ILD (interstitial lung disease): Code(s): J84.9 - Interstitial pulmonary disease, unspecified (3) NICM (nonischemic cardiomyopathy): Code(s): I42.8 - Other cardiomyopathies (4) Paroxysmal atrial flutter: Code(s): I48.92 - Unspecified atrial flutter (5) Bilateral pulmonary embolism: Onset Date: ~01/2021 Comment: resolved Code(s): I26.99 - Other pulmonary embolism without acute cor pulmonale (6) Chronic restrictive lung disease: Code(s): J98.4 - Other disorders of lung Plan CPET demonstrating muscle weakness resulting in minimal aerobic capacity along with limited cardiovascular function with also a respiratory limitation. start pulmonary rehab lasix x 4 days continue Trelegy inhaler short-acting beta agonist as needed Continue anticoagulation with Xorelto follow-up 4-6 months Orders: Orders Pulmonary Rehab Today J84.9 - Interstitial pulmonary disease, unspecified, J98.4 - Other disorders of lung, U09.9 - Post COVID-19 condition, unspecified Medications: New furosemide (Lasix) 20 mg PO DAILY 10 days 10 tabs 0RF Coding Level of Care Code Est Pt Level 4 (65335) Diagnoses [id number] syndrome U09.9 ILD (interstitial lung disease) J84.9 NICM (nonischemic cardiomyopathy) I42.8 Paroxysmal atrial flutter I48.92 Bilateral pulmonary embolism I26.99 Chronic restrictive lung disease J98.4 Time Spent (min) 20
== END 2023-04-14 10:17 | disposition home or self-care (01) ==
PROVIDERS: PCP Internal Medicine; Visit Provider Hospitalist
DX: J84.9 Interstitial pulmonary disease, unspecified (principal); I42.8 Other cardiomyopathies; I48.92 Unspecified atrial flutter; U09.9 Post COVID-19 condition, unspecified
CPT/HCPCS: 99214

== ENCOUNTER → 2023-04-14 09:38 | Outpatient (BNVA) | payer MEDICARE, SELFPAY | PROVIDERS: Visit Provider Hospitalist | DX: J84.9 Interstitial pulmonary disease, unspecified (principal); U09.9 Post COVID-19 condition, unspecified; J98.4 Other disorders of lung; I26.99 Other pulmonary embolism without acute cor pulmonale; I48.92 Unspecified atrial flutter; I42.8 Other cardiomyopathies | CPT/HCPCS: 99212 ==

== ENCOUNTER 2023-05-11 08:20 | Outpatient (AMB) | payer MEDICARE, SELFPAY ==
[2023-05-11 08:24] VITALS: BP 130/76; PULSE 64; O2SAT 97; BMI 26.9
--- NOTE | 2023-05-11 08:24 | A.OFFPC_ITS ---
Vital Signs 05/11/23 08:24 Height 5 ft 9 in Weight 182 lb BMI 26.9 BP 130/76 Blood Pressure Location Lt brachial Position Sitting Pulse 64 Pulse Source Pulse Oximeter Pulse Oximetry (%) 97 Oxygen Delivery Method Room Air Intake Visit Reasons: ILD Allergies acetaminophen [Percocet] Allergy (Severe, Verified 05/11/23 08:24) stomach upset oxycodone [Percocet] Allergy (Severe, Verified 05/11/23 08:24) stomach upset pneumococcal vaccine Allergy (Severe, Verified 05/11/23 08:24) Unknown apixaban [From Eliquis] Adverse Reaction (Intermediate, Verified 05/11/23 08:24) diarrhea Tobacco use date assessed: 11/10/22 Fall risk assessment: No Falls in past year Last assessed Fall Risk: 05/11/23 Dental Screening Dental Screen Date: 05/11/23 Did you have a dental visit in the last 12 months?: Yes Did you have a dental problem in the last 6 months where you did not have access to dental care?: No Was dental information given to patient?: Patient has dentist HPI ILD HPI Details [age] Old female with post COVID syndrome with interstitial lung disease atrial fibrillation impaired glucose tolerance asthma coming in for follow-up. Last seen in October 2022 had some left ankle pain patient was advised blood work. Patient follows up with Pulmonary . ejection fraction is 45-51% muscle weakness resulting in minimal aerobic capacity patient has been advised on pulmonary rehab on Trelegy continuing with anticoagulation also for the DVT. Echocardiogram done December 2022 The left ventricular systolic function is mildly decreased. The calculated ejection fraction is 51% by biplane method. - The basal inferior and basal inferolateral segments are hypokinetic. - s/p mitral annuloplasty ring. No significant stenosis or regurgitation. Cardiology follow-up in January also nonischemic cardiomyopathy basal inferior and inferior lateral hypokinesis normal coronary continuing with anticoagulation with atrial fibrillation. June 10 going for eye procedure. asking for preoperative evaluation [facility] Medical History Asthma Atrial fibrillation Atrial flutter Bilateral pulmonary embolism (~01/2021) Chest pain Chronic thromboembolic disease (~01/2021) COVID-19 (~12/2020) DVT (deep venous thrombosis) (~01/2021) History of Clostridium difficile infection (~12/2020) Left leg DVT (~01/2021) NICM (nonischemic cardiomyopathy) Osteoporosis (~2005) Pneumonia due to COVID-19 virus (~12/2020) Pneumonitis [id number] syndrome (~01/2021) Syncope (~12/2020) Tachycardia Vitamin D deficiency Surgical History History of cardiac cath (~05/2016) History of left knee surgery History of maze procedure History of mitral valve repair (~05/2016) History of partial hysterectomy (~1982) History of tonsillectomy (~1965) Family History (Updated 05/11/23 @ 08:25 by Arabella Fajardo [facility]) Father Melanoma Mother No problems noted. Maternal Aunt Breast cancer Brother Myasthenia gravis Social History Household Members: Spouse Household Members Other:: Housing: House Are you a primary home child care provider to a significant other at home: No Do you presently have visiting nurse or other home services: No Alcohol intake: current Alcohol intake frequency: holidays/special occasions only Patient Tobacco Use Status: Never used Tobacco e-Cigarette/Vaping Use: Never Used Second Hand Smoke Exposure: No service: No Current occupational status: disabled Cognitive needs: No Hearing needs: No Vision needs: No Questionnaire PHQ-9 Over the last 2 weeks, how often have you been bothered by any of the following problems? 1. Little interest or pleasure in doing things: not at all 2. Feeling down, depressed, or hopeless: not at all 3. Trouble falling or staying asleep, or sleeping too much: not at all 4. Feeling tired or having little energy: not at all 5. Poor appetite or overeating: not at all 6. Feeling bad about yourself - or that you are a failure or have let yourself or your family down: not at all 7. Trouble concentrating on things, such as reading the newspaper or watching television: not at all 8. Moving or speaking so slowly that other people could have noticed. Or the opposite - being so fidgety or restless that you have been moving around a lot more than usual: not at all 9. Thoughts that you would be better off or of hurting yourself in some way : not at all Total score: 0 Depression Screening Interpretation: Negative Source: Developed by Drs. Henri Steele, Wellington So and colleagues, with an educational preethi from [employer]. Thrive Questionnaire Date Thrive assessed: 11/10/22 AUDIT C Alcohol Use Questionnaire (AUDIT-C) 1. How often do you have a drink containing alcohol?: Monthly or less 2. How many drinks containing alcohol do you have on a typical day when you are drinking?: 1 or 2 3. How often do you have six or more drinks on one occasion?: Never Total Score: 1 KEITH-7 AMB Questionnaire KEITH-7 Date KEITH - 7 assessed: 11/10/22 Source: Developed by Drs. Henri Steele, Wellington So and colleagues, with an educational preethi from [employer]. Physical exam (Primary Care) Vital Signs: Last Vital Signs Pulse 64 05/11/23 08:24 BP 130/76 05/11/23 08:24 Pulse Ox 97 05/11/23 08:24 Oxygen Delivery Method Room Air 05/11/23 08:24 BMI result Body Mass Index 26.9 Tobacco/Smoking Status: Tobacco use Status Tobacco use date assessed 11/10/22 05/11/23 08:29 Patient Tobacco Use Status Never used Tobacco 05/11/23 08:29 e-Cigarette/Vaping Use Never Used 05/11/23 08:29 PHQ-9: PHQ-9 Score PHQ-9: Total score 0 05/11/23 08:29 Depression Screening Interpretation: Negative Thrive Assessment: Date of Thrive Assessment Date Thrive assessed 11/10/22 05/11/23 08:29 Const General: alert; No acute distress Eyes Conjunctivae: conjunctivae normal Resp Auscultation: clear to auscultation bilaterally Cardio Rate: regular rate Rhythm: regular rhythm GI Inspection: Yes normal to inspection Extrem General: Yes normal to inspection and No edema Assessment and Plan Assessment & Plan (1) PAF (paroxysmal atrial fibrillation): Code(s): I48.0 - Paroxysmal atrial fibrillation Plan: Continuing to follow-up with cardiology continue with anticoagulation (2) ILD (interstitial lung disease): Code(s): J84.9 - Interstitial pulmonary disease, unspecified Plan: Patient follows up with Pulmonary advised pulmonary rehab (3) Bilateral pulmonary embolism: Onset Date: ~01/2021 Comment: resolved Code(s): I26.99 - Other pulmonary embolism without acute cor pulmonale Plan: Continue with anticoagulation (4) Preop exam for internal medicine: Code(s): Z01.818 - Encounter for other preprocedural examination Orders: Orders Comprehensive Met. Panel Today R7. - Other specified abnormal findings of blood chemistry Complete Blood Count Auto Diff Today R7. - Other specified abnormal findings of blood chemistry B Type Natriuretic Peptide Today R7.89 - Other specified abnormal findings of blood chemistry Ferritin Today R7.89 - Other specified abnormal findings of blood chemistry Magnesium Today R79.89 - Other specified abnormal findings of blood chemistry Phosphorus Today R79.89 - Other specified abnormal findings of blood chemistry Free T4 (Free Thyroxine) Today R79.89 - Other specified abnormal findings of blood chemistry Thyroid Stimulating Hormone Today R79.89 - Other specified abnormal findings of blood chemistry Medications: Discontinued furosemide (Lasix) Discontinued Reason: Patient Completed Course 20 mg PO DAILY 10 days 10 tabs 0RF Coding Level of Care Code Est Pt Level 4 (85255) Diagnoses PAF (paroxysmal atrial fibrillation) I48.0 ILD (interstitial lung disease) J84.9 Bilateral pulmonary embolism I26.99 Preop exam for internal medicine Z01.818
== END 2023-05-11 09:03 | disposition home or self-care (01) ==
PROVIDERS: Visit Provider Internal Medicine
DX: I48.0 Paroxysmal atrial fibrillation (principal); J84.9 Interstitial pulmonary disease, unspecified; I26.99 Other pulmonary embolism without acute cor pulmonale; Z01.818 Encounter for other preprocedural examination
CPT/HCPCS: 99214

== ENCOUNTER 2023-05-13 09:58 | Outpatient (REF) | payer MEDICARE, SELFPAY ==
[2023-05-13 10:12] LABS: MANUAL DIFF FLAG NO
[2023-05-13 10:44] LABS: Basophils Percent Auto 0.1 % (0-2); Eosinophils Absolute Auto 0.1 X10*3/uL (0.0-0.4); Eosinophils Percent Auto 1.8 % (0-4); Hematocrit 41.9 % (37.0-47.0); Hemoglobin 13.8 g/dl (12.0-16.0); Imm Gran Abs Auto 0.03 X10*3/uL (0.00-0.03); Imm Gran Pct Auto 0.4 % (0.0-0.4); Lymphocytes Absolute Auto 1.3 X10*3/uL (1.2-4.9); Mean Corpuscular HGB Conc 32.9 g/dl (31.0-35.0); Mean Corpuscular Hemoglobin 32.3 pg (27.0-33.0); Mean Corpuscular Volume 98.1 fL (80.0-98.0); Mean Platelet Volume 12.4 fL (9.4-12.3); Monocytes Absolute Auto 0.7 X10*3/uL (0.1-1.2); Monocytes Percent Auto 10.7 % (2-11); Neutrophils Absolute Auto 4.7 x10*3/uL (2.0-8.3); Platelet Count 183 X10*3/uL (160-400); Red Blood Count 4.27 X10*6/uL (4.20-5.50); Red Cell Distribution Width 12.3 % (11.0-16.0); White Blood Count 6.8 X10*3/uL (4.8-10.8)
[2023-05-13 11:16] LABS: B Type Natriuretic Peptide 85 pg/mL (<100)
[2023-05-13 11:17] LABS: Alanine Aminotransferase 26 U/L (0-31); Albumin Level 4.3 g/dL (3.5-5.0); Alkaline Phosphatase 94 U/L (39-117); Anion Gap 13 (12-20); Aspartate Amino Transferase 19 U/L (5-31); Bilirubin Total 0.6 mg/dL (0.0-1.0); Blood Urea Nitrogen 17 mg/dL (9-16); Carbon Dioxide 26 mmol/L (22-29); Chloride 104 mmol/L (96-108); Estimated Glomerular Filt Rate > 60; Glucose Random 153 mg/dL (60-115); Magnesium 2.1 mg/dL (1.6-2.6); Phosphorus 2.5 mg/dL (2.7-4.5); Sodium 139 mmol/L (135-145); Total Protein 6.9 g/dL (6.5-8.0)
[2023-05-13 11:35] LABS: Ferritin 229 ng/mL (10-250); Thyroid Stimulating Hormone 3.59 uIU/mL (0.32-4.0)
== END 2023-05-13 09:59 | disposition home or self-care (01) ==
LOC: HO.LAB 09:58
PROVIDERS: PCP Internal Medicine; Visit Provider Internal Medicine
DX: R79.89 Other specified abnormal findings of blood chemistry (principal); R94.6 Abnormal results of thyroid function studies
CPT/HCPCS: 36415; 80053; 82728; 83735; 83880; 84100; 84439; 84443; 85025

== ENCOUNTER 2023-08-16 09:02 | Outpatient (AMB) | payer MEDICARE, SELFPAY ==
--- NOTE | 2023-08-16 09:12 | MHC.OFFVIS ---
Intake Vital Signs 08/16/23 09:13 Height 5 ft 9 in Weight 183 lb 13.848 oz BMI 27.1 BP 110/72 Blood Pressure Location Lt brachial Position Sitting Pulse 65 Intake Visit Reasons: 6 month follow up Intake Note: 6 month follow up w/ EKG Front Office Agent Required: No Accompanied by: Self / Same As Patient Allergies acetaminophen [Percocet] Allergy (Severe, Verified 08/16/23 09:16) stomach upset oxycodone [Percocet] Allergy (Severe, Verified 08/16/23 09:16) stomach upset pneumococcal vaccine Allergy (Severe, Verified 08/16/23 09:16) Unknown apixaban [From Eliquis] Adverse Reaction (Intermediate, Verified 08/16/23 09:16) diarrhea Medication List - Last Reconciled 08/16/23 by Leon Power MD albuterol sulfate 90 mcg/actuation 2 inhalations inhalation Q6H PRN 30 days amoxicillin 2,000 mg PO One Hour before the procedure; calcium carbonate-vitamin D3 600 mg-5 mcg (200 unit) (Calcium 600 + D(3)) 1 tab PO DAILY cyanocobalamin (vitamin B-12) 1,000 mcg PO DAILY folic acid 0.8 mg PO DAILY multivitamin 1 tab PO DAILY rivaroxaban (Xarelto) 20 mg PO QPM 90 days sotalol 80 mg PO BID 90 days HPI HPI Comments History of Present Illness Details Fidelina returns for follow-up. To recall, she has a history of severe mitral regurgitation the past that led to mitral valve repair along with Maze/left atrial appendage occlusion in 2015. Otherwise, she had COVID infection 2020. Since that time, there has been ongoing shortness of breath issues. She also had DVT/PE. From the cardiac standpoint, she has been generally stable. No specific concerns. However, shortness of breath is not resolved yet and that is still the main concern. She states that she is able to generally get around but takes her own time. If she rushes too much, she can get short of breath. [facility] Medical History Asthma Atrial fibrillation Atrial flutter Bilateral pulmonary embolism (~01/2021) Chest pain Chronic thromboembolic disease (~01/2021) COVID-19 (~12/2020) DVT (deep venous thrombosis) (~01/2021) History of Clostridium difficile infection (~12/2020) Left leg DVT (~01/2021) NICM (nonischemic cardiomyopathy) Osteoporosis (~2005) Pneumonia due to COVID-19 virus (~12/2020) Pneumonitis [id number] syndrome (~01/2021) Syncope (~12/2020) Tachycardia Vitamin D deficiency Surgical History History of partial hysterectomy (~1982) History of mitral valve repair (~05/2016) History of cardiac cath (~05/2016) History of maze procedure History of left knee surgery History of tonsillectomy (~1965) Family History Father Melanoma Mother No problems noted. Maternal Aunt Breast cancer Brother Myasthenia gravis Social History Household Members: Spouse Household Members Other:: Housing: House Are you a primary director of healthcare systems to a significant other at home: No Do you presently have visiting nurse or other home services: No Alcohol intake: current Alcohol intake frequency: holidays/special occasions only Patient Tobacco Use Status: Never used Tobacco e-Cigarette/Vaping Use: Never Used Second Hand Smoke Exposure: No service: No Current occupational status: disabled Cognitive needs: No Hearing needs: No Vision needs: No Review of Systems Const Denies weakness ENT Denies dizziness Card Denies chest pain, Denies chest pain with activity, Denies syncope, Denies rapid heart rate, Denies pedal edema, Denies edema, Denies leg edema, Denies lightheadedness, Denies palpitations, Denies dyspnea, Denies dyspnea on exertion and Denies orthopnea Resp Denies cough, Denies dyspnea and Denies dyspnea on exertion GI Denies hematochezia and Denies change in stool character Musc Denies abnormal gait, Denies muscle cramps, Denies muscle weakness, Denies numbness, Denies radiating pain into limb and Denies tingling Neuro Denies abnormal gait, Denies dizziness, Denies syncope, Denies numbness, Denies tingling and Denies weakness Endo Denies palpitations Physical Exam Vital Signs: Last Vital Signs Pulse 65 08/16/23 09:13 BP 110/72 08/16/23 09:13 BMI result Body Mass Index 27.1 Const General: comfortable and no acute distress Orientation/consciousness: patient oriented x3 HEENT Other: Unremarkable Head: Yes normal to inspection Neck Neck: Yes normal visual inspection Chest Chest palpation & inspection: normal inspection of the chest Resp Auscultation: clear to auscultation bilaterally Cardio Palpation: normal PMI Heart sounds: S1 normal heart sound present, S2 normal heart sound present, no gallops, no murmurs and no rubs GI Palpation (GI): Soft to palpation Back/Spine/Pelvis Other: unremarkable Skin General skin exam: no rashes or lesions noted Neuro General: patient oriented x3 Extrem General: Yes normal to inspection Psych Mental Status: mental status grossly normal Office Procedures EKG Details: EKG with sinus rhythm at 65/Min; sinus arrhythmia; nonspecific ST-[place] changes; [place] [id number], Complete Assessment & Plan Assessment & Plan (1) NICM (nonischemic cardiomyopathy): Code(s): I42.8 - Other cardiomyopathies Plan: In the last echocardiogram, LVEF 51%. Basal inferior/inferolateral hypokinesis. Prior to that, LVEF was 40-45% with inferior wall motion abnormalities. In the cardiac catheterization, normal coronary arteries. Normal resting filling pressures. Overall, will hold off any further workup at this time. (2) Paroxysmal atrial flutter: Code(s): I48.92 - Unspecified atrial flutter Plan: Continue sotalol. Continue Xarelto. (3) PAF (paroxysmal atrial fibrillation): Code(s): I48.0 - Paroxysmal atrial fibrillation Plan: s/p maze procedure, KEVIN ligation 2015. Sotalol/Xarelto as above. (4) Status post mitral valve repair: Onset Date: ~05/2016 Code(s): Z98.890 - Other specified postprocedural states Plan: #33 ring 2016. Normal valvular function in the recent echocardiogram. Coding Level of Care Code Est Pt Level 4 (90034) Diagnoses NICM (nonischemic cardiomyopathy) I42.8 Paroxysmal atrial flutter I48.92 PAF (paroxysmal atrial fibrillation) I48.0 Status post mitral valve repair Z98.890 CPT Codes EKG - CPT: 27631-[id number], Complete ([id number])
[2023-08-16 09:13] VITALS: BP 110/72; PULSE 65; BMI 27.1
== END 2023-08-16 09:33 | disposition home or self-care (01) ==
PROVIDERS: Visit Provider Internal Medicine
DX: I42.8 Other cardiomyopathies (principal); I48.92 Unspecified atrial flutter; I48.0 Paroxysmal atrial fibrillation; Z98.890 Other specified postprocedural states
CPT/HCPCS: 93010; 99214

== ENCOUNTER → 2023-08-16 09:02 | Outpatient (BNVA) | payer MEDICARE, SELFPAY | PROVIDERS: Visit Provider Internal Medicine | DX: I42.8 Other cardiomyopathies (principal); I48.0 Paroxysmal atrial fibrillation; I48.92 Unspecified atrial flutter; Z98.890 Other specified postprocedural states | CPT/HCPCS: 93005; 99212 ==

== ENCOUNTER 2023-08-18 10:03 | Outpatient (AMB) | payer MEDICARE, SELFPAY ==
[2023-08-18 10:10] VITALS: BP 120/60; PULSE 56; O2SAT 98; BMI 26.6
--- NOTE | 2023-08-18 10:10 | A.OFFVIS_ITS ---
Intake Vital Signs 08/18/23 10:10 Height 5 ft 9 in Weight 180 lb BMI 26.6 BP 120/60 Blood Pressure Location Rt brachial Position Sitting Pulse 56 Pulse Source Pulse Oximeter Pulse Oximetry (%) 98 Oxygen Delivery Method Room Air Intake Visit Reasons: follow up DVT Dental Mechanic Required: No Allergies acetaminophen [Percocet] Allergy (Severe, Verified 08/18/23 10:13) stomach upset oxycodone [Percocet] Allergy (Severe, Verified 08/18/23 10:13) stomach upset pneumococcal vaccine Allergy (Severe, Verified 08/18/23 10:13) Unknown apixaban [From Eliquis] Adverse Reaction (Intermediate, Verified 08/18/23 10:13) diarrhea HPI HPI Comments History of Present Illness Details The patient is a 68-year-old woman with a known history of NSVT, afib and valvular surgery who apparently was in her usual state health until back in January 16 she presented with worsening shortness of breath to the ER. She was positive for COVID-19. Her CT scan of the chest demonstrated some minimal airspace disease at the bases. During the hospital course she was treated for a superimposed bacterial infection and also C diff. the patient was ultimately discharged home. However, home she started developing worsening shortness of breath several weeks after. She return to the ER. Had a repeat CTA after having a D-dimer of 8000. The repeat CTA demonstrated bilateral pulmonary embolisms consistent with submassive PE. In addition to the bilateral pulmonary emboli the patient did have extensive airspace disease secondary to severe COVID 19 pneumonia. Her echocardiogram demonstrated moderate right ventricular dysfunction. The patient initially placed on Eliquis and then subsequent switched over to Xarelto due to adverse effects. She has been compliant with the medication. The patient continues to have significant dyspnea on exertion. Moderate to severe even with minimal activity. Recently she did follow-up with Hematology. A repeat brain atretic peptide was normal. Today in the office we did perform a 6 minutes walk test. The patient again had a Monika score of 8/10 with minimal activity heart rate 100 in a pulse ox of 98%. This is on 2 L. therefore her shortness of breath was out of proportion to the findings. She also describes chest pressure. In the office we did do an EKG demonstrating new T-wave inversions specially in the inferior and precordial leads. The T-wave inversions in flattening are new when compared to an EKG from February 10. The patient did call her can closing machine tender and I am hopeful that she can follow-up soon. In the meantime will have her get a troponin I tests done to make sure she is not having any evidence of any cardiac damage. The patient is aware that if her symptoms worsen she is to go to the ER urgently. 11/12/2021 the patient is here for a pulmonary follow-up visit. The patient has been feeling better. Apparently her respiratory symptoms were still persistent and waxing waning. She went to see her primary care doctor where she was noted to be irregularly irregular concerning for atrial fibrillation. She was recommended to go to the ER but she was reluctant. She went home. Her symptoms however worsen and she did go to the ER finally. She was noted to be in AFib with rapid ventricular response. This is a new onset atrial fibrillation. The patient was evaluated by Cardiology and underwent cardioversion and placed on sotalol. Since then her breathing has improved. The patient has been on Xarelto. Interestingly her INR was elevated at 1.8. I did place an order to repeat that. In the meantime I did recommend she take multivitamins. In regards of her thromboembolic disease she did have a repeat CTA in the ER that I personally reviewed demonstrating no evidence of any acute or chronic thrombus in the chest. She still has some areas of mosaic pattern in addition to that some scarring at the bases likely from the severe COVID. In addition to that we did review her lower extremity Dopplers now with resolution of her blood clot Of her lower extremity. 03/16/2022 the patient is here for a pulmonary follow-up visit. She continues to have significant dyspnea on exertion, moderate severity. Even with minimal activity. She has not felt well and has not made any improvement the last several months. Since we last met the patient did have an extensive cardiac workup including a left and right cardiac catheterization. No evidence of any coronary disease and also no evidence of any pulmonary vascular disease. Therefore ruling out the possibility of any chronic thromboembolic disease Resulting in pulmonary hypertension. She also underwent pulmonary function studies in January 2022 which was personally by me demonstrating interval worsening of her total lung capacity and also no real significant improvement on her severe diffusion impairment. At this point he still unclear why this is the case. She did resolve her pulmonary emboli although cannot rule out recurrent events. The patient also did have some evidence of interstitial lung disease that was the results of the COVID there is a possibility that this ultimately continue worsening. Therefore, I will request a repeat CT scan to assess her interstitial lung disease. Her D-dimer was checked and was negative so therefore will hold off on additional contrast. All her findings are consistent with her severe COVID with persistent symptoms and findings more than a year afterwards. In view of her interstitial lung disease will plan to do additional workup looking for other etiologies including connective tissue conditions and also plan to try her on a course of prednisone for the next 3-4 weeks. 07/10/2022 the patient is here for a pul monary follow-up visit. Since we last spoke she did take a course of prednisone. However, she did not see any significant improvement with her breathing. She still complains of dyspnea on exertion moderate severity with minimal activity. Even with activities of daily living. Again, we did review her pulmonary function studies demonstrating significant diffusion impairment. The patient based on the perfusion study does not appear to have any persistent residual clots to explaining chronic th romboembolic disease. Although, based on the this portion all diffusion impairment pulmonary hypertension is did differential. Will go ahead and request a cardiac when her exercise tolerance test level 1 at [facility] to further address the question. In addition to that the patient did being blood thinners which she is tolerating well. Also, her PFTs she does have evidence of small airways disease therefore will go ahead and try her on a prescription of Trelegy to see if we can provide her some relief with bronchodilation. 10/12/2022 the patient is here for a pulm onary follow-up visit. Overall the patient appears to be doing slightly better. She still having some shortness of breath primarily when going up a flight of stairs [id number] severity. But overall she is doing better. She continues on the blood thinner. She was supposed to undergo a cardiopulmonary exercise stress test at [facility] but it was postponed based on the fact that they did not have the equipment available and subsequently after that it was not reschedule. She still waiting to get a call back. In the meantime I will reach out to her can closing machine tender to see if a stress echo will be sufficient to further address the question of exercise- induced pulmonary hypertension. The patient does have multiple reasons why she has underlying dyspnea including her systolic dysfunction, diastolic d ysfunction, restrictive lung disease and significant diffusion impairment on her PFTs. Indeed pulmonary hypertension is a concern. Although, her cardiac catheterization recent she was very reassuring with normal PA pressures at rest. Still exercise-induced pulmonary hypertension is in the differential. 04/14/2023 the patient is here for pulmon zafar follow-up visit. Overall she is feeling a little better. Still having significant dyspnea on exertion. Moderate severity with minimal activity. Typically she has been doing less. For that reason she has been gaining weight she states. She did have a repeat echocardiogram demonstrating a slight improvement of the ejection fraction from 40% to 51%. In addition to that she did undergo a cardiopulmonary exercise tolerance test. It demonstrated that she had a very limited aerobic capacity. She has some degree this could be secondary to muscle weakness. In addition to that demonstrated that her cardiac reserve with significant decrease suggesting a cardiovascular limitation. Breath after the cardiovascular mentation was reached develop respiratory limitations. Therefore it is likely that between the weakness in the cardiovascular issues her symptoms worsened with minimal pulmonary reserve as well. Therefore, the patient needs to go back to pulmonary rehabilitation. In addition to that work on diuresis to try to decrease her volume status to see if we can improve her cardiovascular function and capacity. The patient will start pulmonary rehab once available. She continues on the anticoagulation. 08/18/2023 the patient is here for a pul monary follow-up visit. The patient overall has been doing well. She has been doing very well with pulmonary rehabilitation. She continues to participate regularly. She is noticing improvement in her exercise capacity. She is working closely with Cardiology. She continues on Xarelto for the history of PE in addition to her atrial fibrillation. Currently she is on the full dose Xarelto. He may be the case that she needs to stay on that dose. She will be able to talk to her can closing machine tender during the next visit about decreasing the dose to 10 mg. At least from a PE standpoint she is able to decrease to 10 mg for prophylactic dose although I am not sure about the atrial fibrillation. From a respiratory status she stop the Trelegy because it was irritating her mouth. She does use a rescue inhaler as needed and this has been affecting beneficial. She does not use it more than twice a week so therefore she does not need any maintenance therapies. If she does need them inhaler more often she can always call and I can find something that is less irritating to her. [facility] Medical History Asthma Atrial fibrillation Atrial flutter Bilateral pulmonary embolism (~01/2021) Chest pain Chronic thromboembolic disease (~01/2021) COVID-19 (~12/2020) DVT (deep venous thrombosis) (~01/2021) History of Clostridium difficile infection (~12/2020) Left leg DVT (~01/2021) NICM (nonischemic cardiomyopathy) Osteoporosis (~2005) Pneumonia due to COVID-19 virus (~12/2020) Pneumonitis Qbzq-[id number]-75 syndrome (~01/2021) Syncope (~12/2020) Tachycardia Vitamin D deficiency Surgical History History of partial hysterectomy (~1982) History of mitral valve repair (~05/2016) History of cardiac cath (~05/2016) History of maze procedure History of left knee surgery History of tonsillectomy (~1965) Family History Father Melanoma Mother No problems noted. Maternal Aunt Breast cancer Brother Myasthenia gravis Household Members: Spouse Household Members Other:: Housing: House Are you a primary team primary care physician to a significant other at home: No Do you presently have visiting nurse or other home services: No Alcohol intake: current Alcohol intake frequency: holidays/special occasions only Patient Tobacco Use Status: Never used Tobacco e-Cigarette/Vaping Use: Never Used Second Hand Smoke Exposure: No service: No Current occupational status: disabled Cognitive needs: No Hearing needs: No Vision needs: No Review of Systems Const Denies night sweats ENT Denies change in voice, Denies lip swelling, Denies mouth pain, Reports nasal congestion, Reports nasal discharge and Denies tongue swelling Card Denies chest pain, Denies palpitations, Denies dyspnea and Reports dyspnea on exertion Resp Reports cough, Denies pain on inspiration, Denies pain with cough, Denies dyspnea and Reports dyspnea on exertion GI Denies abdominal pain Musc Reports arthralgias and Reports joint swelling Neuro Denies Neuro-related abnormal movements Psych Denies no additional complaints Endo Denies palpitations Candelario/Lymph Denies easy bleeding and Denies lymphadenopathy Aller/Immun Denies lip swelling and Denies tongue swelling Physical Exam Vital Signs: Last Vital Signs Pulse 56 08/18/23 10:10 BP 120/60 08/18/23 10:10 Pulse Ox 98 08/18/23 10:10 Oxygen Delivery Method Room Air 08/18/23 10:10 BMI result Body Mass Index 26.6 Const General: alert Neck Neck: Yes normal visual inspection, Yes full ROM and Yes no lymphadenopathy Chest Chest palpation & inspection: normal inspection of the chest Resp Auscultation: diminished lung sounds Cardio Rate: regular rate Rhythm: regular rhythm Heart sounds: S1 normal heart sound present and S2 normal heart sound present GI Palpation (GI): Soft to palpation and nontender Auscultation: normal bowel sounds Skin General skin exam: rashes and/or lesions noted Assessment & Plan Assessment & Plan (1) 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 Code(s): U09.9 - Post COVID-19 condition, unspecified (2) ILD (interstitial lung disease): Code(s): J84.9 - Interstitial pulmonary disease, unspecified (3) NICM (nonischemic cardiomyopathy): Code(s): I42.8 - Other cardiomyopathies (4) Paroxysmal atrial flutter: Code(s): I48.92 - Unspecified atrial flutter (5) Bilateral pulmonary embolism: Onset Date: ~01/2021 Comment: resolved Code(s): I26.99 - Other pulmonary embolism without acute cor pulmonale (6) Chronic restrictive lung disease: Code(s): J98.4 - Other disorders of lung Plan CPET demonstrating muscle weakness resulting in minimal aerobic capacity along with limited cardiovascular function with also a respiratory limitation. continue pulmonary rehab stopped Trelegy inhaler short-acting beta agonist as needed Continue anticoagulation with Xorelto (?lower dose) follow-up 8-12 months Medications: Refilled albuterol sulfate 90 mcg/actuation 2 inhalations inhalation Q6H 30 days PRN 18 grams 12RF shortness of breath or wheezing J44.9 - Chronic obstructive pulmonary disease, unspecified, U09.9 - Post COVID-19 condition, unspecified Coding Level of Care Code Est Pt Level 4 (03320) Diagnoses [id number] syndrome U09.9 ILD (interstitial lung disease) J84.9 NICM (nonischemic cardiomyopathy) I42.8 Paroxysmal atrial flutter I48.92 Bilateral pulmonary embolism I26.99 Chronic restrictive lung disease J98.4 Time Spent (min) 17
== END 2023-08-18 10:25 | disposition home or self-care (01) ==
PROVIDERS: PCP Internal Medicine; Visit Provider Hospitalist
DX: U09.9 Post COVID-19 condition, unspecified (principal); J84.9 Interstitial pulmonary disease, unspecified; I42.8 Other cardiomyopathies; I48.92 Unspecified atrial flutter; I26.99 Other pulmonary embolism without acute cor pulmonale; J98.4 Other disorders of lung
CPT/HCPCS: 99214

== ENCOUNTER → 2023-08-18 10:03 | Outpatient (BNVA) | payer MEDICARE, SELFPAY | PROVIDERS: PCP Internal Medicine; Visit Provider Hospitalist | DX: I47.10 Supraventricular tachycardia, unspecified (principal); I48.92 Unspecified atrial flutter; J84.9 Interstitial pulmonary disease, unspecified; U09.9 Post COVID-19 condition, unspecified; I26.99 Other pulmonary embolism without acute cor pulmonale; J98.4 Other disorders of lung | CPT/HCPCS: 99212 ==

== ENCOUNTER 2023-08-23 14:28 | Outpatient (AMB) | payer MEDICARE, SELFPAY ==
[2023-08-23 14:28] VITALS: BP 104/68; PULSE 71; O2SAT 98; BMI 27.2
--- NOTE | 2023-08-23 14:28 | MHC.PC.OV ---
Vital Signs 08/23/23 14:28 Height 5 ft 9 in Weight 184 lb BMI 27.2 BP 104/68 Blood Pressure Location Lt brachial Position Sitting Pulse 71 Pulse Source Pulse Oximeter Pulse Oximetry (%) 98 Oxygen Delivery Method Room Air Intake Visit Reasons: 3mth f/u Research Associate Quality Control Qc Required: No Allergies acetaminophen [Percocet] Allergy (Severe, Verified 08/23/23 14:29) stomach upset oxycodone [Percocet] Allergy (Severe, Verified 08/23/23 14:29) stomach upset pneumococcal vaccine Allergy (Severe, Verified 08/23/23 14:29) Unknown apixaban [From Eliquis] Adverse Reaction (Intermediate, Verified 08/23/23 14:29) diarrhea Tobacco use date assessed: 08/23/23 Fall risk assessment: No Falls in past year Last assessed Fall Risk: 08/23/23 Dental Screening Dental Screen Date: 08/23/23 Did you have a dental visit in the last 12 months?: Yes Did you have a dental problem in the last 6 months where you did not have access to dental care?: No Was dental information given to patient?: Patient has dentist HPI 3mth f/u HPI Details 68-year-old female with atrial fibrillation interstitial lung disease history of bilateral pulmonary embolism coming in for follow-up. Last seen in April 2023 patient has declined colonoscopy. Mammogram is up-to-date bone density 2018. Patient follows up with Pulmonary on pulmonary have on anticoagulation with Xarelto question about decreasing dose of Xarelto. Patient has stop Trelegy because it was irritating her mouth patient also has followed up with Cardiology July history of severe mitral regurg which led to mitral valve repair with left atrial appendage occlusion 2015 last echocardiogram ejection fraction 51% with basal inferior and inferolateral hypokinesis normal coronaries. got the RSV had the covid shot already. eye surgery- B/L tear duct blocked post surgery notd wire out of nasalacrimal duct L eye- Eye and lasik after taking L eye the R eye wire now Dari Salamanca M.D. [facility]LY [facility] Medical History Asthma Atrial fibrillation Atrial flutter Bilateral pulmonary embolism (~01/2021) Chest pain Chronic thromboembolic disease (~01/2021) COVID-19 (~12/2020) DVT (deep venous thrombosis) (~01/2021) History of Clostridium difficile infection (~12/2020) Left leg DVT (~01/2021) NICM (nonischemic cardiomyopathy) Osteoporosis (~2005) Pneumonia due to COVID-19 virus (~12/2020) Pneumonitis [id number] syndrome (~01/2021) Syncope (~12/2020) Tachycardia Vitamin D deficiency Surgical History History of partial hysterectomy (~1982) History of mitral valve repair (~05/2016) History of cardiac cath (~05/2016) History of maze procedure History of left knee surgery History of tonsillectomy (~1965) Family History Father Melanoma Mother No problems noted. Maternal Aunt Breast cancer Brother Myasthenia gravis Household Members: Spouse Household Members Other:: Housing: House Are you a primary career professional to a significant other at home: No Do you presently have visiting nurse or other home services: No Alcohol intake: current Alcohol intake frequency: holidays/special occasions only Patient Tobacco Use Status: Never used Tobacco e-Cigarette/Vaping Use: Never Used Second Hand Smoke Exposure: No service: No Current occupational status: disabled Cognitive needs: No Hearing needs: No Vision needs: No Questionnaire Thrive Questionnaire Date Thrive assessed: 11/10/22 AUDIT C Alcohol Use Questionnaire (AUDIT-C) 1. How often do you have a drink containing alcohol?: Monthly or less 2. How many drinks containing alcohol do you have on a typical day when you are drinking?: 1 or 2 3. How often do you have six or more drinks on one occasion?: Never Total Score: 1 KEITH-7 AMB Questionnaire KEITH-7 Date KEITH - 7 assessed: 11/10/22 Source: Developed by Drs. Henri Steele, Lissette Yang, Wellington Ordonez and colleagues, with an educational preethi from [employer]. Physical exam (Primary Care) Vital Signs: Last Vital Signs Pulse 71 08/23/23 14:28 BP 104/68 08/23/23 14:28 Pulse Ox 98 08/23/23 14:28 Oxygen Delivery Method Room Air 08/23/23 14:28 BMI result Body Mass Index 27.2 Tobacco/Smoking Status: Tobacco use Status Tobacco use date assessed 08/23/23 08/23/23 14:29 Patient Tobacco Use Status Never used Tobacco 08/23/23 14:29 e-Cigarette/Vaping Use Never Used 08/23/23 14:29 Thrive Assessment: Date of Thrive Assessment Date Thrive assessed 11/10/22 08/23/23 14:29 Const General: alert; No acute distress Eyes Conjunctivae: conjunctivae normal Resp Auscultation: clear to auscultation bilaterally Cardio Rate: regular rate Rhythm: regular rhythm GI Inspection: Yes normal to inspection Extrem General: Yes normal to inspection and No edema Assessment and Plan Assessment & Plan (1) Bilateral pulmonary embolism: Onset Date: ~01/2021 Comment: resolved Code(s): I26.99 - Other pulmonary embolism without acute cor pulmonale Plan: Presently on anticoagulation but pulmonary has ask for lower dosing of Xarelto (2) Left leg DVT: Onset Date: ~01/2021 Code(s): I82.402 - Acute embolism and thrombosis of unspecified deep veins of left lower extremity Qualifiers: Affected thrombotic vein of extremity: unspecified vein of extremity Chronicity: unspecified Qualified Code(s): I82.402 - Acute embolism and thrombosis of unspecified deep veins of left lower extremity Plan: On Xarelto presently (3) PAF (paroxysmal atrial fibrillation): Code(s): I48.0 - Paroxysmal atrial fibrillation Plan: Continue on sotalol 80 mg twice a day (4) ILD (interstitial lung disease): Code(s): J84.9 - Interstitial pulmonary disease, unspecified Plan: Continue with inhaler as per Pulmonary Orders: Orders Comprehensive Met. Panel 3 Months I48.0 - Paroxysmal atrial fibrillation Free T4 (Free Thyroxine) 3 Months I48.0 - Paroxysmal atrial fibrillation Thyroid Stimulating Hormone 3 Months I48.0 - Paroxysmal atrial fibrillation Lipid Panel 3 Months E78.00 - Pure hypercholesterolemia, unspecified, I48.0 - Paroxysmal atrial fibrillation Magnesium 3 Months I48.0 - Paroxysmal atrial fibrillation Complete Blood Count Auto Diff 3 Months I48.0 - Paroxysmal atrial fibrillation Vitamin B12 and Folate 3 Months I48.0 - Paroxysmal atrial fibrillation Vitamin D 25-OH Total 3 Months I48.0 - Paroxysmal atrial fibrillation B Type Natriuretic Peptide 3 Months I48.0 - Paroxysmal atrial fibrillation Hemoglobin A1c 3 Months R73.02 - Impaired glucose tolerance (oral) Coding Level of Care Code Est Pt Level 4 (53513) Diagnoses Bilateral pulmonary embolism I26.99 Deep vein thrombosis (DVT) of left lower extremity, unspecified chronicity, unspecified vein I82.402 Affected thrombotic vein of extremity: unspecified vein of extremity Chronicity: unspecified PAF (paroxysmal atrial fibrillation) I48.0 ILD (interstitial lung disease) J84.9
== END 2023-08-23 15:09 | disposition home or self-care (01) ==
PROVIDERS: PCP Internal Medicine; Visit Provider Internal Medicine
DX: I26.99 Other pulmonary embolism without acute cor pulmonale (principal); I82.402 Acute embolism and thrombosis of unspecified deep veins of left lower extremity; I48.0 Paroxysmal atrial fibrillation; J84.9 Interstitial pulmonary disease, unspecified
CPT/HCPCS: 99214

== ENCOUNTER 2023-09-09 08:30 | Outpatient (RCR) | payer MEDICARE, SELFPAY ==
[2023-05-03 10:03] VITALS: PULSE 55
--- NOTE | 2023-05-03 11:44 | MHC.PR.IN ---
[address] [phone] F: [phone] Pulmonary Rehabilitation Individual Treatment Plan Fidelina Mcnair is a 68 year old (F) who was referred to the Pulmonary Rehabilitation program by Reese Beauchamp. This patient who has a primary diagnosis of Post Covid will begin pulmonary rehabilitation with monitored exercise and education to optimize both physical and social performance, autonomy, increase strength and endurance, and control dypsnea. The following information was gathered from the patient: Smoking History Current smoking status: Never Smoked Years smoked: Last time smoked: Quit Date: Assistance with quitting needed: Past Medical History Medical History: Cardiac Disorders Asthma Pneumonia Bronchitis Surgeries: June 10 tear ducts Past Pulmonary Hospitalizations # of hospitalizations in the past year: # of ER vists due to breathing troubles in the past year: Current Pulmonary Medications albuterol inhaler PRN furosemide 20mg/daily calcium Vitamin D Folic acid Xarelto 20 mg daily sotalol HCL 80 mg BID B-12 daily Allergy History Allergies: seasonal/ acetaminophen/oxycodone/pneumococcal accine/apixaban Current Oxygen Use Supplemental Oxygen Device Used: Liter flow: How often: Pulmonary History Cough: No: Once in a while dry cough Sputum: Yes Sleep device: No Other pulmonary devices: Peak flow meter: Nebulizer: Suction: Ventilator: Secretion clearance: PEP: Influenza vaccine: No Pneumonia vaccine: Patient Questionaire Scores MRC Dyspnea Scale (mRC): CAT Score: PHQ-9 Score: 2 Pulmonary Function Test and Vital Signs Pulmonary Function Test Date of PFT FVC Actual % FVC Predicted % FEV1 Actual % FEV1 Predicted % FEV1/FVC Actual % FEV1/FVC Predicted % DLCO Vital Signs Heart Rate 55 Blood Pressure SpO2 94% Respiratory Rate 16 Six Minute Walk Test Supplemental Oxygen O2 L/min: Room air FiO2: Resting Vitals SpO2: 95% BP: 95/52mmHg HR: 55 bpm Total Distance 400 Number/ Time of Rests (sec) 2 50 SELINA 4 METS 1.65 SpO2 98 HR (bpm) 78 MPH .85 Meters/Minute 22 Post-walk Vitals SpO2: 98 BP: HR: 78 Performance Observations Pt walked unassisted at a slow pace. Pt became SOB and rested for about 50 seconds after every 200 feet. Pulmonary Rehabilitation Plan Topic Problem Goal Plan Comment Education Knowledge deficit of disease self management strategies Ineffective control of dyspnea Verbalize adequate disease self-management skills Effective control of dyspnea Advanced directives Disease overview Exacerbation prevention and management Home exercise program Intimacy Panic Control Respiratory medication Secretion clearance Travel Educated on Post covid pneumonia and the importance of protein intake and gaining muscle strength. Hypoxia N/A, no s/s of hypoxemia No signs of hypoxemia Psychosocial N/A, PHQ-9 score <5 Pt states she feels good, but would just like to be able to breath better with ADL's Activities of Daily Living Impaired ADL management ADL management and control of dyspnea ADL performance with pacing and pursed lip breathing Educate on pursed lip breathing and pacing with stairs and activity Educated on Diaphragmatic breathing technique. Education will be ongoing Nutrition & Weight Management Overweight Lose weight during program Education classes Pt educated on the importance of protein intake for muscle maintenance/growth. Pt goal to build 3 meals a day around a protein source. Tobacco Managment Pt has never been a smoker Medication N/A, pt reports compliance w/ prescribed medications Importance of medication compliance Medications purpose Medication schedule Medication side-effects Prescribed medications PT uses all meds as prescribed. Inhaled Medication Purpose, side effects and technique needs review Correct technique/timing and care of inhaled medications Demo of MDI with spacer device MDI with spacer device PT educated on spacer. Demo for understanding. Cleaning technique. Secretion Management N/A, pt able to self manage secretions PT able to clear secretions effectively as needed. Exercise & Fitness Decreased strength & endurance Knowledge deficit of exercise guidelines & safety No regular exercise Pulmonary Rehab 2-3x/week Weight or resistance training 2-3x/week Aerobic Exercise: 30-60mins x 9 weeks Review benefits & core components of exercise program Review how to measure and monitor dyspnea level Review exercise safety guidelines Review frequency and duration of exercise Review exercise intensity SELINA RPD 3-4/10 Review home exercise guidelines PT will participate in pulmonary rehab 2X weekly on and at 8:30 6 minute walk completed Nustep L1.0 RPD 4 Recumbent bike L1.0 RPD 3 UBE L1.0 RPD 3 Diabetes Management Does patient have DM?: No Diabetes Type: Current Blood Glucose Level: Current A1C Level: Self Check: PT is not a diabetic Patient's Goals and Concerns . Packaging Specialist Review I have reviewed the outcome assessment, treatment plan, goals, and problem list. The treatment plan and goals support the patient's needs and abilities, and thereby recommend that the exercise plan be completed as documented. Special precautions or modifications to the treatment plan include:
[2023-05-06 10:45] VITALS: BP 86/66; BP 94/62
[2023-05-11 08:15] VITALS: BP 92/68
[2023-05-13 11:45] VITALS: BP 76/56; BP 82/56
[2023-05-18 13:20] VITALS: BP 82/52; BP 98/62
[2023-05-20 11:51] VITALS: BP 110/52; BP 80/62
[2023-05-25 10:30] VITALS: BP 94/52; BP 98/58
[2023-05-27 13:41] VITALS: BP 80/62; BP 98/60
[2023-06-01 14:33] VITALS: BP 104/60; BP 82/58
[2023-06-03 15:14] VITALS: BP 104/64; BP 88/58
--- NOTE | 2023-06-04 08:48 | MHC.PR.RE ---
[address] [phone] F: [phone] Pulmonary Rehabilitation Reassessment Fidelina Mcnair is a 68 year old (F) who was referred to the Pulmonary Rehabilitation program by Reese Beauchamp. This patient who has a primary diagnosis of Post Covid has completed 10 sessions of the pulmonary rehabilitation program thus far with monitored exercise and education to optimize both physical and social performance, autonomy, increase strength and endurance, and control dypsnea. They were evaluated on 06/04/23. Reassessment Type: 30-day reassessment Topic Education/ Progress Progress Comments Education Demonstrates disease self-management strategies Using medications as directed Mobilizes secretions successfully Demonstrates strategies for anxiety and depression management Progressing. Pt participates in weekly pulmonary education classes. Hypoxia Current oxygen Use: RA Pt is not currently on supplemental 02 Psychosocial PHQ-9 Score: 2 Education on coping techniques, dealing with worry Activities of Daily Living Management of ADL with Control of Dyspnea Progressing Pt reports being able to have more endurance while exerting herself. continuing to work hard and feel less Sob Nutrition & Weight Management Current weight: 180 BMI: Weight change: Weight Stable Goal Met Tobacco Stages of Change: Tobacco Use: Cigerettes/Day: Any nicotine replacement: Any cessation medication: Smoking quit date: Smokeless tobacco use and amount: Pt is a non-smoker Medication Met, taking 100% of time albuterol inhaler PRN furosemide 20mg/daily calcium Vitamin D Folic acid Xarelto 20 mg daily sotalol HCL 80 mg BID B-12 daily Inhaled Medication Patient verbalizes correct technique of: MDI: Yes DPI: SMI: NEBULIZER: Secretion Management Patient provides adequate return demonstration of: Controlled cough: Yes Monte cough: Acapella/ PEP Device: Yes CPT: Sputum management: Exercise & Fitness Aerobic Exercise Frequency: 2-3X weekly Target heart range: 95-126 Heart rate range: 95-126 SpO2 Range: >92% SELINA RPD: 3-4 Time (minutes): 31 O2 use with exercise: RA Current HEP: Treamill 2-3X weekly 10 min UBE 2-3X weekly/ 15 min Recumbent bike 15 min 2-3X weekly PT progresses weekly on level/mets/time. Creative Designer Review I have reviewed the outcome re-assessment and treatment plan. The treatment plan and goals support the patient's needs and abilities, and thereby recommend that the exercise plan be completed as documented. Special precautions or modifications to the treatment plan include:
[2023-06-08 11:13] VITALS: BP 106/74; BP 86/50
[2023-06-17 11:40] VITALS: BP 124/64; BP 90/52
[2023-06-22 14:01] VITALS: BP 112/72; BP 80/70
--- NOTE | 2023-08-06 09:04 | MHC.PR.RE ---
[address] [phone] F: [phone] Pulmonary Rehabilitation Reassessment Fidelina Mcnair is a 68 year old (F) who was referred to the Pulmonary Rehabilitation program by Reese Beauchamp. This patient who has a primary diagnosis of Post Covid has completed 25 sessions of the pulmonary rehabilitation program thus far with monitored exercise and education to optimize both physical and social performance, autonomy, increase strength and endurance, and control dypsnea. They were evaluated on 08/06/23. Reassessment Type: 60-day reassessment Topic Education/ Progress Progress Comments Education Demonstrates disease self-management strategies Using medications as directed Mobilizes secretions successfully Demonstrates strategies for anxiety and depression management Progressing. Pt participates in weekly pulmonary education classes. Hypoxia Current oxygen Use: RA Pt is not currently on supplemental 02 Psychosocial PHQ-9 Score: 2 Education on coping techniques, dealing with worry Activities of Daily Living Management of ADL with Control of Dyspnea Progressing Pt reports being able to have more endurance while exerting herself. continuing to work hard and feel less Sob Nutrition & Weight Management Current weight: 186 BMI: Weight change: Weight Gain Goal Met Tobacco Stages of Change: Tobacco Use: Cigerettes/Day: Any nicotine replacement: Any cessation medication: Smoking quit date: Smokeless tobacco use and amount: Pt is a non-smoker Medication Met, taking 100% of time albuterol inhaler PRN furosemide 20mg/daily calcium Vitamin D Folic acid Xarelto 20 mg daily sotalol HCL 80 mg BID B-12 daily Inhaled Medication Patient verbalizes correct technique of: MDI: Yes DPI: SMI: NEBULIZER: Secretion Management Patient provides adequate return demonstration of: Controlled cough: Yes Monte cough: Acapella/ PEP Device: Yes CPT: Sputum management: Exercise & Fitness Aerobic Exercise Frequency: 2-3X weekly Target heart range: 95-126 Heart rate range: 95-126 SpO2 Range: >92% SELINA RPD: 3-4 Time (minutes): 31 O2 use with exercise: RA Current HEP: Treamill 2-3X weekly 20 min UBE 2-3X weekly/ 15 min Recumbent bike 15 min 2-3X weekly PT progresses weekly on level/mets/time. Systems Security Consultant Review I have reviewed the outcome re-assessment and treatment plan. The treatment plan and goals support the patient's needs and abilities, and thereby recommend that the exercise plan be completed as documented. Special precautions or modifications to the treatment plan include:
--- NOTE | 2023-09-22 07:50 | MHC.PR.DC ---
[address] [phone] F: [phone] Pulmonary Rehabilitation Discharge Fidelina Mcnair is a 68 year old (F) who was referred to the Pulmonary Rehabilitation program by Reese Beauchamp. This patient who has a primary diagnosis of Post covid has completed 36 sessions of the pulmonary rehabilitation program with monitored exercise and education to optimize both physical and social performance, autonomy, increase strength and endurance, and control dypsnea. They were evaluated on 09/14/23. Discharge summary and tests are below. Initial MRC Score: 3 Discharge MRC Score: 1 Six Minute Walk Test Initial 6MWT Discharge 6MWT Supplemental Oxygen O2 L/min: Room air FiO2: O2 L/min: RA FiO2: RA Resting Vitals SpO2: 95% BP: 95/52mmHg HR: 55 bpm SpO2: 98% BP: 102/62mmHg HR: 64 bpm Total Distance (ft) 400 1080 Number/ Time of Rests (sec) 2 50 0 SELINA 4 3 Walk Vitals SpO2: 98 HR: 78 SpO2: 97 HR: 68 Post-Walk Vitals SpO2: 98 BP: HR: 78 SpO2: 98 BP: 110/62 HR: 65 Performance Observations Pt walked unassisted at a slow pace. Pt became SOB and rested for about 50 seconds after every 200 feet. pt walked unassisted at a moderate pace. Exercise Assessment on : Pre-exercise Post-exercise SpO2 Heart Rate SELINA METS Exercise Assessment on : Pre-exercise Post-exercise SpO2 Heart Rate SELINA METS Exercise Assessment on : Pre-exercise Post-exercise SpO2 Heart Rate SELINA METS Topic Education/Progress Progress Comments Education Demonstrates disease self-management strategies Using medications as directed Mobilizes secretions successfully Demonstrates strategies for anxiety and depression management Progressing. Pt participates in weekly pulmonary education classes. Hypoxia Current oxygen Use: RA Pt is not currently on supplemental 02 Psychosocial PHQ-9 Score: 2 Education on coping techniques, dealing with worry Activities of Daily Living Management of ADL with Control of Dyspnea Progressing Pt reports being able to have more endurance while exerting herself. continuing to work hard and feel less Sob Nutrition and Weight Managment Current weight: 186 BMI: Weight change: Weight Gain Goal Met Tobacco Stages of Change: Tobacco Use: Cigerettes/Day: Any nicotine replacement: Any cessation medication: Smoking quit date: Smokeless tobacco use and amount: Pt is a non-smoker Medications Met, taking 100% of time Inhaled Medications Patient verbalizes correct technique of: MDI: Yes DPI: Yes SMI: Yes NEBULIZER: Yes Secretion Management Patient provides adequate return demonstration of: Controlled cough: Yes Monte cough: Acapella/ PEP Device: Yes CPT: Sputum management: Exercise and Fitness Aerobic Exercise Frequency: 2-3X weekly Target heart range: 95-126 Heart rate range: 95-126 SpO2 Range: >92% SELINA RPD: 3-4 Time (minutes): 31 O2 use with exercise: RA Current HEP: Treamill 2-3X weekly 20 min UBE 2-3X weekly/ 15 min Recumbent bike 15 min 2-3X weekly PT progresses weekly on level/mets/time. Discharge Assessment: Pt successfully completed program. Discharge Reason: Discharge Recommendation: : pt will participate in maintenance program.
== END 2023-11-29 10:12 | disposition home or self-care (01) ==
LOC: HO.PR 08:30
PROVIDERS: PCP Internal Medicine; Visit Provider Hospitalist
DX: U09.9 Post COVID-19 condition, unspecified (principal); J84.9 Interstitial pulmonary disease, unspecified
CPT/HCPCS: 94625

== ENCOUNTER 2023-11-29 10:48 | Outpatient (AMB) | payer MEDICARE, SELFPAY ==
--- NOTE | 2023-11-29 11:07 | A.OFFPC_ITS ---
Vital Signs 11/29/23 11:08 Height 5 ft 9 in Weight 184 lb BMI 27.2 BP 110/72 Blood Pressure Location Lt brachial Position Sitting Pulse 56 Pulse Source Pulse Oximeter Pulse Oximetry (%) 98 Oxygen Delivery Method Room Air Intake Visit Reasons: IGT Atrial flutter, ILD Lokie Engineer Required: No Safety Trainer: Not Required per policy Accompanied by: Self / Same As Patient Allergies acetaminophen [Percocet] Allergy (Severe, Verified 11/29/23 11:08) stomach upset oxycodone [Percocet] Allergy (Severe, Verified 11/29/23 11:08) stomach upset pneumococcal vaccine Allergy (Severe, Verified 11/29/23 11:08) Unknown apixaban [From Eliquis] Adverse Reaction (Intermediate, Verified 11/29/23 11:08) diarrhea Tobacco use date assessed: 11/29/23 Fall risk assessment: No Falls in past year Last assessed Fall Risk: 11/29/23 Dental Screening Dental Screen Date: 11/29/23 Did you have a dental visit in the last 12 months?: Yes Did you have a dental problem in the last 6 months where you did not have access to dental care?: No Was dental information given to patient?: Patient has dentist HPI IGT Atrial flutter, ILD HPI Details 68-year-old female with a history of pul monary embolism left leg DVT atrial fibrillation and interstitial lung disease last seen in July 2023. Patient's colonoscopy is up-to-date October 2020 mammogram is due this month. Patient is being followed up by Pulmonary and on pulmonary rehab presently. Has been advised to stop Trelegy due to mouth irritation. [facility] Medical History (Updated 11/29/23 @ 11:41 by Rosalba Barillas MD) Preop exam for internal medicine TSH elevation Nasolacrimal duct obstruction, acquired Chronic restrictive lung disease Paroxysmal atrial flutter DVT (deep venous thrombosis) (~01/2021) Pneumonitis Pneumonia due to COVID-19 virus (~12/2020) Chest pain LFT elevation Right leg swelling COVID-19 (~12/2020) Atrial flutter NICM (nonischemic cardiomyopathy) [id number] syndrome (~01/2021) Tachycardia Chronic thromboembolic disease (~01/2021) History of Clostridium difficile infection (~12/2020) Bilateral pulmonary embolism (~01/2021) Left leg DVT (~01/2021) Syncope (~12/2020) Osteoporosis (~2005) Vitamin D deficiency Asthma Atrial fibrillation Surgical History History of partial hysterectomy (~1982) History of mitral valve repair (~05/2016) History of cardiac cath (~05/2016) History of maze procedure History of left knee surgery History of tonsillectomy (~1965) Family History Father Melanoma Mother No problems noted. Maternal Aunt Breast cancer Brother Myasthenia gravis Social History Household Members: Spouse Household Members Other:: Housing: House Are you a primary health care liaison to a significant other at home: No Do you presently have visiting nurse or other home services: No Alcohol intake: current Alcohol intake frequency: holidays/special occasions only Patient Tobacco Use Status: Never used Tobacco e-Cigarette/Vaping Use: Never Used Second Hand Smoke Exposure: No service: No Current occupational status: disabled Cognitive needs: No Hearing needs: No Vision needs: No Questionnaire PHQ-9 Over the last 2 weeks, how often have you been bothered by any of the following problems? 1. Little interest or pleasure in doing things: not at all 2. Feeling down, depressed, or hopeless: not at all 3. Trouble falling or staying asleep, or sleeping too much: not at all 4. Feeling tired or having little energy: not at all 5. Poor appetite or overeating: not at all 6. Feeling bad about yourself - or that you are a failure or have let yourself or your family down: not at all 7. Trouble concentrating on things, such as reading the newspaper or watching television: not at all 8. Moving or speaking so slowly that other people could have noticed. Or the opposite - being so fidgety or restless that you have been moving around a lot more than usual: not at all 9. Thoughts that you would be better off or of hurting yourself in some way: not at all Total score: 0 Depression Screening Interpretation: Negative Depression Screening Done: Yes Source: Developed by Drs. Henri Steele, Lissette Yang, Wellington Ordonez and colleagues, with an educational preethi from [employer]. Thrive Questionnaire Date Thrive assessed: 11/29/23 I am a: Patient What is your living situation today?: I have a steady place to live Within the past 12 months, did the food you bought not last and you didn't have the money to get more?: Never true Within the past 12 months, did you worry whether your food would run out before you got money to buy more?: Never true Do you have trouble paying for medicines?: No Do you have trouble getting transportation to medical appointments?: No Do you have trouble paying your heating and electricity bill?: No Do you have trouble taking care of your child, family member or friend?: No Do you have trouble with day-to-day activities such as bathing, preparing meals, shopping, managing finances, etc.?: No Are you currently unemployed and looking for a job?: No Are you interested in more education?: No Please select the resources that you would like help with: None THRIVE Score: 0 AUDIT C Alcohol Use Questionnaire (AUDIT-C) 1. How often do you have a drink containing alcohol?: Monthly or less 2. How many drinks containing alcohol do you have on a typical day when you are drinking?: 1 or 2 3. How often do you have six or more drinks on one occasion?: Never Total Score: 1 KEITH-7 AMB Questionnaire KEITH-7 Date KEITH - 7 assessed: 11/29/23 Feeling nervous, anxious, or on edge: 0 = Not at all Not being able to stop or control worryin = Not at all Worrying too much about different things: 0 = Not at all Trouble relaxin = Not at all Being so restless that it is hard to sit still: 0 = Not at all Becoming easily annoyed or irritable: 0 = Not at all Feeling afraid as if something awful might happen: 0 = Not at all Total KEITH-7 score (0-4 normal; 5-9 mild; 10-14 moderate; 15-21 severe): 0 Source: Developed by Lissette Hayes, Wellington Ordonez and colleagues, with an educational preethi from [employer]. Physical exam (Primary Care) Vital Signs: Last Vital Signs Pulse 56 11/29/23 11:08 BP 110/72 11/29/23 11:08 Pulse Ox 98 11/29/23 11:08 Oxygen Delivery Method Room Air 11/29/23 11:08 BMI result Body Mass Index 27.2 Tobacco/Smoking Status: Tobacco use Status Tobacco use date assessed 11/29/23 11/29/23 11:09 Patient Tobacco Use Status Never used Tobacco 11/29/23 11:09 e-Cigarette/Vaping Use Never Used 11/29/23 11:09 PHQ-9: PHQ-9 Score PHQ-9: Total score 0 11/29/23 11:21 Depression Screening Interpretation: Negative Thrive Assessment: Date of Thrive Assessment Date Thrive assessed 11/29/23 11/29/23 11:09 Const General: alert; No acute distress Eyes Conjunctivae: conjunctivae normal Resp Auscultation: clear to auscultation bilaterally Cardio Rate: regular rate Rhythm: regular rhythm GI Inspection: Yes normal to inspection Extrem General: Yes normal to inspection and No edema Results AMB Hemoglobin A1c AMB Hemoglobin A1c 5.6 % Last Edit by AMALIA Genao on 11/29/23 11:21 Results Reviewed Results Reviewed: Laboratory Last Values Hgb A1c (Clinic) 5.6 % (4.0-6.0) 11/29/23 11:08 Assessment and Plan Assessment & Plan (1) ILD (interstitial lung disease): Code(s): J84.9 - Interstitial pulmonary disease, unspecified Plan: Patient continues to follow-up with Pulmonary and presently doing pulmonary rehab (2) PAF (paroxysmal atrial fibrillation): Code(s): I48.0 - Paroxysmal atrial fibrillation Plan: Continue with anticoagulation and sotalol (3) Breast cancer screening by mammogram: Code(s): Z12.31 - Encounter for screening mammogram for malignant neoplasm of breast Plan: Reminded about mammogram (4) Impaired glucose tolerance: Code(s): R73.02 - Impaired glucose tolerance (oral) Plan: Decrease the amount of carbohydrate intake, pasta, bread, rice and potatoes are all sugar and that is aside from all the sweet stuff, remember that fruits are good but they are Sweet also. (5) Bilateral pulmonary embolism: Onset Date: ~01/2021 Comment: resolved Code(s): I26.99 - Other pulmonary embolism without acute cor pulmonale Plan: Continuing with anticoagulation (6) Osteopenia: Code(s): M85.80 - Other specified disorders of bone density and structure, unspecified site (7) Excessive tearing: Code(s): H04.209 - Unspecified epiphora, unspecified side Orders: Orders AMB Hemoglobin A1c Today R73.02 - Impaired glucose tolerance (oral) XR DEXA axial skeleton Today M81.0 - Age-related osteoporosis without current pathological fracture, M85.80 - Other specified disorders of bone density and structure, unspecified site Referrals Ophthalmology Referral H04.209 - Unspecified epiphora, unspecified side Coding Level of Care Code Est Pt Level 4 (27077) Diagnoses ILD (interstitial lung disease) J84.9 PAF (paroxysmal atrial fibrillation) I48.0 Breast cancer screening by mammogram Z12.31 Impaired glucose tolerance R73.02 Bilateral pulmonary embolism I26.99 Osteopenia M85.80 Excessive tearing H04.209
[2023-11-29 11:08] VITALS: BP 110/72; PULSE 56; O2SAT 98; BMI 27.2
== END 2023-11-29 11:47 | disposition home or self-care (01) ==
PROVIDERS: PCP Internal Medicine; Visit Provider Internal Medicine
DX: J84.9 Interstitial pulmonary disease, unspecified (principal); I48.0 Paroxysmal atrial fibrillation; I26.99 Other pulmonary embolism without acute cor pulmonale; Z12.31 Encounter for screening mammogram for malignant neoplasm of breast; R73.02 Impaired glucose tolerance (oral); M85.80 Other specified disorders of bone density and structure, unspecified site; H04.209 Unspecified epiphora, unspecified side
CPT/HCPCS: 83036; 99214

== ENCOUNTER 2024-01-04 09:49 | Outpatient (REF) | payer MEDICARE, SELFPAY ==
--- NOTE | ~2024-01-04 | MM_ITS ---
EXAMINATION: BONE DENSITOMETRY CLINICAL INDICATION: Age-related osteoporosis without current pathological fracture. COMPARISON: Baseline BD dated 07/11/2019. TECHNIQUE: Using a [employer] DXA System (software version: 13.1) manufactured by [employer], dual-energy x-ray absorptiometry was performed of the lumbar spine and left hip. The images are of good technical quality. Summary results are attached. FINDINGS: LEFT FEMUR, NECK: Current: BMD 0.687 g/cm2, Z-score -1.2, T-score -2.5, osteoporosis. Baseline: BMD 0.654 g/cm2. LEFT FEMUR, TOTAL: Current: BMD 0.730 g/cm2, Z-score -1.1, T-score -2.2, osteopenia, 1.4% increase from baseline (<5% change is not significant). Baseline: BMD 0.720 g/cm2. AP SPINE L1-L4: Current: BMD 0.851 g/cm2, Z-score -1.6, T-score -2.7, osteoporosis, 0.2% increase from baseline (<5% change is not significant). Baseline: BMD 0.849 g/cm2. IDENTIFIED RISK FACTORS: Early menopause, secondary osteoporosis, hysterectomy, bilateral oophorectomy. HISTORY OF FRACTURE: None listed. MEDICATIONS: Calcium supplements or multivitamin, vitamin D. MM/XR DEXA axial skeleton IMPRESSION: 1. DIAGNOSIS: Osteoporosis based on the lowest T-score value of -2.7 in the lumbar spine applying World Health Organization criteria. 2. 10-YEAR FRACTURE RISK PREDICTION, FRAX: According to the guidelines, FRAX calculation should only be performed on patients in the osteopenia bone density category. Therefore, FRAX was not performed on this patient. 3. Treatment Recommendations: NOF guidelines recommend consideration for treatment in postmenopausal women and men age 50 and older presenting with the following: -A hip or vertebral (clinical or morphometric) fracture. -T-score less than or equal to -2.5 at the femoral neck or spine after appropriate evaluation to exclude secondary causes. -Low bone mass at the hip or spine and a 10-year fracture probability by FRAX of greater than or equal to 3% for hip fracture or greater than or equal to 20% for major osteoporotic fracture based on the [place] adapted WHO algorithm. 4. Other Recommendations: All treatment decisions require clinical judgment and consideration of individual patient factors, including patient preferences, comorbidities, previous drug use, risk factors not captured in the FRAX model (e.g. frailty, falls, vitamin D deficiency, increased bone turnover, interval significant decline in bone density) and possible under or overestimation of fracture risk by FRAX. Additional medical evaluation for secondary cause of low bone mineral density may be appropriate. FUTURE SCAN RECOMMENDATION: People with diagnosed cases of osteoporosis or at high risk for fracture should have regular bone mineral density tests. For patients eligible for Medicare, routine testing is allowed once every 2 years. The testing frequency can be increased to one year for patients who have rapidly progressing disease, those who are receiving or discontinuing medical therapy to restore bone mass, or have additional risk factors.
== END 2024-01-04 09:50 | disposition home or self-care (01) ==
LOC: HO.MAMMO 09:49
PROVIDERS: PCP Internal Medicine; Visit Provider Internal Medicine
DX: Z12.31 Encounter for screening mammogram for malignant neoplasm of breast (principal); Z13.820 Encounter for screening for osteoporosis; Z78.0 Asymptomatic menopausal state; M81.0 Age-related osteoporosis without current pathological fracture
CPT/HCPCS: 77063; 77067; 77080

== ENCOUNTER → 2024-01-04 11:00 | Outpatient (BNV) | payer MEDICARE, SELFPAY | PROVIDERS: PCP Internal Medicine; Visit Provider Radiology Diagnostic Radiology | DX: Z12.31 Encounter for screening mammogram for malignant neoplasm of breast (principal) | CPT/HCPCS: 77063; 77067 ==

== ENCOUNTER 2024-02-10 08:00 | Outpatient (AMB) | payer MEDICARE, SELFPAY ==
[2024-02-10 08:26] VITALS: BP 124/60; PULSE 59; BMI 27.8
--- NOTE | 2024-02-10 08:26 | MHC.OFFVIS ---
Vital Signs 02/10/24 08:26 Height 5 ft 9 in Weight 188 lb 4.396 oz BMI 27.8 BP 124/60 Blood Pressure Location Lt brachial Position Sitting Pulse 59 Intake Visit Reasons: 6 mth f/up Sexual Assault Counselor Required: No Accompanied by: Self / Same As Patient Allergies acetaminophen [Percocet] Allergy (Severe, Verified 11/29/23 11:08) stomach upset oxycodone [Percocet] Allergy (Severe, Verified 11/29/23 11:08) stomach upset pneumococcal vaccine Allergy (Severe, Verified 11/29/23 11:08) Unknown apixaban [From Eliquis] Adverse Reaction (Intermediate, Verified 11/29/23 11:08) diarrhea Medication List - Last Reconciled 02/10/24 by Leon Power MD albuterol sulfate 90 mcg/actuation 2 inhalations inhalation Q6H PRN 30 days calcium carbonate-vitamin D3 600 mg-5 mcg (200 unit) (Calcium 600 + D(3)) 1 tab PO DAILY cyanocobalamin (vitamin B-12) 1,000 mcg PO DAILY folic acid 0.8 mg PO DAILY multivitamin 1 tab PO DAILY rivaroxaban (Xarelto) 20 mg PO QPM 90 days sotalol 80 mg PO BID 90 days HPI Comments Details: Fidelina returns for follow-up. To recall, she has a history of severe mitral regurgitation the past that led to mitral valve repair along with Maze/left atrial appendage occlusion in 2015. Otherwise, she had COVID infection 2020. Since that time, there has been ongoing shortness of breath issues. She also had DVT/PE. Overall, she is just about the same as before. Nonspecific tiredness and fatigue but otherwise no clear-cut cardiac symptoms. FORMERLY [facility], [facility]–1983 Medical History (Updated 11/29/23 @ 11:41 by Rosalba Barillas MD) Preop exam for internal medicine TSH elevation Nasolacrimal duct obstruction, acquired Chronic restrictive lung disease Paroxysmal atrial flutter DVT (deep venous thrombosis) (~01/2021) Pneumonitis Pneumonia due to COVID-19 virus (~12/2020) Chest pain LFT elevation Right leg swelling COVID-19 (~12/2020) Atrial flutter NICM (nonischemic cardiomyopathy) [id number] syndrome (~01/2021) Tachycardia Chronic thromboembolic disease (~01/2021) History of Clostridium difficile infection (~12/2020) Bilateral pulmonary embolism (~01/2021) Left leg DVT (~01/2021) Syncope (~12/2020) Osteoporosis (~2005) Vitamin D deficiency Asthma Atrial fibrillation Surgical History History of partial hysterectomy (~1982) History of mitral valve repair (~05/2016) History of cardiac cath (~05/2016) History of maze procedure History of left knee surgery History of tonsillectomy (~1965) Family History Father Melanoma Mother No problems noted. Maternal Aunt Breast cancer Brother Myasthenia gravis Social History Household Members: Spouse Household Members Other:: Housing: House Are you a primary critical care technician to a significant other at home: No Do you presently have visiting nurse or other home services: No Alcohol intake: current Alcohol intake frequency: holidays/special occasions only Patient Tobacco Use Status: Never used Tobacco e-Cigarette/Vaping Use: Never Used Second Hand Smoke Exposure: No service: No Current occupational status: disabled Cognitive needs: No Hearing needs: No Vision needs: No Review of Systems Const Denies chills, Denies fatigue, Denies fever(s), Denies frequent falls, Denies weakness, Denies weight gain and Denies weight loss ENT Denies dizziness Card Denies chest pain, Denies leg edema, Denies lightheadedness, Denies palpitations, Denies dyspnea and Denies dyspnea on exertion Resp Denies cough, Denies dyspnea and Denies dyspnea on exertion GI Denies hematochezia Musc Denies abnormal gait, Denies muscle weakness, Denies numbness, Denies radiating pain into limb and Denies tingling Neuro Denies abnormal gait, Denies dizziness, Denies frequent falls, Denies numbness, Denies tingling and Denies weakness Endo Denies fatigue and Denies palpitations Physical Exam Vital Signs: Last Vital Signs Pulse 59 02/10/24 08:26 BP 124/60 02/10/24 08:26 BMI result Body Mass Index 27.8 Const General: comfortable and no acute distress Orientation/consciousness: patient oriented x3 HEENT Other: Unremarkable Head: Yes normal to inspection Neck Neck: Yes normal visual inspection Chest Chest palpation & inspection: normal inspection of the chest Resp Auscultation: clear to auscultation bilaterally Cardio Palpation: normal PMI Heart sounds: S1 normal heart sound present, S2 normal heart sound present, no gallops, no murmurs and no rubs GI Palpation (GI): Soft to palpation Back/Spine/Pelvis Other: unremarkable Skin General skin exam: no rashes or lesions noted Neuro General: patient oriented x3 Extrem General: Yes normal to inspection Psych Mental Status: mental status grossly normal Office Procedures EKG Details: EKG with sinus bradycardia 59/Min; premature supraventricular complexes; low voltage QRS; [place] [id number], Complete Assessment & Plan Assessment & Plan (1) NICM (nonischemic cardiomyopathy): Code(s): I42.8 - Other cardiomyopathies Category: Medical Plan: In the last echocardiogram, LVEF 51%. Basal inferior/inferolateral hypokinesis. Prior to that, LVEF was 40-45% with inferior wall motion abnormalities. In the cardiac catheterization, normal coronary arteries. Normal resting filling pressures. Clinically, she has got no angina or any other symptoms. Overall, will hold off any further workup at this time. (2) Paroxysmal atrial flutter: Code(s): I48.92 - Unspecified atrial flutter Category: Medical Plan: Continue sotalol. Continue Xarelto. Follow-up renal function will need to be performed. Pending lab orders. (3) PAF (paroxysmal atrial fibrillation): Code(s): I48.0 - Paroxysmal atrial fibrillation Category: Medical Plan: s/p maze procedure, KEVIN ligation 2016. Sotalol/Xarelto as above. (4) Status post mitral valve repair: Onset Date: ~05/2016 Code(s): Z98.890 - Other specified postprocedural states Category: Surgical Plan: #33 ring 2016. Normal valvular function in the last echocardiogram. Coding Level of Care Code Est Pt Level 4 (91963) Diagnoses NICM (nonischemic cardiomyopathy) I42.8 Paroxysmal atrial flutter I48.92 PAF (paroxysmal atrial fibrillation) I48.0 Status post mitral valve repair Z98.890 CPT Codes EKG - CPT: 11976-[id number], Complete ([id number])
== END 2024-02-10 08:49 | disposition home or self-care (01) ==
PROVIDERS: PCP Internal Medicine; Visit Provider Internal Medicine
DX: I42.8 Other cardiomyopathies (principal); I48.92 Unspecified atrial flutter; I48.0 Paroxysmal atrial fibrillation; Z98.890 Other specified postprocedural states
CPT/HCPCS: 93010; 99214

== ENCOUNTER → 2024-02-10 08:00 | Outpatient (BNVA) | payer MEDICARE, SELFPAY | PROVIDERS: PCP Internal Medicine; Visit Provider Internal Medicine | DX: I42.8 Other cardiomyopathies (principal); I48.92 Unspecified atrial flutter; I48.0 Paroxysmal atrial fibrillation; Z98.890 Other specified postprocedural states | CPT/HCPCS: 93005; 99212 ==

== ENCOUNTER 2024-02-28 07:44 | Outpatient (REF) | payer MEDICARE, SELFPAY ==
[2024-02-28 09:51] LABS: MANUAL DIFF FLAG NO
[2024-02-28 09:53] LABS: Eosinophils Absolute Auto 0.1 X10*3/uL (0.0-0.4); Eosinophils Percent Auto 2.2 % (0-4); Hematocrit 41.5 % (37.0-47.0); Hemoglobin 14.1 g/dl (12.0-16.0); Imm Gran Abs Auto 0.01 X10*3/uL (0.00-0.03); Imm Gran Pct Auto 0.2 % (0.0-0.4); Lymphocytes Absolute Auto 1.2 X10*3/uL (1.2-4.9); Lymphocytes Percent Auto 22.3 % (20-40); Mean Corpuscular Hemoglobin 33.2 pg (27.0-33.0); Mean Corpuscular Volume 97.6 fL (80.0-98.0); Mean Platelet Volume 12.4 fL (9.4-12.3); Monocytes Absolute Auto 0.6 X10*3/uL (0.1-1.2); Monocytes Percent Auto 11.4 % (2-11); Neutrophils Absolute Auto 3.5 x10*3/uL (2.0-8.3); Neutrophils Percent Auto 63.9 % (45-73); Platelet Count 169 X10*3/uL (160-400); Red Blood Count 4.25 X10*6/uL (4.20-5.50); Red Cell Distribution Width 12.4 % (11.0-16.0); White Blood Count 5.4 X10*3/uL (4.8-10.8)
[2024-02-28 10:04] LABS: Estimated Average Glucose 111 mg/dL; Hemoglobin A1c % 5.5 % (<6.0)
[2024-02-28 10:17] LABS: Alanine Aminotransferase 26 U/L (0-31); Albumin Level 4.1 g/dL (3.5-5.0); Anion Gap 12 (12-20); Aspartate Amino Transferase 18 U/L (5-31); Bilirubin Total 0.7 mg/dL (0.0-1.0); Blood Urea Nitrogen 24 mg/dL (9-16); Calcium 9.5 mg/dL (8.4-10.2); Carbon Dioxide 25 mmol/L (22-29); Chloride 110 mmol/L (96-108); Cholesterol 143 mg/dL (<200); Estimated Glomerular Filt Rate > 60; Glucose Random 106 mg/dL (60-115); HDL Cholesterol 46 mg/dL (>40); LDL Cholesterol Calculated 80 mg/dL (<100); Magnesium 1.9 mg/dL (1.6-2.6); Potassium 4.1 mmol/L (3.3-5.1); Sodium 143 mmol/L (135-145); Total Protein 6.5 g/dL (6.5-8.0); Triglycerides 85 mg/dL (<150)
[2024-02-28 10:26] LABS: Alkaline Phosphatase 86 U/L (39-117)
[2024-02-28 10:37] LABS: Thyroid Stimulating Hormone 5.89 uIU/mL (0.32-4.0); Vitamin D 25-OH Total 39.5 ng/mL (>30)
[2024-02-28 11:05] LABS: B Type Natriuretic Peptide 88 pg/mL (<100)
[2024-02-28 11:48] LABS: Folate 14.9 ng/mL (> or = 4.0); Vitamin B12 1122 pg/mL (200-900)
== END 2024-02-28 07:45 | disposition home or self-care (01) ==
LOC: HO.10HDL 07:44
PROVIDERS: Visit Provider Internal Medicine
DX: I48.0 Paroxysmal atrial fibrillation (principal); R73.02 Impaired glucose tolerance (oral); E78.00 Pure hypercholesterolemia, unspecified
CPT/HCPCS: 36415; 80053; 80061; 82306; 82607; 82746; 83036; 83735; 83880; 84439; 84443; 85025

== ENCOUNTER 2024-03-09 09:42 | Outpatient (AMB) | payer MEDICARE, SELFPAY ==
--- NOTE | 2024-03-09 09:57 | A.OFFPC_ITS ---
Vital Signs 03/09/24 09:58 Height 5 ft 9 in Weight 187 lb BMI 27.6 BP 112/68 Blood Pressure Location Lt brachial Position Sitting Pulse 76 Pulse Source Pulse Oximeter Pulse Oximetry (%) 97 Oxygen Delivery Method Room Air Intake Visit Reasons: 3 Month F/U Allergies acetaminophen [Percocet] Allergy (Severe, Verified 03/09/24 09:58) stomach upset oxycodone [Percocet] Allergy (Severe, Verified 03/09/24 09:58) stomach upset pneumococcal vaccine Allergy (Severe, Verified 03/09/24 09:58) Unknown apixaban [From Eliquis] Adverse Reaction (Intermediate, Verified 03/09/24 09:58) diarrhea Tobacco use date assessed: 11/29/23 Fall risk assessment: No Falls in past year Last assessed Fall Risk: 03/09/24 Dental Screening Dental Screen Date: 11/29/23 HPI 3 Month F/U HPI Details 69-year-old overweight female with inter stitial lung disease atrial fibrillation impaired glucose tolerance history of pulmonary embolism coming in for follow-up. Last seen in 12/15/2023 patient has declined colonoscopy, mammogram is up-to-date bone density is up-to-date. Patient is last seen in 12/15/2023. Patient follows up with Cardiology seen in 02/14/2024 severe mitral regurg status post repair along with left atrial appendage occlusion 2015. COVID infection 2020 echocardiogram with an EF of 51% basal inferior inferolateral hypokinesis prior EF 40-45% normal coronaries atrial flutter on sotalol and Xarelto [facility] Medical History (Updated 03/09/24 @ 10:17 by Rosalba Barillas MD) Osteopenia Preop exam for internal medicine TSH elevation Nasolacrimal duct obstruction, acquired Chronic restrictive lung disease Paroxysmal atrial flutter DVT (deep venous thrombosis) (~01/2021) Pneumonitis Pneumonia due to COVID-19 virus (~12/2020) Chest pain LFT elevation Right leg swelling COVID-19 (~12/2020) Atrial flutter NICM (nonischemic cardiomyopathy) 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) Tachycardia Chronic thromboembolic disease (~01/2021) History of Clostridium difficile infection (~12/2020) Bilateral pulmonary embolism (~01/2021) Left leg DVT (~01/2021) Syncope (~12/2020) Osteoporosis (~2005) Vitamin D deficiency Asthma Atrial fibrillation Surgical History (Reviewed 02/10/24 @ 08:31 by Michelle Scherer [facility] [address]) History of partial hysterectomy (~1982) History of mitral valve repair (~05/2016) History of cardiac cath (~05/2016) History of maze procedure History of left knee surgery History of tonsillectomy (~1965) Family History (Reviewed 02/10/24 @ 08:31 by Michelle Scherer [facility]) Father Melanoma Mother No problems noted. Maternal Aunt Breast cancer Brother Myasthenia gravis Social History (Reviewed 02/10/24 @ 08:31 by Michelle Scherer [facility]) Household Members: Spouse Household Members Other:: Housing: House Are you a primary hospice care sales consultant to a significant other at home: No Do you presently have visiting nurse or other home services: No Alcohol intake: current Alcohol intake frequency: holidays/special occasions only Patient Tobacco Use Status: Never used Tobacco e-Cigarette/Vaping Use: Never Used Second Hand Smoke Exposure: No service: No Current occupational status: disabled Cognitive needs: No Hearing needs: No Vision needs: No Questionnaire PHQ-9 Over the last 2 weeks, how often have you been bothered by any of the following problems? 1. Little interest or pleasure in doing things: not at all 2. Feeling down, depressed, or hopeless: not at all 3. Trouble falling or staying asleep, or sleeping too much: not at all 4. Feeling tired or having little energy: not at all 5. Poor appetite or overeating: not at all 6. Feeling bad about yourself - or that you are a failure or have let yourself or your family down: not at all 7. Trouble concentrating on things, such as reading the newspaper or watching television: not at all 8. Moving or speaking so slowly that other people could have noticed. Or the opposite - being so fidgety or restless that you have been moving around a lot more than usual: not at all 9. Thoughts that you would be better off or of hurting yourself in some way: not at all Total score: 0 Depression Screening Interpretation: Negative Depression Screening Done: Yes Source: Developed by Drs. Henri Steele, Lissette Yang, Wellington Ordonez and colleagues, with an educational preethi from [email or web address]. Thrive Questionnaire Date Thrive assessed: 11/29/23 AUDIT C Alcohol Use Questionnaire (AUDIT-C) 1. How often do you have a drink containing alcohol?: Monthly or less 2. How many drinks containing alcohol do you have on a typical day when you are drinking?: 1 or 2 3. How often do you have six or more drinks on one occasion?: Never Total Score: 1 KEITH-7 AMB Questionnaire KEITH-7 Date KEITH - 7 assessed: 11/29/23 Source: Developed by Drs. Henri Steele, Lissette Yang, Wellington Ordonez and colleagues, with an educational preethi from [email or web address]. Physical exam (Primary Care) Vital Signs: Last Vital Signs Pulse 76 03/09/24 09:58 BP 112/68 03/09/24 09:58 Pulse Ox 97 03/09/24 09:58 Oxygen Delivery Method Room Air 03/09/24 09:58 BMI result Body Mass Index 27.6 Tobacco/Smoking Status: Tobacco use Status Tobacco use date assessed 11/29/23 03/09/24 10:03 Patient Tobacco Use Status Never used Tobacco 03/09/24 10:03 e-Cigarette/Vaping Use Never Used 03/09/24 10:03 PHQ-9: PHQ-9 Score PHQ-9: Total score 0 03/09/24 10:03 Depression Screening Interpretation: Negative Thrive Assessment: Date of Thrive Assessment Date Thrive assessed 11/29/23 03/09/24 10:03 Const General: alert; No acute distress Eyes Conjunctivae: conjunctivae normal Resp Auscultation: clear to auscultation bilaterally Cardio Rate: regular rate Rhythm: regular rhythm GI Inspection: Yes normal to inspection Extrem General: Yes normal to inspection and No edema Assessment and Plan Assessment & Plan (1) Osteoporosis: Onset Date: ~2005 Comment: (Bone Dexa T-score -3.7 lumbar - 07/11/19) 01/15/2024 Code(s): M81.0 - Age-related osteoporosis without current pathological fracture Plan: Continue with calcium and vitamin-D and discussion about treatment for osteoporosis (2) PAF (paroxysmal atrial fibrillation): Comment: Status post left atrial appendage closure and Maze 2015 Code(s): I48.0 - Paroxysmal atrial fibrillation Plan: Continuing with sotalol and Xarelto patient follows up with Cardiology renal function testing done (3) 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 (6) Asthma: Code(s): J45.909 - Unspecified asthma, uncomplicated Qualifiers: Asthma severity: mild Asthma persistence: intermittent Asthma complication type: uncomplicated Qualified Code(s): J45.20 - Mild intermittent asthma, uncomplicated Plan: Continue with pulmonary support on albuterol (7) ILD (interstitial lung disease): Code(s): J84.9 - Interstitial pulmonary disease, unspecified Plan: Continue to follow-up with Pulmonary Coding Level of Care Code Est Pt Level 4 (90265) Diagnoses Osteoporosis M81.0 PAF (paroxysmal atrial fibrillation) I48.0 [id number] syndrome U09.9 Bilateral pulmonary embolism I26.99 Impaired glucose tolerance R73.02 Mild intermittent asthma without complication J45.20 Asthma severity: mild Asthma persistence: intermittent Asthma complication type: uncomplicated ILD (interstitial lung disease) J84.9
[2024-03-09 09:58] VITALS: BP 112/68; PULSE 76; O2SAT 97; BMI 27.6
== END 2024-03-09 10:41 | disposition home or self-care (01) ==
PROVIDERS: PCP Internal Medicine; Visit Provider Internal Medicine
DX: M81.0 Age-related osteoporosis without current pathological fracture (principal); I48.0 Paroxysmal atrial fibrillation; I26.99 Other pulmonary embolism without acute cor pulmonale; J84.9 Interstitial pulmonary disease, unspecified; U09.9 Post COVID-19 condition, unspecified; R73.02 Impaired glucose tolerance (oral); J45.20 Mild intermittent asthma, uncomplicated
CPT/HCPCS: 99214

== ENCOUNTER → 2024-06-06 11:00 | Outpatient (RCR) | payer OTHER, SELFPAY ==
[2021-02-28 14:49] VITALS: BP 133/56; PULSE 94; RESP 12; TEMP 36.7; O2SAT 97; BMI 25.2
--- NOTE | 2021-02-28 15:45 | PM.HEMONCCN ---
Subjective - Subjective Chief complaint: Consult for: Pulmonary embolism. Left leg DVT. Patient: new to practice Consult date: 02/28/21 Requesting Physician: Eran. Primary Care Provider: Rosalba Barillas MD Medical Summary: DIAGNOSIS: 1. BILATERAL PE. 2. LEFT LEG DVT. 3. COVID PNEUMONIA. HPI - Consult Narrative Reason for consult: Consult for: PE. Left leg DVT. Narrative: Fidelina Mcnair is a pleasant 66 year old lady who tells me that back in mid December she was admitted to the hospital. She was taking a shower when she passed out. She was in the hospital for 10 days. She was diagnosed with COVID pneumonia bacteremia and a UTI. Subsequently she went home but after 2 days she passed out again. She was admitted here for 5 days. She was diagnosed with pulmonary emboli and left leg DVT. Discharge summary: Presented with shortness of breath and chest pain. COVID on 01/16. She had prolonged hospitalization due to hypoxia and C diff.. Discharged 01/28. With 3 L home O2. Completed vancomycin at home. She then started developing exertional dyspnea and chest pressure. She came back in on 02/08. D-dimer was 8000. CTA revealed: 1. Prominent pulmonary emboli in bilateral central, segmental and subsegmental vessels, more prominent on the right side, with estimated moderate thrombus load. Recommend followup imaging to ensure resolution. 2. Interval development of multifocal airspace and ground-glass opacities diffusely in bilateral thoraces, with peripheral predominance, commonly seen with COVID infection. This time patient was hypoxic with O2 sat of 85% on RA. Echo: Normal LV with moderate RV dysfunction. She was started on Lovenox 1 milligram/kilogram q.12. She was then switched over to Xarelto however she developed diarrhea. She was sent home on Eliquis 5 mg a day. Repeat labs revealed little decreased BNP and D-dimer. She was sent home on 02/15 on home PT. Review of Systems - Constitutional Reports system reviewed and no additional complaints, except as documented, Reports lack of energy, Reports malaise, Reports poor appetite, Reports weight loss - Eyes Reports system reviewed and no additional complaints, except as documented - ENT Reports system reviewed and no additional complaints, except as documented - Cardiovascular Reports system reviewed and no additional complaints, except as documented, Reports shortness of breath with activity - Respiratory Reports no additional respiratory complaints - Gastrointestinal Reports system reviewed and no additional complaints, except as documented - Genitourinary Reports no additional female genitourinary complaints - Musculoskeletal Reports system reviewed and no additional complaints, except as documented - Integumentary/Breasts Skin/Breast: Reports no additional skin complaints - Neurologic Reports system reviewed and no additional complaints, except as documented - Psychiatric Reports system reviewed and no additional complaints, except as documented - Endocrine Reports no additional endocrine complaints - Hematologic/Lymphatic Reports system reviewed and no additional complaints, except as documented - Allergic/Immunologic Reports system reviewed and no additional complaints, except as documented PMFSH Medical History: Medical History (Last Updated 03/04/21 @ 14:09 by Galina Omer PA-C) Asthma Atrial fibrillation Bilateral pulmonary embolism Onset Date: ~01/2021 Chest pain Clostridium difficile colitis Onset Date: ~12/2020 COVID-19 Onset Date: ~12/2020 Left leg DVT Onset Date: ~01/2021 Osteoporosis Pneumonia due to COVID-19 virus Onset Date: ~12/2020 Syncope Onset Date: ~12/2020 Vitamin D deficiency Functional capacity: uses cane/walker Patient : No Family History: Family History (Last Reviewed 02/08/21 @ 23:28 by Halley Werner RN) Father Melanoma Mother No problems noted. Maternal Aunt Breast cancer Brother Myasthenia gravis Surgical History: Surgical History (Last Updated 03/04/21 @ 14:05 by Galina Omer PA-C) History of hysterectomy History of left knee surgery History of maze procedure History of tonsillectomy Social History: Social History (Last Updated 02/28/21 @ 14:54 by Faby Tellez) Living Situation History: Household Members: Spouse Housing: House Do you presently have visiting nurse or other home services: Yes Do you presently have visiting nurse or other home services comment: [facility] Alcohol History: Alcohol intake: current Alcohol History Details: Alcohol intake frequency: a few times a month Tobacco History: Patient Tobacco Use Status: Never used Tobacco Occupation Assessmet: service: No Current occupational status: employed Home Medications and Allergies Home Medications Medication Instructions Recorded Confirmed Type albuterol sulfate 90 mcg/actuation 2 puff INHALATION Q4-6H PRN 02/05/21 03/03/21 History aerosol inhaler calcium carbonate 600 mg (1,500 1 tab PO DAILY 02/05/21 03/03/21 History mg)-vitamin D3 200 unit tablet cyanocobalamin (vitamin B-12) 1,000 mcg PO DAILY 02/05/21 03/03/21 History 1,000 mcg capsule folic acid 800 mcg tablet 0.8 mg PO DAILY 02/05/21 03/03/21 History zinc 50 mg tablet 50 mg PO DAILY 02/05/21 03/03/21 History Allergies Allergy/AdvReac Type Severity Reaction Status Date / Time acetaminophen [Percocet] Allergy Severe stomach Verified 03/03/21 14:19 upset oxycodone [Percocet] Allergy Severe stomach Verified 03/03/21 14:19 upset pneumococcal vaccine Allergy Severe Unknown Verified 03/03/21 14:19 apixaban [From Eliquis] AdvReac Intermediate diarrhea Verified 03/03/21 14:19 Physical Exam Vital signs: Vital Signs Temp 98.1 F 02/28/21 14:49 Pulse 94 02/28/21 14:49 Resp 12 02/28/21 14:49 BP 133/56 L 02/28/21 14:49 Pulse Ox 97 02/28/21 14:49 Intake & Output 02/27/21 02/28/21 02/28/21 18:59 06:59 18:59 Other: Weight 77.4 kg Weight in Grams 17559 Weight 77.4 kg - Constitutional Present: moderate distress - Routine HEENT Exam Head: Present: normal inspection ENT: Present: mucous membranes moist - Routine Neck Exam Present: supple - Routine Respiratory Exam Present: decreased breath sounds, CTAB - Routine Cardiovascular Exam Cardiovascular: Present: RRR, S1, S2 - Routine Abdominal Exam Present: soft, nontender - Routine Rectal Exam Patient deferred: digital exam - Routine Skin Exam Present: intact - Routine Neurological Exam Present: alert, oriented X3 - Detailed Neurological Exam: Coma Scale Eye Opening: Spontaneous (4) Verbal Response: Oriented (5) Motor Response: Obeys commands (6) [place] Coma Scale Total: 15 - Routine Psychiatric Exam Present: depressed. Absent: normal affect Hem/Onc Consult Result - Labs CBC & Chem 7: 02/28/21 15:40 02/28/21 15:40 Assessment and Plan (1) Bilateral pulmonary embolism Status: Acute DATA BASE: [place] 9.5, alb 3.9. LFTs: 0.5/81/37/63. This is a pleasant 66-year-old lady who had COVID pneumonia back in mid December. Sequentially she developed bilateral PE and left leg DVT in mid January. She was on Eliquis but had diarrhea. Now switched to Xarelto. She still feels short of breath especially on exertion. She is still on O2 2 liters/minutes. I am rather concerned. PLAN: Will refer her to Pulmonary. She has an appointment on Wednesday. In the meantime will check BNP: 57, and D-dimer level: <200,, to follow the trend. She will continue on the Xarelto for 6-12 months. Will follow the above labs and decide about the duration. She will return in a month for a follow-up visit. Thank you, CC: Dr. Barillas. Reese Marley.
[2021-02-28 16:51] LABS: MANUAL DIFF FLAG NO
[2021-02-28 16:56] LABS: Eosinophils Absolute Auto 0.1 X10*3/uL (0.0-0.4); Eosinophils Percent Auto 0.9 % (0-4); Hematocrit 36.5 % (37-47); Hemoglobin 11.8 g/dl (12.0-16.0); Imm Gran Abs Auto 0.04 X10*3/uL (0.00-0.03); Imm Gran Pct Auto 0.6 % (0.0-0.4); Lymphocytes Percent Auto 16.1 % (20-40); Mean Corpuscular HGB Conc 32.3 g/dl (31.0-35.0); Mean Corpuscular Hemoglobin 31.3 pg (27.0-33.0); Mean Corpuscular Volume 96.8 fL (80-98); Mean Platelet Volume 12.3 fL (9.4-12.3); Monocytes Absolute Auto 0.6 X10*3/uL (0.1-1.2); Monocytes Percent Auto 9.7 % (2-11); Neutrophils Absolute Auto 4.7 X10*3/uL (2.0-8.3); Neutrophils Percent Auto 72.7 % (45-73); Platelet Count 220 X10*3/uL (160-400); Red Blood Count 3.77 X10*6/uL (4.20-5.50); Red Cell Distribution Width 12.7 % (11.0-16.0); White Blood Count 6.4 X10*3/uL (4.8-10.8)
[2021-02-28 17:09] LABS: D Dimer < 200 NG/ML
[2021-02-28 17:16] LABS: Alanine Aminotransferase 63 U/L (0-31); Albumin Level 3.9 g/dL (3.5-5.0); Alkaline Phosphatase 81 U/L (39-117); Anion Gap 13 (12-20); Aspartate Amino Transferase 37 U/L (5-31); Bilirubin Total 0.5 mg/dL (0.0-1.0); Blood Urea Nitrogen 12 mg/dL (9-16); Calcium 9.5 mg/dL (8.4-10.2); Carbon Dioxide 25 mmol/L (22-29); Chloride 107 mmol/L (96-108); Creatinine Clr Calc Pharmacy 79.2; Estimated Glomerular Filt Rate > 60; Glucose Random 88 mg/dL (60-115); Potassium 4.4 mmol/L (3.3-5.1); Sodium 141 mmol/L (135-145); Total Protein 6.1 g/dL (6.5-8.0)
[2021-02-28 17:17] LABS: B Type Natriuretic Peptide 57 pg/mL (<100)
[2021-04-01 11:07] VITALS: BMI 25.4
[2021-04-01 11:08] VITALS: BP 100/70; PULSE 78; RESP 17; TEMP 36.7; O2SAT 98
--- NOTE | 2021-04-01 11:22 | P.PNHO_ITS ---
Medical Summary - Medical Summary Date of Service: 04/01/21 Chief complaint: follow-up for: DVT. Medical Summary: DIAGNOSIS: 1. BILATERAL PE. 2. LEFT LEG DVT. 3. COVID PNEUMONIA. Interval History Interval history: Fidelina Mcnair is a pleasant 66 year old lady, here for a follow-up visit. She recently had an exacerbation of bronchitis. She was on prednisone. She is tapering it. Overall she is feeling better. She still gets short of breath on exertion. She feels she had a very active lifestyle and now it is quite limiting her. When she tries to move a lot she feels short of breath then. She has to stop and rest. She is under the care of pulmonary. She is on 2 L of oxygen. She has been scheduled for PFTs 04/09. Her legs are good. Swelling is down. She denies pain. No tenderness. Energy level has improved. She denies headache no dizziness. No abdominal pain nausea vomiting heartburn indigestion. Bowels are working without any gross blood in it. She enjoys a good appetite. Weight is stable. She denies easy bruising nor systemic bleeding. She remains on the Xarelto. Previous history: She tells me that back in mid December she was admitted to the hospital. She was taking a shower when she passed out. She was in the hospital for 10 days. She was diagnosed with COVID pneumonia bacteremia and a UTI. Subsequently she went home but after 2 days she passed out again. She was admitted here for 5 days. She was diagnosed with pulmonary emboli and left leg DVT. Discharge summary: Presented with shortness of breath and chest pain. COVID on 01/16. She had prolonged hospitalization due to hypoxia and C diff.. Discharged 01/28. With 3 L home O2. Completed vancomycin at home. She then started developing exertional dyspnea and chest pressure. She came back in on 02/08. D-dimer was 8000. CTA revealed: 1. Prominent pulmonary emboli in bilateral central, segmental and subsegmental vessels, more prominent on the right side, with estimated moderate thrombus load. Recommend followup imaging to ensure resolution. 2. Interval development of multifocal airspace and ground-glass opacities diffusely in bilateral thoraces, with peripheral predominance, commonly seen with COVID infection. This time patient was hypoxic with O2 sat of 85% on RA. Echo: Normal LV with moderate RV dysfunction. She was started on Lovenox 1 milligram/kilogram q.12. She was then switched over to Xarelto however she developed diarrhea. She was sent home on Eliquis 5 mg a day. Repeat labs revealed little decreased BNP and D-dimer. She was sent home on 02/15 on home PT. Review of Systems - Constitutional Reports system reviewed and no additional complaints, except as documented, Reports lack of energy, Reports malaise, Denies weight loss - Eyes Reports system reviewed and no additional complaints, except as documented - ENT Reports system reviewed and no additional complaints, except as documented - Cardiovascular Reports system reviewed and no additional complaints, except as documented, Reports shortness of breath, Reports shortness of breath with activity, Denies chest pain, Denies leg swelling, Denies lightheadedness - Respiratory Reports no additional respiratory complaints - Gastrointestinal Reports system reviewed and no additional complaints, except as documented - Genitourinary Reports no additional female genitourinary complaints - Musculoskeletal Reports system reviewed and no additional complaints, except as documented - Integumentary/Breasts Skin/Breast: Reports no additional skin complaints - Neurologic Reports system reviewed and no additional complaints, except as documented - Psychiatric Reports system reviewed and no additional complaints, except as documented - Endocrine Reports no additional endocrine complaints - Hematologic/Lymphatic Reports system reviewed and no additional complaints, except as documented - Allergic/Immunologic Reports system reviewed and no additional complaints, except as documented PMFSH Medical History: Medical History (Last Updated 03/20/21 @ 10:24 by Reese Beauchamp MD) Asthma Atrial fibrillation Bilateral pulmonary embolism Onset Date: ~01/2021 Chest pain Clostridium difficile colitis Onset Date: ~12/2020 COVID-19 Onset Date: ~12/2020 Left leg DVT Onset Date: ~01/2021 Osteoporosis Pneumonia due to COVID-19 virus Onset Date: ~12/2020 Pneumonitis Syncope Onset Date: ~12/2020 Vitamin D deficiency Functional capacity: uses cane/walker Patient : No Family History: Family History (Last Reviewed 04/01/21 @ 11:19 by Deb Montgomery RN) Father Melanoma Mother No problems noted. Maternal Aunt Breast cancer Brother Myasthenia gravis Surgical History: Surgical History (Last Reviewed 04/01/21 @ 11:19 by Deb Montgomery RN) History of hysterectomy History of left knee surgery History of maze procedure History of tonsillectomy Social History: Social History (Last Reviewed 04/01/21 @ 11:19 by Deb Montgomery RN) Living Situation History: Household Members: Spouse Housing: House Do you presently have visiting nurse or other home services: Yes Do you presently have visiting nurse or other home services comment: CLARA Alcohol History: Alcohol intake: current Alcohol History Details: Alcohol intake frequency: a few times a month Tobacco History: Patient Tobacco Use Status: Never used Tobacco e-Cigarette/Vaping Use: Never Used Second Hand Smoke Exposure: No Substance Use History: Use of substances other than those prescribed or required for medical reasons : No Nutrition Assessment: Patient : No Occupation Assessmet: service: No Current occupational status: disabled Oncology Screenings - ECOG Performance Status ECOG Performance Status: 1 Home Medications and Allergies Home Medications Medication Instructions Recorded Confirmed Type albuterol sulfate 90 mcg/actuation 2 puff INHALATION Q4-6H PRN 02/05/21 04/01/21 History aerosol inhaler calcium carbonate 600 mg (1,500 1 tab PO DAILY 02/05/21 04/01/21 History mg)-vitamin D3 200 unit tablet cyanocobalamin (vitamin B-12) 1,000 mcg PO DAILY 02/05/21 04/01/21 History 1,000 mcg capsule folic acid 800 mcg tablet 0.8 mg PO DAILY 02/05/21 04/01/21 History zinc 50 mg tablet 50 mg PO DAILY 02/05/21 04/01/21 History aspirin 1 tab PO DAILY 04/01/21 04/01/21 History Allergies Allergy/AdvReac Type Severity Reaction Status Date / Time acetaminophen [Percocet] Allergy Severe stomach Verified 03/20/21 10:55 upset oxycodone [Percocet] Allergy Severe stomach Verified 03/20/21 10:55 upset pneumococcal vaccine Allergy Severe Unknown Verified 03/20/21 10:55 apixaban [From Eliquis] AdvReac Intermediate diarrhea Verified 03/20/21 10:55 Exam Vital signs: Vital Signs Temp 98.0 F 04/01/21 11:08 Pulse 78 04/01/21 11:08 Resp 17 04/01/21 11:08 BP 100/70 04/01/21 11:08 Pulse Ox 98 04/01/21 11:08 Intake & Output 03/31/21 04/01/21 04/01/21 18:59 06:59 18:59 Other: Weight 78.3 kg Weight in Grams [id number] Weight 78.3 kg Body Mass Index 25.4 - Constitutional Present: moderate distress - Routine HEENT Exam Head: Present: normal inspection Eye: Present: normal appearance ENT: Present: mucous membranes moist, normal exam - Routine Neck Exam Present: full ROM. Absent: lymphadenopathy - Routine Respiratory Exam Present: decreased breath sounds, CTAB - Routine Cardiovascular Exam Cardiovascular: Present: RRR, S1, S2 - Routine Abdominal Exam Present: soft, nontender - Routine Rectal Exam Patient deferred: digital exam - Routine Extremities Exam Present: nontender - Routine Back/Spine/Pelvis Exam Back/Spine: Present: full ROM - Routine Skin Exam Present: intact - Routine Neurological Exam Present: alert, oriented X3 - Detailed Neurological Exam: Coma Scale Eye Opening: Spontaneous (4) - Routine Psychiatric Exam Present: normal affect Data - Labs CBC & Chem 7: 04/01/21 11:12 04/01/21 11:12 Labs: 02/28/21 15:40 BNP [B Type Natriuretic Peptide] Routine Complete Blood Count Auto Diff Routine Comprehensive Met. Panel Routine D Dimer Routine Laboratory Last Values WBC 6.4 X10*3/uL (4.8-10.8) 02/28/21 15:40 RBC 3.77 X10*6/uL (4.20-5.50) L 02/28/21 15:40 Hgb 11.8 g/dl (12.0-16.0) L 02/28/21 15:40 Hct 36.5 % (37-47) L 02/28/21 15:40 MCV 96.8 fL (80-98) 02/28/21 15:40 MCH 31.3 pg (27.0-33.0) 02/28/21 15:40 MCHC 32.3 g/dl (31.0-35.0) 02/28/21 15:40 RDW 12.7 % (11.0-16.0) 02/28/21 15:40 Plt Count 220 X10*3/uL (160-400) D 02/28/21 15:40 MPV 12.3 fL (9.4-12.3) 02/28/21 15:40 Immature Gran % (Auto) 0.6 % (0.0-0.4) H 02/28/21 15:40 Neut % (Auto) 72.7 % (45-73) 02/28/21 15:40 Lymph % (Auto) 16.1 % (20-40) L 02/28/21 15:40 Mcintosh % (Auto) 9.7 % (2-11) 02/28/21 15:40 Eos % (Auto) 0.9 % (0-4) 02/28/21 15:40 Baso % (Auto) 0.0 % (0-2) 02/28/21 15:40 Lymph # (Auto) 1.0 X10*3/uL (1.2-4.9) L 02/28/21 15:40 Mcintosh # (Auto) 0.6 X10*3/uL (0.1-1.2) 02/28/21 15:40 Eos # (Auto) 0.1 X10*3/uL (0.0-0.4) 02/28/21 15:40 Baso # (Auto) 0.0 X10*3/uL (0.0-0.2) 02/28/21 15:40 Abs Immat Gran (auto) 0.04 X10*3/uL (0.00-0.03) H 02/28/21 15:40 Absolute Neuts (auto) 4.7 X10*3/uL (2.0-8.3) 02/28/21 15:40 Absolute Nucleated RBC 0.000 X10*3/uL (0.0-0.012) 02/28/21 15:40 Nucleated RBC % (auto) 0.0 /100WBC (0.0-0.2) 02/28/21 15:40 D-Dimer < 200 NG/ML 02/28/21 15:40 Sodium 141 mmol/L (135-145) 02/28/21 15:40 Potassium 4.4 mmol/L (3.3-5.1) 02/28/21 15:40 Chloride 107 mmol/L (96-108) 02/28/21 15:40 Carbon Dioxide 25 mmol/L (22-29) 02/28/21 15:40 Anion Gap 13 (12-20) 02/28/21 15:40 BUN 12 mg/dL (9-16) 02/28/21 15:40 Creatinine 0.71 mg/dL (0.5-1.4) 02/28/21 15:40 Estim Creat Clear Calc 79.2 02/28/21 15:40 Estimated GFR > 60 02/28/21 15:40 Random Glucose 88 mg/dL (60-115) 02/28/21 15:40 Calcium 9.5 mg/dL (8.4-10.2) D 02/28/21 15:40 Total Bilirubin 0.5 mg/dL (0.0-1.0) 02/28/21 15:40 AST 37 U/L (5-31) H D 02/28/21 15:40 ALT 63 U/L (0-31) H 02/28/21 15:40 Alkaline Phosphatase 81 U/L (39-117) 02/28/21 15:40 B-Natriuretic Peptide 57 pg/mL (<100) 02/28/21 15:40 Total Protein 6.1 g/dL (6.5-8.0) L 02/28/21 15:40 Albumin 3.9 g/dL (3.5-5.0) 02/28/21 15:40 Progress Note: A/P (1) Bilateral pulmonary embolism Status: Acute Assessment and plan: This is a pleasant 66-year-old lady who had COVID pneumonia back in mid December. Sequentially she developed bilateral PE and left leg DVT in mid January. She was on Eliquis but had diarrhea. Now switched to Xarelto. She still feels short of breath especially on exertion. Although her symptoms have improved with time. She is still on O2 2 liters/minutes. l referred her to Pulmonary. She is currently undergoing a workup. She is scheduled for PFTs on 04/09. In the meantime l checked BNP: 57, and D-dimer level: <200, to follow the trend. Her D-dimer today is <200. PLAN: She will continue on the Xarelto for 12 months. Will follow the above labs and decide about the duration. She will return in 3 months for a follow-up visit. Thank you, CC: Dr. Barillas. Reese Marley. - Time Spent With Patient 25 - 35 minutes Time Spent with Patient (in minutes): 30
[2021-04-01 11:26] LABS: MANUAL DIFF FLAG NO
[2021-04-01 11:34] LABS: Basophils Percent Auto 0.1 % (0-2); Eosinophils Absolute Auto 0.1 X10*3/uL (0.0-0.4); Eosinophils Percent Auto 1.6 % (0-4); Hematocrit 39.1 % (37-47); Hemoglobin 12.7 g/dl (12.0-16.0); Imm Gran Abs Auto 0.03 X10*3/uL (0.00-0.03); Imm Gran Pct Auto 0.4 % (0.0-0.4); Lymphocytes Absolute Auto 1.5 X10*3/uL (1.2-4.9); Lymphocytes Percent Auto 18.1 % (20-40); Mean Corpuscular HGB Conc 32.5 g/dl (31.0-35.0); Mean Corpuscular Hemoglobin 32.2 pg (27.0-33.0); Mean Corpuscular Volume 99.2 fL (80-98); Mean Platelet Volume 11.5 fL (9.4-12.3); Monocytes Absolute Auto 0.9 X10*3/uL (0.1-1.2); Monocytes Percent Auto 11.3 % (2-11); Neutrophils Absolute Auto 5.7 X10*3/uL (2.0-8.3); Neutrophils Percent Auto 68.5 % (45-73); Platelet Count 172 X10*3/uL (160-400); Red Blood Count 3.94 X10*6/uL (4.20-5.50); Red Cell Distribution Width 13.8 % (11.0-16.0); White Blood Count 8.3 X10*3/uL (4.8-10.8)
[2021-04-01 11:50] LABS: D Dimer < 200 NG/ML
[2021-04-01 12:15] LABS: Alanine Aminotransferase 32 U/L (0-31); Albumin Level 4.3 g/dL (3.5-5.0); Alkaline Phosphatase 79 U/L (39-117); Anion Gap 10 (12-20); Aspartate Amino Transferase 17 U/L (5-31); Bilirubin Total 0.8 mg/dL (0.0-1.0); Blood Urea Nitrogen 13 mg/dL (9-16); Carbon Dioxide 30 mmol/L (22-29); Chloride 104 mmol/L (96-108); Creatinine Clr Calc Pharmacy 69.4; Estimated Glomerular Filt Rate > 60; Glucose Random 97 mg/dL (60-115); Potassium 3.9 mmol/L (3.3-5.1); Sodium 140 mmol/L (135-145); Total Protein 6.4 g/dL (6.5-8.0)
--- NOTE | 2021-04-01 16:15 | MHC.HEMONC ---
Exam with Dr. Kumar, labs obtained. VSS. Clinical summary/medications reviewed by this RN. Patient to remain on Xarelto. Follow up in 3 months. Patient following pulmonary Dr. Beauchamp for ongoing SOB (chronic 02 dependent). Patient is scheduled next week for pulmonary function tests.
--- NOTE | 2021-06-26 10:46 | PM.HEMONCPN ---
Medical Summary - Medical Summary Date of Service: 06/26/21 Chief complaint: Follow-up for: Bilateral PE. Medical Summary: DIAGNOSIS: 1. BILATERAL PE. 2. LEFT LEG DVT. 3. COVID PNEUMONIA. Interval History Interval history: Fidelina Mcnair is a pleasant 66 year old lady, here for a follow-up visit. She tells me that she has had pain in her left leg over the past couple of weeks. It radiates from her knee down to her foot. She can hardly walk towards the end of the day. It is hard for her to put weight on it. She was seen by Dr. Beauchamp recently. He ordered ultrasound on 06/09, it revealed: Changes of chronic DVT in the left superficial femoral vein. Thrombus seen in the left popliteal vein. It is uncertain whether this represents chronic changes or acute DVT. Short-term follow-up exam in several days to assess for change is recommended. . Energy level has improved. She denies headache no dizziness. No abdominal pain nausea vomiting heartburn indigestion. Bowels are working without any gross blood in it. She enjoys a good appetite. Weight is stable. She denies easy bruising nor systemic bleeding. She remains on the Xarelto. She had noted some here loss however that appears to be subsiding. Back in March, she recently had an exacerbation of bronchitis. She was on prednisone. She is tapering it. Overall she is feeling better. She still gets short of breath on exertion. She feels she had a very active lifestyle and now it is quite limiting her. When she tries to move a lot she feels short of breath then. She has to stop and rest. She is under the care of pulmonary. She is on 2 L of oxygen. She had PFTs 04/09. Previous history: She tells me that back in mid December she was admitted to the hospital. She was taking a shower when she passed out. She was in the hospital for 10 days. She was diagnosed with COVID pneumonia bacteremia and a UTI. Subsequently she went home but after 2 days she passed out again. She was admitted here for 5 days. She was diagnosed with pulmonary emboli and left leg DVT. Discharge summary: Presented with shortness of breath and chest pain. COVID on 01/16. She had prolonged hospitalization due to hypoxia and C diff.. Discharged 01/28. With 3 L home O2. Completed vancomycin at home. She then started developing exertional dyspnea and chest pressure. She came back in on 02/08. D-dimer was 8000. CTA revealed: 1. Prominent pulmonary emboli in bilateral central, segmental and subsegmental vessels, more prominent on the right side, with estimated moderate thrombus load. Recommend followup imaging to ensure resolution. 2. Interval development of multifocal airspace and ground-glass opacities diffusely in bilateral thoraces, with peripheral predominance, commonly seen with COVID infection. This time patient was hypoxic with O2 sat of 85% on RA. Echo: Normal LV with moderate RV dysfunction. She was started on Lovenox 1 milligram/kilogram q.12. She was then switched over to Xarelto however she developed diarrhea. She was sent home on Eliquis 5 mg a day. Repeat labs revealed little decreased BNP and D-dimer. She was sent home on 02/15 on home PT. Review of Systems - Constitutional Reports no additional constitutional complaints - Eyes Reports no additional eye complaints - ENT Reports no additional ear, nose, mouth, and throat complaints - Cardiovascular Reports no additional cardiovascular complaints - Respiratory Reports no additional respiratory complaints - Gastrointestinal Reports no additional gastrointestinal complaints - Genitourinary Reports no additional female genitourinary complaints - Musculoskeletal Reports no additional musculoskeletal complaints - Integumentary/Breasts Skin/Breast: Reports no additional skin complaints - Neurologic Reports no additional neurologic complaints - Psychiatric Reports no additional psychiatric complaints - Endocrine Reports no additional endocrine complaints - Hematologic/Lymphatic Reports no additional hematologic/lymphatic complaints - Allergic/Immunologic Reports no additional allergic/immunologic complaints [facility] Medical History: Medical History (Last Reviewed 06/26/21 @ 10:53 by Rambo Stoll) Asthma Atrial fibrillation Bilateral pulmonary embolism Onset Date: ~01/2021 Chest pain Clostridium difficile colitis Onset Date: ~12/2020 COVID-19 Onset Date: ~12/2020 Left leg DVT Onset Date: ~01/2021 Osteoporosis Pneumonia due to COVID-19 virus Onset Date: ~12/2020 Pneumonitis Syncope Onset Date: ~12/2020 Vitamin D deficiency Functional capacity: uses cane/walker Patient : No Family History: Family History (Last Reviewed 06/26/21 @ 10:53 by Rambo Stoll) Father Melanoma Mother No problems noted. Maternal Aunt Breast cancer Brother Myasthenia gravis Surgical History: Surgical History (Last Reviewed 06/26/21 @ 10:53 by Rambo Stoll) History of cardiac cath Onset Date: ~2015 History of hysterectomy Onset Date: ~1982 History of left knee surgery History of maze procedure History of mitral valve repair Onset Date: ~2015 History of tonsillectomy Onset Date: ~1965 Social History: Social History (Last Reviewed 06/26/21 @ 10:53 by Rambo Stoll) Living Situation History: Household Members: Spouse Housing: House Do you presently have visiting nurse or other home services: Yes Do you presently have visiting nurse or other home services comment: [facility] Alcohol History: Alcohol intake: current Alcohol History Details: Alcohol intake frequency: a few times a month Tobacco History: Patient Tobacco Use Status: Never used Tobacco e-Cigarette/Vaping Use: Never Used Second Hand Smoke Exposure: No Occupation Assessmet: service: No Current occupational status: disabled Oncology Screenings - ECOG Performance Status ECOG Performance Status: 0 Home Medications and Allergies Home Medications Medication Instructions Recorded Confirmed Type albuterol sulfate 90 mcg/actuation 2 puff INHALATION Q4-6H PRN 02/05/21 04/01/21 History aerosol inhaler (ProAir HFA) calcium carbonate 600 mg (1,500 1 tab PO DAILY 02/05/21 04/01/21 History mg)-vitamin D3 200 unit tablet (Calcium 600 + D(3)) cyanocobalamin (vitamin B-12) 1,000 mcg PO DAILY 02/05/21 04/01/21 History 1,000 mcg capsule folic acid 800 mcg tablet 0.8 mg PO DAILY 02/05/21 04/01/21 History aspirin 81 mg chewable tablet 1 tab PO DAILY 04/01/21 04/01/21 History Allergies Allergy/AdvReac Type Severity Reaction Status Date / Time acetaminophen [Percocet] Allergy Severe stomach Verified 05/06/21 11:14 upset oxycodone [Percocet] Allergy Severe stomach Verified 05/06/21 11:14 upset pneumococcal vaccine Allergy Severe Unknown Verified 05/06/21 11:14 apixaban [From Eliquis] AdvReac Intermediate diarrhea Verified 05/06/21 11:14 Exam Vital signs: Vital Signs Temp 98.0 F 04/01/21 11:08 Pulse 78 04/01/21 11:08 Resp 17 04/01/21 11:08 BP 100/70 04/01/21 11:08 Pulse Ox 98 04/01/21 11:08 Weight 78.3 kg Body Mass Index 25.4 - Constitutional Present: moderate distress - Routine HEENT Exam Head: Present: normal inspection Eye: Present: normal appearance ENT: Present: mucous membranes moist - Routine Neck Exam Present: full ROM. Absent: lymphadenopathy - Routine Respiratory Exam Present: decreased breath sounds, CTAB - Routine Cardiovascular Exam Cardiovascular: Present: RRR, S1, S2 - Routine Abdominal Exam Present: soft, nontender - Routine Rectal Exam Patient deferred: digital exam - Routine Extremities Exam Present: nontender - Routine Back/Spine/Pelvis Exam Back/Spine: Present: full ROM - Routine Skin Exam Present: intact - Routine Neurological Exam Present: alert, oriented X3 - Detailed Neurological Exam: Coma Scale Eye Opening: Spontaneous (4) - Routine Psychiatric Exam Present: normal affect Data - Labs CBC & Chem 7: 06/26/21 10:39 06/26/21 10:39 Labs: 02/28/21 15:40 BNP [B Type Natriuretic Peptide] Routine Complete Blood Count Auto Diff Routine Comprehensive Met. Panel Routine D Dimer Routine Laboratory Last Values WBC 6.4 X10*3/uL (4.8-10.8) 02/28/21 15:40 RBC 3.77 X10*6/uL (4.20-5.50) L 02/28/21 15:40 Hgb 11.8 g/dl (12.0-16.0) L 02/28/21 15:40 Hct 36.5 % (37-47) L 02/28/21 15:40 MCV 96.8 fL (80-98) 02/28/21 15:40 MCH 31.3 pg (27.0-33.0) 02/28/21 15:40 MCHC 32.3 g/dl (31.0-35.0) 02/28/21 15:40 RDW 12.7 % (11.0-16.0) 02/28/21 15:40 Plt Count 220 X10*3/uL (160-400) D 02/28/21 15:40 MPV 12.3 fL (9.4-12.3) 02/28/21 15:40 Immature Gran % (Auto) 0.6 % (0.0-0.4) H 02/28/21 15:40 Neut % (Auto) 72.7 % (45-73) 02/28/21 15:40 Lymph % (Auto) 16.1 % (20-40) L 02/28/21 15:40 [place] % (Auto) 9.7 % (2-11) 02/28/21 15:40 Eos % (Auto) 0.9 % (0-4) 02/28/21 15:40 Baso % (Auto) 0.0 % (0-2) 02/28/21 15:40 Lymph # (Auto) 1.0 X10*3/uL (1.2-4.9) L 02/28/21 15:40 [place] # (Auto) 0.6 X10*3/uL (0.1-1.2) 02/28/21 15:40 Eos # (Auto) 0.1 X10*3/uL (0.0-0.4) 02/28/21 15:40 Baso # (Auto) 0.0 X10*3/uL (0.0-0.2) 02/28/21 15:40 Abs Immat Gran (auto) 0.04 X10*3/uL (0.00-0.03) H 02/28/21 15:40 Absolute Neuts (auto) 4.7 X10*3/uL (2.0-8.3) 02/28/21 15:40 Absolute Nucleated RBC 0.000 X10*3/uL (0.0-0.012) 02/28/21 15:40 Nucleated RBC % (auto) 0.0 /100WBC (0.0-0.2) 02/28/21 15:40 D-Dimer < 200 NG/ML 02/28/21 15:40 Sodium 141 mmol/L (135-145) 02/28/21 15:40 Potassium 4.4 mmol/L (3.3-5.1) 02/28/21 15:40 Chloride 107 mmol/L (96-108) 02/28/21 15:40 Carbon Dioxide 25 mmol/L (22-29) 02/28/21 15:40 Anion Gap 13 (12-20) 02/28/21 15:40 BUN 12 mg/dL (9-16) 02/28/21 15:40 Creatinine 0.71 mg/dL (0.5-1.4) 02/28/21 15:40 Estim Creat Clear Calc 79.2 02/28/21 15:40 Estimated GFR > 60 02/28/21 15:40 Random Glucose 88 mg/dL (60-115) 02/28/21 15:40 Calcium 9.5 mg/dL (8.4-10.2) D 02/28/21 15:40 Total Bilirubin 0.5 mg/dL (0.0-1.0) 02/28/21 15:40 AST 37 U/L (5-31) H D 02/28/21 15:40 ALT 63 U/L (0-31) H 02/28/21 15:40 Alkaline Phosphatase 81 U/L (39-117) 02/28/21 15:40 B-Natriuretic Peptide 57 pg/mL (<100) 02/28/21 15:40 Total Protein 6.1 g/dL (6.5-8.0) L 02/28/21 15:40 Albumin 3.9 g/dL (3.5-5.0) 02/28/21 15:40 Assessment and Plan Patient Active problem list reviewed?: Yes (1) Bilateral pulmonary embolism Status: Acute Assessment and plan: This is a pleasant 66-year-old lady who had COVID pneumonia back in mid December. Subsequently, she developed bilateral PE and left leg DVT in mid January. She was on Eliquis but had diarrhea. Now switched to Xarelto. She still feels short of breath at times, especially on exertion. Although her symptoms have improved with time. She is still on O2 2 liters/minutes. l referred her to Pulmonary. She was worked up. She had PFTs on 04/09. In the meantime l checked BNP: 57, and D-dimer level: <200, to follow the trend. She has had some symptoms of left lower extremity pain and swelling. Her D-dimer today is <200. She was seen by Dr. Beauchamp. Ultrasound was done on 06/09 which revealed: Changes of chronic DVT in the left superficial femoral vein. Thrombus seen in the left popliteal vein. It is uncertain whether this represents chronic changes or acute DVT. Short-term follow-up exam in several days to assess for change is recommended. PLAN: I will repeat her ultrasound today to follow-up on the left popliteal vein. This revealed: hronic changes of residual thrombus within the distal SFV. Also visualized is thrombus within the popliteal vein which is much smaller compared to previous exam. She will continue on the Xarelto for at least 12 months. Will follow the above labs and decide about the duration. She will return in 3 months for a follow-up visit. Thank you, CC: Dr. Barillas. Reese Marley. - Time Spent With Patient Time Spent with Patient (in minutes): 30
[2021-06-26 10:49] LABS: MANUAL DIFF FLAG NO
[2021-06-26 10:52] VITALS: BP 118/75; PULSE 78; RESP 12; TEMP 36.8; O2SAT 99; BMI 25.7
[2021-06-26 10:53] LABS: Eosinophils Absolute Auto 0.2 X10*3/uL (0.0-0.4); Eosinophils Percent Auto 2.9 % (0-4); Hematocrit 41.2 % (37-47); Hemoglobin 13.5 g/dl (12.0-16.0); Imm Gran Abs Auto 0.02 X10*3/uL (0.00-0.03); Imm Gran Pct Auto 0.4 % (0.0-0.4); Lymphocytes Percent Auto 19.7 % (20-40); Mean Corpuscular HGB Conc 32.8 g/dl (31.0-35.0); Mean Corpuscular Hemoglobin 31.2 pg (27.0-33.0); Mean Corpuscular Volume 95.2 fL (80-98); Mean Platelet Volume 11.8 fL (9.4-12.3); Monocytes Absolute Auto 0.6 X10*3/uL (0.1-1.2); Monocytes Percent Auto 11.1 % (2-11); Neutrophils Absolute Auto 3.4 X10*3/uL (2.0-8.3); Neutrophils Percent Auto 65.9 % (45-73); Platelet Count 156 X10*3/uL (160-400); Red Blood Count 4.33 X10*6/uL (4.20-5.50); Red Cell Distribution Width 11.9 % (11.0-16.0); White Blood Count 5.2 X10*3/uL (4.8-10.8)
[2021-06-26 11:04] LABS: D Dimer < 200 NG/ML
[2021-06-26 11:10] LABS: Alanine Aminotransferase 26 U/L (0-31); Albumin Level 4.1 g/dL (3.5-5.0); Alkaline Phosphatase 88 U/L (39-117); Anion Gap 12 (12-20); Aspartate Amino Transferase 17 U/L (5-31); Bilirubin Total 0.8 mg/dL (0.0-1.0); Blood Urea Nitrogen 16 mg/dL (9-16); Calcium 9.1 mg/dL (8.4-10.2); Carbon Dioxide 24 mmol/L (22-29); Chloride 107 mmol/L (96-108); Estimated Glomerular Filt Rate > 60; Glucose Random 95 mg/dL (60-115); Potassium 4.1 mmol/L (3.3-5.1); Sodium 139 mmol/L (135-145); Total Protein 6.2 g/dL (6.5-8.0)
--- NOTE | 2021-07-18 12:48 | MHC.HEMONC ---
Pt progress notes faxed to [employer]. Pt has signed release of information.
== END | disposition home or self-care (01) ==
LOC: HO.ONC 02-28 14:16
PROVIDERS: PCP Internal Medicine; Referring Provider Internal Medicine; Visit Provider Internal Medicine Medical Oncology
DX: I26.99 Other pulmonary embolism without acute cor pulmonale (principal); I82.512 Chronic embolism and thrombosis of left femoral vein; I82.432 Acute embolism and thrombosis of left popliteal vein; R06.02 Shortness of breath; Z79.01 Long term (current) use of anticoagulants; Z99.81 Dependence on supplemental oxygen; Z86.16 Personal history of COVID-19
CPT/HCPCS: 36415; 80053; 83880; 85025; 85379

== ENCOUNTER 2024-06-20 09:24 | Outpatient (AMB) | payer MEDICARE, SELFPAY ==
[2024-06-20 09:42] VITALS: BP 126/70; PULSE 67; O2SAT 97; BMI 27.7
--- NOTE | 2024-06-20 09:42 | A.OFFVIS_ITS ---
Vital Signs 06/20/24 09:42 Height 5 ft 9 in Weight 187 lb 6.287 oz BMI 27.7 BP 126/70 Blood Pressure Location Lt brachial Position Sitting Pulse 67 Pulse Source Pulse Oximeter Pulse Oximetry (%) 97 Oxygen Delivery Method Room Air Intake Visit Reasons: Pulmonary Emboli Pattern Filer Required: No Allergies acetaminophen [Percocet] Allergy (Severe, Verified 06/20/24 09:45) stomach upset oxycodone [Percocet] Allergy (Severe, Verified 06/20/24 09:45) stomach upset pneumococcal vaccine Allergy (Severe, Verified 06/20/24 09:45) Unknown apixaban [From Eliquis] Adverse Reaction (Intermediate, Verified 06/20/24 09:45) diarrhea HPI Comments Details: The patient is a 69-year-old woman with a known history of NSVT, afib and valvular surgery who apparently was in her usual state health until back in January 16 she presented with worsening shortness of breath to the ER. She was positive for COVID-19. Her CT scan of the chest demonstrated some minimal airspace disease at the bases. During the hospital course she was treated for a superimposed bacterial infection and also C diff. the patient was ultimately discharged home. However, home she started developing worsening shortness of breath several weeks after. She return to the ER. Had a repeat CTA after having a D-dimer of 8000. The repeat CTA demonstrated bilateral pulmonary embolisms consistent with submassive PE. In addition to the bilateral pulmonary emboli the patient did have extensive airspace disease secondary to severe COVID 19 pneumonia. Her echocardiogram demonstrated moderate right ventricular dysfunction. The patient initially placed on Eliquis and then subsequent switched over to Xarelto due to adverse effects. She has been compliant with the medication. The patient continues to have significant dyspnea on exertion. Moderate to severe even with minimal activity. Recently she did follow-up with Hematology. A repeat brain atretic peptide was normal. Today in the office we did perform a 6 minutes walk test. The patient again had a Monika score of 8/10 with minimal activity heart rate 100 in a pulse ox of 98%. This is on 2 L. therefore her shortness of breath was out of proportion to the findings. She also describes chest pressure. In the office we did do an EKG demonstrating new T-wave inversions specially in the inferior and precordial leads. The T-wave inversions in flattening are new when compared to an EKG from February 10. The patient did call her research scientist and I am hopeful that she can follow-up soon. In the meantime will have her get a troponin I tests done to make sure she is not having any evidence of any cardiac damage. The patient is aware that if her symptoms worsen she is to go to the ER urgently. 11/12/2021 the patient is here for a pulmonary follow-up visit. The patient has been feeling better. Apparently her respiratory symptoms were still persistent and waxing waning. She went to see her primary care doctor where she was noted to be irregularly irregular concerning for atrial fibrillation. She was recommended to go to the ER but she was reluctant. She went home. Her symptoms however worsen and she did go to the ER finally. She was noted to be in AFib with rapid ventricular response. This is a new onset atrial fibrillation. The patient was evaluated by Cardiology and underwent cardioversion and placed on sotalol. Since then her breathing has improved. The patient has been on Xarelto. Interestingly her INR was elevated at 1.8. I did place an order to repeat that. In the meantime I did recommend she take multivitamins. In regards of her thromboembolic disease she did have a repeat CTA in the ER that I personally reviewed demonstrating no evidence of any acute or chronic thrombus in the chest. She still has some areas of mosaic pattern in addition to that some scarring at the bases likely from the severe COVID. In addition to that we did review her lower extremity Dopplers now with resolution of her blood clot Of her lower extremity. 03/16/2022 the patient is here for a pulmonary follow-up visit. She continues to have significant dyspnea on exertion, moderate severity. Even with minimal activity. She has not felt well and has not made any improvement the last several months. Since we last met the patient did have an extensive cardiac workup including a left and right cardiac catheterization. No evidence of any coronary disease and also no evidence of any pulmonary vascular disease. Therefore ruling out the possibility of any chronic thromboembolic disease Resulting in pulmonary hypertension. She also underwent pulmonary function studies in January 2022 which was personally by me demonstrating interval worsening of her total lung capacity and also no real significant improvement on her severe diffusion impairment. At this point he still unclear why this is the case. She did resolve her pulmonary emboli although cannot rule out recurrent events. The patient also did have some evidence of interstitial lung disease that was the results of the COVID there is a possibility that this ultimately continue worsening. Therefore, I will request a repeat CT scan to assess her interstitial lung disease. Her D-dimer was checked and was negative so therefore will hold off on additional contrast. All her findings are consistent with her severe COVID with persistent symptoms and findings more than a year afterwards. In view of her interstitial lung disease will plan to do additional workup looking for other etiologies including connective tissue conditions and also plan to try her on a course of prednisone for the next 3-4 weeks. 07/10/2022 the patient is here for a pulmonary follow-up visit. Since we last spoke she did take a course of prednisone. However, she did not see any significant improvement with her breathing. She still complains of dyspnea on exertion moderate severity with minimal activity. Even with activities of daily living. Again, we did review her pulmonary function studies demonstrating significant diffusion impairment. The patient based on the perfusion study does not appear to have any persistent residual clots to explaining chronic thromboembolic disease. Although, based on the this portion all diffusion impairment pulmonary hypertension is did differential. Will go ahead and request a cardiac when her exercise tolerance test level 1 at [facility] to further address the question. In addition to that the patient did being blood thinners which she is tolerating well. Also, her PFTs she does have evidence of small airways disease therefore will go ahead and try her on a prescription of Trelegy to see if we can provide her some relief with bronchodilation. 10/12/2022 the patient is here for a pulmonary follow-up visit. Overall the patient appears to be doing slightly better. She still having some shortness of breath primarily when going up a flight of stairs [id number] severity. But overall she is doing better. She continues on the blood thinner. She was supposed to undergo a cardiopulmonary exercise stress test at [facility] but it was postponed based on the fact that they did not have the equipment available and subsequently after that it was not reschedule. She still waiting to get a call back. In the meantime I will reach out to her research scientist to see if a stress echo will be sufficient to further address the question of exercise- induced pulmonary hypertension. The patient does have multiple reasons why she has underlying dyspnea including her systolic dysfunction, diastolic dysfunction, restrictive lung disease and significant diffusion impairment on her PFTs. Indeed pulmonary hypertension is a concern. Although, her cardiac catheterization recent she was very reassuring with normal PA pressures at rest. Still exercise-induced pulmonary hypertension is in the differential. 04/14/2023 the patient is here for pulmonary follow-up visit. Overall she is feeling a little better. Still having significant dyspnea on exertion. Moderate severity with minimal activity. Typically she has been doing less. For that reason she has been gaining weight she states. She did have a repeat echocardiogram demonstrating a slight improvement of the ejection fraction from 40% to 51%. In addition to that she did undergo a cardiopulmonary exercise tolerance test. It demonstrated that she had a very limited aerobic capacity. She has some degree this could be secondary to muscle weakness. In addition to that demonstrated that her cardiac reserve with significant decrease suggesting a cardiovascular limitation. Breath after the cardiovascular mentation was reached develop respiratory limitations. Therefore it is likely that between the weakness in the cardiovascular issues her symptoms worsened with minimal pulmonary reserve as well. Therefore, the patient needs to go back to pulmonary rehabilitation. In addition to that work on diuresis to try to decrease her volume status to see if we can improve her cardiovascular function and capacity. The patient will start pulmonary rehab once available. She continues on the anticoagulation. 08/18/2023 the patient is here for a pulmonary follow-up visit. The patient overall has been doing well. She has been doing very well with pulmonary rehabilitation. She continues to participate regularly. She is noticing improvement in her exercise capacity. She is working closely with Cardiology. She continues on Xarelto for the history of PE in addition to her atrial fibrillation. Currently she is on the full dose Xarelto. He may be the case that she needs to stay on that dose. She will be able to talk to her research scientist during the next visit about decreasing the dose to 10 mg. At least from a PE standpoint she is able to decrease to 10 mg for prophylactic dose although I am not sure about the atrial fibrillation. From a respiratory status she stop the Trelegy because it was irritating her mouth. She does use a rescue inhaler as needed and this has been affecting beneficial. She does not use it more than twice a week so therefore she does not need any maintenance therapies. If she does need them inhaler more often she can always call and I can find something that is less irritating to her. 06/20/2024 the patient is here for a pulmonary follow-up visit. Overall the patient has been doing fairly well. She continues to participate in pulmonary rehabilitation which she has found to be helpful. The patient continues on Xarelto she does have atrial flutter. She also takes it for the history pulmonary emboli. She is currently tolerating the blood thinner without any minor major 100 indications. The patient did have blood work in the past and demonstrated to have an elevated SELENE and also an elevated CCP. Therefore, will be reasonable to repeat blood work specially with concerns of underlying inters titial lung disease. She does have some interstitial changes on her CT scan. She has not had any recent imaging. Should also have a chest x-ray to see if there is any progression. [facility] Medical History (Updated 06/20/24 @ 09:58 by Reese Beauchamp MD) 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 Osteopenia Preop exam for internal medicine TSH elevation Nasolacrimal duct obstruction, acquired Chronic restrictive lung disease Paroxysmal atrial flutter DVT (deep venous thrombosis) (~01/2021) Pneumonitis Pneumonia due to COVID-19 virus (~12/2020) Chest pain LFT elevation Right leg swelling COVID-19 (~12/2020) Atrial flutter NICM (nonischemic cardiomyopathy) [id number] syndrome (~01/2021) Tachycardia Chronic thromboembolic disease (~01/2021) History of Clostridium difficile infection (~12/2020) Bilateral pulmonary embolism (~01/2021) Left leg DVT (~01/2021) Syncope (~12/2020) Osteoporosis (~2005) Vitamin D deficiency Asthma Atrial fibrillation Surgical History History of partial hysterectomy (~1982) History of mitral valve repair (~05/2016) History of cardiac cath (~05/2016) History of maze procedure History of left knee surgery History of tonsillectomy (~1965) Family History Father Melanoma Mother No problems noted. Maternal Aunt Breast cancer Brother Myasthenia gravis Social History Household Members: Spouse Household Members Other:: Housing: House Are you a primary acute care registered nurse to a significant other at home: No Do you presently have visiting nurse or other home services: No Alcohol intake: current Alcohol intake frequency: holidays/special occasions only Patient Tobacco Use Status: Never used Tobacco e-Cigarette/Vaping Use: Never Used Second Hand Smoke Exposure: No service: No Current occupational status: disabled Cognitive needs: No Hearing needs: No Vision needs: No Review of Systems Const Denies night sweats ENT Denies change in voice, Denies lip swelling, Denies mouth pain, Reports nasal congestion, Reports nasal discharge and Denies tongue swelling Card Denies chest pain, Denies palpitations, Denies dyspnea and Reports dyspnea on exertion Resp Reports cough, Denies pain on inspiration, Denies pain with cough, Denies dyspnea and Reports dyspnea on exertion GI Denies abdominal pain Musc Reports arthralgias and Reports joint swelling Neuro Denies Neuro-related abnormal movements Psych Denies no additional complaints Endo Denies palpitations Candelario/Lymph Denies easy bleeding and Denies lymphadenopathy Aller/Immun Denies lip swelling and Denies tongue swelling Physical Exam Vital Signs: Last Vital Signs Pulse 67 06/20/24 09:42 BP 126/70 06/20/24 09:42 Pulse Ox 97 06/20/24 09:42 Oxygen Delivery Method Room Air 06/20/24 09:42 BMI result Body Mass Index 27.7 Const General: alert Neck Neck: Yes normal visual inspection, Yes full ROM and Yes no lymphadenopathy Chest Chest palpation & inspection: normal inspection of the chest Resp Auscultation: diminished lung sounds Cardio Rate: regular rate Rhythm: regular rhythm Heart sounds: S1 normal heart sound present and S2 normal heart sound present GI Palpation (GI): Soft to palpation and nontender Auscultation: normal bowel sounds Skin General skin exam: rashes and/or lesions noted Assessment & Plan Assessment & Plan (1) [id number] syndrome: Onset Date: ~01/2021 Code(s): U09.9 - Post COVID-19 condition, unspecified Category: Medical (2) ILD (interstitial lung disease): Code(s): J84.9 - Interstitial pulmonary disease, unspecified Category: Medical (3) NICM (nonischemic cardiomyopathy): Code(s): I42.8 - Other cardiomyopathies Category: Medical (4) Paroxysmal atrial flutter: Code(s): I48.92 - Unspecified atrial flutter Category: Medical (5) Bilateral pulmonary embolism: Onset Date: ~01/2021 Comment: resolved Code(s): I26.99 - Other pulmonary embolism without acute cor pulmonale Category: Medical (6) Chronic restrictive lung disease: Code(s): J98.4 - Other disorders of lung Category: Medical Plan CPET demonstrating muscle weakness resulting in minimal aerobic capacity along with limited cardiovascular function with also a respiratory limitation. continue pulmonary rehab stopped Trelegy inhaler Continue anticoagulation with Xorelto bloodwork follow-up 8-12 months Orders: Orders Cyclic Citrullinated Peptide Today R76.8 - Other specified abnormal immunological findings in serum Sjogren's Antibodies Today R76.8 - Other specified abnormal immunological findings in serum Erythrocyte Sedimentation Rate Today R76.8 - Other specified abnormal immunological findings in serum XR chest 2V Today J84.9 - Interstitial pulmonary disease, unspecified Anti DNA DS Antibody Today R76.8 - Other specified abnormal immunological findings in serum SELENE Reflex Titer and Pattern Today R76.8 - Other specified abnormal immunological findings in serum Coding Level of Care Code Est Pt Level 4 (32864) Diagnoses [id number] syndrome U09.9 ILD (interstitial lung disease) J84.9 NICM (nonischemic cardiomyopathy) I42.8 Paroxysmal atrial flutter I48.92 Bilateral pulmonary embolism I26.99 Chronic restrictive lung disease J98.4 Time Spent (min) 17
== END 2024-06-20 10:05 | disposition home or self-care (01) ==
PROVIDERS: PCP Internal Medicine; Visit Provider Hospitalist
DX: U09.9 Post COVID-19 condition, unspecified (principal); J84.9 Interstitial pulmonary disease, unspecified; I42.8 Other cardiomyopathies; I48.92 Unspecified atrial flutter; I26.99 Other pulmonary embolism without acute cor pulmonale; J98.4 Other disorders of lung
CPT/HCPCS: 99214

== ENCOUNTER → 2024-06-20 09:24 | Outpatient (BNVA) | payer MEDICARE, SELFPAY | PROVIDERS: PCP Internal Medicine; Visit Provider Hospitalist | DX: U09.9 Post COVID-19 condition, unspecified (principal); J98.4 Other disorders of lung; J84.9 Interstitial pulmonary disease, unspecified; I42.8 Other cardiomyopathies; I48.92 Unspecified atrial flutter; I26.99 Other pulmonary embolism without acute cor pulmonale | CPT/HCPCS: 99212 ==

== ENCOUNTER 2024-08-10 13:00 | Outpatient (AMB) | payer MEDICARE, SELFPAY ==
[2024-08-10 13:02] VITALS: BP 114/62; PULSE 65; O2SAT 98; BMI 27.5
--- NOTE | 2024-08-10 13:02 | A.OFFVIS_ITS ---
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 Accompanied by: Self / Same As Patient Allergies acetaminophen [Percocet] Allergy (Severe, Verified 08/10/24 13:03) stomach upset oxycodone [Percocet] Allergy (Severe, Verified 08/10/24 13:03) stomach upset pneumococcal vaccine Allergy (Severe, Verified 08/10/24 13:03) Unknown apixaban [From Eliquis] Adverse Reaction (Intermediate, Verified 08/10/24 13:03) diarrhea Medication List - Last Reconciled 08/10/24 by Rosalba Barillas MD albuterol sulfate 90 mcg/actuation 2 inhalations inhalation Q6H PRN 30 days amoxicillin 2,000 mg PO One Hour before the procedure; calcium carbonate-vitamin D3 600 mg-5 mcg (200 unit) (Calcium 600 + D(3)) 1 tab PO DAILY cyanocobalamin (vitamin B-12) 1,000 mcg PO DAILY folic acid 0.8 mg PO DAILY multivitamin 1 tab PO DAILY rivaroxaban (Xarelto) 20 mg PO QPM 90 days sotalol 80 mg PO BID 90 days HPI SWV HPI Details 69-year-old overweight female with a his tory of 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 Patient is here for annual well visit. Declined colonoscopy mammogram is up-to-date bone density is up-to-date. Review of the notes has been follow-up with Pulmonary June 20 PET done demonstrating muscle weakness continue in pulmonary rehab stopped Trelegy continue with anticoagulation with Xarelto noted and blood work to have an elevated TSH Pulmonary Dr. Beauchamp, cardiology Dr. Power, Hematology-Oncology Dr. Kumar Colonoscopy declined October 201910/2020 Mammogram June 2019S June Pap smear December 2015 Bone density June PFT February 2022Mild restrictive ventilatory defect with positive bronchodilator response. Decreased diffusion capacity suggestive of a restrictive ventilatory defect, suggest underlying pulmonary parenchymal disease.? Clinical correlation is advised. PFSH Medical History (Updated 08/10/24 @ 13:23 by Rosalba Barillas MD) 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 Osteopenia Preop exam for internal medicine TSH elevation Nasolacrimal duct obstruction, acquired Chronic restrictive lung disease Paroxysmal atrial flutter DVT (deep venous thrombosis) (~01/2021) Pneumonitis Pneumonia due to COVID-19 virus (~12/2020) Chest pain LFT elevation Right leg swelling COVID-19 (~12/2020) Atrial flutter NICM (nonischemic cardiomyopathy) [id number]-[id number] syndrome (~01/2021) Tachycardia Chronic thromboembolic disease (~01/2021) History of Clostridium difficile infection (~12/2020) Bilateral pulmonary embolism (~01/2021) Left leg DVT (~01/2021) Syncope (~12/2020) Osteoporosis (~2005) Vitamin D deficiency Asthma Atrial fibrillation Surgical History History of partial hysterectomy (~1982) History of mitral valve repair (~05/2016) History of cardiac cath (~05/2016) History of maze procedure History of left knee surgery History of tonsillectomy (~1965) Family History Father Melanoma Mother No problems noted. Maternal Aunt Breast cancer Brother Myasthenia gravis Social History (Updated 08/10/24 @ 13:30 by Rosalba Barillas MD) Household Members: Spouse Household Members Other:: Housing: House Are you a primary progressive care unit registered nurse to a significant other at home: No Do you presently have visiting nurse or other home services: No Alcohol intake: current Alcohol intake frequency: holidays/special occasions only Comment: once q 3-4 montsh 1-2 drink Patient Tobacco Use Status: Never used Tobacco e-Cigarette/Vaping Use: Never Used Second Hand Smoke Exposure: No service: No Current occupational status: disabled Cognitive needs: No Hearing needs: No Vision needs: No Questionnaire Medicare Wellness Checkup [age] What gender do you identify with?: female During the past 4 weeks, how much have you been bothered by emotional problems such as feeling anxious, depressed, irritable, sad or downhearted, and blue?: not at all During the past 4 weeks, has your physical & emotional health limited your social activities with family, friends, neighbors, or groups?: not at all During the past 4 weeks, how much bodily pain have you generally had?: no pain During the past 4 weeks, was someone available to help you if you needed & wanted help?: yes, as much as I wanted During the past 4 weeks, what was the hardest physical activity you could do for at least 2 minutes?: moderate Can you get to places out of walking distance without help? (For eg., can you travel alone on buses, taxis or drive your car?): Yes Can you go shopping for groceries or clothes without someone's help?: Yes Can you prepare your own meals?: Yes Can you do your housework without help?: Yes Because of any health problems, do you need the help of another person with your personal care needs such as eating, bathing, dressing or getting around the house?: No Can you handle your own money without help?: Yes During the past 4 weeks, how would you rate your health in general?: good During the past 4 weeks how have things been going for you?: pretty well Are you having difficulties driving your car?: no Do you always fasten your seat belt when you are in a car?: yes, usually During past 4 weeks, have you been bothered by the following: never: Falling or dizzy when standing up, Sexual problems?, Trouble eating well?, Teeth or denture problems? and Problems using the telephone? and sometimes: Tiredness or fatigue? Have you fallen 2 or more times in the past year?: No Are you afraid of falling?: No Are you a smoker?: no During the past 4 weeks, how many drinks of wine, beer, or other alcoholic beverages did you have?: no alcohol at all Do you exercise for about 20 minutes 3 or more times a week?: yes, most of the time Have you been given information to help with the following?: no: Hazards in your house that might hurt you? and no: Keeping track of your medications? How often do you have trouble taking medicines the way you have been told to take them?: I always take medicine as prescribed How confident are you that you can control & manage most of your health problems?: very confident What is your race?: White PHQ-9 Over the last 2 weeks, how often have you been bothered by any of the following problems? 1. Little interest or pleasure in doing things: not at all 2. Feeling down, depressed, or hopeless: not at all 3. Trouble falling or staying asleep, or sleeping too much: not at all 4. Feeling tired or having little energy: not at all 5. Poor appetite or overeating: not at all 6. Feeling bad about yourself - or that you are a failure or have let yourself or your family down: not at all 7. Trouble concentrating on things, such as reading the newspaper or watching television: not at all 8. Moving or speaking so slowly that other people could have noticed. Or the opposite - being so fidgety or restless that you have been moving around a lot more than usual: not at all 9. Thoughts that you would be better off or of hurting yourself in some way: not at all Total score: 0 Depression Screening Interpretation: Negative Depression Screening Done: Yes 93395 - PHQ-9 Billing: Yes Source: Developed by Drs. Henri Steele, Lissette Yang, Wellington Ordonez and colleagues, with an educational preethi from [email or web address]. Review of Systems Const Denies poor appetite and Denies weakness Eyes Denies no additional complaints ENT Reports Normal hearing present, Denies dizziness, Denies nasal congestion, Denies tinnitus and Denies sore throat Card Denies chest pain, Denies syncope, Denies rapid heart rate and Denies dyspnea Resp Denies cough and Denies dyspnea GI Denies change in stool character, Reports constipation, Denies diarrhea, Denies nausea and Denies vomiting Denies urinary frequency, Denies difficulty voiding and Denies dysuria Neuro Reports Normal hearing present, Denies confusion, Denies dizziness, Denies syncope and Denies weakness Psych Denies confusion Physical Exam Vital Signs: Last Vital Signs Pulse 65 08/10/24 13:02 BP 114/62 08/10/24 13:02 Pulse Ox 98 08/10/24 13:02 Oxygen Delivery Method Room Air 08/10/24 13:02 BMI result Body Mass Index 27.5 Const General: No confusion Orientation/consciousness: No confusion HEENT Head: Yes normocephalic Ears: external ears normal and TM's normal bilaterally Face and sinus: Yes normal facial exam Mouth: moist mucous membranes Throat: Yes tonsils normal Eyes Conjunctivae: conjunctivae normal Pupils: Equal, round and reactive pupils present and Pupil accommodation reflex normal Direct Ophthalmoscopy: normal light reflex Neck Neck: No lymphadenopathy Thyroid: Thyroid normal Chest Chest palpation & inspection: normal inspection of the chest Resp Effort & Inspection: normal respiratory effort and no audible wheezes Auscultation: clear to auscultation bilaterally, no crackles, no wheezes and lung sounds not diminished Cardio Rate: regular rate Rhythm: regular rhythm Peripheral pulses: radial pulses present and dorsalis pedis present GI Other: declined rectal Palpation (GI): no masses Auscultation: normal bowel sounds and normoactive bowel sounds Rectal Exam - Female: deferred Skin General skin exam: no rashes or lesions noted Rashes: no rashes Neuro General: No confusion Cranial nerves: Yes Equal, round and reactive pupils present and Yes Normal hearing present Cognition (Neuro): normal cognition Gait exam (Neuro): Normal gait present Motor exam (neuro): 5/5 motor strength present throughout Deep tendon reflexes (DTR's): Right brachioradialis reflex intensity grade: 2+, Left brachioradialis reflex intensity grade: 2+, Right patellar reflex intensity grade: 2+ and Left patellar reflex intensity grade: 2+ Extrem General: No edema Assessment & Plan Assessment & Plan (1) Annual physical exam: Code(s): Z00.00 - Encounter for general adult medical examination without abnormal findings Plan: Patient is advised to eat healthy, keep well hydrated, keep active and have adequate sleep. (2) PAF (paroxysmal atrial fibrillation): Comment: Status post left atrial appendage closure and Maze 2015 Code(s): I48.0 - Paroxysmal atrial fibrillation Plan: Continue with anticoagulation with Xarelto (3) [id number]-90 syndrome: Onset Date: ~01/2021 Code(s): U09.9 - Post COVID-19 condition, unspecified Plan: Patient continues to follow-up with Pulmonary (4) Bilateral pulmonary embolism: Onset Date: ~01/2021 Comment: resolved Code(s): I26.99 - Other pulmonary embolism without acute cor pulmonale Plan: Continuing with anticoagulation with Xarelto (5) Impaired glucose tolerance: Code(s): R73.02 - Impaired glucose tolerance (oral) Plan: Decrease the amount of carbohydrate intake, pasta, bread, rice and potatoes are all sugar and that is aside from all the sweet stuff, remember that fruits are good but they are Sweet also. (6) Osteoporosis: Onset Date: ~2005 Comment: (Bone Dexa T-score -3.7 lumbar - 07/11/19) 01/15/2024 Code(s): M81.0 - Age-related osteoporosis without current pathological fracture Qualifiers: Osteoporosis type: unspecified Presence of current pathological fracture: unspecified Qualified Code(s): M81.0 - Age-related osteoporosis without current pathological fracture Plan: Discussed about calcium and vitamin-D and medication to help with bones. (7) Annual wellness visit: Code(s): Z00.00 - Encounter for general adult medical examination without abnormal findings Plan: Patient is advised to eat healthy, keep well hydrated, keep active and have adequate sleep. Orders: Orders Comprehensive Met. Panel Today I48.0 - Paroxysmal atrial fibrillation Thyroid Stimulating Hormone Today I48.0 - Paroxysmal atrial fibrillation Vitamin B12 and Folate Today I48.0 - Paroxysmal atrial fibrillation Hemoglobin A1c Today I48.0 - Paroxysmal atrial fibrillation Magnesium Today I48.0 - Paroxysmal atrial fibrillation Complete Blood Count Auto Diff Today I48.0 - Paroxysmal atrial fibrillation Free T4 (Free Thyroxine) Today I48.0 - Paroxysmal atrial fibrillation Lipid Panel Today E78.00 - Pure hypercholesterolemia, unspecified, I48.0 - Paroxysmal atrial fibrillation UA CC w/rflx Micro + Cult Today I48.0 - Paroxysmal atrial fibrillation, R30.0 - Dysuria Quality Reporting (2019) Depression/Bipolar (159/160/161/177) PHQ-9: Total score: 0 Coding Level of Care Code Medicare Subsequent (G0439) Diagnoses Annual physical exam Z00.00 PAF (paroxysmal atrial fibrillation) I48.0 Kidq-[id number]-57 syndrome U09.9 Bilateral pulmonary embolism I26.99 Impaired glucose tolerance R73.02 Osteoporosis, unspecified osteoporosis type, unspecified pathological fracture presence M81.0 Osteoporosis type: unspecified Presence of current pathological fracture: unspecified Annual wellness visit Z00.00 Additional Codes PHQ-9 - 21955 - PHQ-9 Billing: Yes ([id number])
== END 2024-08-10 13:45 | disposition home or self-care (01) ==
PROVIDERS: PCP Internal Medicine; Visit Provider Internal Medicine
DX: Z00.00 Encounter for general adult medical examination without abnormal findings (principal); I48.0 Paroxysmal atrial fibrillation; I26.99 Other pulmonary embolism without acute cor pulmonale; U09.9 Post COVID-19 condition, unspecified; R73.02 Impaired glucose tolerance (oral); M81.0 Age-related osteoporosis without current pathological fracture

== ENCOUNTER → 2024-08-10 13:00 | Outpatient (BNVA) | payer MEDICARE, SELFPAY | PROVIDERS: PCP Internal Medicine; Visit Provider Internal Medicine | DX: Z00.00 Encounter for general adult medical examination without abnormal findings (principal); I48.0 Paroxysmal atrial fibrillation; U09.9 Post COVID-19 condition, unspecified; I26.99 Other pulmonary embolism without acute cor pulmonale; R73.02 Impaired glucose tolerance (oral); M81.0 Age-related osteoporosis without current pathological fracture | CPT/HCPCS: 96127 ==

== ENCOUNTER 2024-08-17 09:46 | Outpatient (AMB) | payer MEDICARE, SELFPAY ==
--- NOTE | 2024-08-17 09:54 | A.OFFVIS_ITS ---
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 Accompanied by: Self / Same As Patient Allergies acetaminophen [Percocet] Allergy (Severe, Verified 08/10/24 13:03) stomach upset oxycodone [Percocet] Allergy (Severe, Verified 08/10/24 13:03) stomach upset pneumococcal vaccine Allergy (Severe, Verified 08/10/24 13:03) Unknown apixaban [From Eliquis] Adverse Reaction (Intermediate, Verified 08/10/24 13:03) diarrhea Medication List - Last Reconciled 08/17/24 by Leon Power MD albuterol sulfate 90 mcg/actuation 2 inhalations inhalation Q6H PRN 30 days calcium carbonate-vitamin D3 600 mg-5 mcg (200 unit) (Calcium 600 + D(3)) 1 tab PO DAILY cyanocobalamin (vitamin B-12) 1,000 mcg PO DAILY folic acid 0.8 mg PO DAILY multivitamin 1 tab PO DAILY rivaroxaban (Xarelto) 20 mg PO QPM 90 days sotalol 80 mg PO BID 90 days HPI Comments Details: Fidelina returns for follow-up. To recall, she has a history of severe mitral regurgitation the past that led to mitral valve repair along with Maze/left atrial appendage occlusion in 2015. She had COVID infection 2020. Since that time, there has been ongoing shortness of breath issues. She also had DVT/PE. Shortness of breath and tiredness same as before, thought to be mainly respiratory. However, no cardiac symptoms. 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 Osteopenia Preop exam for internal medicine TSH elevation Nasolacrimal duct obstruction, acquired Chronic restrictive lung disease Paroxysmal atrial flutter DVT (deep venous thrombosis) (~01/2021) Pneumonitis Pneumonia due to COVID-19 virus (~12/2020) Chest pain LFT elevation Right leg swelling COVID-19 (~12/2020) Atrial flutter NICM (nonischemic cardiomyopathy) [id number] syndrome (~01/2021) Tachycardia Chronic thromboembolic disease (~01/2021) History of Clostridium difficile infection (~12/2020) Bilateral pulmonary embolism (~01/2021) Left leg DVT (~01/2021) Syncope (~12/2020) Osteoporosis (~2005) Vitamin D deficiency Asthma Atrial fibrillation Surgical History History of partial hysterectomy (~1982) History of mitral valve repair (~05/2016) History of cardiac cath (~05/2016) History of maze procedure History of left knee surgery History of tonsillectomy (~1965) Family History Father Melanoma Mother No problems noted. Maternal Aunt Breast cancer Brother Myasthenia gravis Social History (Updated 08/10/24 @ 13:30 by Rosalba Barillas MD) Household Members: Spouse Household Members Other:: Housing: House Are you a primary critical care paramedic to a significant other at home: No Do you presently have visiting nurse or other home services: No Alcohol intake: current Alcohol intake frequency: holidays/special occasions only Comment: once q 3-4 montsh 1-2 drink Patient Tobacco Use Status: Never used Tobacco e-Cigarette/Vaping Use: Never Used Second Hand Smoke Exposure: No service: No Current occupational status: disabled Cognitive needs: No Hearing needs: No Vision needs: No Review of Systems Const Denies chills, Denies fatigue, Denies fever(s), Denies frequent falls, Denies weakness, Denies weight gain and Denies weight loss ENT Denies dizziness Card Denies chest pain, Denies leg edema, Denies lightheadedness, Denies palpitations, Denies dyspnea and Denies dyspnea on exertion Resp Denies cough, Denies dyspnea and Denies dyspnea on exertion GI Denies hematochezia Musc Denies abnormal gait, Denies muscle weakness, Denies numbness, Denies radiating pain into limb and Denies tingling Neuro Denies abnormal gait, Denies dizziness, Denies frequent falls, Denies numbness, Denies tingling and Denies weakness Endo Denies fatigue and Denies palpitations Physical Exam Vital Signs: Last Vital Signs Pulse 60 08/17/24 09:56 BP 130/60 08/17/24 09:56 BMI result Body Mass Index 27.5 Const General: comfortable and no acute distress Orientation/consciousness: patient oriented x3 HEENT Other: Unremarkable Head: Yes normal to inspection Neck Neck: Yes normal visual inspection Chest Chest palpation & inspection: normal inspection of the chest Resp Auscultation: clear to auscultation bilaterally Cardio Palpation: normal PMI Heart sounds: S1 normal heart sound present, S2 normal heart sound present, no gallops, no murmurs and no rubs GI Palpation (GI): Soft to palpation Back/Spine/Pelvis Other: unremarkable Skin General skin exam: no rashes or lesions noted Neuro General: patient oriented x3 Extrem General: Yes normal to inspection Psych Mental Status: mental status grossly normal Office Procedures EKG Details: EKG with sinus rhythm, sinus arrhythmias; nonspecific ST-T changes; [place] [id number], Complete Assessment & Plan Assessment & Plan (1) NICM (nonischemic cardiomyopathy): Code(s): I42.8 - Other cardiomyopathies Category: Medical Plan: In the last echocardiogram, LVEF 51%. Basal inferior/inferolateral hypokinesis. Prior to that, LVEF was 40-45% with inferior wall motion abnormalities. In the cardiac catheterization, normal coronary arteries. Normal resting filling pressures. Suspect that her symptoms are likely all respiratory in nature. No further cardiac workup at this time. (2) Paroxysmal atrial flutter: Code(s): I48.92 - Unspecified atrial flutter Category: Medical Plan: Continue Sotalol. Continue Xarelto. Normal renal function. (3) PAF (paroxysmal atrial fibrillation): Comment: Status post left atrial appendage closure and Maze 2015 Code(s): I48.0 - Paroxysmal atrial fibrillation Category: Medical Plan: s/p maze procedure, KEVIN ligation 2016. Sotalol/Xarelto as above. (4) Status post mitral valve repair: Onset Date: ~05/2016 Code(s): Z98.890 - Other specified postprocedural states Category: Surgical Plan: #33 ring 2016. Normal valvular function in the last echocardiogram. Coding Level of Care Code Est Pt Level 4 (82966) Diagnoses NICM (nonischemic cardiomyopathy) I42.8 Paroxysmal atrial flutter I48.92 PAF (paroxysmal atrial fibrillation) I48.0 Status post mitral valve repair Z98.890 CPT Codes EKG - CPT: 38176-[id number], Complete ([id number])
[2024-08-17 09:56] VITALS: BP 130/60; PULSE 60; BMI 27.5
== END 2024-08-17 10:23 | disposition home or self-care (01) ==
PROVIDERS: PCP Internal Medicine; Visit Provider Internal Medicine
DX: I42.8 Other cardiomyopathies (principal); I48.92 Unspecified atrial flutter; I48.0 Paroxysmal atrial fibrillation; Z98.890 Other specified postprocedural states
CPT/HCPCS: 93010; 99214

== ENCOUNTER → 2024-08-17 09:46 | Outpatient (BNVA) | payer MEDICARE, SELFPAY | PROVIDERS: PCP Internal Medicine; Visit Provider Internal Medicine | DX: I48.92 Unspecified atrial flutter (principal); I48.0 Paroxysmal atrial fibrillation; I42.8 Other cardiomyopathies; Z98.890 Other specified postprocedural states | CPT/HCPCS: 93005; 99212 ==

== ENCOUNTER 2025-01-09 09:49 | Outpatient (REF) | payer MEDICARE, SELFPAY | END 2025-01-09 09:50 | disposition home or self-care (01) | LOC: HO.MAMMO 09:49 | PROVIDERS: PCP Internal Medicine; Visit Provider Internal Medicine | DX: Z12.31 Encounter for screening mammogram for malignant neoplasm of breast (principal) | CPT/HCPCS: 77063; 77067 ==

== ENCOUNTER → 2025-01-09 10:00 | Outpatient (BNV) | payer MEDICARE, SELFPAY | PROVIDERS: PCP Internal Medicine; Visit Provider Internal Medicine | DX: Z12.31 Encounter for screening mammogram for malignant neoplasm of breast (principal) | CPT/HCPCS: 77063; 77067 ==

== ENCOUNTER 2025-02-12 11:08 | Outpatient (AMB) | payer MEDICARE, SELFPAY ==
[2025-02-12 11:26] VITALS: BP 114/72; PULSE 64; O2SAT 97; BMI 27.2
--- NOTE | 2025-02-12 11:26 | MHC.PC.OV ---
Vital Signs 02/12/25 11:26 Height 5 ft 9 in Weight 184 lb BMI 27.2 BP 114/72 Blood Pressure Location Lt brachial Position Sitting Pulse 64 Pulse Source Pulse Oximeter Pulse Oximetry (%) 97 Oxygen Delivery Method Room Air Intake Visit Reasons: a fib Allergies acetaminophen [Percocet] Allergy (Severe, Verified 02/12/25 11:26) stomach upset oxycodone [Percocet] Allergy (Severe, Verified 02/12/25 11:26) stomach upset pneumococcal vaccine Allergy (Severe, Verified 02/12/25 11:26) Unknown apixaban [From Eliquis] Adverse Reaction (Intermediate, Verified 02/12/25 11:26) diarrhea Tobacco use date assessed: 02/12/25 Fall risk assessment: No Falls in past year Last assessed Fall Risk: 02/12/25 Dental Screening Dental Screen Date: 02/12/25 Did you have a dental visit in the last 12 months?: Yes Did you have a dental problem in the last 6 months where you did not have access to dental care?: No Was dental information given to patient?: Patient has dentist [facility] Medical History (Updated 02/12/25 @ 11:48 by Rosalba Barillas MD) 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 Osteopenia Preop exam for internal medicine TSH elevation Nasolacrimal duct obstruction, acquired Chronic restrictive lung disease Paroxysmal atrial flutter DVT (deep venous thrombosis) (~01/2021) Pneumonitis Pneumonia due to COVID-19 virus (~12/2020) Chest pain LFT elevation Right leg swelling COVID-19 (~12/2020) Atrial flutter NICM (nonischemic cardiomyopathy) 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 Maternal Aunt Breast cancer Brother Myasthenia gravis Social History (Updated 08/10/24 @ 13:30 by Rosalba Barillas MD) Household Members: Spouse Household Members Other:: Housing: House Are you a primary assisted living care manager to a significant other at home: No Do you presently have visiting nurse or other home services: No Alcohol intake: current Alcohol intake frequency: holidays/special occasions only Comment: once q 3-4 montsh 1-2 drink Patient Tobacco Use Status: Never used Tobacco Tobacco use type: Cigarette e-Cigarette/Vaping Use: Never Used Second Hand Smoke Exposure: No service: No Current occupational status: disabled Cognitive needs: No Hearing needs: No Vision needs: No Questionnaire PHQ-9 Over the last 2 weeks, how often have you been bothered by any of the following problems? 1. Little interest or pleasure in doing things: not at all 2. Feeling down, depressed, or hopeless: not at all 3. Trouble falling or staying asleep, or sleeping too much: not at all 4. Feeling tired or having little energy: not at all 5. Poor appetite or overeating: not at all 6. Feeling bad about yourself - or that you are a failure or have let yourself or your family down: not at all 7. Trouble concentrating on things, such as reading the newspaper or watching television: not at all 8. Moving or speaking so slowly that other people could have noticed. Or the opposite - being so fidgety or restless that you have been moving around a lot more than usual: not at all 9. Thoughts that you would be better off or of hurting yourself in some way: not at all Total score: 0 Depression Screening Interpretation: Negative Depression Screening Done: Yes Source: Developed by Drs. Henri Steele, Lissette Yang, Wellington Ordonez and colleagues, with an educational preethi from [employer]. Thrive Questionnaire Date Thrive assessed: 02/05/25 I am a: Patient What is your living situation today?: I have a steady place to live Within the past 12 months, did the food you bought not last and you didn't have the money to get more?: Never true Within the past 12 months, did you worry whether your food would run out before you got money to buy more?: Never true Do you have trouble paying for medicines?: No Do you have trouble getting transportation to medical appointments?: No Do you have trouble paying your heating and electricity bill?: No Do you have trouble taking care of your child, family member or friend?: No Do you have trouble with day-to-day activities such as bathing, preparing meals, shopping, managing finances, etc.?: No Are you currently unemployed and looking for a job?: No Are you interested in more education?: No Please select the resources that you would like help with: None Currently or been in a relationship where the following occur: No concerns reported THRIVE Score: 0 AUDIT C Alcohol Use Questionnaire (AUDIT-C) 1. How often do you have a drink containing alcohol?: Monthly or less 2. How many drinks containing alcohol do you have on a typical day when you are drinking?: 1 or 2 3. How often do you have six or more drinks on one occasion?: Never Total Score: 1 KEITH-7 AMB Questionnaire KEITH-7 Date KEITH - 7 assessed: 02/12/25 Feeling nervous, anxious, or on edge: 0 = Not at all Not being able to stop or control worryin = Not at all Worrying too much about different things: 0 = Not at all Trouble relaxin = Not at all Being so restless that it is hard to sit still: 0 = Not at all Becoming easily annoyed or irritable: 0 = Not at all Feeling afraid as if something awful might happen: 0 = Not at all Total KEITH-7 score (0-4 normal; 5-9 mild; 10-14 moderate; 15-21 severe): 0 Source: Developed by Drs. Henri Steele, Lissette Yang, Wellington Ordonez and colleagues, with an educational preethi from [employer]. Physical exam (Primary Care) Vital Signs: Last Vital Signs Pulse 64 02/12/25 11:26 BP 114/72 02/12/25 11:26 Pulse Ox 97 02/12/25 11:26 Oxygen Delivery Method Room Air 02/12/25 11:26 BMI result Body Mass Index 27.2 Tobacco/Smoking Status: Tobacco use Status Tobacco use date assessed 02/12/25 02/12/25 11:30 Patient Tobacco Use Status Never used Tobacco 02/12/25 11:30 Tobacco use type Cigarette 02/12/25 11:30 e-Cigarette/Vaping Use Never Used 02/12/25 11:30 PHQ-9: PHQ-9 Score PHQ-9: Total score 0 02/12/25 11:30 Depression Screening Interpretation: Negative Thrive Assessment: Date of Thrive Assessment Date Thrive assessed 02/05/25 02/12/25 11:30 Currently or been in a relationship where the following occur: No concerns reported Const General: alert; No acute distress Eyes Conjunctivae: conjunctivae normal Resp Auscultation: clear to auscultation bilaterally Cardio Rate: regular rate Rhythm: regular rhythm GI Inspection: Yes normal to inspection Extrem General: Yes normal to inspection and No edema Coding Level of Care Code Est Pt Level 4 (16603) Complex EM visit Add On G2211 Diagnoses Status post mitral valve repair Z98.890 PAF (paroxysmal atrial fibrillation) I48.0 Impaired glucose tolerance R73.02 Mild intermittent asthma without complication J45.20 Asthma severity: mild Asthma persistence: intermittent Asthma complication type: uncomplicated Left knee pain M25.562 Assessment & Plan Assessment & Plan (1) Status post mitral valve repair: Onset Date: ~05/2016 Comment: Echocardiogram December 2022 Code(s): Z98.890 - Other specified postprocedural states Category: Surgical Plan: Continues to follow up with Cardiology last echocardiogram December 2022 (2) PAF (paroxysmal atrial fibrillation): Comment: Status post left atrial appendage closure and Maze 2015 Code(s): I48.0 - Paroxysmal atrial fibrillation Category: Medical Plan: Continuing to follow-up with cardiology on Xarelto and sotalol (3) Impaired glucose tolerance: Code(s): R73.02 - Impaired glucose tolerance (oral) Category: Medical Plan: Decrease the amount of carbohydrate intake, pasta, bread, rice and potatoes are all sugar and that is aside from all the sweet stuff, remember that fruits are good but they are Sweet also. (4) Asthma: Code(s): J45.909 - Unspecified asthma, uncomplicated Category: Medical Qualifiers: Asthma severity: mild Asthma persistence: intermittent Asthma complication type: uncomplicated Qualified Code(s): J45.20 - Mild intermittent asthma, uncomplicated Plan: Patient on albuterol inhaler as needed (5) Left knee pain: Code(s): M25.562 - Pain in left knee Category: Medical Plan History of Present Illness The patient is a 70-year-old female presenting for a follow-up visit. She has a complex medical history which includes being overweight, impaired glucose tolerance, asthma, and nonsustained ventricular tachycardia. She has a notable history of a left leg deep vein thrombosis and pulmonary embolism occurring in mid-2020, for which she remains on anticoagulation therapy with Xarelto. Additionally, she has atrial fibrillation and underwent a mitral valve repair with left atrial appendage occlusion in 2015. Her left ventricular ejection fraction from the last echocardiogram was noted to be 51%, and she has normal coronary arteries. The patient also has interstitial lung disease and osteoporosis. She reported that her blood work in February showed normal counts, electrolytes, renal function, and a thyroid-stimulating hormone level of 5.89, indicating a mild elevation. Her blood glucose level was mildly elevated, cholesterol levels were acceptable with an LDL of 80. She continues her current medications, including sotalol for arrhythmia management. Previous patients' encounters noted no issues with current medications, and she uses an albuterol inhaler as needed for asthma management. Health Maintenance - Colonoscopy was declined - Mammogram scheduled for December 2024 - Bone density scan scheduled for December 2023 - Pneumonia vaccination administered, one dose pending since last uptake in 2018 - Discussion of shingles vaccination; not given today - Review of stable blood panels conducted in February with TSH mild elevation Social History Review of Systems - Respiratory: Reports shortness of breath improved with inhalers - Musculoskeletal: Reports ongoing osteoporosis - Endocrine: Reports mildly elevated blood glucose Physical Exam Results - Labs: Normal blood count, electrolytes, and renal function; TSH 5.89; LDL 80 - Echocardiogram: Ejection fraction 51%, normal coronary arteries Plan The patient will maintain her current medication regimen, including anticoagulants and arrhythmia management medications. Continued use of inhalers on an as-needed basis was stressed. She received a pneumonia vaccine today, and further vaccination against shingles was discussed though not implemented at this time. The patient is to maintain awareness of her impaired glucose levels and follow up on the mildly elevated TSH with subsequent lab work. Her health maintenance plan involves future scheduled screenings and continued lifestyle management to mitigate current health risks. Patient was informed and verbally consented to the use of an ambient scribe for clinic note documentation during this visit. Discussion Notes During this visit, we discussed the patient?s ongoing treatment with Xarelto and sotalol, emphasizing the importance of adherence to her regimen to prevent any thrombotic events and manage atrial fibrillation. The administration of her pneumonia shot today addresses a previous gap in her pneumococcal vaccination regimen. I explained the benefits and mild risks associated with the shingles vaccine, encouraging informed decision-making regarding future immunization. Her overall health management priorities, including close monitoring of her TSH levels and lifestyle modifications for glucose control, were outlined. The plan for regular follow-up in three months was agreed upon, with advised vigilance for new symptoms. Patient Instructions - Continue current medications: Xarelto, sotalol, and albuterol inhaler as needed. - Monitor blood glucose levels, especially with a history of impaired glucose tolerance. - Received pneumonia vaccination today; no other vaccinations required immediately. - Maintain a healthy lifestyle focusing on weight management and physical activity. - Follow up with blood work in the following months to re-evaluate TSH levels. - Return in three months for a follow-up or sooner if any new symptoms arise. Orders: Orders XR knee LT 2V Today M25.562 - Pain in left knee Medications: New mometasone-formoterol 100-5 mcg/actuation (Dulera) 2 puffs inhalation BID 13 grams 0RF J45.20 - Mild intermittent asthma, uncomplicated
== END 2025-02-12 12:00 | disposition home or self-care (01) ==
LOC: HO.HMCH 11:09
PROVIDERS: PCP Internal Medicine; Visit Provider Internal Medicine
DX: Z98.890 Other specified postprocedural states (principal); I48.0 Paroxysmal atrial fibrillation; R73.02 Impaired glucose tolerance (oral); J45.20 Mild intermittent asthma, uncomplicated; M25.562 Pain in left knee; Z23 Encounter for immunization

== ENCOUNTER → 2025-02-12 11:08 | Outpatient (BNVA) | payer MEDICARE, SELFPAY | PROVIDERS: PCP Internal Medicine; Visit Provider Internal Medicine | DX: Z23 Encounter for immunization (principal); I48.0 Paroxysmal atrial fibrillation; R73.02 Impaired glucose tolerance (oral); J45.20 Mild intermittent asthma, uncomplicated; M25.562 Pain in left knee; Z98.890 Other specified postprocedural states | CPT/HCPCS: 90471; 90677; 99212 ==

== ENCOUNTER 2025-02-15 07:19 | Outpatient (REF) | payer MEDICARE, SELFPAY ==
--- NOTE | ~2025-02-15 | XR_ITS ---
EXAMINATION: XR KNEE, LEFT CLINICAL INFORMATION: M25.562 - Pain in left knee COMPARISON: None available. TECHNIQUE: AP and lateral views of the left knee. FINDINGS: Joint space narrowing involving mostly the medial compartment. Sclerosis and the articular surface of the medial tibial plateau. No acute cortical disruption or malalignment. Small exostosis at the quadriceps tendon insertion. No suprapatellar bursa joint effusion. Osteopenia versus osteoporosis. XR/XR knee LT 2V IMPRESSION: Bicompartmental osteoarthrosis involving mostly the medial compartment. Electronically signed by: Rj Hill MD 02/15/2025 08:39 AM EDT
[2025-02-15 07:38] LABS: MANUAL DIFF FLAG NO
[2025-02-15 08:09] LABS: Eosinophils Absolute Auto 0.1 X10*3/uL (0.0-0.4); Eosinophils Percent Auto 1.5 % (0-4); Hematocrit 42.4 % (37.0-47.0); Hemoglobin 14.2 g/dl (12.0-16.0); Imm Gran Abs Auto 0.02 X10*3/uL (0.00-0.03); Imm Gran Pct Auto 0.4 % (0.0-0.4); Lymphocytes Absolute Auto 1.1 X10*3/uL (1.2-4.9); Mean Corpuscular HGB Conc 33.5 g/dl (31.0-35.0); Mean Corpuscular Hemoglobin 32.9 pg (27.0-33.0); Mean Corpuscular Volume 98.1 fL (80.0-98.0); Mean Platelet Volume 11.9 fL (9.4-12.3); Monocytes Absolute Auto 0.5 X10*3/uL (0.1-1.2); Monocytes Percent Auto 9.9 % (2-11); Neutrophils Absolute Auto 3.7 x10*3/uL (2.0-8.3); Neutrophils Percent Auto 68.2 % (45-73); Platelet Count 151 X10*3/uL (160-400); Red Blood Count 4.32 X10*6/uL (4.20-5.50); Red Cell Distribution Width 12.3 % (11.0-16.0); White Blood Count 5.4 X10*3/uL (4.8-10.8)
[2025-02-15 08:14] LABS: Estimated Average Glucose 111 mg/dL; Hemoglobin A1c % 5.5 % (<6.0); Total Hemoglobin (HGBA1C) 3666.7924 umol/L
[2025-02-15 08:41] LABS: Alanine Aminotransferase 23 U/L (0-31); Albumin Level 4.2 g/dL (3.5-5.0); Alkaline Phosphatase 83 U/L (39-117); Anion Gap 13 (12-20); Aspartate Amino Transferase 21 U/L (5-31); Bilirubin Total 0.8 mg/dL (0.0-1.0); Blood Urea Nitrogen 21 mg/dL (9-16); Calcium 9.5 mg/dL (8.4-10.2); Carbon Dioxide 27 mmol/L (22-29); Chloride 108 mmol/L (96-108); Cholesterol 129 mg/dL (<200); Estimated Glomerular Filt Rate > 60; Glucose Random 101 mg/dL (60-115); HDL Cholesterol 43 mg/dL (>40); LDL Cholesterol Calculated 64 mg/dL (<100); Potassium 4.1 mmol/L (3.3-5.1); Sodium 144 mmol/L (135-145); Total Protein 6.6 g/dL (6.5-8.0); Triglycerides 110 mg/dL (<150)
[2025-02-15 08:46] LABS: Erythrocyte Sedimentation Rate 6 MM/HR (0-20)
[2025-02-15 09:02] LABS: Free T4 (Free Thyroxine) 1.05 ng/dL (0.71-1.85); Thyroid Stimulating Hormone 6.17 uIU/mL (0.32-4.0)
[2025-02-15 09:13] LABS: Vitamin B12 1383 pg/mL (200-900)
[2025-02-15 13:29] LABS: Appearance Urine Cloudy; Color Urine Yellow; Glucose Urine UA Negative (Negative); Leukocyte Esterase Urine Small (1+) (Negative); Nitrite Urine Positive (Negative); PH 7.5 (5.0-9.0); Specific Gravity - Urine 1.015 (1.005-1.025); UMIC TRIGGER UACC YES; Urine Blood Negative (Negative); Urine Ketones Negative (Negative); Urine Protein Negative (Neg-Trace)
[2025-02-15 13:31] LABS: Bacteria Urine 4+ (None Seen); Hyaline Casts Urine 0-2 /LPF (0-2); RBC Urine 0-2 /HPF (0-2); Squamous Epithelial Cell Urine 0-2 /HPF (0-2); UACC Culture Trigger YES
[2025-02-16 21:23] LABS: Anti DNA DS Antibody <1 IU/mL; Antibody to SS-A Antigen <1.0 NEG AI (<1.0 NEG); Antibody to SS-B Antigen <1.0 NEG AI (<1.0 NEG)
[2025-02-20 15:44] LABS: Cyclic Citrullinated Peptide 168 UNITS
[2025-02-21 11:53] LABS: ANA Pattern 2 Nuclear, Speckled; Anti Nuclear Antibody Screen POSITIVE (NEGATIVE)
== END 2025-02-15 07:20 | disposition home or self-care (01) ==
LOC: HO.XRAY 07:19
PROVIDERS: Hospitalist; PCP Internal Medicine; Visit Provider Internal Medicine
DX: M25.562 Pain in left knee (principal); R76.8 Other specified abnormal immunological findings in serum; E78.00 Pure hypercholesterolemia, unspecified; I48.0 Paroxysmal atrial fibrillation; R30.0 Dysuria; Z13.1 Encounter for screening for diabetes mellitus
CPT/HCPCS: 36415; 73560; 80053; 80061; 81001; 82607; 82746; 83036; 83735; 84439; 84443; 85025; 85652; 86038; 86039; 86200; 86225; 86235; 87086; 87088; 87186

== ENCOUNTER → 2025-02-15 07:48 | Outpatient (BNV) | payer MEDICARE, SELFPAY | PROVIDERS: PCP Internal Medicine; Visit Provider Radiology Diagnostic Radiology | DX: M17.12 Unilateral primary osteoarthritis, left knee (principal) | CPT/HCPCS: 73560 ==

== ENCOUNTER 2025-02-20 09:48 | Outpatient (AMB) | payer MEDICARE, SELFPAY ==
[2025-02-20 09:51] VITALS: BP 100/64; PULSE 59; O2SAT 95; BMI 27.2
--- NOTE | 2025-02-20 09:51 | A.OFFVIS_ITS ---
Vital Signs 02/20/25 09:51 Height 5 ft 9 in Weight 184 lb 1.376 oz BMI 27.2 BP 100/64 Blood Pressure Location Lt brachial Position Sitting Pulse 59 Pulse Source Pulse Oximeter Pulse Oximetry (%) 95 Oxygen Delivery Method Room Air Intake Visit Reasons: Pulmonary Emboli Fretted Instrument Inspector Required: No Accompanied by: Self / Same As Patient Allergies acetaminophen [Percocet] Allergy (Severe, Verified 02/20/25 09:55) stomach upset oxycodone [Percocet] Allergy (Severe, Verified 02/20/25 09:55) stomach upset pneumococcal vaccine Allergy (Severe, Verified 02/20/25 09:55) Unknown apixaban [From Eliquis] Adverse Reaction (Intermediate, Verified 02/20/25 09:55) diarrhea HPI Comments Details: The patient is a 70-year-old woman with a known history of NSVT, afib and valvular surgery who apparently was in her usual state health until back in January 16 she presented with worsening shortness of breath to the ER. She was positive for COVID-19. Her CT scan of the chest demonstrated some minimal airspace disease at the bases. During the hospital course she was treated for a superimposed bacterial infection and also C diff. the patient was ultimately discharged home. However, home she started developing worsening shortness of breath several weeks after. She return to the ER. Had a repeat CTA after having a D-dimer of 8000. The repeat CTA demonstrated bilateral pulmonary embolisms consistent with submassive PE. In addition to the bilateral pulmonary emboli the patient did have extensive airspace disease secondary to severe COVID 19 pneumonia. Her echocardiogram demonstrated moderate right ventricular dysfunction. The patient initially placed on Eliquis and then subsequent switched over to Xarelto due to adverse effects. She has been compliant with the medication. The patient continues to have significant dyspnea on exertion. Moderate to severe even with minimal activity. Recently she did follow-up with Hematology. A repeat brain atretic peptide was normal. Today in the office we did perform a 6 minutes walk test. The patient again had a Monika score of 8/10 with minimal activity heart rate 100 in a pulse ox of 98%. This is on 2 L. therefore her shortness of breath was out of proportion to the findings. She also describes chest pressure. In the office we did do an EKG demonstrating new T-wave inversions specially in the inferior and precordial leads. The T-wave inversions in flattening are new when compared to an EKG from February 10. The patient did call her web content developer and I am hopeful that she can follow-up soon. In the meantime will have her get a troponin I tests done to make sure she is not having any evidence of any cardiac damage. The patient is aware that if her symptoms worsen she is to go to the ER urgently. 11/12/2021 the patient is here for a pulmonary follow-up visit. The patient has been feeling better. Apparently her respiratory symptoms were still persistent and waxing waning. She went to see her primary care doctor where she was noted to be irregularly irregular concerning for atrial fibrillation. She was recommended to go to the ER but she was reluctant. She went home. Her symptoms however worsen and she did go to the ER finally. She was noted to be in AFib with rapid ventricular response. This is a new onset atrial fibrillation. The patient was evaluated by Cardiology and underwent cardioversion and placed on sotalol. Since then her breathing has improved. The patient has been on Xa relto. Interestingly her INR was elevated at 1.8. I did place an order to repeat that. In the meantime I did recommend she take multivitamins. In regards of her thromboembolic disease she did have a repeat CTA in the ER that I personally reviewed demonstrating no evidence of any acute or chronic thrombus in the chest. She still has some areas of mosaic pattern in addition to that some scarring at the bases likely from the severe COVID. In addition to that we did review her lower extremity Dopplers now with resolution of her blood clot Of her lower extremity. 03/16/2022 the patient is here for a pulmonary follow-up visit. She continues to have significant dyspnea on exertion, moderate severity. Even with minimal activity. She has not felt well and has not made any improvement the last several months. Since we last met the patient did have an extensive cardiac workup including a left and right cardiac catheterization. No evidence of any coronary disease and also no evidence of any pulmonary vascular disease. Therefore ruling out the possibility of any chronic thromboembolic disease Resulting in pulmonary hypertension. She also underwent pulmonary function studies in January 2022 which was personally by me demonstrating interval worsening of her total lung capacity and also no real significant improvement on her severe diffusion impairment. At this point he still unclear why this is the case. She did resolve her pulmonary emboli although cannot rule out recurrent events. The patient also did have some evidence of interstitial lung disease that was the results of the COVID there is a possibility that this ultimately continue worsening. Therefore, I will request a repeat CT scan to assess her interstitial lung disease. Her D-dimer was checked and was negative so therefore will hold off on additional contrast. All her findings are consistent with her severe COVID with persistent symptoms and findings more than a year afterwards. In view of her interstitial lung disease will plan to do additional workup looking for other etiologies including connective tissue conditions and also plan to try her on a course of prednisone for the next 3-4 weeks. 07/10/2022 the patient is here for a pulmonary follow-up visit. Since we last spoke she did take a course of prednisone. However, she did not see any significant improvement with her breathing. She still complains of dyspnea on exertion moderate severity with minimal activity. Even with activities of daily living. Again, we did review her pulmonary function studies demonstrating significant diffusion impairment. The patient based on the perfusion study does not appear to have any persistent residual clots to explaining chronic thromboembolic disease. Although, based on the this portion all diffusion impairment pulmonary hypertension is did differential. Will go ahead and request a cardiac when her exercise tolerance test level 1 at [facility] to further address the question. In addition to that the patient did being blood thinners which she is tolerating well. Also, her PFTs she does have evidence of small airways disease therefore will go ahead and try her on a p rescription of Trelegy to see if we can provide her some relief with bronchodilation. 10/12/2022 the patient is here for a pulmonary follow-up visit. Overall the patient appears to be doing slightly better. She still having some shortness of breath primarily when going up a flight of stairs [id number] severity. But overall she is doing better. She continues on the blood thinner. She was supposed to undergo a cardiopulmonary exercise stress test at [facility] but it was postponed based on the fact that they did not have the equipment available and subsequently after that it was not reschedule. She still waiting to get a call back. In the meantime I will reach out to her web content developer to see if a stress echo will be sufficient to further address the question of exercise- induced pulmonary hypertension. The patient does have multiple reasons why she has underlying dyspnea including her systolic dysfunction, diastolic dysfunction, restrictive lung disease and significant diffusion impairment on her PFTs. Indeed pulmonary hypertension is a concern. Although, her cardiac catheterization recent she was very reassuring with normal PA pressures at rest. Still exercise-induced pulmonary hypertension is in the differential. 04/14/2023 the patient is here for pulmonary follow-up visit. Overall she is feeling a little better. Still having significant dyspnea on exertion. Mod erate severity with minimal activity. Typically she has been doing less. For that reason she has been gaining weight she states. She did have a repeat echocardiogram demonstrating a slight improvement of the ejection fraction from 40% to 51%. In addition to that she did undergo a cardiopulmonary exercise tolerance test. It demonstrated that she had a very limited aerobic capacity. She has some degree this could be secondary to muscle weakness. In addition to that demonstrated that her cardiac reserve with significant decrease suggesting a cardiovascular limitation. Breath after the cardiovascular mentation was reached develop respiratory limitations. Therefore it is likely that between the weakness in the cardiovascular issues her symptoms worsened with minimal pulmonary reserve as well. Therefore, the patient needs to go back to pulmonary rehabilitation. In addition to that work on diuresis to try to decrease her volume status to see if we can improve her cardiovascular function and capacity. The patient will start pulmonary rehab once available. She continues on the anticoagulation. 08/18/2023 the patient is here for a pulmonary follow-up visit. The patient overall has been doing well. She has been doing very well with pulmonary rehabilitation. She continues to participate regularly. She is noticing improvement in her exercise capacity. She is working closely with Cardiology. She continues on Xarelto for the history of PE in addition to her atrial fibrillation. Currently she is on the full dose Xarelto. He may be the case that she needs to stay on that dose. She will be able to talk to her web content developer during the next visit about decreasing the dose to 10 mg. At least from a PE standpoint she is able to decrease to 10 mg for prophylactic dose although I am not sure about the atrial fibrillation. From a respiratory status she stop the Trelegy because it was irritating her mouth. She does use a rescue inhaler as needed and this has been affecting beneficial. She does not use it more than twice a week so therefore she does not need any maintenance therapies. If she does need them inhaler more often she can always call and I can find something that is less irritating to her. 06/20/2024 the patient is here for a pulmonary follow-up visit. Overall the patient has been doing fairly well. She continues to participate in pulmonary rehabilitation which she has found to be helpful. The patient continues on Xarelto she does have atrial flutter. She also takes it for the history pulmonary emboli. She is currently tolerating the blood thinner without any minor major 100 indications. The patient did have blood work in the past and demonstrated to have an elevated SELENE and also an elevated CCP. Therefore, will be reasonable to repeat blood work specially with concerns of underlying interstitial lung disease. She does have some interstitial changes on her CT scan. She has not had any recent imaging. Should also have a chest x-ray to see if there is any progression. 02/20/2025 the patient is here for pulmonary follow-up visit. She continues to be about the same. Still complains of dyspnea on exertion [id number] severity. She was switched over to Dulera because of insurance issues. Unfortunately she developed significant hoarseness. She will try the spacer and see if this provides some relief and she will decrease the amount of medication to see uses provide some tolerance. She does not tolerate the change in the administration of the medication will have to change the medication altogether. No recent imaging studies to review. She does continue on the Xarelto and following up closely with Cardiology. Will plan to follow-up will talk about any additional imaging studies done. She develops any worsening symptoms or no improvement of the hoarseness with a change in the medication she will call. 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 Maternal Aunt Breast cancer Brother Myasthenia gravis Social History Household Members: Spouse Household Members Other:: Housing: House Are you a primary care transport nurse to a significant other at home: No Do you presently have visiting nurse or other home services: No Alcohol intake: current Alcohol intake frequency: holidays/special occasions only Comment: once q 3-4 montsh 1-2 drink Patient Tobacco Use Status: Never used Tobacco Tobacco use type: Cigarette e-Cigarette/Vaping Use: Never Used Second Hand Smoke Exposure: No service: No Current occupational status: disabled Cognitive needs: No Hearing needs: No Vision needs: No Review of Systems Const Denies night sweats ENT Denies change in voice, Denies lip swelling, Denies mouth pain, Reports nasal congestion, Reports nasal discharge and Denies tongue swelling Card Denies chest pain, Denies palpitations, Denies dyspnea and Reports dyspnea on exertion Resp Reports cough, Denies pain on inspiration, Denies pain with cough, Denies dyspnea and Reports dyspnea on exertion GI Denies abdominal pain Musc Reports arthralgias and Reports joint swelling Neuro Denies Neuro-related abnormal movements Psych Denies no additional complaints Endo Denies palpitations Candelario/Lymph Denies easy bleeding and Denies lymphadenopathy Aller/Immun Denies lip swelling and Denies tongue swelling Physical Exam Vital Signs: Last Vital Signs Pulse 59 02/20/25 09:51 BP 100/64 02/20/25 09:51 Pulse Ox 95 02/20/25 09:51 Oxygen Delivery Method Room Air 02/20/25 09:51 BMI result Body Mass Index 27.2 Const General: alert Neck Neck: Yes normal visual inspection, Yes full ROM and Yes no lymphadenopathy Chest Chest palpation & inspection: normal inspection of the chest Resp Auscultation: diminished lung sounds Cardio Rate: regular rate Rhythm: regular rhythm Heart sounds: S1 normal heart sound present and S2 normal heart sound present GI Palpation (GI): Soft to palpation and nontender Auscultation: normal bowel sounds Skin General skin exam: rashes and/or lesions noted Assessment & Plan Assessment & Plan (1) 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 Code(s): U09.9 - Post COVID-19 condition, unspecified Category: Medical (2) ILD (interstitial lung disease): Code(s): J84.9 - Interstitial pulmonary disease, unspecified Category: Medical (3) NICM (nonischemic cardiomyopathy): Code(s): I42.8 - Other cardiomyopathies Category: Medical (4) Paroxysmal atrial flutter: Code(s): I48.92 - Unspecified atrial flutter Category: Medical (5) Bilateral pulmonary embolism: Onset Date: ~01/2021 Comment: resolved Code(s): I26.99 - Other pulmonary embolism without acute cor pulmonale Category: Medical (6) Chronic restrictive lung disease: Code(s): J98.4 - Other disorders of lung Category: Medical Plan CPET demonstrating muscle weakness resulting in minimal aerobic capacity along with limited cardiovascular function with also a respiratory limitation. completed pulmonary rehab stopped Trelegy inhaler continue Dulera with spacer, ok to decrease dose as tolerated Continue anticoagulation with Xorelto awaiting bloodwork follow-up 8-12 months Coding Level of Care Code Est Pt Level 4 (06044) Complex EM visit Add On G2211 Diagnoses [id number]-00 syndrome U09.9 ILD (interstitial lung disease) J84.9 NICM (nonischemic cardiomyopathy) I42.8 Paroxysmal atrial flutter I48.92 Bilateral pulmonary embolism I26.99 Chronic restrictive lung disease J98.4 Time Spent (min) 17
== END 2025-02-20 10:20 | disposition home or self-care (01) ==
LOC: HO.HPS 09:49
PROVIDERS: PCP Internal Medicine; Visit Provider Hospitalist
DX: U09.9 Post COVID-19 condition, unspecified (principal); J84.9 Interstitial pulmonary disease, unspecified; I42.8 Other cardiomyopathies; I48.92 Unspecified atrial flutter; I26.99 Other pulmonary embolism without acute cor pulmonale; J98.4 Other disorders of lung
CPT/HCPCS: 99214; G2211

== ENCOUNTER → 2025-02-20 09:48 | Outpatient (BNVA) | payer MEDICARE, SELFPAY | PROVIDERS: PCP Internal Medicine; Visit Provider Hospitalist | DX: J84.9 Interstitial pulmonary disease, unspecified (principal); J98.4 Other disorders of lung; U09.9 Post COVID-19 condition, unspecified; I42.8 Other cardiomyopathies; I48.92 Unspecified atrial flutter; I26.99 Other pulmonary embolism without acute cor pulmonale | CPT/HCPCS: 99212 ==

== ENCOUNTER 2025-02-22 08:50 | Outpatient (AMB) | payer MEDICARE, SELFPAY ==
--- NOTE | 2025-02-22 08:53 | A.OFFVIS_ITS ---
Vital Signs 02/22/25 08:55 Height 5 ft 9 in Weight 185 lb 3.013 oz BMI 27.3 BP 130/64 Blood Pressure Location Lt brachial Position Sitting Pulse 58 Pulse Source Monitor Intake Visit Reasons: 6m follow up Administrative Resources Associate Required: No Accompanied by: Self / Same As Patient Allergies acetaminophen [Percocet] Allergy (Severe, Verified 02/20/25 09:55) stomach upset oxycodone [Percocet] Allergy (Severe, Verified 02/20/25 09:55) stomach upset pneumococcal vaccine Allergy (Severe, Verified 02/20/25 09:55) Unknown apixaban [From Eliquis] Adverse Reaction (Intermediate, Verified 02/20/25 09:55) diarrhea Medication List - Last Reconciled 02/22/25 by Leon Power MD albuterol sulfate 90 mcg/actuation 2 inhalations inhalation Q6H PRN 30 days calcium carbonate-vitamin D3 600 mg-5 mcg (200 unit) (Calcium 600 + D(3)) 1 tab PO DAILY cyanocobalamin (vitamin B-12) 1,000 mcg PO DAILY folic acid 0.8 mg PO DAILY mometasone-formoterol 100-5 mcg/actuation (Dulera) 2 puffs inhalation BID multivitamin 1 tab PO DAILY rivaroxaban (Xarelto) 20 mg PO QPM 90 days sotalol 80 mg PO BID 90 days HPI Comments Details: Fidelina returns for follow-up. To recall, she has a history of severe mitral regurgitation in the past that led to mitral valve repair along with Maze/left atrial appendage occlusion in 2015. She had COVID infection 2020. Since that time, there has been ongoing shortness of breath issues. She also had DVT/PE. Shortness of breath and tiredness same as before, thought to be mainly respiratory. Otherwise, no new cardiac symptoms. [facility] Medical History (Updated 02/15/25 @ 11:21 by Rosalba Barillas MD) TSH elevation 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 Osteopenia Preop exam for internal medicine Nasolacrimal duct obstruction, acquired Chronic restrictive lung disease Paroxysmal atrial flutter DVT (deep venous thrombosis) (~01/2021) Pneumonitis Pneumonia due to COVID-19 virus (~12/2020) Chest pain LFT elevation Right leg swelling COVID-19 (~12/2020) Atrial flutter NICM (nonischemic cardiomyopathy) [id number] syndrome (~01/2021) Tachycardia Chronic thromboembolic disease (~01/2021) History of Clostridium difficile infection (~12/2020) Bilateral pulmonary embolism (~01/2021) Left leg DVT (~01/2021) Syncope (~12/2020) Osteoporosis (~2005) Vitamin D deficiency Asthma Atrial fibrillation Surgical History History of partial hysterectomy (~1982) History of mitral valve repair (~05/2016) History of cardiac cath (~05/2016) History of maze procedure History of left knee surgery History of tonsillectomy (~1965) Family History Father Melanoma Mother No problems noted. Maternal Aunt Breast cancer Brother Myasthenia gravis Social History Household Members: Spouse Household Members Other:: Housing: House Are you a primary aged or disabled carer to a significant other at home: No Do you presently have visiting nurse or other home services: No Alcohol intake: current Alcohol intake frequency: holidays/special occasions only Comment: once q 3-4 montsh 1-2 drink Patient Tobacco Use Status: Never used Tobacco Tobacco use type: Cigarette e-Cigarette/Vaping Use: Never Used Second Hand Smoke Exposure: No service: No Current occupational status: disabled Cognitive needs: No Hearing needs: No Vision needs: No Review of Systems Const Denies chills, Denies fatigue, Denies fever(s), Denies frequent falls, Denies weakness, Denies weight gain and Denies weight loss ENT Denies dizziness Card Denies chest pain, Denies leg edema, Denies lightheadedness, Denies palpitations, Reports dyspnea and Reports dyspnea on exertion Resp Denies cough, Reports dyspnea and Reports dyspnea on exertion GI Denies hematochezia Musc Denies abnormal gait, Denies muscle weakness, Denies numbness, Denies radiating pain into limb and Denies tingling Neuro Denies abnormal gait, Denies dizziness, Denies frequent falls, Denies numbness, Denies tingling and Denies weakness Endo Denies fatigue and Denies palpitations Physical Exam Vital Signs: Last Vital Signs Pulse 58 02/22/25 08:55 BP 130/64 02/22/25 08:55 BMI result Body Mass Index 27.3 Const General: comfortable and no acute distress Orientation/consciousness: patient oriented x3 HEENT Other: Unremarkable Head: Yes normal to inspection Neck Neck: Yes normal visual inspection Chest Chest palpation & inspection: normal inspection of the chest Resp Auscultation: clear to auscultation bilaterally Cardio Palpation: normal PMI Heart sounds: S1 normal heart sound present, S2 normal heart sound present, no gallops, no murmurs and no rubs GI Palpation (GI): Soft to palpation Back/Spine/Pelvis Other: unremarkable Skin General skin exam: no rashes or lesions noted Neuro General: patient oriented x3 Extrem General: Yes normal to inspection Psych Mental Status: mental status grossly normal Office Procedures EKG Details: EKG with sinus bradycardia 58/Min; nonspecific ST-T changes; [place] [id number], Complete Assessment & Plan Assessment & Plan (1) NICM (nonischemic cardiomyopathy): Code(s): I42.8 - Other cardiomyopathies Category: Medical Plan: In the last echocardiogram, LVEF 51%. Basal inferior/inferolateral hypokinesis. Prior to that, LVEF was 40-45% with inferior wall motion abnormalities. In the cardiac catheterization, normal coronary arteries. Normal resting filling pressures. Suspect that her symptoms are likely all respiratory in nature. No further cardiac workup at this time. (2) Paroxysmal atrial flutter: Code(s): I48.92 - Unspecified atrial flutter Category: Medical Plan: Continue Sotalol. Continue Xarelto. Normal renal function. (3) PAF (paroxysmal atrial fibrillation): Comment: Status post left atrial appendage closure and Maze 2015 Code(s): I48.0 - Paroxysmal atrial fibrillation Category: Medical Plan: s/p maze procedure, KEVIN ligation 2016. Sotalol/Xarelto as above. (4) Status post mitral valve repair: Onset Date: ~05/2016 Comment: Echocardiogram December 2022 Code(s): Z98.890 - Other specified postprocedural states Category: Surgical Plan: #33 ring 2016. Normal valvular function in the last echocardiogram. Plan Discussion Notes We agreed to maintain her current treatment regimen, considering her condition stable. Routine six-monthly evaluations will continue as planned. Patient was informed and verbally consented to the use of an ambient scribe for clinic note documentation during this visit. Patient Instructions: - Continue with your regular six-month check-ups. - Keep track of any new symptoms and report them. Coding Level of Care Code Est Pt Level 4 (27702) Complex EM visit Add On G2211 Diagnoses NICM (nonischemic cardiomyopathy) I42.8 Paroxysmal atrial flutter I48.92 PAF (paroxysmal atrial fibrillation) I48.0 Status post mitral valve repair Z98.890 CPT Codes EKG - CPT: 29159-[id number], Complete ([id number])
[2025-02-22 08:55] VITALS: BP 130/64; PULSE 58; BMI 27.3
== END 2025-02-22 09:19 | disposition home or self-care (01) ==
LOC: HO.HCS 08:50
PROVIDERS: PCP Internal Medicine; Visit Provider Internal Medicine
DX: I42.8 Other cardiomyopathies (principal); I48.92 Unspecified atrial flutter; I48.0 Paroxysmal atrial fibrillation; Z98.890 Other specified postprocedural states
CPT/HCPCS: 93010; 99214; G2211

== ENCOUNTER → 2025-02-22 08:50 | Outpatient (BNVA) | payer MEDICARE, SELFPAY | PROVIDERS: PCP Internal Medicine; Visit Provider Internal Medicine | DX: I48.0 Paroxysmal atrial fibrillation (principal); I42.8 Other cardiomyopathies; I48.92 Unspecified atrial flutter; Z98.890 Other specified postprocedural states | CPT/HCPCS: 93005; 99212 ==

== ENCOUNTER 2025-05-02 08:58 | Outpatient (AMB) | payer MEDICARE, SELFPAY ==
[2025-05-02 09:00] VITALS: PULSE 60; TEMP 36.9; O2SAT 98; BMI 27.4
--- NOTE | 2025-05-02 09:00 | AM.OFFWIN_ITS ---
Intake Vital Signs 05/02/25 09:00 Height 5 ft 9 in Weight 185 lb 8 oz BMI 27.4 Pulse 60 Pulse Source Pulse Oximeter Temp 98.4 F Temp Source Oral Pulse Oximetry (%) 98 Oxygen Delivery Method Room Air Intake Visit Reasons: EP Pain in Rt knee, rash? 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: No Is last menstrual period known: No Post menopausal: Yes Patient : No Allergies acetaminophen (Percocet) Allergy (Severe, Verified 05/02/25 09:04) stomach upset oxycodone (Percocet) Allergy (Severe, Verified 05/02/25 09:04) stomach upset pneumococcal vaccine Allergy (Severe, Verified 05/02/25 09:04) Unknown apixaban (From Eliquis) Adverse Reaction (Intermediate, Verified 05/02/25 09:04) diarrhea Do you need a note to return to daycare/school/sports/work: No HPI HPI Comments History of Present Illness Details History of Present Illness - The patient is a 70-year-old female pr esenting with evaluation of right knee pain and rash. Knee pain - The patient experiences sharp right kn ee pain and instability, with a history of cartilage tear on the left knee since childhood. - She has been having a constant sharp p ain on the top of the right knee and feels like it is a stabbing pain. - She states that she feels like her kne e will give out when she walks. - She has known left knee pain and was d iagnosed with OA by x-ray. - Has tried OTC cream but it has not hel ped her. - She denies numbness, tingling, calf pa in, ankle pain, foot pain, or edema. Rash - The patient developed an itchy rash af ter gardening yesterday. - She states that she was pulling out we eds in her garden. - She states that she woke up with a jemal h on her face and arms bilaterally. - She did not know if she was bitten by a bug. - Her rash is red and very itchy. - Tried hydrocortisone cream which helpe d a little then she tried calamine lotion. - She does have knee pain. - She denies bug bites, new lotions, soa ps, detergents, foods, clothes, sick contacts, or travel. Physical Exam General: Cooperative, healthy appearing, comfortable, no acute distress and well developed Respiratory: Normal respiratory effort and able to speak in complete sentences. Clear to auscultation bilaterally Cardiovascular: Regular rate and rhythm. Normal S1 and S2 Skin: Erythematous flat non-tender dry macular patches noted in the left antecubital fossa, right upper arm, left wrist. No discharge noted. No streaking noted. Varicose veins noted on the lower legs bilaterally. Musculoskeletal: No swelling or deformity noted of the knee. FROM of the right knee. Click noted. No TTP of the patella, medial or lateral condyle, medial or lateral meniscus, or posterior fossa. Negative anterior drawer test. Negative Juan Jose noted. DTR are 1+ on the LE. Negative Homans noted. FROM of the ankle. Ambulates with a steady gait. Strength is 5/5 on the LE bilaterally. Neuro: Sensation is intact on the LE bilaterally. 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 Maternal Aunt Breast cancer Brother Myasthenia gravis Social History Household Members: Spouse Household Members Other:: Housing: House Are you a primary furnace caretaker to a significant other at home: No Do you presently have visiting nurse or other home services: No Alcohol intake: current Alcohol intake frequency: holidays/special occasions only Comment: once q 3-4 montsh 1-2 drink Patient Tobacco Use Status: Never used Tobacco Tobacco use type: Cigarette e-Cigarette/Vaping Use: Never Used Second Hand Smoke Exposure: No Patient : No service: No Current occupational status: disabled Cognitive needs: No Hearing needs: No Vision needs: No Physical Exam Vital Signs: Last Vital Signs Temp 98.4 F 05/02/25 09:00 Pulse 60 05/02/25 09:00 Pulse Ox 98 05/02/25 09:00 Oxygen Delivery Method Room Air 05/02/25 09:00 BMI result Body Mass Index 27.4 Assessment & Plan Assessment & Plan (1) Rash: Code(s): R21 - Rash and other nonspecific skin eruption Plan: Most likely contact dermatitis vs allergic reaction plan - prednisone burst for 5 days - triamcinolone cream BID for 7 days - pepcid daily - follow up with PCP (2) Right knee pain: Code(s): M25.561 - Pain in right knee Qualifiers: Chronicity: acute Qualified Code(s): M25.561 - Pain in right knee Plan Most likely OA Plan - rest, ice and elevation - tylenol as needed for pain - will order an x-ray - will refer her to ortho - may need a referral to the arthritis treatment center - follow up with PCP Orders: Referrals Orthopedics Referral M25.569 - Pain in unspecified knee Medications: New famotidine (Pepcid) 20 mg PO DAILY 7 tabs 0RF prednisone 40 mg (2 x 20 mg) PO DAILY 10 tabs 0RF 5 days triamcinolone acetonide 0.5% do not exceed use greater than 14 days 1 appl topical BID 15 grams 0RF Coding Level of Care Code Est Pt Level 4 (10820) Diagnoses Rash R21 Acute pain of right knee M25.561 Chronicity: acute
== END 2025-05-02 09:55 | disposition home or self-care (01) ==
PROVIDERS: PCP Internal Medicine; Visit Provider Physician Assistant Medical
DX: R21 Rash and other nonspecific skin eruption (principal); M25.561 Pain in right knee

== ENCOUNTER 2025-05-02 08:58 | Outpatient (REF) | payer MEDICARE, SELFPAY ==
--- NOTE | ~2025-05-02 | XR_ITS ---
EXAMINATION: XR KNEE, RIGHT CLINICAL INFORMATION: M25.569 - Pain in unspecified knee COMPARISON: None available. TECHNIQUE: Four views of the right knee. FINDINGS: No fracture, dislocation, or suspicious bone lesion. There is normal alignment. There is mild tricompartmental joint space narrowing, with minimal marginal osteophytic spurring. The patella is normally aligned. Minimal spurring of the tibial spines. There is no evidence of joint effusion. Soft tissues demonstrate probable venous varicosities laterally. Soft tissues otherwise normal. XR/XR knee RT 4V IMPRESSION: 1. No acute bony abnormalities of the right knee. 2. Mild tricompartmental osteoarthritis. 3. No joint effusion. Electronically signed by: Anuel Quintero MD 05/02/2025 09:40 AM EDT
== END 2025-05-02 08:59 | disposition home or self-care (01) ==
LOC: HO.HMGCX 08:58
PROVIDERS: PCP Internal Medicine; Visit Provider Physician Assistant Medical
DX: M25.561 Pain in right knee (principal); R21 Rash and other nonspecific skin eruption
CPT/HCPCS: 73564; 99212

== ENCOUNTER → 2025-05-02 09:26 | Outpatient (BNV) | payer MEDICARE, SELFPAY | PROVIDERS: PCP Internal Medicine; Visit Provider Radiology Diagnostic Radiology | DX: M25.561 Pain in right knee (principal) | CPT/HCPCS: 73564 ==

== ENCOUNTER 2025-05-07 15:17 | Outpatient (AMB) | payer MEDICARE, SELFPAY ==
[2025-05-07 15:22] VITALS: BP 136/72; PULSE 57; O2SAT 97; BMI 27.5
--- NOTE | 2025-05-07 15:22 | MHC.PC.OV ---
Vital Signs 05/07/25 15:22 Height 5 ft 9 in Weight 186 lb BMI 27.5 BP 136/72 Blood Pressure Location Lt brachial Position Sitting Pulse 57 Pulse Oximetry (%) 97 Oxygen Delivery Method Room Air Intake Visit Reasons: body rash [employer] (Ex ) Required: No Accompanied by: Self / Same As Patient Allergies acetaminophen (Percocet) Allergy (Severe, Verified 05/07/25 15:41) stomach upset oxycodone (Percocet) Allergy (Severe, Verified 05/07/25 15:41) stomach upset pneumococcal vaccine Allergy (Severe, Verified 05/07/25 15:41) Unknown apixaban (From Eliquis) Adverse Reaction (Intermediate, Verified 05/07/25 15:41) diarrhea Medication List - Last Reconciled 05/07/25 by Kristy Henry PA-C albuterol sulfate 90 mcg/actuation 2 inhalations inhalation Q6H PRN 30 days cholecalciferol (vitamin D3) 50 mcg PO DAILY cyanocobalamin (vitamin B-12) 1,000 mcg PO DAILY famotidine (Pepcid) 20 mg PO DAILY folic acid 0.8 mg PO DAILY naproxen 500 mg PO Q12H PRN 7 days prednisone 40 mg (2 x 20 mg) PO DAILY 5 days rivaroxaban (Xarelto) 20 mg PO QPM 90 days sotalol 80 mg PO BID 90 days triamcinolone acetonide 0.5% 1 appl topical BID Tobacco use date assessed: 05/07/25 Fall risk assessment: No Falls in past year Last assessed Fall Risk: 05/07/25 Dental Screening Dental Screen Date: 05/07/25 Did you have a dental visit in the last 12 months?: No Did you have a dental problem in the last 6 months where you did not have access to dental care?: No Was dental information given to patient?: No HPI body rash HPI Details 70 year old female with past medical history of impaired glucose tolerance, asthma, NSVT, bilateral pulmonary embolism, PAF, and lung disease last seen by Dr. Barillas coming in for acute problem. Presenting with a severe itchy rash. The rash began after gardening and was initially a red, non-pustular bubble on the skin, progressing to widespread itching and swelling, including facial edema. The patient sought urgent care where she was prescribed prednisone, Pepcid, and a topical cream, which provided partial relief. She does also have a son who was gardening with her who has a similar rash. She continues to have an itchy, erythematous rash on the arms [facility] Medical History TSH elevation 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 Osteopenia Preop exam for internal medicine Nasolacrimal duct obstruction, acquired Chronic restrictive lung disease Paroxysmal atrial flutter DVT (deep venous thrombosis) (~01/2021) Pneumonitis Pneumonia due to COVID-19 virus (~12/2020) Chest pain LFT elevation Right leg swelling COVID-19 (~12/2020) Atrial flutter NICM (nonischemic cardiomyopathy) [id number] syndrome (~01/2021) Tachycardia Chronic thromboembolic disease (~01/2021) History of Clostridium difficile infection (~12/2020) Bilateral pulmonary embolism (~01/2021) Left leg DVT (~01/2021) Syncope (~12/2020) Osteoporosis (~2005) Vitamin D deficiency Asthma Atrial fibrillation Surgical History History of partial hysterectomy (~1982) History of mitral valve repair (~05/2016) History of cardiac cath (~05/2016) History of maze procedure History of left knee surgery History of tonsillectomy (~1965) Family History Father Melanoma Mother No problems noted. Maternal Aunt Breast cancer Brother Myasthenia gravis Social History Household Members: Spouse Household Members Other:: Housing: House Are you a primary tree care foreman to a significant other at home: No Do you presently have visiting nurse or other home services: No Alcohol intake: current Alcohol intake frequency: holidays/special occasions only Comment: once q 3-4 montsh 1-2 drink Patient Tobacco Use Status: Never used Tobacco Tobacco use type: Cigarette e-Cigarette/Vaping Use: Never Used Second Hand Smoke Exposure: No service: No Current occupational status: disabled Cognitive needs: No Hearing needs: No Vision needs: No Questionnaire Thrive Questionnaire Date Thrive assessed: 02/05/25 I am a: Patient What is your living situation today?: I have a steady place to live Within the past 12 months, did the food you bought not last and you didn't have the money to get more?: Never true Within the past 12 months, did you worry whether your food would run out before you got money to buy more?: Never true Do you have trouble paying for medicines?: No Do you have trouble getting transportation to medical appointments?: No Do you have trouble paying your heating and electricity bill?: No Do you have trouble taking care of your child, family member or friend?: No Do you have trouble with day-to-day activities such as bathing, preparing meals, shopping, managing finances, etc.?: No Are you currently unemployed and looking for a job?: No Are you interested in more education?: No Please select the resources that you would like help with: None Currently or been in a relationship where the following occur: No concerns reported THRIVE Score: 0 KEITH-7 AMB Questionnaire KEITH-7 Date KEITH - 7 assessed: 02/12/25 Source: Developed by Drs. Henri Steele, Lissette Yang, Wellington Ordonez and colleagues, with an educational preethi from [employer]. Review of Systems Const Denies body aches, Denies chills and Denies fever(s) Eyes Reports no additional complaints ENT Reports no additional complaints Card Reports no additional complaints and Denies dyspnea Resp Denies dyspnea and Denies wheezing Skin/Breast Reports as per HPI Aller/Immun Denies wheezing Physical exam (Primary Care) Vital Signs: Last Vital Signs Pulse 57 05/07/25 15:22 BP 136/72 05/07/25 15:22 Pulse Ox 97 05/07/25 15:22 Oxygen Delivery Method Room Air 05/07/25 15:22 BMI result Body Mass Index 27.5 Tobacco/Smoking Status: Tobacco use Status Tobacco use date assessed 05/07/25 05/07/25 15:30 Patient Tobacco Use Status Never used Tobacco 05/07/25 15:30 Tobacco use type Cigarette 05/07/25 15:30 e-Cigarette/Vaping Use Never Used 05/07/25 15:30 Thrive Assessment: Date of Thrive Assessment Date Thrive assessed 02/05/25 05/07/25 15:30 Currently or been in a relationship where the following occur: No concerns reported Const General: cooperative, healthy appearing, comfortable and no acute distress Orientation/consciousness: patient oriented x3 HENMT Head: Yes normocephalic Ears: hearing grossly normal bilaterally General nose exam: Normal external nose present Eyes General: appearance normal, both eyes and all related structures Resp Effort & Inspection: normal respiratory effort Cardio Rate: regular rate Skin Other: dermatitis of bilateral arms with excoriations Neuro General: patient oriented x3 Gait exam (Neuro): Normal gait present Extrem General: Yes normal to inspection, Yes full ROM and No edema Psych Affect: normal affect Attitude: cooperative Insight: Good insight present (Psych) Judgement: Good judgement present (Psych) Coding Level of Care Code Est Pt Level 3 (25051) Diagnoses Contact dermatitis L25.9 Assessment & Plan Assessment & Plan (1) Contact dermatitis: Code(s): L25.9 - Unspecified contact dermatitis, unspecified cause Category: Medical Plan: The patient will continue the prescribed course of prednisone, Pepcid, and topical cream for the management of contact dermatitis. She is advised to avoid potential allergens and to monitor for any worsening of symptoms. The patient should refrain from using naproxen concurrently with Xarelto due to the risk of increased bleeding. Recommend [id number] Benadryl cream for itching as well as she is not a candidate for hydroxyzine. Plan This note was constructed using voice recognition software. While every effort has been made to ensure accuracy and flag decorator, still areas may have been included sometimes these areas may affect the content or meeting of the given symptoms. Total time spent caring for the patient today was 20 minutes. This includes time spent before the visit reviewing the chart, time spent during the visit, and time spent after the visit and documentation. Patient was informed and verbally consented to the use of an ambient scribe for clinic note documentation during this visit. Medications: New prednisone Take 4 tablets on days 1-2, take 3 tablets on days 3-4, take 2 tablets on days 5-6, take 1 tablet on days 7-8. 10 mg PO DIRECTED 20 tabs 0RF Refilled famotidine (Pepcid) 20 mg PO DAILY 14 tabs 0RF Discontinued prednisone Discontinued Reason: Patient no longer taking 40 mg (2 x 20 mg) PO DAILY 5 days 10 tabs 0RF naproxen Discontinued Reason: Patient no longer taking 500 mg PO Q12H 7 days PRN 20 tabs 0RF pain
== END 2025-05-07 16:30 | disposition home or self-care (01) ==
PROVIDERS: PCP Internal Medicine
DX: L25.9 Unspecified contact dermatitis, unspecified cause (principal)

== ENCOUNTER → 2025-05-07 15:17 | Outpatient (BNVA) | payer MEDICARE, SELFPAY | PROVIDERS: PCP Internal Medicine; Visit Provider Internal Medicine | DX: L25.9 Unspecified contact dermatitis, unspecified cause (principal) | CPT/HCPCS: 99212 ==

== ENCOUNTER 2025-06-12 08:36 | Outpatient (AMB) | payer MEDICARE, SELFPAY ==
[2025-06-12 08:43] VITALS: BP 124/72; PULSE 73; TEMP 36.2; O2SAT 98; BMI 26.5
--- NOTE | 2025-06-12 08:43 | A.OFFPC_ITS ---
Vital Signs 06/12/25 08:43 Height 5 ft 9 in Weight 179 lb 4 oz BMI 26.5 BP 124/72 Blood Pressure Location Lt brachial Position Sitting Pulse 73 Pulse Source Pulse Oximeter Temp 97.1 F Temp Source Temporal Artery Scan Pulse Oximetry (%) 98 Oxygen Delivery Method Room Air Intake Visit Reasons: knee pain L Allergies acetaminophen (Percocet) Allergy (Severe, Verified 06/12/25 08:46) stomach upset oxycodone (Percocet) Allergy (Severe, Verified 06/12/25 08:46) stomach upset pneumococcal vaccine Allergy (Severe, Verified 06/12/25 08:46) Unknown apixaban (From Eliquis) Adverse Reaction (Intermediate, Verified 06/12/25 08:46) diarrhea Tobacco use date assessed: 06/12/25 Fall risk assessment: 1 Fall in past year Last assessed Fall Risk: 06/12/25 Dental Screening Dental Screen Date: 06/12/25 Did you have a dental visit in the last 12 months?: Yes Did you have a dental problem in the last 6 months where you did not have access to dental care?: No Was dental information given to patient?: Patient has dentist [facility] Medical History TSH elevation 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 Osteopenia Preop exam for internal medicine Nasolacrimal duct obstruction, acquired Chronic restrictive lung disease Paroxysmal atrial flutter DVT (deep venous thrombosis) (~01/2021) Pneumonitis Pneumonia due to COVID-19 virus (~12/2020) Chest pain LFT elevation Right leg swelling COVID-19 (~12/2020) Atrial flutter NICM (nonischemic cardiomyopathy) 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 Maternal Aunt Breast cancer Brother Myasthenia gravis Social History Household Members: Spouse Household Members Other:: Housing: House Are you a primary healthcare administrative assistant to a significant other at home: No Do you presently have visiting nurse or other home services: No Alcohol intake: current Alcohol intake frequency: holidays/special occasions only Comment: once q 3-4 montsh 1-2 drink Patient Tobacco Use Status: Never used Tobacco Tobacco use type: Cigarette e-Cigarette/Vaping Use: Never Used Second Hand Smoke Exposure: No service: No Current occupational status: disabled Cognitive needs: No Hearing needs: No Vision needs: No Questionnaire PHQ-9 Over the last 2 weeks, how often have you been bothered by any of the following problems? 1. Little interest or pleasure in doing things: not at all 2. Feeling down, depressed, or hopeless: not at all 3. Trouble falling or staying asleep, or sleeping too much: not at all 4. Feeling tired or having little energy: not at all 5. Poor appetite or overeating: not at all 6. Feeling bad about yourself - or that you are a failure or have let yourself or your family down: not at all 7. Trouble concentrating on things, such as reading the newspaper or watching television: not at all 8. Moving or speaking so slowly that other people could have noticed. Or the opposite - being so fidgety or restless that you have been moving around a lot more than usual: not at all 9. Thoughts that you would be better off or of hurting yourself in some way: not at all Total score: 0 Depression Screening Interpretation: Negative Depression Screening Done: Yes Source: Developed by Drs. Henri Steele, Lissette Yang, Wellington Ordonez and colleagues, with an educational preethi from [employer]. Thrive Questionnaire Date Thrive assessed: 02/05/25 I am a: Patient What is your living situation today?: I have a steady place to live Within the past 12 months, did the food you bought not last and you didn't have the money to get more?: Never true Within the past 12 months, did you worry whether your food would run out before you got money to buy more?: Never true Do you have trouble paying for medicines?: No Do you have trouble getting transportation to medical appointments?: No Do you have trouble paying your heating and electricity bill?: No Do you have trouble taking care of your child, family member or friend?: No Do you have trouble with day-to-day activities such as bathing, preparing meals, shopping, managing finances, etc.?: No Are you currently unemployed and looking for a job?: No Are you interested in more education?: No Please select the resources that you would like help with: None Currently or been in a relationship where the following occur: No concerns reported THRIVE Score: 0 AUDIT C Alcohol Use Questionnaire (AUDIT-C) 1. How often do you have a drink containing alcohol?: Monthly or less 2. How many drinks containing alcohol do you have on a typical day when you are drinking?: 1 or 2 3. How often do you have six or more drinks on one occasion?: Never Total Score: 1 KEITH-7 AMB Questionnaire KEITH-7 Date KEITH - 7 assessed: 02/12/25 Feeling nervous, anxious, or on edge: 0 = Not at all Not being able to stop or control worryin = Not at all Worrying too much about different things: 0 = Not at all Trouble relaxin = Not at all Being so restless that it is hard to sit still: 0 = Not at all Becoming easily annoyed or irritable: 0 = Not at all Feeling afraid as if something awful might happen: 0 = Not at all Total KEITH-7 score (0-4 normal; 5-9 mild; 10-14 moderate; 15-21 severe): 0 Source: Developed by Drs. Henri Steele, Lissette Yang, Wellington Ordonez and colleagues, with an educational preethi from [employer]. Physical exam (Primary Care) Vital Signs: Last Vital Signs Temp 97.1 F 06/12/25 08:43 Pulse 73 06/12/25 08:43 BP 124/72 06/12/25 08:43 Pulse Ox 98 06/12/25 08:43 Oxygen Delivery Method Room Air 06/12/25 08:43 BMI result Body Mass Index 26.5 Tobacco/Smoking Status: Tobacco use Status Tobacco use date assessed 06/12/25 06/12/25 08:49 Patient Tobacco Use Status Never used Tobacco 06/12/25 08:49 Tobacco use type Cigarette 06/12/25 08:49 e-Cigarette/Vaping Use Never Used 06/12/25 08:49 PHQ-9: PHQ-9 Score PHQ-9: Total score 0 06/12/25 09:06 Depression Screening Interpretation: Negative Thrive Assessment: Date of Thrive Assessment Date Thrive assessed 02/05/25 06/12/25 08:49 Currently or been in a relationship where the following occur: No concerns reported Const General: alert; No acute distress Eyes Conjunctivae: conjunctivae normal Resp Auscultation: clear to auscultation bilaterally Cardio Rate: regular rate Rhythm: regular rhythm GI Inspection: Yes normal to inspection Extrem General: Yes normal to inspection and No edema Coding Level of Care Code Est Pt Level 4 (51105) Complex EM visit Add On G2211 Diagnoses PAF (paroxysmal atrial fibrillation) I48.0 Bilateral pulmonary embolism I26.99 Impaired glucose tolerance R73.02 ILD (interstitial lung disease) J84.9 Bilateral knee pain M25.561; M25.562 Generalized anxiety disorder F41.1 Assessment & Plan Assessment & Plan (1) PAF (paroxysmal atrial fibrillation): Comment: Status post left atrial appendage closure and Maze 2016 Code(s): I48.0 - Paroxysmal atrial fibrillation Category: Medical Plan: Continuing with anti coagulation and sotalol. Patient follows up with Cardiology (2) Bilateral pulmonary embolism: Onset Date: ~01/2021 Comment: resolved Code(s): I26.99 - Other pulmonary embolism without acute cor pulmonale Category: Medical Plan: Continuing with anticoagulation with Xarelto (3) Impaired glucose tolerance: Code(s): R73.02 - Impaired glucose tolerance (oral) Category: Medical Plan: Decrease the amount of carbohydrate intake, pasta, bread, rice and potatoes are all sugar and that is aside from all the sweet stuff, remember that fruits are good but they are Sweet also. (4) ILD (interstitial lung disease): Code(s): J84.9 - Interstitial pulmonary disease, unspecified Category: Medical Plan: Continue with pulmonary support on Dulera (5) Bilateral knee pain: Code(s): M25.561 - Pain in right knee; M25.562 - Pain in left knee Category: Medical (6) Generalized anxiety disorder: Code(s): F41.1 - Generalized anxiety disorder Category: Medical Plan History of Present Illness The patient is a 70-year-old female presenting for follow-up of multiple chronic conditions including atrial fibrillation, interstitial lung disease, and osteoarthritis. The patient has a history of atrial fibrillation and underwent mitral valve repair in December 2022. She continues anticoagulation therapy with Xarelto and Sotalol for atrial flutter, and she had a left atrial appendage closure in 2015. The patient has interstitial lung disease and has completed pulmonary rehabilitation. She reports muscle weakness and has been using a CPAP device. The patient reports right knee pain, which has been persistent and exacerbated by activities such as walking and climbing stairs. X-rays have confirmed osteoarthritis, and she has been advised to use Voltaren gel for pain management. She has a history of deep vein thrombosis in the left leg and pulmonary embolism, which are being managed with anticoagulation therapy. The patient has experienced weight loss and has impaired glucose tolerance. Her recent blood work showed mild homocytopenia and elevated blood sugar levels. She has a history of post-COVID syndrome and osteoporosis, with her last bone density screening in December 2023. The patient also reports anxiety and sleep disturbances following the loss of her . She has tried melatonin without significant relief and is considering other options for sleep aid. Health Maintenance - Mammogram up to date as of December 2024 - Bone density screening completed in December 2023 - Discussed flu vaccination, recommended in June Social History - Family status: Recently lost her , impacting sleep and causing anxiety Review of Systems - Cardiovascular: Reports atrial flutter, managed with anticoagulation. Denies chest pain. - Respiratory: Reports muscle weakness, uses CPAP. Denies improvement with inhalers. - Musculoskeletal: Reports right knee pain exacerbated by activity. Denies relief with Voltaren gel. - Endocrine: Reports weight loss. Denies significant dietary changes. - Neurological: Reports sleep disturbances and anxiety. Denies effective relief with melatonin. Physical Exam Results - Labs: Mild homocytopenia, elevated blood sugar at 100 mg/dL, normal electrolytes, renal and liver function, LDL cholesterol at 64 mg/dL, elevated TSH at 6.17 mIU/L - Imaging: X-ray confirmed osteoarthritis in the right knee Plan Patient was informed and verbally consented to the use of an ambient scribe for clinic note documentation during this visit. 1. Atrial Fibrillation The patient will continue anticoagulation therapy with Xarelto and Sotalol to manage atrial flutter. Follow-up with cardiology is recommended to monitor the condition and adjust treatment as necessary. 2. Interstitial Lung Disease The patient has completed pulmonary rehabilitation and will continue using CPAP for muscle weakness. Further follow-up with pulmonology is advised to assess lung function and adjust treatment as needed. 3. Osteoarthritis The patient is advised to use Voltaren gel three times daily for pain management in the right knee. Referral to orthopedics is scheduled for further evaluation and management. 4. Anxiety And Sleep Disturbance The patient is considering pharmacological options for sleep aid due to persistent sleep disturbances and anxiety following the loss of her . Further discussion on appropriate medication and follow-up is recommended. Discussion Notes During the visit, we discussed the continuation of anticoagulation therapy with Xarelto and Sotalol for atrial flutter, emphasizing the importance of follow-up with cardiology to monitor the condition. We also reviewed the patient's completion of pulmonary rehabilitation and the ongoing use of CPAP for muscle weakness, with a recommendation for further rheumatology. For osteoarthritis, the patient was advised to use Voltaren gel three times daily and to follow up with orthopedics for further management. We addressed the patient's anxiety and sleep disturbances, discussing potential pharmacological options and the need for further evaluation. Patient Instructions - Continue taking Xarelto and Sotalol as prescribed. - Use Voltaren gel on the right knee three times daily. - Follow up with cardiology and orthopedics as scheduled. - Consider discussing sleep aid options with your healthcare provider. - Maintain regular follow-ups with pulmonology for lung health. Discussed with the patient concerns about SELENE positive rheumatoid factor positive with her joint pains with a history of her lung problem history of blood clots, advised to be referred to Rheumatology. Orders: Referrals Rheumatology Referral M25.561 - Pain in right knee, M25.562 - Pain in left knee Medications: New alprazolam 0.25 mg PO BEDTIME PRN 14 tabs 0RF sleep F41.1 - Generalized anxiety disorder Refilled rivaroxaban (Xarelto) must administer with evening meal 20 mg PO QPM 90 tabs 3RF 90 days F41.1 - Generalized anxiety disorder
== END 2025-06-12 09:28 | disposition home or self-care (01) ==
PROVIDERS: PCP Internal Medicine; Visit Provider Internal Medicine
DX: I48.0 Paroxysmal atrial fibrillation (principal); I26.99 Other pulmonary embolism without acute cor pulmonale; R73.02 Impaired glucose tolerance (oral); J84.9 Interstitial pulmonary disease, unspecified; M25.561 Pain in right knee; M25.562 Pain in left knee; F41.1 Generalized anxiety disorder

== ENCOUNTER → 2025-06-12 08:36 | Outpatient (BNVA) | payer MEDICARE, SELFPAY | PROVIDERS: PCP Internal Medicine; Visit Provider Internal Medicine | DX: I48.0 Paroxysmal atrial fibrillation (principal); I26.99 Other pulmonary embolism without acute cor pulmonale; R73.02 Impaired glucose tolerance (oral); J84.9 Interstitial pulmonary disease, unspecified; M25.562 Pain in left knee; M17.11 Unilateral primary osteoarthritis, right knee; F41.1 Generalized anxiety disorder; C90.00 Multiple myeloma not having achieved remission; Z79.01 Long term (current) use of anticoagulants | CPT/HCPCS: 96127; 99212 ==

== ENCOUNTER 2025-06-14 09:43 | Outpatient (AMB) | payer MEDICARE, SELFPAY ==
[2025-06-14 10:01] VITALS: BMI 26.4
--- NOTE | 2025-06-14 10:01 | A.OFFVIS_ITS ---
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 Intake Note: Fidelina is a 70 year old woman who presents with complaints of progressively worsening bilateral knee pains and giving way, right greater than left. The patient did undergo left knee surgery by Dr. Thomas after injuring her left knee during gym class as a teenager. The patient reports mild intermittent discomfort in her left knee. The patient states that several months ago she injured her right knee while working in her garden. She twisted her knee and had acute onset of pain. She has had cortisone injections in the past which gave her no relief. She has also tried Tylenol and anti-inflammatory medicines which gave her minimal relief. The patient thinks that she may have had an adverse reaction to prednisone in the past. She has failed the last 6 weeks of conservative treatment which has included a home exercise program, Tylenol, anti-inflammatory medicines and physical therapy exercises. Allergies acetaminophen (Percocet) Allergy (Severe, Verified 06/14/25 10:09) stomach upset oxycodone (Percocet) Allergy (Severe, Verified 06/14/25 10:09) stomach upset pneumococcal vaccine Allergy (Severe, Verified 06/14/25 10:09) Unknown apixaban (From Eliquis) Adverse Reaction (Intermediate, Verified 06/14/25 10:09) diarrhea Medication List - Last Reviewed 06/14/25 by BHARATH Noyola albuterol sulfate 90 mcg/actuation 2 inhalations inhalation Q6H PRN 30 days alprazolam 0.25 mg PO BEDTIME PRN cholecalciferol (vitamin D3) 50 mcg PO DAILY cyanocobalamin (vitamin B-12) 1,000 mcg PO DAILY folic acid 0.8 mg PO DAILY rivaroxaban (Xarelto) 20 mg PO QPM 90 days sotalol 80 mg PO BID PFSH Medical History TSH elevation 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 Osteopenia Preop exam for internal medicine Nasolacrimal duct obstruction, acquired Chronic restrictive lung disease Paroxysmal atrial flutter DVT (deep venous thrombosis) (~01/2021) Pneumonitis Pneumonia due to COVID-19 virus (~12/2020) Chest pain LFT elevation Right leg swelling COVID-19 (~12/2020) Atrial flutter NICM (nonischemic cardiomyopathy) [id number] syndrome (~01/2021) Tachycardia Chronic thromboembolic disease (~01/2021) History of Clostridium difficile infection (~12/2020) Bilateral pulmonary embolism (~01/2021) Left leg DVT (~01/2021) Syncope (~12/2020) Osteoporosis (~2005) Vitamin D deficiency Asthma Atrial fibrillation Surgical History History of partial hysterectomy (~1982) History of mitral valve repair (~05/2016) History of cardiac cath (~05/2016) History of maze procedure History of left knee surgery History of tonsillectomy (~1965) Family History Father Melanoma Mother No problems noted. Maternal Aunt Breast cancer Brother Myasthenia gravis Social History Household Members: Spouse Household Members Other:: Housing: House Are you a primary residential care facility manager to a significant other at home: No Do you presently have visiting nurse or other home services: No Alcohol intake: current Alcohol intake frequency: holidays/special occasions only Comment: once q 3-4 montsh 1-2 drink Patient Tobacco Use Status: Never used Tobacco Tobacco use type: Cigarette e-Cigarette/Vaping Use: Never Used Second Hand Smoke Exposure: No service: No Current occupational status: disabled Cognitive needs: No Hearing needs: No Vision needs: No Physical Exam Vital Signs: BMI result Body Mass Index 26.4 Const Other: Well-nourished well-developed very friendly female awake alert and oriented x3 in no acute distress Extrem Other: Right knee examination shows a minimal effusion, mild crepitus with range of motion, tenderness along her medial joint line, positive Ana's test, no instability Results Reviewed Results Reviewed: X-rays of the patient's bilateral knee show mild to moderate diffuse joint space narrowing most significant in the patellofemoral joints, no acute bony abnormalities Assessment & Plan Assessment & Plan (1) Tear of medial meniscus of right knee: Code(s): S83.241A - Other tear of medial meniscus, current injury, right knee, initial encounter Category: Medical Plan Ms. Mcnair presents with right knee pain and mechanical symptoms due to early degenerative joint disease as well as possible medial meniscus tearing. Thus, I will send the patient for an MRI of her right knee for further evaluation. I will see her back once the MRI is completed to discuss the findings and treatment options. She will continue with her activity modifications in the meantime. Feel free to call me at any time should questions regarding her orthopedic management arise. Thank you very much for asking me to see this very friendly patient. I spent 22 minutes in reviewing the patient's records and imaging studies, seeing the patient and documenting in the medical record. Orders: Orders MR knee RT wo con 06/15/25 S83.241A - Other tear of medial meniscus, current injury, right knee, initial encounter Coding Level of Care Code New Pt Level 3 (37256) Complex EM visit Add On G2211 Diagnoses Tear of medial meniscus of right knee S83.241A
== END 2025-06-14 10:23 | disposition home or self-care (01) ==
LOC: HO.HOS 09:44
PROVIDERS: PCP Internal Medicine; Visit Provider Orthopaedic Surgery
DX: S83.241A Other tear of medial meniscus, current injury, right knee, initial encounter (principal)
CPT/HCPCS: 99203; G2211

== ENCOUNTER → 2025-06-14 09:43 | Outpatient (BNVA) | payer MEDICARE, SELFPAY | PROVIDERS: PCP Internal Medicine; Visit Provider Orthopaedic Surgery | DX: S83.241A Other tear of medial meniscus, current injury, right knee, initial encounter (principal) | CPT/HCPCS: 99202 ==

== ENCOUNTER 2025-06-14 10:28 | Outpatient (REF) | payer MEDICARE, SELFPAY ==
[2025-06-14 14:15] LABS: Free T4 (Free Thyroxine) 1.12 ng/dL (0.71-1.85); Thyroid Stimulating Hormone 2.58 uIU/mL (0.32-4.0)
== END 2025-06-14 10:29 | disposition home or self-care (01) ==
LOC: HO.10HDL 10:28
PROVIDERS: Visit Provider Internal Medicine
DX: R79.89 Other specified abnormal findings of blood chemistry (principal); Z13.29 Encounter for screening for other suspected endocrine disorder
CPT/HCPCS: 36415; 84439; 84443

== ENCOUNTER 2025-06-28 08:22 | Outpatient (REF) | payer MEDICARE, SELFPAY ==
--- NOTE | ~2025-06-28 | MR_ITS ---
EXAM: MRI LOWER EXTREMITY JOINT, KNEE, right TECHNIQUE: Multiplanar multisequence MR imaging performed through the right knee without contrast. INDICATION: S83.241A - Other tear of medial meniscus, current injury, right knee, in... PRIOR: May 02, 2025 x-ray FINDINGS: Menisci: Lateral Meniscus: There is linear signal in the anterior lateral meniscus extending to the surface of the single image only. Inner free margin of the body meniscus is frayed. Trace fluid tracks between the tibial plateau the posterior horn lateral meniscus. Medial Meniscus: There is mild extrusion of the meniscal body. No tear is identified. ACL/PCL: ACL demonstrates increased signal. There is fluid signal within the ACL. Overall, it appears intact. PCL also demonstrates linear fluid signal near the femoral attachment and centrally. Extensor mechanism: There is no joint effusion. There is increased signal in the deep proximal fibers of patellar tendon. MCL/LCL: MCL and LCL complex are intact. Articular cartilage: Patellofemoral Compartment: There is full-thickness articular cartilage defect in the superior third patella involving median ridge extending 13 mm into the lateral facet and extending across the medial facet. Trochlea demonstrates diffuse loss of cartilage, greater than 50%, somewhat sparing the superior margin. Additionally, there is a focal full-thickness articular cartilage defect 6 mm in size in the central region of trochlear groove with adjacent reactive marrow signal. Lateral Compartment: There is greater than 50% articular cartilage loss and central weightbearing area of the tibial plateau. In the posterior weightbearing region of the lateral femoral condyle, adjacent posterior horn lateral meniscus, there is 7 mm T2 cartilage defect involving more than half the cartilage thickness. Medial Compartment: The surface of the articular cartilage in the medial femoral condyle, stable appearing narrowing, demonstrates an undulating contour with cartilage loss greater than 50%. Tibial plateau articular cartilage is thinned in the medial half involving up to more than half the cartilage thickness. Bones/Marrow: Reactive marrow signal changes present along the medial joint line posteriorly in the femoral condyle and more diffusely across the tibial plateau. There are tricompartmental marginal osteophytes. Additionally, there is a 1 cm central osteophyte in the posterior weightbearing region of the lateral femoral condyle, adjacent posterior horn lateral meniscus. There is reactive marrow signal in the upper half patella. Soft tissues: Varicose veins are present in the subcutaneous soft tissues. There is trace fluid in a Hodges's cyst. MR/MR knee RT wo con IMPRESSION: Moderate osteoarthritis with cartilage loss greatest in the patellofemoral joint and the medial compartment. There is possibly a tear of anterior horn lateral meniscus. Linear signal extends to the surface on a single image only. This finding has a 50% chance of representing a tear at arthroscopy. There is a delamination tear PCL extending to the deep surface near the femoral attachment. There is also intrasubstance delamination within ACL. There is evidence of mild laxity of the lateral meniscus. Fluid tracks between the posterior horn lateral meniscus and tibial plateau. Additionally, there is mild extrusion of the medial meniscal body. Mild patellar tendinopathy: There is increased signal in the deep proximal fibers targeted. Electronically signed by: Adrián Celestin MD 06/28/2025 10:30 AM EDT
== END 2025-06-28 08:23 | disposition home or self-care (01) ==
LOC: HO.MRI 08:22
PROVIDERS: PCP Internal Medicine; Visit Provider Orthopaedic Surgery
DX: S83.241A Other tear of medial meniscus, current injury, right knee, initial encounter (principal)
CPT/HCPCS: 73721

== ENCOUNTER → 2025-06-28 08:38 | Outpatient (BNV) | payer MEDICARE, SELFPAY | PROVIDERS: PCP Internal Medicine; Visit Provider Radiology Diagnostic Radiology | DX: M17.11 Unilateral primary osteoarthritis, right knee (principal); S83.511A Sprain of anterior cruciate ligament of right knee, initial encounter; S83.521A Sprain of posterior cruciate ligament of right knee, initial encounter; M76.51 Patellar tendinitis, right knee | CPT/HCPCS: 73721 ==

== ENCOUNTER 2025-07-10 07:48 | Outpatient (AMB) | payer MEDICARE, SELFPAY ==
--- NOTE | 2025-07-10 07:51 | MHC.OFFVIS ---
Intake Visit Reasons: O/V rt knee MRI review Intake Note: Fidelina is a 70 year old female who presents today as a MRI review of her right knee 06/28/25. She describes her right knee pain as achy in nature. She notices increase in her discomfort when she is kneeling on the ground or going up and down stairs. She has had cortisone injections in the past which gave her minimal relief. She has not had a viscosupplementation injection. She has failed the last 3 months of conservative treatment. She has tried physical therapy exercises which aggravated her pain. Allergies acetaminophen (Percocet) Allergy (Severe, Verified 07/10/25 07:51) stomach upset oxycodone (Percocet) Allergy (Severe, Verified 07/10/25 07:51) stomach upset pneumococcal vaccine Allergy (Severe, Verified 07/10/25 07:51) Unknown apixaban (From Eliquis) Adverse Reaction (Intermediate, Verified 07/10/25 07:51) diarrhea Medication List - Last Reconciled 07/10/25 by David Nix MD albuterol sulfate 90 mcg/actuation 2 inhalations inhalation Q6H PRN 30 days alprazolam 0.25 mg PO BEDTIME PRN cholecalciferol (vitamin D3) 50 mcg PO DAILY cyanocobalamin (vitamin B-12) 1,000 mcg PO DAILY folic acid 0.8 mg PO DAILY rivaroxaban (Xarelto) 20 mg PO QPM 90 days sotalol 80 mg PO BID PFSH Medical History TSH elevation 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 Osteopenia Preop exam for internal medicine Nasolacrimal duct obstruction, acquired Chronic restrictive lung disease Paroxysmal atrial flutter DVT (deep venous thrombosis) (~01/2021) Pneumonitis Pneumonia due to COVID-19 virus (~12/2020) Chest pain LFT elevation Right leg swelling COVID-19 (~12/2020) Atrial flutter NICM (nonischemic cardiomyopathy) 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 Maternal Aunt Breast cancer Brother Myasthenia gravis Social History Household Members: Spouse Household Members Other:: Housing: House Are you a primary reproductive healthcare assistant to a significant other at home: No Do you presently have visiting nurse or other home services: No Alcohol intake: current Alcohol intake frequency: holidays/special occasions only Comment: once q 3-4 montsh 1-2 drink Patient Tobacco Use Status: Never used Tobacco Tobacco use type: Cigarette e-Cigarette/Vaping Use: Never Used Second Hand Smoke Exposure: No service: No Current occupational status: disabled Cognitive needs: No Hearing needs: No Vision needs: No Physical Exam Const Other: Well-nourished well-developed very friendly female awake alert and oriented x3 in no acute distress Extrem Other: Right knee examination shows a minimal effusion, palpable crepitus with range of motion, pain with range of motion, negative Ana's test, no instability Results Reviewed Results Reviewed: MRI of the patient's right knee shows moderate diffuse degenerative changes most significant in the patellofemoral joint and lateral compartment, no obvious meniscus or ligamentous injury Assessment & Plan Assessment & Plan (1) Osteoarthritis of right knee: Code(s): M17.11 - Unilateral primary osteoarthritis, right knee Category: Medical Plan Ms. Mcnair presents with right knee pain due to osteoarthritis. I had a lengthy discussion with the patient regarding the treatment options. At this point the patient states that her symptoms are tolerable to her. If her symptoms do worsen I will see if her insurance company will cover a viscosupplementation injection, such as Durolane. She will continue with her activity modifications in the meantime. Feel free to call me at any time should questions regarding her orthopedic management arise. I spent 20 minutes in reviewing the patient's records and imaging studies, seeing the patient and documenting in the medical record. Coding Level of Care Code Est Pt Level 3 (74192) Complex EM visit Add On G2211 Diagnoses Osteoarthritis of right knee M17.11
== END 2025-07-10 08:16 | disposition home or self-care (01) ==
LOC: HO.HOS 07:49
PROVIDERS: PCP Internal Medicine; Visit Provider Orthopaedic Surgery
DX: M17.11 Unilateral primary osteoarthritis, right knee (principal)
CPT/HCPCS: 99213; G2211

== ENCOUNTER → 2025-07-10 07:48 | Outpatient (BNVA) | payer MEDICARE, SELFPAY | PROVIDERS: PCP Internal Medicine; Visit Provider Orthopaedic Surgery | DX: M17.11 Unilateral primary osteoarthritis, right knee (principal) | CPT/HCPCS: 99212 ==

== ENCOUNTER 2025-08-02 07:44 | Outpatient (AMB) | payer MEDICARE, SELFPAY ==
--- NOTE | 2025-08-02 08:12 | A.OFFVIS_ITS ---
Vital Signs 08/02/25 08:25 Height 5 ft 9 in Weight 180 lb 15.992 oz BMI 26.7 BP 132/72 Blood Pressure Location Lt brachial Position Sitting Pulse 61 Pulse Source Pulse Oximeter Pulse Oximetry (%) 98 Oxygen Delivery Method Room Air Intake Visit Reasons: pain both knees Intake Note: New patient presents for bilateral knee pain. Patient stated she has been having bilateral knee pain for the past 8 month. Patient takes Tyleno when very bad. Allergies acetaminophen (Percocet) Allergy (Severe, Verified 08/02/25 08:24) stomach upset oxycodone (Percocet) Allergy (Severe, Verified 08/02/25 08:24) stomach upset pneumococcal vaccine Allergy (Severe, Verified 08/02/25 08:24) Unknown apixaban (From EliquPancetera) Adverse Reaction (Intermediate, Verified 08/02/25 08:24) diarrhea Medication List - Last Reconciled 08/02/25 by Dory Law MD albuterol sulfate 90 mcg/actuation 2 inhalations inhalation Q6H PRN 30 days alprazolam 0.25 mg PO BEDTIME PRN cholecalciferol (vitamin D3) 50 mcg PO DAILY cyanocobalamin (vitamin B-12) 1,000 mcg PO DAILY folic acid 0.8 mg PO DAILY rivaroxaban (Xarelto) 20 mg PO QPM 90 days sotalol 80 mg PO BID HPI Comments Details: Patient is a 70-year-old female with asthma, generalized anxiety disorder, nonischemic cardiomyopathy, AFib and valvular surgery, bilateral pulmonary embolism on a background of COVID-19 infection, osteoporosis and knee osteoarthritis here today for evaluation of a positive CCP and a positive SELENE in the setting of bilateral knee pain Patient states that at the age of 12 she had a traumatic knee injury to her left knee requiring surgical repair for correct cartilage. Since then she has had on and off left knee pain. However the past 8 months she has noted right knee pain in addition to her left knee pain. No prolonged morning stiffness or swelling Has difficulty with walks, getting up from a bent knee position and walking up and downstairs Denies rashes, photosensitivity, alopecia, oral/nasal ulcers, sicca symptoms, lymphadenopathy, chest pain/shortness of breath, foamy urine, lower extremity edema, muscle weakness, Raynaud's Also denies history of seizure, CVA, psychosis, history of kidney problems, history of cytopenias No preeclampsia No eclampsia No placental insufficiency PFSH Medical History TSH elevation 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 Osteopenia Preop exam for internal medicine Nasolacrimal duct obstruction, acquired Chronic restrictive lung disease Paroxysmal atrial flutter DVT (deep venous thrombosis) (~01/2021) Pneumonitis Pneumonia due to COVID-19 virus (~12/2020) Chest pain LFT elevation Right leg swelling COVID-19 (~12/2020) Atrial flutter NICM (nonischemic cardiomyopathy) [id number] syndrome (~01/2021) Tachycardia Chronic thromboembolic disease (~01/2021) History of Clostridium difficile infection (~12/2020) Bilateral pulmonary embolism (~01/2021) Left leg DVT (~01/2021) Syncope (~12/2020) Osteoporosis (~2005) Vitamin D deficiency Asthma Atrial fibrillation Surgical History History of partial hysterectomy (~1982) History of mitral valve repair (~05/2016) History of cardiac cath (~05/2016) History of maze procedure History of left knee surgery History of tonsillectomy (~1965) Family History Father Melanoma Mother No problems noted. Maternal Aunt Breast cancer Brother Myasthenia gravis Social History Household Members: Spouse and None Household Members Other:: passed Housing: House Are you a primary caretaker resort to a significant other at home: No Do you presently have visiting nurse or other home services: No Alcohol intake: current Alcohol intake frequency: holidays/special occasions only Comment: once q 3-4 montsh 1-2 drink Patient Tobacco Use Status: Never used Tobacco Tobacco use type: Cigarette e-Cigarette/Vaping Use: Never Used Second Hand Smoke Exposure: No service: No Current occupational status: disabled Cognitive needs: No Hearing needs: No Vision needs: No Review of Systems Narrative Review of Systems Constitutional: Denies fever, chills, weight loss ENT: Denies vision changes, eye pain or eye redness, dental caries, dry mouth GI: Denies nausea, vomiting, diarrhea, abdominal pain, change in BM Pulm: Denies SOB, GARCIA, hemoptysis, wheezing Cards: Denies chest pain, palpitations Skin: Denies Raynaud's, rash, nail changes, photosensitivity, DIVING JUDGE: Denies headaches, weakness, paresthesias, recurrent falls MSK: as per HPI All other systems reviewed and are unremarkable except noted above Physical Exam Exam Exam: Vital signs reviewed Physical Examination CONSTITUITIONAL Patient alert and cooperative. Well appearing and in no apparent painful distress MSK Hands * Right Hand: Able to make a fist. No swelling or tenderness to palpation of the MCPs, PIPs or DIPs. * Left Hand: Able to make a fist. No swelling or tenderness to palpation of the MCPs, PIPs or DIPs. Wrists * Right Wrist: Full ROM to flexion and extension. No swelling or TTP * Left Wrist: Full ROM to flexion and extension. No swelling or TTP Elbows * Right Elbow: Full ROM. No swelling or TTP. No TTP of the medial epicondyle. No TTP of the lateral epicondyle * Left Elbow: Full ROM. No swelling or TTP. No TTP of the medial epicondyle. No TTP of the lateral epicondyle Shoulders * Right shoulder: Full ROM. No swelling noted. No TTP of the AC joint. No TTP of the subacromial bursa. No TTP of the posterior shoulder * Left shoulder: Full ROM. No swelling noted. No TTP of the AC joint. No TTP of the subacromial bursa. No TTP of the posterior shoulder Knees * Right knee: Good ROM. No swelling noted. No TTP of the knee joint line. No TTP of pes anserine bursa * Left knee: Good ROM. No swelling noted. No TTP of the knee joint line. No TTP of pes anserine bursa. * Crepitations felt bilaterally Ankles * Right ankle: Good ankle dorsiflexion and plantar flexion. No swelling. No TTP of the ankle joint * Left ankle: Good ankle dorsiflexion and plantar flexion. No swelling. No TTP of the ankle joint Feet * Right foot: Negative squeeze test * Left foot: Negative squeeze test Tender points? * No tenderness to palpation of the bilateral trapezius, supraspinatus, anterior costochondral junctions, bilateral suboccipital muscle insertions SKIN No rashes Results Reviewed Results Reviewed: Laboratory Tests 02/28/24 02/15/25 07:48 07:37 WBC 5.4 RBC 4.32 Hgb 14.2 Hct 42.4 Plt Count 169 151 L ESR 6 Sodium 144 Potassium 4.1 Chloride 108 Carbon Dioxide 27 BUN 21 H Creatinine 0.76 AST 21 ALT 23 Laboratory Tests 02/15/25 07:37 Cycl Citrul Peptide IgG 168 H SELENE Screen POSITIVE A SELENE Titer 1:160 H SELENE Titer 2 1:80 H SELENE Pattern 2 Nuclear, Speckled A SS-A/Ro Antibody <1.0 NEG SS-B/La Antibody <1.0 NEG Double Strand DNA Ab <1 XR Bilateral Knee 04/2025 FINDINGS (Right): No fracture, dislocation, or suspicious bone lesion. There is normal alignment. There is mild tricompartmental joint space narrowing, with minimal marginal osteophytic spurring. The patella is normally aligned. Minimal spurring of the tibial spines. There is no evidence of joint effusion. Soft tissues demonstrate probable venous varicosities laterally. Soft tissues otherwise normal. IMPRESSION: 1. No acute bony abnormalities of the right knee. 2. Mild tricompartmental osteoarthritis. 3. No joint effusion. FINDINGS (Left): Joint space narrowing involving mostly the medial compartment. Sclerosis and the articular surface of the medial tibial plateau. No acute cortical disruption or malalignment. Small exostosis at the quadriceps tendon insertion. No suprapatellar bursa joint effusion. Osteopenia versus osteoporosis. IMPRESSION: Bicompartmental osteoarthrosis involving mostly the medial compartment. MR Right Knee 06/2025 FINDINGS: Menisci: Lateral Meniscus: There is linear signal in the anterior lateral meniscus extending to the surface of the single image only. Inner free margin of the body meniscus is frayed. Trace fluid tracks between the tibial plateau the posterior horn lateral meniscus. Medial Meniscus: There is mild extrusion of the meniscal body. No tear is identified. ACL/PCL: ACL demonstrates increased signal. There is fluid signal within the ACL. Overall, it appears intact. PCL also demonstrates linear fluid signal near the femoral attachment and centrally. Extensor mechanism: There is no joint effusion. There is increased signal in the deep proximal fibers of patellar tendon. MCL/LCL: MCL and LCL complex are intact. Articular cartilage: Patellofemoral Compartment: There is full-thickness articular cartilage defect in the superior third patella involving median ridge extending 13 mm into the lateral facet and extending across the medial facet. Trochlea demonstrates diffuse loss of cartilage, greater than 50%, somewhat sparing the superior margin. Additionally, there is a focal full-thickness articular cartilage defect 6 mm in size in the central region of trochlear groove with adjacent reactive marrow signal. Lateral Compartment: There is greater than 50% articular cartilage loss and central weightbearing area of the tibial plateau. In the posterior weightbearing region of the lateral femoral condyle, adjacent posterior horn lateral meniscus, there is 7 mm T2 cartilage defect involving more than half the cartilage thickness. Medial Compartment: The surface of the articular cartilage in the medial femoral condyle, stable appearing narrowing, demonstrates an undulating contour with cartilage loss greater than 50%. Tibial plateau articular cartilage is thinned in the medial half involving up to more than half the cartilage thickness. Bones/Marrow: Reactive marrow signal changes present along the medial joint line posteriorly in the femoral condyle and more diffusely across the tibial plateau. There are tricompartmental marginal osteophytes. Additionally, there is a 1 cm central osteophyte in the posterior weightbearing region of the lateral femoral condyle, adjacent posterior horn lateral meniscus. There is reactive marrow signal in the upper half patella. Soft tissues: Varicose veins are present in the subcutaneous soft tissues. There is trace fluid in a Hodges's cyst. IMPRESSION: Moderate osteoarthritis with cartilage loss greatest in the patellofemoral joint and the medial compartment. There is possibly a tear of anterior horn lateral meniscus. Linear signal extends to the surface on a single image only. This finding has a 50% chance of representing a tear at arthroscopy. There is a delamination tear PCL extending to the deep surface near the femoral attachment. There is also intrasubstance delamination within ACL. There is evidence of mild laxity of the lateral meniscus. Fluid tracks between the posterior horn lateral meniscus and tibial plateau. Additionally, there is mild extrusion of the medial meniscal body. Mild patellar tendinopathy: There is increased signal in the deep proximal fibers targeted. DEXA 12/2023 FINDINGS: LEFT FEMUR, NECK: Current: BMD 0.687 g/cm2, Z-score -1.2, T-score -2.5, osteoporosis. Baseline: BMD 0.654 g/cm2. LEFT FEMUR, TOTAL: Current: BMD 0.730 g/cm2, Z-score -1.1, T-score -2.2, osteopenia, 1.4% increase from baseline (<5% change is not significant). Baseline: BMD 0.720 g/cm2. AP SPINE L1-L4: Current: BMD 0.851 g/cm2, Z-score -1.6, T-score -2.7, osteoporosis, 0.2% increase from baseline (<5% change is not significant). Baseline: BMD 0.849 g/cm2. Assessment & Plan Assessment & Plan (1) Bilateral primary osteoarthritis of knee: Code(s): M17.0 - Bilateral primary osteoarthritis of knee Category: Medical Plan: #Bilateral Knee OA Patient is a 70-year-old female here today to establish care for bilateral knee pain. Exam, history and imaging consistent with osteoarthritis. Discussed treatment modalities for osteoarthritis including topical diclofenac, PT, procedural injection such as steroid injections and gel injections, and replacement We will start with topical diclofenac and physical therapy Plan - Topical diclofenac 1% qid - PT referral - RTC 6 months - Labs before visit: CBC, CMP, ESR, CRP, Vit D (2) Osteoporosis: Onset Date: ~2005 Comment: DEXA 12/2023: AP Spine -2.7, Left femur neck -2.2, Left femur total -2.5 Alendronate 07/2025 Code(s): M81.0 - Age-related osteoporosis without current pathological fracture Category: Medical Qualifiers: Osteoporosis type: unspecified Presence of current pathological fracture: unspecified Qualified Code(s): M81.0 - Age-related osteoporosis without current pathological fracture Plan: #Osteoporosis Patient with osteoporosis diagnosed in 2023. No current treatment. Discussed the risks and benefits of treatment versus not treatment and patient is willing to proceed with treatment Plan - Alendronate 70mg weekly - Continue Vit D supplementation (3) SELENE positive: Code(s): R76.8 - Other specified abnormal immunological findings in serum Category: Medical Plan: #Positive SELENE The presence of antinuclear antibodies (SELENE) is mainly associated with connective tissue diseases (CTD). However, their presence is found in healthy people especially in women and patients >65. In healthy individuals, the frequency of SELENE has been shown to be 31.7% of individuals at 1:40 serum dilution, 13.3% at 1:80, 5.0% at 1:160, and 3.3% at 1:320 (2). Some drugs and xenobiotics are also important for the development of SELENE (hydralazine, hydrochlorothiazide, minocycline, terbinafine, ciprofloxacin, furosemide, omeprazole). Moreover, the deficiency of vitamin D in the body of patients correlates with occurrence of these antibodies (1). At this time there is low suspicion for a connective tissue disease. 1. Rod?tanya Currie, Coretta Merchant, Kayla Copeland. Antinuclear antibodies in healthy people and non-rheumatic diseases - diagnostic and clinical implications. Reumatologia. 2018;56(4):243-248. doi: [email or web address]/reum.[id number]. Epub 2017May 27. PMID: [id number]; PMCID: [id number]. 2. Jacob EM, Jessica TE, Bart JS, Fidel B, Davian R, Cleveland MJ, Filiberto T, Nadege JA, Pepe JR, Shelly RG, Sabra RN, Cesario LOCKETT, Aram NF, Camila RJ, Tess Y, Timmy A, Rohit MR, Jimenez PATTERSON. Range of antinuclear antibodies in healthy individuals. Arthritis Rheum. 1996;40(9):1601-11. doi: 10.1002/ar t.[id number]. PMID: 8276019. (4) Positive anti-CCP test: Code(s): R76.8 - Other specified abnormal immunological findings in serum Category: Medical Plan: #Positive CCP Positive CCP antibodies is usually seen in patients with rheumatoid arthritis however the can be seen in asymptomatic individuals At this time this patient does not have any evidence of inflammatory arthritis. No evidence of rheumatoid arthritis at this time (5) Encounter for ongoing osteoporosis therapy, bisphosphonates: Code(s): M81.0 - Age-related osteoporosis without current pathological fracture; Z79.83 - shelter (current) use of bisphosphonates Plan: #Long-term Use of Bisphosphonates Risks and benefits of bisphosphonates in the management of osteoporosis Benefits include improved bone density, decreased fracture risk Risks include atypical femoral fractures, GI upset, esophageal strictures Contraindicated in patients with a creatinine clearance < 30 to 35 ml/min Keep vitamin-D at least 35 ng/mL Plan I spent 60 minutes reviewing the record and labs, taking a history, examining the patient, discussing the treatment plan, explaining the dignosis, answering questions, ordering diagnostic work up and documenting in the medical record Orders: Orders Erythrocyte Sedimentation Rate 6 Months Z79.899 - Other prison (current) drug therapy Complete Blood Count Auto Diff 6 Months Z79.899 - Other [employer] customer service (current) drug therapy Comprehensive [place]. Panel Fast 6 Months Z79.899 - Other prison (current) drug therapy PT Evaluation and Treatment Today M17.0 - Bilateral primary osteoarthritis of knee Vitamin D 25-OH Total 6 Months Z79.899 - Other prison (current) drug therapy C Reactive Protein 6 Months Z79.899 - Other prison (current) drug therapy Medications: New alendronate 70 mg PO QWEEK 13 tabs 1RF 90 days M81.0 - Age-related osteoporosis without current pathological fracture diclofenac sodium 1% apply to bilateral knees 4 grams topical QID 100 grams 5RF M17.0 - Bilateral primary osteoarthritis of knee Coding Level of Care Code New Pt Level 5 (77051) Complex EM visit Add On G2211 Diagnoses Bilateral primary osteoarthritis of knee M17.0 Osteoporosis, unspecified osteoporosis type, unspecified pathological fracture presence M81.0 Osteoporosis type: unspecified Presence of current pathological fracture: unspecified SELENE positive R76.8 Positive anti-CCP test R76.8 Encounter for ongoing osteoporosis therapy, bisphosphonates M81.0; Z79.83
[2025-08-02 08:25] VITALS: BP 132/72; PULSE 61; O2SAT 98; BMI 26.7
== END 2025-08-02 09:09 | disposition home or self-care (01) ==
LOC: HO.RHES 07:45
PROVIDERS: PCP Internal Medicine; Visit Provider Student in an Organized Health Care Education/Training Program
DX: M17.0 Bilateral primary osteoarthritis of knee (principal); M81.0 Age-related osteoporosis without current pathological fracture; R76.0 Raised antibody titer; R76.81 Abnormal rheumatoid factor and anti-citrullinated protein antibody without rheumatoid arthritis; Z79.83 Long term (current) use of bisphosphonates
CPT/HCPCS: 99205; G2211

== ENCOUNTER → 2025-08-02 07:44 | Outpatient (BNVA) | payer MEDICARE, SELFPAY | PROVIDERS: PCP Internal Medicine; Visit Provider Student in an Organized Health Care Education/Training Program | DX: M17.0 Bilateral primary osteoarthritis of knee (principal); M81.0 Age-related osteoporosis without current pathological fracture; R76.89 Other specified abnormal immunological findings in serum; Z79.83 Long term (current) use of bisphosphonates | CPT/HCPCS: 99202 ==

== ENCOUNTER 2025-08-09 10:08 | Outpatient (AMB) | payer MEDICARE, SELFPAY ==
[2025-08-09 10:14] VITALS: BP 110/60; PULSE 62; O2SAT 96; BMI 26.5
--- NOTE | 2025-08-09 10:14 | A.OFFVIS_ITS ---
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: No Accompanied by: Self / Same As Patient Allergies acetaminophen (Percocet) Allergy (Severe, Verified 08/09/25 10:16) stomach upset oxycodone (Percocet) Allergy (Severe, Verified 08/09/25 10:16) stomach upset pneumococcal vaccine Allergy (Severe, Verified 08/09/25 10:16) Unknown apixaban (From Eliquis) Adverse Reaction (Intermediate, Verified 08/09/25 10:16) diarrhea HPI Comments Details: The patient is a 70-year-old woman with a known history of NSVT, afib and valvular surgery who apparently was in her usual state health until back in January 16 she presented with worsening shortness of breath to the ER. She was positive for COVID-19. Her CT scan of the chest demonstrated some minimal airspace disease at the bases. During the hospital course she was treated for a superimposed bacterial infection and also C diff. the patient was ultimately discharged home. However, home she started developing worsening shortness of breath several weeks after. She return to the ER. Had a repeat CTA after having a D-dimer of 8000. The repeat CTA demonstrated bilateral pulmonary embolisms consistent with submassive PE. In addition to the bilateral pulmonary emboli the patient did have extensive airspace disease secondary to severe COVID 19 pneumonia. Her echocardiogram demonstrated moderate right ventricular dysfunction. The patient initially placed on Eliquis and then subsequent switched over to Xarelto due to adverse effects. She has been compliant with the medication. The patient continues to have significant dyspnea on exertion. Moderate to severe even with minimal activity. Recently she did follow-up with Hematology. A repeat brain atretic peptide was normal. Today in the office we did perform a 6 minutes walk test. The patient again had a Monika score of 8/10 with minimal activity heart rate 100 in a pulse ox of 98%. This is on 2 L. therefore her shortness of breath was out of proportion to the findings. She also describes chest pressure. In the office we did do an EKG demonstrating new T-wave inversions specially in the inferior and precordial leads. The T-wave inversions in flattening are new when compared to an EKG from February 10. The patient did call her hamper maker and I am hopeful that she can follow-up soon. In the meantime will have her get a troponin I tests done to make sure she is not having any evidence of any cardiac damage. The patient is aware that if her symptoms worsen she is to go to the ER urgently. 11/12/2021 the patient is here for a pulmonary follow-up visit. The patient has been feeling better. Apparently her respiratory symptoms were still persistent and waxing waning. She went to see her primary care doctor where she was noted to be irregularly irregular concerning for atrial fibrillation. She was recommended to go to the ER but she was reluctant. She went home. Her symptoms however worsen and she did go to the ER finally. She was noted to be in AFib with rapid ventricular response. This is a new onset atrial fibrillation. The patient was evaluated by Cardiology and underwent cardioversion and placed on sotalol. Since then her breathing has improved. The patient has been on X arelto. Interestingly her INR was elevated at 1.8. I did place an order to repeat that. In the meantime I did recommend she take multivitamins. In regards of her thromboembolic disease she did have a repeat CTA in the ER that I personally reviewed demonstrating no evidence of any acute or chronic thrombus in the chest. She still has some areas of mosaic pattern in addition to that some scarring at the bases likely from the severe COVID. In addition to that we did review her lower extremity Dopplers now with resolution of her blood clot Of her lower extremity. 03/16/2022 the patient is here for a pulmonary follow-up visit. She continues to have significant dyspnea on exertion, moderate severity. Even with minimal activity. She has not felt well and has not made any improvement the last several months. Since we last met the patient did have an extensive cardiac workup including a left and right cardiac catheterization. No evidence of any coronary disease and also no evidence of any pulmonary vascular disease. Therefore ruling out the possibility of any chronic thromboembolic disease Resulting in pulmonary hypertension. She also underwent pulmonary function studies in January 2022 which was personally by me demonstrating interval worsening of her total lung capacity and also no real significant improvement on her severe diffusion impairment. At this point he still unclear why this is the case. She did resolve her pulmonary emboli although cannot rule out recurrent events. The patient also did have some evidence of interstitial lung disease that was the results of the COVID there is a possibility that this ultimately continue worsening. Therefore, I will request a repeat CT scan to assess her interstitial lung disease. Her D-dimer was checked and was negative so therefore will hold off on additional contrast. All her findings are consistent with her severe COVID with persistent symptoms and findings more than a year afterwards. In view of her interstitial lung disease will plan to do additional workup looking for other etiologies including connective tissue conditions and also plan to try her on a course of prednisone for the next 3-4 weeks. 07/10/2022 the patient is here for a pulmonary follow-up visit. Since we last spoke she did take a course of prednisone. However, she did not see any significant improvement with her breathing. She still complains of dyspnea on exertion moderate severity with minimal activity. Even with activities of daily living. Again, we did review her pulmonary function studies demonstrating significant diffusion impairment. The patient based on the perfusion study does not appear to have any persistent residual clots to explaining chronic thromboembolic disease. Although, based on the this portion all diffusion impairment pulmonary hypertension is did differential. Will go ahead and request a cardiac when her exercise tolerance test level 1 at [facility] to further address the question. In addition to that the patient did being blood thinners which she is tolerating well. Also, her PFTs she does have evidence of small airways disease therefore will go ahead and try her on a prescription of Trelegy to see if we can provide her some relief with bronchodilation. 10/12/2022 the patient is here for a pulmonary follow-up visit. Overall the patient appears to be doing slightly better. She still having some shortness of breath primarily when going up a flight of stairs [id number] severity. But overall she is doing better. She continues on the blood thinner. She was supposed to undergo a cardiopulmonary exercise stress test at [facility] but it was postponed based on the fact that they did not have the equipment available and subsequently after that it was not reschedule. She still waiting to get a call back. In the meantime I will reach out to her hamper maker to see if a stress echo will be sufficient to further address the question of exercise- induced pulmonary hypertension. The patient does have multiple reasons why she has underlying dyspnea including her systolic dysfunction, diastolic dysfunction, restrictive lung disease and significant diffusion impairment on her PFTs. Indeed pulmonary hypertension is a concern. Although, her cardiac catheterization recent she was very reassuring with normal PA pressures at rest. Still exercise-induced pulmonary hypertension is in the differential. 04/14/2023 the patient is here for pulmonary follow-up visit. Overall she is feeling a little better. Still having significant dyspnea on exertion. Mo derate severity with minimal activity. Typically she has been doing less. For that reason she has been gaining weight she states. She did have a repeat echocardiogram demonstrating a slight improvement of the ejection fraction from 40% to 51%. In addition to that she did undergo a cardiopulmonary exercise tolerance test. It demonstrated that she had a very limited aerobic capacity. She has some degree this could be secondary to muscle weakness. In addition to that demonstrated that her cardiac reserve with significant decrease suggesting a cardiovascular limitation. Breath after the cardiovascular mentation was reached develop respiratory limitations. Therefore it is likely that between the weakness in the cardiovascular issues her symptoms worsened with minimal pulmonary reserve as well. Therefore, the patient needs to go back to pulmonary rehabilitation. In addition to that work on diuresis to try to decrease her volume status to see if we can improve her cardiovascular function and capacity. The patient will start pulmonary rehab once available. She continues on the anticoagulation. 08/18/2023 the patient is here for a pulmonary follow-up visit. The patient overall has been doing well. She has been doing very well with pulmonary rehabilitation. She continues to participate regularly. She is noticing improvement in her exercise capacity. She is working closely with Cardiology. She continues on Xarelto for the history of PE in addition to her atrial fibrillation. Currently she is on the full dose Xarelto. He may be the case that she needs to stay on that dose. She will be able to talk to her hamper maker during the next visit about decreasing the dose to 10 mg. At least from a PE standpoint she is able to decrease to 10 mg for prophylactic dose although I am not sure about the atrial fibrillation. From a respiratory status she stop the Trelegy because it was irritating her mouth. She does use a rescue inhaler as needed and this has been affecting beneficial. She does not use it more than twice a week so therefore she does not need any maintenance therapies. If she does need them inhaler more often she can always call and I can find something that is less irritating to her. 06/20/2024 the patient is here for a pulmonary follow-up visit. Overall the patient has been doing fairly well. She continues to participate in pulmonary rehabilitation which she has found to be helpful. The patient continues on Xarelto she does have atrial flutter. She also takes it for the history pulmonary emboli. She is currently tolerating the blood thinner without any minor major 100 indications. The patient did have blood work in the past and demonstrated to have an elevated SELENE and also an elevated CCP. Therefore, will be reasonable to repeat blood work specially with concerns of underlying interstitial lung disease. She does have some interstitial changes on her CT scan. She has not had any recent imaging. Should also have a chest x-ray to see if there is any progression. 02/20/2025 the patient is here for pulmonary follow-up visit. She continues to be about the same. Still complains of dyspnea on exertion [id number] severity. She was switched over to Dulera because of insurance issues. Unfortunately she developed significant hoarseness. She will try the spacer and see if this provides some relief and she will decrease the amount of medication to see uses provide some tolerance. She does not tolerate the change in the administration of the medication will have to change the medication altogether. No recent imaging studies to review. She does continue on the Xarelto and following up closely with Cardiology. Will plan to follow-up will talk about any additional imaging studies done. She develops any worsening symptoms or no improvement of the hoarseness with a change in the medication she will call. 08/09/2025 the patient is here for pulmonary follow-up visit. She still struggling with the dyspnea. Moderate severity. Even with minimal activity. She has been on the inhaler therapy. We did talk about the importance of making sure she at least takes it in the morning. She did have PFTs back in 2021 demonstrating a significant response to bronchodilators. Therefore she will go ahead and start the medicine. She also complains of being fatigued and short of breath. She may have a component of postviral post COVID chronic fatigue. Therefore, will try small dose of modafinil to see if this provides some relief. She also had a cardiac echo back in 2022 demonstrating slight decrease in the LV is some hypokinesis. Will go ahead and repeat the echo at this time and she will follow up with Cardiology as well. In addition to that when she returns in 6 months will have her get PFTs. She is going to work on deep breathing exercises and make sure she uses the inhaler regularly. The patient follow-up with the PFTs sometime in the spring of 2025. If any issues arise she can always call for an earlier assessment Or recommendations. 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 Maternal Aunt Breast cancer Brother Myasthenia gravis Social History Household Members: Spouse and None Household Members Other:: passed Housing: House Are you a primary aged or disabled care worker to a significant other at home: No Do you presently have visiting nurse or other home services: No Alcohol intake: current Alcohol intake frequency: holidays/special occasions only Comment: once q 3-4 montsh 1-2 drink Patient Tobacco Use Status: Never used Tobacco Tobacco use type: Cigarette e-Cigarette/Vaping Use: Never Used Second Hand Smoke Exposure: No service: No Current occupational status: disabled Cognitive needs: No Hearing needs: No Vision needs: No Review of Systems Const Denies night sweats ENT Denies change in voice, Denies lip swelling, Denies mouth pain, Reports nasal congestion, Reports nasal discharge and Denies tongue swelling Card Denies chest pain, Denies palpitations, Denies dyspnea and Reports dyspnea on exertion Resp Reports cough, Denies pain on inspiration, Denies pain with cough, Denies dyspnea and Reports dyspnea on exertion GI Denies abdominal pain Musc Reports arthralgias and Reports joint swelling Neuro Denies Neuro-related abnormal movements Psych Denies no additional complaints Endo Denies palpitations Candelario/Lymph Denies easy bleeding and Denies lymphadenopathy Aller/Immun Denies lip swelling and Denies tongue swelling Physical Exam Vital Signs: Last Vital Signs Pulse 62 08/09/25 10:14 BP 110/60 08/09/25 10:14 Pulse Ox 96 08/09/25 10:14 Oxygen Delivery Method Room Air 08/09/25 10:14 BMI result Body Mass Index 26.5 Const General: alert Neck Neck: Yes normal visual inspection, Yes full ROM and Yes no lymphadenopathy Chest Chest palpation & inspection: normal inspection of the chest Resp Effort & Inspection: tachypneic Auscultation: diminished lung sounds Cardio Rate: regular rate Rhythm: regular rhythm Heart sounds: S1 normal heart sound present and S2 normal heart sound present GI Palpation (GI): Soft to palpation and nontender Auscultation: normal bowel sounds Skin General skin exam: rashes and/or lesions noted Assessment & Plan Assessment & Plan (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 Code(s): U09.9 - Post COVID-19 condition, unspecified Category: Medical (2) ILD (interstitial lung disease): Code(s): J84.9 - Interstitial pulmonary disease, unspecified Category: Medical (3) NICM (nonischemic cardiomyopathy): Code(s): I42.8 - Other cardiomyopathies Category: Medical (4) Paroxysmal atrial flutter: Code(s): I48.92 - Unspecified atrial flutter Category: Medical (5) Bilateral pulmonary embolism: Onset Date: ~01/2021 Comment: resolved Code(s): I26.99 - Other pulmonary embolism without acute cor pulmonale Category: Medical (6) Chronic restrictive lung disease: Code(s): J98.4 - Other disorders of lung Category: Medical (7) Asthma: Code(s): J45.909 - Unspecified asthma, uncomplicated Category: Medical Qualifiers: Asthma complication type: uncomplicated Asthma persistence: intermittent Asthma severity: mild Qualified Code(s): J45.20 - Mild intermittent asthma, uncomplicated (8) Chronic fatigue and immune dysfunction syndrome: Code(s): G93.32 - Myalgic encephalomyelitis/chronic fatigue syndrome; D89.89 - Other specified disorders involving the immune mechanism, not elsewhere classified Category: Medical Plan Pulmonary rehab continue Dulera with spacer Continue anticoagulation with Xorelto ECHO PFTs Trial Provigil follow-up 6 months Orders: Orders CA echo transthoracic complete Today I27.20 - Pulmonary hypertension, unspecified PFT pulmonary function test 6 Months J45.20 - Mild intermittent asthma, uncomplicated, J84.9 - Interstitial pulmonary disease, unspecified Medications: New modafinil (Provigil) 100 mg PO QAM 30 tabs 3RF D89.89 - Other specified disorders involving the immune mechanism, not elsewhere classified, G93.32 - Myalgic encephalomyelitis/chronic fatigue syndrome Coding Level of Care Code Est Pt Level 4 (35904) Complex EM visit Add On G2211 Diagnoses Kqck-[id number] syndrome U09.9 ILD (interstitial lung disease) J84.9 NICM (nonischemic cardiomyopathy) I42.8 Paroxysmal atrial flutter I48.92 Bilateral pulmonary embolism I26.99 Chronic restrictive lung disease J98.4 Mild intermittent asthma without complication J45.20 Asthma complication type: uncomplicated Asthma persistence: intermittent Asthma severity: mild Chronic fatigue and immune dysfunction syndrome G93.32; D89.89 Time Spent (min) 17
== END 2025-08-09 10:37 | disposition home or self-care (01) ==
LOC: HO.HPS 10:10
PROVIDERS: PCP Internal Medicine; Visit Provider Hospitalist
DX: U09.9 Post COVID-19 condition, unspecified (principal); J84.9 Interstitial pulmonary disease, unspecified; I42.8 Other cardiomyopathies; I48.92 Unspecified atrial flutter; I26.99 Other pulmonary embolism without acute cor pulmonale; J98.4 Other disorders of lung; J45.20 Mild intermittent asthma, uncomplicated; G93.32 Myalgic encephalomyelitis/chronic fatigue syndrome; D89.89 Other specified disorders involving the immune mechanism, not elsewhere classified
CPT/HCPCS: 99214; G2211

== ENCOUNTER → 2025-08-09 10:08 | Outpatient (BNVA) | payer MEDICARE, SELFPAY | PROVIDERS: PCP Internal Medicine; Visit Provider Hospitalist | DX: I26.99 Other pulmonary embolism without acute cor pulmonale (principal); R06.02 Shortness of breath; U09.9 Post COVID-19 condition, unspecified; J98.4 Other disorders of lung; G93.32 Myalgic encephalomyelitis/chronic fatigue syndrome; I48.0 Paroxysmal atrial fibrillation; Z79.01 Long term (current) use of anticoagulants | CPT/HCPCS: 99212 ==

== ENCOUNTER → 2025-09-13 10:52 | Outpatient (REF) | payer MEDICARE, SELFPAY | LOC: HO.CARD 10:52 | PROVIDERS: PCP Internal Medicine; Visit Provider Hospitalist | DX: I27.20 Pulmonary hypertension, unspecified (principal) | CPT/HCPCS: 93306 ==

== ENCOUNTER → 2025-09-13 10:54 | Outpatient (BNV) | payer MEDICARE, SELFPAY | PROVIDERS: PCP Internal Medicine; Visit Provider Internal Medicine Cardiovascular Disease | DX: I27.20 Pulmonary hypertension, unspecified (principal); I42.2 Other hypertrophic cardiomyopathy | CPT/HCPCS: 93306 ==

== ENCOUNTER 2025-09-25 14:50 | Outpatient (RCR) | payer MEDICARE, SELFPAY ==
--- NOTE | 2025-09-04 18:25 | MHC.PT.EP ---
[facility] [place] Office [place] Office [place] Office [address] [phone] F: [phone] F: [phone] F: [phone] F: [phone] Physical Therapy Plan of Care Date of Evaluation: 09/03/25 Date of Surgery: Diagnosis: OA of B knees. Assessment: Pt is a 70 y/o female referred to PT for eval and treat of B knee OA which is resulting in decreased tolerance for squatting and Heavy HH chores, walking longer distances, negotiating stairs, as well as standing for increased duration secondary to B knee OA, Hx of knee surgery, decreased knee and hip strength and pain at B knee end ranges. Pt is deemed an appropriate candidate to receive skilled PT services to address their physical impairments in order to improve their functional ability. Frequency and Duration: The patient will be seen 2 x / wk x 3 wks. Short Term Goals: initiate home program. Pt will improve baseline pain to < 4/10; initial: 5/10 River Guide Goals: I with home program. Improve LEFI outcome by at least 9 points. Pt will improve B hip abd strength by at least 1/2 MMT grade. Pt will be able to walk 2 blocks without difficulty; initial: moderate difficulty. Treatment Plan: Modalities to reduce pain, spasms and effusion. Manual therapy to restore motion and function. Therapeutic exercise to improve strength and flexibility. Neuromuscular re-education for posture and balance. Therapeutic activities to return to functional activities of daily living. Electronically signed by: Pro Awan PT. Please sign and return to therapist. Thank you for your referral.
--- NOTE | 2025-09-25 18:06 | MHC.PT.DC ---
[facility] [place] Office [place] Office [place] Office [address] Mcc[address] [phone] F: [phone] F: [phone] F: [phone] F: [phone] Physical Therapy Discharge Report Diagnosis: OA of B knees. Date of Surgery: Date of Evaluation: 09/03/25 Date of Discharge: 09/25/25 Treatments to Date: 6 Cancellations to Date: No Shows to Date: Discharge Status: Improved Function Independent with HEP Discharge Summary: Fidelina has been an active and motivated participant in her therapy in and out of the clinic. We are in agreement with DC today as she is I with her home program, she is improved f her function, though she persists with some pain the sharp concerning pain is resolved. Pt is limited of her exercise capacity d/t her COPD. Electronically signed by: Pro Awan PT. Please sign and return to therapist. Thank you for your referral.
== END 2025-09-25 18:09 | disposition home or self-care (01) ==
LOC: HO.PT 14:50
PROVIDERS: PCP Internal Medicine; Visit Provider Student in an Organized Health Care Education/Training Program
DX: M17.0 Bilateral primary osteoarthritis of knee (principal)
CPT/HCPCS: 97110; 97161; 97530